=== PATIENT | male | born 1950 | race American Indian/Alaskan Native ===

== ENCOUNTER 2017-02-13 14:03 | Outpatient (CLI) | payer MEDICARE ==
[2017-02-13 14:39] LABS: BUN/Creatinine Ratio 9.37; Calcium 9.5 mg/dL (8.4-10.2); Chloride 102.3 mmol/L (98-107); Potassium 5.2 mmol/L (3.6-5.0)
== END 2017-02-13 14:04 | disposition home or self-care (01) ==
LOC: LAB 14:03
PROVIDERS: ATTEND Internal Medicine Nephrology
DX: I13.0 Hypertensive heart and chronic kidney disease with heart failure and stage 1 through stage 4 chronic kidney disease, or unspecified chronic kidney disease (principal); I50.9 Heart failure, unspecified; N18.3 Chronic kidney disease, stage 3 (moderate); Z79.899 Other long term (current) drug therapy
CPT/HCPCS: 36415; 80048

== ENCOUNTER 2017-05-31 09:47 | Emergency (ER) | payer MEDICARE ==
[2017-05-31 10:01] VITALS: BP 135/90
== END 2017-05-31 09:58 | disposition left against medical advice (07) ==
LOC: ED 09:47
DX: M79.651 Pain in right thigh (principal); Z53.21 Procedure and treatment not carried out due to patient leaving prior to being seen by health care provider

== ENCOUNTER 2017-06-02 08:39 | Emergency (ER) | payer MEDICARE ==
[2017-06-02 08:54] VITALS: BP 127/90
[2017-06-02] MEDS: MOTRIN PO ONE (10:29)
--- NOTE | 2017-06-02 11:03 | Emergency Department Report ---
ED Lower Extremity HPI - General Chief Complaint: Extremity Injury, Lower Stated Complaint: RT THIGH PAIN Time Seen by Provider: 06/02/17 10:07 Source: patient Mode of arrival: Ambulatory Limitations: No Limitations - History of Present Illness Initial Comments: This is a 66-year-old male nontoxic, well nourished in appearance, no acute signs of distress presents to the ED complaining of chronic intermittent right thigh pain. They stated the past week his pain is getting worse. Patient denies any trauma to the region. Denies any numbness, tingling, fever, chills, joint redness, joint swelling, nausea, vomiting, chest pain, shortness of breath , stiff neck or headache, or blurred vision. Patient describes pain as aching and cramping with level of 8 out of 10. Patient denies any allergies. Past medical history includes hypertension, diabetes and congestive heart failure. MD Complaint: thigh injury -: Gradual, year(s) Severity: mild Severity scale (0 -10): 8 Improves With: nothing Worsens With: nothing Associated Symptoms: ambulatory. denies: snap/pop sensation, swelling, numbness , tingling, unable to bear weight, able to partially bear weight - Related Data Home Medications Medication Instructions Recorded Confirmed Last Taken Carvedilol [Coreg] 3.125 mg PO BID 06/03/13 09/25/13 09/25/13 Furosemide [Lasix] 40 mg PO DAILY 06/03/13 09/25/13 09/25/13 Lisinopril [Zestril] 20 mg PO BID 06/03/13 09/25/13 09/25/13 Metformin HCl [Metformin HCl ER] 500 mg PO QDAY 06/03/13 09/25/13 09/25/13 Potassium Chloride [K-Dur] 10 meq PO QDAY 06/03/13 09/25/13 09/25/13 Pravastatin Sodium [Pravastatin] 10 mg PO DAILY 06/03/13 09/25/13 09/25/13 Tamsulosin [Flomax] 0.4 mg PO QDAY 06/03/13 09/25/13 09/25/13 Previous Rx's Medication Instructions Recorded Last Taken Type oxyCODONE /ACETAMINOPHEN [Percocet 1 tab PO Q6HR PRN #20 tablet 06/03/13 Rx 5/325 mg] Famotidine [Pepcid] 20 mg PO DAILY #30 tablet 09/25/13 Unknown Rx Gabapentin [Neurontin] 300 mg PO BID #60 capsule 09/25/13 Unknown Rx Sulfamethoxazole/Trimethoprim 1 each PO BID #20 tablet 11/07/14 Unknown Rx [Bactrim Ds] traMADol [Ultram] 50 mg PO Q6HR PRN #20 tablet 11/07/14 Unknown Rx Acetaminophen/Codeine [Tylenol #3] 1 tab PO Q6H PRN #15 tab 11/11/14 Unknown Rx Ibuprofen [Motrin 600 MG tab] 600 mg PO Q8H PRN #30 tablet 06/02/17 Unknown Rx Allergies Allergy/AdvReac Type Severity Reaction Status Date / Time No Known Allergies Allergy Verified 09/25/13 08:11 ED Review of Systems ROS: Stated complaint: RT THIGH PAIN Other details as noted in HPI Constitutional: denies: chills, fever Eyes: denies: eye pain, eye discharge, vision change ENT: denies: ear pain, throat pain Respiratory: denies: cough, shortness of breath, wheezing Cardiovascular: denies: chest pain, palpitations Endocrine: no symptoms reported Gastrointestinal: denies: abdominal pain, nausea, diarrhea Genitourinary: denies: urgency, dysuria Musculoskeletal: denies: back pain, joint swelling, arthralgia Skin: denies: rash, lesions Neurological: denies: headache, weakness, paresthesias Psychiatric: denies: anxiety, depression Hematological/Lymphatic: denies: easy bleeding, easy bruising ED Past Medical Hx - Past Medical History Hx Hypertension: Yes Hx Congestive Heart Failure: Yes Hx Diabetes: Yes Additional medical history: HX of TB - Surgical History Additional Surgical History: R lung surgery - Social History Smoking Status: Never Smoker Substance Use Type: Alcohol - Medications Home Medications: Home Medications Medication Instructions Recorded Confirmed Last Taken Type Carvedilol [Coreg] 3.125 mg PO BID 06/03/13 09/25/13 09/25/13 History Furosemide [Lasix] 40 mg PO DAILY 06/03/13 09/25/13 09/25/13 History Lisinopril [Zestril] 20 mg PO BID 06/03/13 09/25/13 09/25/13 History Metformin HCl [Metformin HCl ER] 500 mg PO QDAY 06/03/13 09/25/13 09/25/13 History Potassium Chloride [K-Dur] 10 meq PO QDAY 06/03/13 09/25/13 09/25/13 History Pravastatin Sodium [Pravastatin] 10 mg PO DAILY 06/03/13 09/25/13 09/25/13 History Tamsulosin [Flomax] 0.4 mg PO QDAY 06/03/13 09/25/13 09/25/13 History oxyCODONE /ACETAMINOPHEN [Percocet 1 tab PO Q6HR PRN #20 tablet 06/03/1309/25/13 Rx 5/325 mg] Famotidine [Pepcid] 20 mg PO DAILY #30 tablet 09/25/13 Unknown Rx Gabapentin [Neurontin] 300 mg PO BID #60 capsule 09/25/13 Unknown Rx Sulfamethoxazole/Trimethoprim 1 each PO BID #20 tablet 11/07/14 Unknown Rx [Bactrim Ds] traMADol [Ultram] 50 mg PO Q6HR PRN #20 tablet 11/07/14 Unknown Rx Acetaminophen/Codeine [Tylenol #3] 1 tab PO Q6H PRN #15 tab 11/11/14 Unknown Rx Ibuprofen [Motrin 600 MG tab] 600 mg PO Q8H PRN #30 tablet 06/02/17 Unknown Rx ED Physical Exam - General Limitations: No Limitations General appearance: alert, in no apparent distress - Head Head exam: Present: atraumatic, normocephalic, normal inspection - Eye Eye exam: Present: normal appearance, PERRL, EOMI. Absent: scleral icterus, conjunctival injection, nystagmus, periorbital swelling, periorbital tenderness Pupils: Present: normal accommodation - ENT ENT exam: Present: normal exam, normal orophraynx, mucous membranes moist, TM's normal bilaterally, normal external ear exam - Neck Neck exam: Present: normal inspection, full ROM. Absent: tenderness, meningismus, lymphadenopathy, thyromegaly - Respiratory Respiratory exam: Present: normal lung sounds bilaterally. Absent: respiratory distress, wheezes, rales, rhonchi, stridor, chest wall tenderness, accessory muscle use, decreased breath sounds, prolonged expiratory - Cardiovascular Cardiovascular Exam: Present: regular rate, normal rhythm, normal heart sounds. Absent: bradycardia, tachycardia, irregular rhythm, systolic murmur, diastolic murmur, rubs, gallop - GI/Abdominal GI/Abdominal exam: Present: soft, normal bowel sounds. Absent: distended, tenderness, guarding, rebound, rigid, diminished bowel sounds - Rectal Rectal exam: Present: deferred - Extremities Exam Extremities exam: Present: normal inspection, full ROM, tenderness, normal capillary refill. Absent: pedal edema, joint swelling, calf tenderness - Expanded Lower Extremity Exam Right Hip exam: Present: normal inspection, full ROM, external rotation, internal rotation, pelvic stability. Absent: tenderness, swelling, abrasion, laceration , ecchymosis, deformity, crepidus, dislocation, erythema, shortening Upper Leg exam: Present: normal inspection, full ROM, tenderness (anterior and lateral thigh region upon palpation). Absent: swelling, abrasion, laceration, ecchymosis, deformity, crepidus, dislocation, erythema Knee exam: Present: normal inspection, full ROM, full knee extension. Absent: tenderness, swelling, abrasion, laceration, ecchymosis, deformity, crepidus, dislocation, erythema, effusion, pain w/ pronation/supination, posterior draw sign, pain/laxity with valgus, pain/laxity with varus Lower Leg exam: Present: normal inspection, full ROM. Absent: tenderness, swelling, abrasion, laceration, ecchymosis, deformity, crepidus, dislocation, erythema, palpable cord, Aimee's sign Ankle exam: Present: normal inspection, full ROM. Absent: tenderness, swelling , abrasion, laceration, ecchymosis, deformity, crepidus, dislocation, erythema, anterior draw sign Foot/Toe exam: Present: normal inspection, full ROM. Absent: tenderness, swelling, abrasion, laceration, ecchymosis, deformity, crepidus, dislocation, erythema, puncture wound, foreign body, calcaneal tenderness, tenderness at base of 5th metatarsal, nail avulsion, subungual hematoma Neuro vascular tendon exam: Present: no vascular compromise. Absent: pulse deficit, abnormal cap refill, motor deficit, sensory deficit, tendon deficit, extremity cold to touch, pallor, abnormal 2-point discrimination, decreased fine /light touch, foot drop, peroneal nerve deficit, significant pain with passive ROM of distal joint Gait: Positive: observed and normal 1 - tenderness - Back Exam Back exam: Present: normal inspection, full ROM. Absent: tenderness, CVA tenderness (R), CVA tenderness (L), muscle spasm, paraspinal tenderness, vertebral tenderness, rash noted - Neurological Exam Neurological exam: Present: alert, oriented X3, CN II-XII intact, normal gait, reflexes normal - Psychiatric Psychiatric exam: Present: normal affect, normal mood - Skin Skin exam: Present: warm, dry, intact, normal color. Absent: rash ED Course Vital Signs 06/02/17 08:50 Temperature 97.6 F Pulse Rate 70 Respiratory 16 Rate Blood Pressure 127/90 O2 Sat by Pulse 100 Oximetry - Reevaluation(s) Reevaluation #1: 06/02/17 11:06 Patient is speaking in full sentences with no signs of distress noted. - Consultations Consultation #1: 06/02/17 11:39 Dr. Bell was consulted about patient history, physcial exam, and lab findings and agrees to the plan of care in the ED w/ d/c f/u. ED Lower Extremity MDM - Lab Data Result diagrams: 06/02/17 10:43 06/02/17 14:14 - Radiology Data Radiology results: report reviewed interpreted by me: Dictated by radiologist Normal examination - Medical Decision Making 66-year-old male that presents with right muscular cramp to the thigh. CBC and BMP has been obtained with elevated potassium of 5.9. X-ray has been obtained and dictated a radiologist with negative findings of any abnormalities, fractures or dislocation. Patient received 15 units of NovoLog and Kionex [address] Bell to decreased K+. EKG has been obtained with normal EKG for patient. Patient was notified to increased hydration. K+ within normal limits before d/c at 4.5. Patient was notified of laboratory findings with no further questions nor by the patient. Patient stated he finished taking his potassium medication about 4 months ago. I instructed the importance to follow up with a primary care doctor in 24 hours for elevated potassium or if symptoms worsen and continue to emergency room as soon as possible. Patient received ibuprofen 600 mg by mouth in the ED. Patient is hemodynamically stable with stable vital signs. Patient states he is feeling better. At time time of discharge, the patient does not seem toxic or ill in appearance. No acute signs of distress noted. Patient agrees to discharge treatment plan of care. No further questions noted by the patient. Critical care attestation.: If time is entered above; I have spent that time in minutes in the direct care of this critically ill patient, excluding procedure time. ED Disposition Clinical Impression: Hyperkalemia Muscle strain of left thigh Qualifiers: Encounter type: initial encounter Qualified Code(s): S76.912A - Strain of unspecified muscles, fascia and tendons at thigh level, left thigh, initial encounter Disposition: TO HOME OR SELFCARE Is pt being admited?: No Does the pt Need Aspirin: No Condition: Stable Instructions: Ibuprofen (By mouth), Hyperkalemia (ED), Leg Cramps (ED) Additional Instructions: Follow-up with a primary care doctor in 24 hours or if symptoms worsen and continue return to emergency room as soon as possible possible. Prescriptions: Ibuprofen [Motrin 600 MG tab] 600 mg PO Q8H PRN #30 tablet PRN Reason: Pain Referrals: PRIMARY CAREMD [Primary Care Provider] - 3-5 Days IVETTE FARNSWORTH MD [Staff Physician] - 3-5 Days [facility] [Outside] - 3-5 Days [facility] [Outside] - 3-5 Days Forms: Work/School Release Form(ED)
[2017-06-02 11:12] LABS: Basophils % (Auto) 1.1 % (0.0-1.8); Eosinophils % (Auto) 2.4 % (0.0-4.3); Hemoglobin 13.9 gm/dl (11.8-15.2); Mean Corpuscular HGB Conc 32 % (32-34); Mean Corpuscular Hemoglobin 26 pg (28-32); Mean Corpuscular Volume 81 fl (84-94); Platelet Count 264 K/mm3 (140-440); Red Blood Count 5.34 M/mm3 (3.65-5.03); Red Cell Distribution Width 14.1 % (13.2-15.2); White Blood Count 7.3 K/mm3 (4.5-11.0)
[2017-06-02 11:14] LABS: Anion Gap 15 mmol/L; BUN/Creatinine Ratio 18; Blood Urea Nitrogen 23 mg/dL (9-20); Calcium 9.4 mg/dL (8.4-10.2); Carbon Dioxide 29 mmol/L (22-30); Chloride 99.2 mmol/L (98-107); Glucose 254 mg/dL (75-100); Potassium 5.9 mmol/L (3.6-5.0); Sodium 137 mmol/L (137-145)
--- NOTE | 2017-06-02 11:14 | XRay Report ---
RIGHT FEMUR RADIOGRAPHS INDICATION: Right femur pain. COMPARISON: None similar. FINDINGS: AP and lateral views demonstrate intact right femur as also imaged adjacent hip and knee articulations. Mild knee degenerative spurring. Brachytherapy seeds incidentally noted. Normal soft tissues. CONCLUSION: No acute right femur radiographic abnormality with few other findings, as above. Thank you for the opportunity to participate in this patient's care.
[2017-06-02] MEDS: KIONEX PO ONE (12:09)
[2017-06-02] MEDS: NOVOLOG SUB-Q ONE ×2 (13:07→13:08)
[2017-06-02 14:51] LABS: Anion Gap 18 mmol/L; BUN/Creatinine Ratio 18; Blood Urea Nitrogen 22 mg/dL (9-20); Carbon Dioxide 23 mmol/L (22-30); Glucose 213 mg/dL (75-100); Potassium 4.5 mmol/L (3.6-5.0); Sodium 137 mmol/L (137-145)
== END 2017-06-02 15:45 | disposition home or self-care (01) ==
LOC: ED 08:39
DX: S76.911A Strain of unspecified muscles, fascia and tendons at thigh level, right thigh, initial encounter (principal); E87.5 Hyperkalemia; E11.9 Type 2 diabetes mellitus without complications; I10 Essential (primary) hypertension; I50.9 Heart failure, unspecified; X58.XXXA Exposure to other specified factors, initial encounter; Y93.89 Activity, other specified; Y92.89 Other specified places as the place of occurrence of the external cause; Y99.8 Other external cause status
CPT/HCPCS: 36415; 80048; 82550; 82962; 83735; 85025; 93005; 93010; 96372; J1815

== ENCOUNTER 2018-03-01 07:50 | Emergency (ER) | payer MEDICARE ==
[2018-03-01 08:56] VITALS: BP 117/81
[2018-03-01 09:46] LABS: Bacteria,Urine 1+ /HPF (Negative); Bilirubin,Urine NEG (Negative); Blood,Urine NEG (Negative); Color,Urine Yellow (Yellow); Mucus,Urine FEW /HPF
--- NOTE | 2018-03-01 10:56 | Emergency Department Report ---
ED Male HPI - General Chief complaint: Urogenital-Male Stated complaint: RIGHT LEG PAIN Time Seen by Provider: 03/01/18 10:37 Source: patient Mode of arrival: Ambulatory Limitations: No Limitations - History of Present Illness Initial comments: Patient is a 67-year-old male who states for the last several weeks he has had pain it's penis. Patient was seen at outside clinic and was started on Augmentin. Patient has not completed all of these pills but states that he feels like the redness of the penis is getting worse. Patient has some urinary frequency but no dysuria. Patient is uncircumcised and the redness and swelling is at the glans of the penis. Patient also has some redness now developing in the medial right ankle. This area is tender states is a 6 out of 10 in severity and aching pain. Patient states he has some pain in the right groin as well. Patient denies any fevers chills nausea vomiting at this time. Patient's last blood sugar this morning was 180. - Related Data Home Medications Medication Instructions Recorded Confirmed Last Taken Carvedilol [Coreg] 3.125 mg PO BID 06/03/13 09/25/13 09/25/13 Furosemide [Lasix] 40 mg PO DAILY 06/03/13 09/25/13 09/25/13 Lisinopril [Zestril] 20 mg PO BID 06/03/13 09/25/13 09/25/13 Metformin HCl [Metformin HCl ER] 500 mg PO QDAY 06/03/13 09/25/13 09/25/13 Potassium Chloride [K-Dur] 10 meq PO QDAY 06/03/13 09/25/13 09/25/13 Pravastatin Sodium [Pravastatin] 10 mg PO DAILY 06/03/13 09/25/13 09/25/13 Tamsulosin [Flomax] 0.4 mg PO QDAY 06/03/13 09/25/13 09/25/13 Previous Rx's Medication Instructions Recorded Last Taken Type oxyCODONE /ACETAMINOPHEN [Percocet 1 tab PO Q6HR PRN #20 tablet 06/03/13 Rx 5/325 mg] Famotidine [Pepcid] 20 mg PO DAILY #30 tablet 09/25/13 Unknown Rx Gabapentin [Neurontin] 300 mg PO BID #60 capsule 09/25/13 Unknown Rx Sulfamethoxazole/Trimethoprim 1 each PO BID #20 tablet 11/07/14 Unknown Rx [Bactrim Ds] traMADol [Ultram] 50 mg PO Q6HR PRN #20 tablet 11/07/14 Unknown Rx Acetaminophen/Codeine [Tylenol #3] 1 tab PO Q6H PRN #15 tab 11/11/14 Unknown Rx Cyclobenzaprine HCl [Flexeril 5 MG 5 mg PO DAILY #5 tab 06/02/17 Unknown Rx TAB] Ibuprofen [Motrin 600 MG tab] 600 mg PO Q8H PRN #30 tablet 06/02/17 Unknown Rx Bacitracin/Pramoxine/Aloe Vera 1 applicatio TP TID #15 oint...g. 03/01/18 Unknown Rx [Bacitraycin Plus Ointment] Clindamycin [Clindamycin CAP] 300 mg PO Q8H 10 Days cap 03/01/18 Unknown Rx HYDROcodone/APAP 5-325 [[place] 1 each PO Q6HR PRN #15 tablet 03/01/18 Unknown Rx 5/325] Allergies Allergy/AdvReac Type Severity Reaction Status Date / Time No Known Allergies Allergy Verified 09/25/13 08:11 ED Review of Systems ROS: Stated complaint: RIGHT LEG PAIN Other details as noted in HPI Comment: All other systems reviewed and negative ED Past Medical Hx - Past Medical History Hx Hypertension: Yes Hx Congestive Heart Failure: Yes Hx Diabetes: Yes Additional medical history: HX of TB - Surgical History Additional Surgical History: R lung surgery - Social History Smoking Status: Never Smoker - Medications Home Medications: Home Medications Medication Instructions Recorded Confirmed Last Taken Type Carvedilol [Coreg] 3.125 mg PO BID 06/03/13 09/25/13 09/25/13 History Furosemide [Lasix] 40 mg PO DAILY 06/03/13 09/25/13 09/25/13 History Lisinopril [Zestril] 20 mg PO BID 06/03/13 09/25/13 09/25/13 History Metformin HCl [Metformin HCl ER] 500 mg PO QDAY 06/03/13 09/25/13 09/25/13 History Potassium Chloride [K-Dur] 10 meq PO QDAY 06/03/13 09/25/13 09/25/13 History Pravastatin Sodium [Pravastatin] 10 mg PO DAILY 06/03/13 09/25/13 09/25/13 History Tamsulosin [Flomax] 0.4 mg PO QDAY 06/03/13 09/25/13 09/25/13 History oxyCODONE /ACETAMINOPHEN [Percocet 1 tab PO Q6HR PRN #20 tablet 06/03/1309/25/13 Rx 5/325 mg] Famotidine [Pepcid] 20 mg PO DAILY #30 tablet 09/25/13 Unknown Rx Gabapentin [Neurontin] 300 mg PO BID #60 capsule 09/25/13 Unknown Rx Sulfamethoxazole/Trimethoprim 1 each PO BID #20 tablet 11/07/14 Unknown Rx [Bactrim Ds] traMADol [Ultram] 50 mg PO Q6HR PRN #20 tablet 11/07/14 Unknown Rx Acetaminophen/Codeine [Tylenol #3] 1 tab PO Q6H PRN #15 tab 11/11/14 Unknown Rx Cyclobenzaprine HCl [Flexeril 5 MG 5 mg PO DAILY #5 tab 06/02/17 Unknown Rx TAB] Ibuprofen [Motrin 600 MG tab] 600 mg PO Q8H PRN #30 tablet 06/02/17 Unknown Rx Bacitracin/Pramoxine/Aloe Vera 1 applicatio TP TID #15 oint...g. 03/01/18 Unknown Rx [Bacitraycin Plus Ointment] Clindamycin [Clindamycin CAP] 300 mg PO Q8H 10 Days cap 03/01/18 Unknown Rx HYDROcodone/APAP 5-325 [[place] 1 each PO Q6HR PRN #15 tablet 03/01/18 Unknown Rx 5/325] ED Physical Exam - General Limitations: No Limitations General appearance: alert, in no apparent distress - Head Head exam: Present: atraumatic, normocephalic - Eye Eye exam: Present: normal appearance - ENT ENT exam: Present: mucous membranes moist - Neck Neck exam: Present: normal inspection - Respiratory Respiratory exam: Present: normal lung sounds bilaterally. Absent: respiratory distress - Cardiovascular Cardiovascular Exam: Present: regular rate, normal rhythm. Absent: systolic murmur, diastolic murmur, rubs, gallop - GI/Abdominal GI/Abdominal exam: Present: soft, normal bowel sounds - Rectal Rectal exam: Present: deferred - exam: Absent: normal inspection, testicular tenderness, urethral discharge, scrotal swelling External exam: Present: erythema (patient has some erythema to the glans penis. There are also some plaque like lesions on the glans.) - Extremities Exam Extremities exam: Present: normal inspection - Back Exam Back exam: Present: normal inspection - Neurological Exam Neurological exam: Present: alert, oriented X3 - Psychiatric Psychiatric exam: Present: normal affect, normal mood - Skin Skin exam: Present: warm, dry, intact, normal color, other (patient has an area of induration or erythema to the medial right ankle. Patient also has some lymphadenopathy in the right inguinal area.). Absent: rash ED Course Vital Signs 03/01/18 08:50 Temperature 98.2 F Pulse Rate 76 Respiratory 16 Rate Blood Pressure 117/81 O2 Sat by Pulse 100 Oximetry ED Medical Decision Making - Lab Data Lab Results 03/01/18 Range/Units 09:14 Urine Color Yellow (Yellow) Urine Turbidity Clear (Clear) Urine pH 5.0 (5.0-7.0) Ur Specific [place] 1.021 (1.003-1.030) Urine Protein 100 mg/dl (Negative) mg/dL Urine Glucose (UA) >=500 (Negative) mg/dL Urine Ketones Neg (Negative) mg/dL Urine Blood Neg (Negative) Urine Nitrite Neg (Negative) Urine Bilirubin Neg (Negative) Urine Urobilinogen 4.0 (<2.0) mg/dL Ur Leukocyte Esterase Neg (Negative) Urine WBC (Auto) 1.0 (0.0-6.0) /HPF Urine RBC (Auto) 5.0 (0.0-6.0) /HPF Urine Bacteria (Auto) 1+ (Negative) /HPF Urine Mucus Few /HPF - Medical Decision Making Clinically the patient has a balanitis and possible cellulitis to the penis. This does seem to exclude the scrotum. Patient has some lymph node swelling that is reactive. It is concerning that the patient does have some plaque like lesions on the glans of his penis and urology follow-up be given as well to ensure that there is no evidence of any skin carcinoma. Patient possibly with a cross-contamination does have a small area of cellulitis to the right medial ankle as well. Patient's been taking Augmentin for these symptoms which are getting worse. Patient will have his antibiotic was changed to clindamycin patient will be referred to urology for follow-up. Patient given pain meds as well. Patient will be discharged home Critical care attestation.: If time is entered above; I have spent that time in minutes in the direct care of this critically ill patient, excluding procedure time. ED Disposition Clinical Impression: Cellulitis, Balanitis Disposition: TO HOME OR SELFCARE Is pt being admited?: No Does the pt Need Aspirin: No Condition: Stable Instructions: Balanitis (ED), Cellulitis (ED) Additional Instructions: Please follow up with urology, you do have a plaque-like lesion on your penis that is very concerning. This will potentially need biopsy. There is also an infection please take all the antibiotics have been prescribed. Referrals: PRIMARY CARE, [Primary Care Provider] - 3-5 Days
== END 2018-03-01 11:11 | disposition home or self-care (01) ==
LOC: ED 07:50
DX: N48.1 Balanitis (principal); L03.115 Cellulitis of right lower limb; I11.0 Hypertensive heart disease with heart failure; I50.9 Heart failure, unspecified; E11.9 Type 2 diabetes mellitus without complications
CPT/HCPCS: 81001; 87086; 87591; 99283

== ENCOUNTER 2018-03-09 10:42 | Observation (INO) | payer MEDICARE ==
[2018-03-09] MEDS ORDERED: ZOFRAN IV PRN (12:40)
[2018-03-09] MEDS ORDERED: SODIUM CHLORIDE FLUSH SYRINGE 10 ML IV PRN (12:40)
--- NOTE | 2018-03-09 12:56 | Progress Note ---
Assessment and Plan severe penile and groin pain stat ct npo past midnight Subjective Date of service: 03/09/18 Principal diagnosis: poss penile cancer severe pain Objective - Constitutional General appearance: Present: severe distress - Respiratory Respiratory effort: normal Extremities: no ischemia - Gastrointestinal General gastrointestinal: Present: tender - Genitourinary Male genitourinary: tender
[2018-03-09] MEDS ORDERED: D5NS 1,000 ML IV SCH (13:00)
--- NOTE | 2018-03-09 14:50 | Consultation ---
HISTORY OF PRESENT ILLNESS: This is a gentleman who came in the office last week with severe pain, which has progressed over the weekend. He is admitted for pelvic pain, groin pain, penile pain. He has a lesion on the penis. He also has adenopathy in the groin. He is admitted for pain control, labs. We will check his calcium, CT scan. All risks and options were discussed. Informed consent was obtained today. We will have a procedure tomorrow at least a biopsy this area. PAST MEDICAL HISTORY: History of ?prostate cancer, hypertension, and diabetes. MEDICATIONS: He has been on Flomax, pain medication, carvedilol, clonidine, Lasix, Neurontin, insulin. ALLERGIES: Negative. FAMILY HISTORY: Noncontributory. SOCIAL HISTORY: Negative. REVIEW OF SYSTEMS: As mentioned above, severe pain. On exam, he can barely walk. He is in pain. He looks distraught. Abdomen is soft, but he has this groin pain and penile ulcer. IMPRESSION: Rule out penile cancer, stat CT scan. Admit for pain control needs and biopsies. Once his labs are back, we can do this today or tomorrow. JOB# [id number] ANSELMO/RUBY
[2018-03-09] MEDS: NACL 0.9% 1000 ML 1,000 ML IV SCH (15:18)
[2018-03-09] MEDS: MORPHINE IV PRN ×2 (15:22→20:37)
[2018-03-09 16:12] LABS: Basophils # (Auto) 0.1 K/mm3 (0.0-0.1); Eosinophils # (Auto) 0.2 K/mm3 (0.0-0.4); Hemoglobin 13.2 gm/dl (11.8-15.2); Lymphocytes # (Auto) 1.7 K/mm3 (1.2-5.4); Lymphocytes % (Auto) 17.3 % (13.4-35.0); Mean Corpuscular HGB Conc 34 % (32-34); Mean Corpuscular Hemoglobin 27 pg (28-32); Mean Corpuscular Volume 79 fl (84-94); Monocytes # (Auto) 0.6 K/mm3 (0.0-0.8); Monocytes % (Auto) 6.4 % (0.0-7.3); Platelet Count 405 K/mm3 (140-440); Red Blood Count 4.94 M/mm3 (3.65-5.03); Red Cell Distribution Width 13.1 % (13.2-15.2)
[2018-03-09 16:21] LABS: INR 1.05 (0.87-1.13)
[2018-03-09 16:22] LABS: Partial Thromboplastin Time 32.5 Sec. (24.2-36.6)
[2018-03-09 16:37] LABS: Albumin 3.1 g/dL (3.9-5); BUN/Creatinine Ratio 17; Blood Urea Nitrogen 19 mg/dL (9-20); Calcium 9.3 mg/dL (8.4-10.2); Hemolysis Index 13
[2018-03-09 16:40] LABS: Alanine Aminotransferase < 5 units/L (7-56)
[2018-03-09 18:26] LABS: Bilirubin,Urine NEG (Negative); Blood,Urine NEG (Negative); Color,Urine Yellow (Yellow); Hyaline Casts,Urine 6 /LPF; Mucus,Urine FEW /HPF; RBC,Urine < 1.0 /HPF (0.0-6.0); Sperm,Urine 1+ /HPF (NP); WBC,Urine < 1.0 /HPF (0.0-6.0)
[2018-03-09] MEDS ORDERED: SODIUM CHLORIDE FLUSH SYRINGE 10 ML IV SCH (22:00)
--- NOTE | 2018-03-09 23:21 | XRay Report ---
FINAL REPORT PROCEDURE: XR CHEST ROUTINE 2V TECHNIQUE: PA and lateral chest radiographs were obtained. CPT 95887 HISTORY: PREOP COMPARISON: No prior studies are available for comparison. FINDINGS: Heart: Normal. Mediastinum/Vessels: Normal. Lungs/Pleural space: Lungs are expanded there are mild fibrotic changes in the right lung. There are no infiltrates, effusions or pneumothoraces.. Bony thorax: No acute osseous abnormality. Other: IMPRESSION: There is no acute cardiopulmonary abnormality..
--- NOTE | 2018-03-10 00:04 | History and Physical Report ---
History of Present Illness Date of examination: 03/09/18 Date of admission: 03/09/18 12:39 Chief complaint: Chief complaint: Penile ulcer which may be cancerous- 1 month duration History of present illness: History of present illness: 57-year-old black male with history of prostate cancer which was treated hypertension gases available disease hyperlipidemia and type 2 diabetes sent in from Dr[address] VERA office for chronic penile ulcer of 1 month duration associated with right inguinal adenopathy. Patient sent for possible biopsy and workup for penile cancer staging. Patient has a history of prostate cancer which was treated with radiation therapy a few years ago. No shortness of breath No chest pain Past medical history: Hypertension BPH HLD GERD PN Chronic pain Past surgical history Radiation implants and prostate Family history Hypertension Social history former smoker Review of systems Chronic ulcer on the penis with right inguinal adenopathy No shortness of breath No weight loss No loss of appetite Otherwise 14 point review of systems negative Medications and Allergies Allergies Allergy/AdvReac Type Severity Reaction Status Date / Time No Known Allergies Allergy Verified 09/25/13 08:11 Home Medications Medication Instructions Recorded Confirmed Last Taken Type Carvedilol [Coreg] 3.125 mg PO BID 06/03/13 09/25/13 09/25/13 History Furosemide [Lasix] 40 mg PO DAILY 06/03/13 09/25/13 09/25/13 History Lisinopril [Zestril] 20 mg PO BID 06/03/13 09/25/13 09/25/13 History Metformin HCl [Metformin HCl ER] 500 mg PO QDAY 06/03/13 09/25/13 09/25/13 History Potassium Chloride [K-Dur] 10 meq PO QDAY 06/03/13 09/25/13 09/25/13 History Pravastatin Sodium [Pravastatin] 10 mg PO DAILY 06/03/13 09/25/13 09/25/13 History Tamsulosin [Flomax] 0.4 mg PO QDAY 06/03/13 09/25/13 09/25/13 History oxyCODONE /ACETAMINOPHEN [Percocet 1 tab PO Q6HR PRN #20 tablet 06/03/1309/25/13 Rx 5/325 mg] Famotidine [Pepcid] 20 mg PO DAILY #30 tablet 09/25/13 Unknown Rx Gabapentin [Neurontin] 300 mg PO BID #60 capsule 09/25/13 Unknown Rx Sulfamethoxazole/Trimethoprim 1 each PO BID #20 tablet 11/07/14 Unknown Rx [Bactrim Ds] traMADol [Ultram] 50 mg PO Q6HR PRN #20 tablet 11/07/14 Unknown Rx Acetaminophen/Codeine [Tylenol #3] 1 tab PO Q6H PRN #15 tab 11/11/14 Unknown Rx Cyclobenzaprine HCl [Flexeril 5 MG 5 mg PO DAILY #5 tab 06/02/17 Unknown Rx TAB] Ibuprofen [Motrin 600 MG tab] 600 mg PO Q8H PRN #30 tablet 06/02/17 Unknown Rx Bacitracin/Pramoxine/Aloe Vera 1 applicatio TP TID #15 oint...g. 03/01/18 Unknown Rx [Bacitraycin Plus Ointment] Clindamycin [Clindamycin CAP] 300 mg PO Q8H 10 Days cap 03/01/18 Unknown Rx HYDROcodone/APAP 5-325 [[place] 1 each PO Q6HR PRN #15 tablet 03/01/18 Unknown Rx 5/325] Carvedilol 25 mg PO BID 03/09/18 03/09/18 Unknown History Clonidine 0.3 mg PO BID 03/09/18 03/09/18 Unknown History Furosemide 40 mg PO DAILY 03/09/18 03/09/18 Unknown History Gabapentin 600 mg PO TID 03/09/18 03/09/18 Unknown History oxyCODONE 5 mg PO PRN PRN 03/09/18 03/09/18 Unknown History Active Meds: Active Medications Sodium Chloride (Nacl 0.9% 1000 Ml) 1,000 mls @ 75 mls/hr IV DIRECT BRIDGETT Last Admin: 03/09/18 15:18 Dose: 75 mls/hr Morphine Sulfate (Morphine) 4 mg IV Q4H PRN PRN Reason: Pain, Moderate (4-6) Last Admin: 03/09/18 20:37 Dose: 4 mg Ondansetron HCl (Zofran) 4 mg IV Q8H PRN PRN Reason: Nausea And Vomiting Sodium Chloride (Sodium Chloride Flush Syringe 10 Ml) 10 ml IV BID BRIDGETT Sodium Chloride (Sodium Chloride Flush Syringe 10 Ml) 10 ml IV PRN PRN PRN Reason: LINE FLUSH Last Admin: 03/09/18 15:24 Dose: 10 ml Exam - Constitutional Vitals: Temp Pulse Resp BP Pulse Ox 99.4 F 85 18 179/106 100 03/09/18 20:43 03/09/18 20:43 03/09/18 20:43 03/09/18 20:43 03/09/18 20:43 General appearance: Present: no acute distress, well-nourished - EENT Eyes: Present: PERRL ENT: hearing intact, clear oral mucosa - Neck Neck: Present: supple, normal ROM - Respiratory Respiratory effort: normal Respiratory: bilateral: CTA - Cardiovascular Heart rate: 76 Rhythm: regular Heart Sounds: Present: S1 & S2. Absent: rub, click - Extremities Extremities: no ischemia, pulses intact, pulses symmetrical, No edema Peripheral Pulses: within normal limits - Abdominal General gastrointestinal: Present: soft, non-tender, non-distended, normal bowel sounds Male genitourinary: Present: penile edema (penile ulcer 1 cm 1 cm. Hyperpigmented and indurated.), right inguinal lymphadenopathy - Rectal Rectal Exam: deferred - Integumentary Integumentary: Present: clear, warm, dry - Musculoskeletal Musculoskeletal: gait normal, strength equal bilaterally - Psychiatric Psychiatric: appropriate mood/affect, intact judgment & insight - Neurologic Neurologic: CNII-XII intact, moves all extremities Results - Labs CBC & Chem 7: 03/09/18 15:56 03/09/18 15:56 Labs: Laboratory Last Values WBC 9.9 K/mm3 (4.5-11.0) 03/09/18 15:56 RBC 4.94 M/mm3 (3.65-5.03) 03/09/18 15:56 Hgb 13.2 gm/dl (11.8-15.2) 03/09/18 15:56 Hct 39.0 % (35.5-45.6) 03/09/18 15:56 MCV 79 fl (84-94) L 03/09/18 15:56 MCH 27 pg (28-32) L 03/09/18 15:56 MCHC 34 % (32-34) 03/09/18 15:56 RDW 13.1 % (13.2-15.2) L 03/09/18 15:56 Plt Count 405 K/mm3 (140-440) 03/09/18 15:56 Lymph % (Auto) 17.3 % (13.4-35.0) 03/09/18 15:56 [place] % (Auto) 6.4 % (0.0-7.3) 03/09/18 15:56 Eos % (Auto) 2.0 % (0.0-4.3) 03/09/18 15:56 Baso % (Auto) 1.0 % (0.0-1.8) 03/09/18 15:56 Lymph # 1.7 K/mm3 (1.2-5.4) 03/09/18 15:56 [place] # 0.6 K/mm3 (0.0-0.8) 03/09/18 15:56 Eos # 0.2 K/mm3 (0.0-0.4) 03/09/18 15:56 Baso # 0.1 K/mm3 (0.0-0.1) 03/09/18 15:56 Seg Neutrophils % 73.3 % (40.0-70.0) H 03/09/18 15:56 Seg Neutrophils # 7.2 K/mm3 (1.8-7.7) 03/09/18 15:56 PT 14.3 Sec. (12.2-14.9) 03/09/18 15:56 INR 1.05 (0.87-1.13) 03/09/18 15:56 APTT 32.5 Sec. (24.2-36.6) 03/09/18 15:56 Sodium 131 mmol/L (137-145) L 03/09/18 15:56 Potassium 4.6 mmol/L (3.6-5.0) 03/09/18 15:56 Chloride 94.9 mmol/L (98-107) L 03/09/18 15:56 Carbon Dioxide 21 mmol/L (22-30) L 03/09/18 15:56 Anion Gap 20 mmol/L 03/09/18 15:56 BUN 19 mg/dL (9-20) 03/09/18 15:56 Creatinine 1.1 mg/dL (0.8-1.5) 03/09/18 15:56 Estimated GFR > 60 ml/min 03/09/18 15:56 BUN/Creatinine Ratio 17 % 03/09/18 15:56 Glucose 194 mg/dL (75-100) H 03/09/18 15:56 POC Glucose 196 (70-105) H 03/09/18 16:33 Calcium 9.3 mg/dL (8.4-10.2) 03/09/18 15:56 Total Bilirubin 0.40 mg/dL (0.1-1.2) 03/09/18 15:56 AST 9 units/L (5-40) 03/09/18 15:56 ALT < 5 units/L (7-56) L 03/09/18 15:56 Alkaline Phosphatase 85 units/L (35-129) 03/09/18 15:56 Total Protein 8.3 g/dL (6.3-8.2) H 03/09/18 15:56 Albumin 3.1 g/dL (3.9-5) L 03/09/18 15:56 Albumin/Globulin Ratio 0.6 % 03/09/18 15:56 TSH 1.860 mlU/mL (0.270-4.200) 03/09/18 15:56 Urine Color Yellow (Yellow) 03/09/18 Unknown Urine Turbidity Clear (Clear) 03/09/18 Unknown Urine pH 5.0 (5.0-7.0) 03/09/18 Unknown Ur Specific [place] 1.016 (1.003-1.030) 03/09/18 Unknown Urine Protein 100 mg/dl mg/dL (Negative) 03/09/18 Unknown Urine Glucose (UA) 150 mg/dL (Negative) 03/09/18 Unknown Urine Ketones Neg mg/dL (Negative) 03/09/18 Unknown Urine Blood Neg (Negative) 03/09/18 Unknown Urine Nitrite Neg (Negative) 03/09/18 Unknown Urine Bilirubin Neg (Negative) 03/09/18 Unknown Urine Urobilinogen 2.0 mg/dL (<2.0) 03/09/18 Unknown Ur Leukocyte Esterase Neg (Negative) 03/09/18 Unknown Urine WBC (Auto) < 1.0 /HPF (0.0-6.0) 03/09/18 Unknown Urine RBC (Auto) < 1.0 /HPF (0.0-6.0) 03/09/18 Unknown Hyaline Casts 6 /LPF 03/09/18 Unknown Urine Mucus Few /HPF 03/09/18 Unknown Urine Sperm 1+ /HPF (SUSPECT ARTIST) 03/09/18 Unknown - Imaging and Cardiology EKG: report reviewed (sinus rhythm multiple ventricular premature complexes incomplete left bundle branch block) Chest x-ray: report reviewed (no acute findings) Assessment and Plan Advance Directives: Yes (full code) VTE prophylaxis?: Chemical Plan of care discussed with patient/family: Yes - Patient Problems (1) Penile cancer Current Visit: Yes Status: Acute Plan to address problem: High possibility For biopsy tomorrow Patient has inguinal lymphadenopathy Oncology consult if necessary (2) Hypertension Current Visit: Yes Status: Chronic Qualifiers: Hypertension type: essential hypertension Qualified Code(s): I10 - Essential (primary) hypertension Plan to address problem: continue antihypertensives (3) BPH (benign prostatic hyperplasia) Current Visit: Yes Status: Chronic Qualifiers: Lower urinary tract symptom presence: symptoms present Plan to address problem: Continue Flomax (4) T2DM (type 2 diabetes mellitus) Current Visit: Yes Status: Chronic Qualifiers: Diabetes mellitus prison insulin use: without long lines operator use Plan to address problem: Continue metformin and coverage Check hemoglobin A1c (5) Hyperlipidemia Current Visit: Yes Status: Chronic Qualifiers: Hyperlipidemia type: mixed hyperlipidemia Qualified Code(s): E78.2 - Mixed hyperlipidemia Plan to address problem: Continue statins (6) Peripheral neuropathy Current Visit: Yes Status: Chronic Qualifiers: Peripheral neuropathy type: polyneuropathy, unspecified Qualified Code(s): G62.9 - Polyneuropathy, unspecified Plan to address problem: continue gabapentin (7) DVT prophylaxis Current Visit: Yes Status: Acute Plan to address problem: Heparin 5000 every 12 GI prophylaxis with famotidine
[2018-03-10] MEDS ORDERED: TYLENOL #3 PO PRN (00:18)
[2018-03-10] MEDS ORDERED: TYLENOL PO PRN (00:21)
[2018-03-10] MEDS ORDERED: SODIUM CHLORIDE FLUSH SYRINGE 10 ML IV PRN (00:21)
[2018-03-10] MEDS ORDERED: ZOFRAN IV PRN (00:21)
[2018-03-10] MEDS ORDERED: AMBIEN PO PRN (00:21)
[2018-03-10] MEDS ORDERED: NON-FORMULARY (Clonidine 0.3 MG) PO SCH (00:30)
[2018-03-10] MEDS ORDERED: COREG PO SCH (00:30)
[2018-03-10] MEDS ORDERED: NON-FORMULARY (Carvedilol 25 MG) PO SCH (00:30)
[2018-03-10] MEDS: MORPHINE IV PRN ×2 (00:34→05:20)
[2018-03-10] MEDS: CATAPRES PO SCH ×3 (03:39→23:37)
[2018-03-10] MEDS: NEURONTIN PO SCH ×3 (03:41→23:35)
[2018-03-10] MEDS: ZESTRIL PO SCH ×3 (03:42→23:36)
[2018-03-10] MEDS: NACL 0.9% 1000 ML 1,000 ML IV SCH ×3 (03:55→14:38)
[2018-03-10 05:29] LABS: Basophils # (Auto) 0.1 K/mm3 (0.0-0.1); Basophils % (Auto) 0.9 % (0.0-1.8); Eosinophils # (Auto) 0.1 K/mm3 (0.0-0.4); Eosinophils % (Auto) 1.3 % (0.0-4.3); Hematocrit 38.5 % (35.5-45.6); Hemoglobin 12.7 gm/dl (11.8-15.2); Lymphocytes % (Auto) 19.8 % (13.4-35.0); Mean Corpuscular HGB Conc 33 % (32-34); Mean Corpuscular Hemoglobin 26 pg (28-32); Mean Corpuscular Volume 80 fl (84-94); Monocytes % (Auto) 9.5 % (0.0-7.3); Platelet Count 396 K/mm3 (140-440); Red Blood Count 4.81 M/mm3 (3.65-5.03); Red Cell Distribution Width 12.9 % (13.2-15.2)
[2018-03-10 05:51] LABS: Albumin 2.8 g/dL (3.9-5); BUN/Creatinine Ratio 16; Blood Urea Nitrogen 14 mg/dL (9-20); Calcium 9.1 mg/dL (8.4-10.2); Hemolysis Index 1
[2018-03-10 05:54] LABS: Alanine Aminotransferase < 5 units/L (7-56)
--- NOTE | 2018-03-10 08:15 | Progress Note ---
Assessment and Plan Assessment and plan: 57-year-old black male with history of prostate cancer which was treated about 18 years ago with radiation implants, Hypertension hyperlipidemia and type 2 diabetes sent in from Dr. VERA office for chronic penile ulcer of 1 month duration associated with right inguinal adenopathy. Patient sent for possible biopsy and workup for penile cancer staging. Patient reports that he was seen by infectious disease with Dr. Wen and also had an MRI which was reportedly negative [recommend available to me at this time] he reports significant groin pain penal pain rated 10 over 10 in intensity (1) severe penile ulceration and groin pain concerning for Penile cancer * Urology following. Plan for biopsy today. * We'll request records from ID specialist if not available to urologist. * patient has tender inguinal lymphadenopathy * Oncology consult if necessary based on findings on results. * Pain control and this time (2) Hypertension * continue antihypertensives * resume pre-hospitalization beta jeanmarie (3) BPH (benign prostatic hyperplasia) * Continue Flomax (4) T2DM (type 2 diabetes mellitus) * Continue metformin post surgery. * For now we will use Accu-Cheks and insulin sliding scale (5) Hyperlipidemia * Continue statins (6) Peripheral neuropathy * Continue gabapentin (7)Prostate CA by hx * Radiation implants and prostate (8) DVT prophylaxis * Heparin 5000 every 12 * GI prophylaxis with famotidine History Interval history: Patient seen and examined this morning remains in significant pain in the groin and penile area. Denies any chest pain nausea vomiting or diarrhea denies any fever. Hospitalist Physical - Physical exam Narrative exam: VITAL SIGNS: Reviewed. GENERAL: The patient appeared well nourished and normally developed. Some temporal wasting noted. Vital signs as documented. HEAD: No signs of head trauma. EYES: Pupils are equal. Extraocular motions intact. EARS: Hearing grossly intact. MOUTH: Oropharynx is normal. NECK: No adenopathy, no JVD. CHEST: Chest with clear breath sounds bilaterally. No wheezes, rales, or rhonchi. CARDIAC: Regular rate and rhythm. S1 and S2, without murmurs, gallops, or rubs. VASCULAR: No Edema. Peripheral pulses normal and equal in all extremities. ABDOMEN: Right groin adenopathy tender to touch. Soft, without detectable tenderness. No sign of distention. No rebound or guarding, and no masses palpated. Bowel Sounds normal. MUSCULOSKELETAL: Good range of motion of all major joints. Extremities without clubbing, cyanosis or edema. NEUROLOGIC EXAM: Alert and oriented x 3. No focal sensory or strength deficits. Speech normal. Follows commands. PSYCHIATRIC: Mood normal. SKIN: Penile ulceration of the tip of the penile area. - Constitutional Vitals: Temp Pulse Resp BP Pulse Ox 99.4 F 85 18 190/102 100 03/09/18 20:43 03/10/18 03:39 03/09/18 20:43 03/10/18 03:39 03/09/18 20:43 General appearance: Present: no acute distress, well-nourished Results - Labs CBC & Chem 7: 03/10/18 04:41 03/10/18 04:41 Labs: Laboratory Last Values WBC 10.2 K/mm3 (4.5-11.0) 03/10/18 04:41 RBC 4.81 M/mm3 (3.65-5.03) 03/10/18 04:41 Hgb 12.7 gm/dl (11.8-15.2) 03/10/18 04:41 Hct 38.5 % (35.5-45.6) 03/10/18 04:41 MCV 80 fl (84-94) L 03/10/18 04:41 MCH 26 pg (28-32) L 03/10/18 04:41 MCHC 33 % (32-34) 03/10/18 04:41 RDW 12.9 % (13.2-15.2) L 03/10/18 04:41 Plt Count 396 K/mm3 (140-440) 03/10/18 04:41 Lymph % (Auto) 19.8 % (13.4-35.0) 03/10/18 04:41 [place] % (Auto) 9.5 % (0.0-7.3) H 03/10/18 04:41 Eos % (Auto) 1.3 % (0.0-4.3) 03/10/18 04:41 Baso % (Auto) 0.9 % (0.0-1.8) 03/10/18 04:41 Lymph # 2.0 K/mm3 (1.2-5.4) 03/10/18 04:41 [place] # 1.0 K/mm3 (0.0-0.8) H 03/10/18 04:41 Eos # 0.1 K/mm3 (0.0-0.4) 03/10/18 04:41 Baso # 0.1 K/mm3 (0.0-0.1) 03/10/18 04:41 Seg Neutrophils % 68.5 % (40.0-70.0) 03/10/18 04:41 Seg Neutrophils # 7.0 K/mm3 (1.8-7.7) 03/10/18 04:41 PT 14.3 Sec. (12.2-14.9) 03/09/18 15:56 INR 1.05 (0.87-1.13) 03/09/18 15:56 APTT 32.5 Sec. (24.2-36.6) 03/09/18 15:56 Sodium 134 mmol/L (137-145) L 03/10/18 04:41 Potassium 4.8 mmol/L (3.6-5.0) 03/10/18 04:41 Chloride 98.2 mmol/L (98-107) 03/10/18 04:41 Carbon Dioxide 21 mmol/L (22-30) L 03/10/18 04:41 Anion Gap 20 mmol/L 03/10/18 04:41 BUN 14 mg/dL (9-20) 03/10/18 04:41 Creatinine 0.9 mg/dL (0.8-1.5) 03/10/18 04:41 Estimated GFR > 60 ml/min 03/10/18 04:41 BUN/Creatinine Ratio 16 % 03/10/18 04:41 Glucose 156 mg/dL (75-100) H 03/10/18 04:41 POC Glucose 196 (70-105) H 03/09/18 16:33 Calcium 9.1 mg/dL (8.4-10.2) 03/10/18 04:41 Total Bilirubin 0.50 mg/dL (0.1-1.2) 03/10/18 04:41 AST 8 units/L (5-40) 03/10/18 04:41 ALT < 5 units/L (7-56) L 03/10/18 04:41 Alkaline Phosphatase 80 units/L (35-129) 03/10/18 04:41 Total Protein 7.6 g/dL (6.3-8.2) 03/10/18 04:41 Albumin 2.8 g/dL (3.9-5) L 03/10/18 04:41 Albumin/Globulin Ratio 0.6 % 03/10/18 04:41 TSH 1.860 mlU/mL (0.270-4.200) 03/09/18 15:56 Urine Color Yellow (Yellow) 03/09/18 Unknown Urine Turbidity Clear (Clear) 03/09/18 Unknown Urine pH 5.0 (5.0-7.0) 03/09/18 Unknown Ur Specific [place] 1.016 (1.003-1.030) 03/09/18 Unknown Urine Protein 100 mg/dl mg/dL (Negative) 03/09/18 Unknown Urine Glucose (UA) 150 mg/dL (Negative) 03/09/18 Unknown Urine Ketones Neg mg/dL (Negative) 03/09/18 Unknown Urine Blood Neg (Negative) 03/09/18 Unknown Urine Nitrite Neg (Negative) 03/09/18 Unknown Urine Bilirubin Neg (Negative) 03/09/18 Unknown Urine Urobilinogen 2.0 mg/dL (<2.0) 03/09/18 Unknown Ur Leukocyte Esterase Neg (Negative) 03/09/18 Unknown Urine WBC (Auto) < 1.0 /HPF (0.0-6.0) 03/09/18 Unknown Urine RBC (Auto) < 1.0 /HPF (0.0-6.0) 03/09/18 Unknown Hyaline Casts 6 /LPF 03/09/18 Unknown Urine Mucus Few /HPF 03/09/18 Unknown Urine Sperm 1+ /HPF ([employer]ODU[employer]) 03/09/18 Unknown - Imaging and Cardiology Chest x-ray: image reviewed (unremarkable)
[2018-03-10] MEDS ORDERED: PERCOCET 5/325 PO PRN (08:16)
[2018-03-10] MEDS: HumaLOG SUB-Q SCH ×3 (08:20→17:50)
[2018-03-10] MEDS ORDERED: NON-FORMULARY (Pravastatin Sodium [Pravastatin] 10 MG) PO SCH (10:00)
[2018-03-10] MEDS ORDERED: K-DUR PO SCH (10:00)
[2018-03-10] MEDS ORDERED: NON-FORMULARY (Famotidine [Pepcid] 20 MG) PO SCH (10:00)
[2018-03-10] MEDS ORDERED: NON-FORMULARY (Cyclobenzaprine Hcl [Flexeril 5 Mg Tab] 5 MG) PO SCH (10:00)
[2018-03-10] MEDS ORDERED: NON-FORMULARY (Furosemide 40 MG) PO SCH (10:00)
[2018-03-10] MEDS: FLOMAX PO SCH (10:15)
[2018-03-10] MEDS: FLEXERIL PO SCH (10:15)
[2018-03-10] MEDS: LASIX PO SCH (10:16)
[2018-03-10] MEDS: PEPCID PO SCH (10:17)
[2018-03-10] MEDS: PRAVACHOL PO SCH (10:17)
[2018-03-10] MEDS ORDERED: SUBLIMAZE ONE (12:16)
[2018-03-10] MEDS ORDERED: DIPRIVAN 10 MG/ML IV ONE (12:17)
[2018-03-10] MEDS ORDERED: XYLOCAINE MPF 2% ONE (12:18)
--- NOTE | 2018-03-10 12:24 | Progress Note ---
Assessment and Plan ct just doen pt c/o ED as well no sig adenopathy bladder distended for bx and flex cysto Subjective Date of service: 03/10/18 Principal diagnosis: poss penile cancer severe pain Objective - Constitutional Vitals: Vital Signs - 12hr 03/10/18 03/10/18 03/10/18 03:39 08:00 10:55 Temperature 99 F 98.1 F Pulse Rate 85 74 71 Respiratory 18 16 Rate Blood Pressure 190/102 194/107 Blood Pressure 141/75 [Right] O2 Sat by Pulse 98 100 Oximetry 03/10/18 11:10 Temperature Pulse Rate Respiratory Rate Blood Pressure 190/110 Blood Pressure [Right] O2 Sat by Pulse Oximetry General appearance: Present: severe distress Extremities: no ischemia - Gastrointestinal General gastrointestinal: Present: non-tender - Labs CBC & Chem 7: 03/10/18 04:41 03/10/18 04:41 Labs: Abnormal lab results 03/09/18 03/09/18 03/09/18 Range/Units 15:56 15:56 16:33 MCV 79 L (84-94) fl MCH 27 L (28-32) pg RDW 13.1 L (13.2-15.2) % [place] % (Auto) (0.0-7.3) % [place] # (0.0-0.8) K/mm3 Seg Neutrophils % 73.3 H (40.0-70.0) % Sodium 131 L (137-145) mmol/L Chloride 94.9 L (98-107) mmol/L Carbon Dioxide 21 L (22-30) mmol/L Glucose 194 H (75-100) mg/dL POC Glucose 196 H (70-105) ALT < 5 L (7-56) units/L Total Protein 8.3 H (6.3-8.2) g/dL Albumin 3.1 L (3.9-5) g/dL 03/10/18 03/10/18 03/10/18 Range/Units 04:41 04:41 07:34 MCV 80 L (84-94) fl MCH 26 L (28-32) pg RDW 12.9 L (13.2-15.2) % [place] % (Auto) 9.5 H (0.0-7.3) % [place] # 1.0 H (0.0-0.8) K/mm3 Seg Neutrophils % (40.0-70.0) % Sodium 134 L (137-145) mmol/L Chloride (98-107) mmol/L Carbon Dioxide 21 L (22-30) mmol/L Glucose 156 H (75-100) mg/dL POC Glucose 161 H (70-105) ALT < 5 L (7-56) units/L Total Protein (6.3-8.2) g/dL Albumin 2.8 L (3.9-5) g/dL
[2018-03-10] MEDS ORDERED: XYLOCAINE 1% 20 mL ONE (12:34)
[2018-03-10] MEDS ORDERED: XYLOCAINE 1% 20 mL INFILTRATI ONE (12:35)
[2018-03-10] MEDS ORDERED: XYLOCAINE 2% UROJET ONE (12:36)
[2018-03-10] MEDS ORDERED: VERSED ONE (12:44)
--- NOTE | 2018-03-10 12:57 | Post Operative Note ---
Date of procedure: 03/10/18 Pre-op diagnosis: penile pain Post-op diagnosis: same Findings: hypertensive and severe pain Procedure: biopsy flex cysto Anesthesia: local Surgeon: JOSÉ ANTONIO VERA Pathology: list (penis) Specimen disposition: to lab Condition: stable Disposition: PACU
--- NOTE | 2018-03-10 13:51 | Operative Report ---
PREOPERATIVE DIAGNOSIS: Severe penile and groin pain. POSTOPERATIVE DIAGNOSES: Severe penile and groin pain. PROCEDURE: Superficial scraping and superficial penile biopsy. Flexible cystoscopy, insertion of catheter. SURGEON: Jose Cruz Delatorre M.D. ANESTHESIA: Local with minimal sedation. FINDINGS: This is a gentleman who presents with severe pain. He has an area of necrotic material in the glans of the penis. He is in agony. He is also possibly in retention on CT scan. No big nodes were noted. He now presents for biopsy and flexible cystoscopy. DESCRIPTION OF PROCEDURE: The patient brought to the cystoscopy suite and placed on the table. His blood pressure was very high after 50 of fentanyl. We decided we just do this under local and it would take about 3 minutes. Flexible cystoscopy showed no seed erosion. He was in retention, so we decompressed his bladder with a coude catheter. We used a little local and shaved some of the penile neck eschar and did a superficial penile biopsy. The patient tolerated the procedure well. He is still hypertensive likely from the pain areas. There was no significant bleeding, no sutures were needed. He was brought to recovery room stable, but he needs to get that blood pressure taken down. JOB# [id number] ANSELMO/RUBY
--- NOTE | 2018-03-10 14:06 | Cat Scan Report ---
CT ABDOMEN PELVIS WITH AND WITHOUT CONTRAST: HISTORY: Severe pain, right inguinal pain. COMPARISON: none. TECHNIQUE: Helical CT in 1.25mm intervals before and after IV contrast. Sagittal and coronal reconstructions. FINDINGS: Lung bases: Normal. Liver: Normal. Biliary system: The gallbladder is mildly prominent but no evidence for sludge or calcified gallstones. No inflammatory changes. No biliary dilatation. Pancreas: Normal. Spleen: Normal. Kidneys/ureters/bladder: Within normal limits. No focal renal lesion, nephrolithiasis or hydronephrosis. The ureters and bladder are unremarkable. The prostate gland is mildly enlarged and contains radiotherapy beads. Adrenal glands: Normal. Aorta: Normal. Intestines: Moderate fecal retention in the colon. No evidence for bowel obstruction or focal inflammation. Appendix: Normal. Pelvic viscera: Normal. Ascites: None. Adenopathy: None. Musculoskeletal: No evidence for fracture or suspicious bony lesion. The right inguinal region is unremarkable. No evidence for hernia, mass or pathologic adenopathy. IMPRESSION: No acute process is identified in the abdomen or pelvis. No clear explanation for right inguinal pain. Chronic findings as described above.
[2018-03-10] MEDS: COREG PO SCH ×2 (14:23→23:36)
[2018-03-10] MEDS: DILAUDID IV PRN ×3 (14:24→23:34)
[2018-03-10] MEDS: SODIUM CHLORIDE FLUSH SYRINGE 10 ML IV SCH ×2 (14:25→23:38)
[2018-03-10] MEDS: ANTIBIOTIC OINT TP SCH ×2 (14:58→23:20)
[2018-03-11] MEDS: HumaLOG SUB-Q SCH ×3 (01:10→13:32)
[2018-03-11] MEDS: NACL 0.9% 1000 ML 1,000 ML IV SCH (03:13)
[2018-03-11] MEDS: DILAUDID IV PRN ×3 (03:36→16:02)
[2018-03-11 06:27] LABS: BUN/Creatinine Ratio 13; Blood Urea Nitrogen 12 mg/dL (9-20); Calcium 8.7 mg/dL (8.4-10.2); Hemolysis Index 0
--- NOTE | 2018-03-11 07:54 | Progress Note ---
Assessment and Plan Assessment and plan: 57-year-old black male with history of prostate cancer which was treated about 18 years ago with radiation implants, Hypertension hyperlipidemia and type 2 diabetes sent [address] VERA office for chronic penile ulcer of 1 month duration associated with right inguinal adenopathy. Patient sent for possible biopsy and workup for penile cancer staging. Patient reports that he was seen by infectious disease with Dr. Wen and also had an MRI which was reportedly negative [recommend available to me at this time] he reports significant groin pain penal pain rated 10 over 10 in intensity (1) severe penile ulceration and groin pain concerning for Penile cancer * S/P PENILE BIOPSY AND CYSTOSCOPY * Awaiting records from ID specialist if not available to urologist. * patient has tender inguinal lymphadenopathy * Oncology consult if necessary based on findings on results. * Pain control and this time (2) Hypertension * continue antihypertensives * resume pre-hospitalization beta jeanmarie (3) BPH (benign prostatic hyperplasia) * Continue Flomax (4) T2DM (type 2 diabetes mellitus) * Continue metformin post surgery. * For now we will use Accu-Cheks and insulin sliding scale (5) Hyperlipidemia * Continue statins (6) Peripheral neuropathy * Continue gabapentin (7)Prostate CA by hx * Radiation implants and prostate (8) DVT prophylaxis * Heparin 5000 every 12 * GI prophylaxis with famotidine Hospitalist Physical - Constitutional Vitals: Temp Pulse Resp BP Pulse Ox 97.7 F 80 20 133/95 100 03/11/18 02:51 03/11/18 02:51 03/11/18 04:06 03/11/18 02:51 03/11/18 02:51 General appearance: Present: severe distress Results - Labs CBC & Chem 7: 03/10/18 04:41 03/11/18 05:00 Labs: Laboratory Last Values WBC 10.2 K/mm3 (4.5-11.0) 03/10/18 04:41 RBC 4.81 M/mm3 (3.65-5.03) 03/10/18 04:41 Hgb 12.7 gm/dl (11.8-15.2) 03/10/18 04:41 Hct 38.5 % (35.5-45.6) 03/10/18 04:41 MCV 80 fl (84-94) L 03/10/18 04:41 MCH 26 pg (28-32) L 03/10/18 04:41 MCHC 33 % (32-34) 03/10/18 04:41 RDW 12.9 % (13.2-15.2) L 03/10/18 04:41 Plt Count 396 K/mm3 (140-440) 03/10/18 04:41 Lymph % (Auto) 19.8 % (13.4-35.0) 03/10/18 04:41 [place] % (Auto) 9.5 % (0.0-7.3) H 03/10/18 04:41 Eos % (Auto) 1.3 % (0.0-4.3) 03/10/18 04:41 Baso % (Auto) 0.9 % (0.0-1.8) 03/10/18 04:41 Lymph # 2.0 K/mm3 (1.2-5.4) 03/10/18 04:41 [place] # 1.0 K/mm3 (0.0-0.8) H 03/10/18 04:41 Eos # 0.1 K/mm3 (0.0-0.4) 03/10/18 04:41 Baso # 0.1 K/mm3 (0.0-0.1) 03/10/18 04:41 Seg Neutrophils % 68.5 % (40.0-70.0) 03/10/18 04:41 Seg Neutrophils # 7.0 K/mm3 (1.8-7.7) 03/10/18 04:41 PT 14.3 Sec. (12.2-14.9) 03/09/18 15:56 INR 1.05 (0.87-1.13) 03/09/18 15:56 APTT 32.5 Sec. (24.2-36.6) 03/09/18 15:56 Sodium 137 mmol/L (137-145) 03/11/18 05:00 Potassium 5.0 mmol/L (3.6-5.0) 03/11/18 05:00 Chloride 102.6 mmol/L (98-107) 03/11/18 05:00 Carbon Dioxide 22 mmol/L (22-30) 03/11/18 05:00 Anion Gap 17 mmol/L 03/11/18 05:00 BUN 12 mg/dL (9-20) 03/11/18 05:00 Creatinine 0.9 mg/dL (0.8-1.5) 03/11/18 05:00 Estimated GFR > 60 ml/min 03/11/18 05:00 BUN/Creatinine Ratio 13 % 03/11/18 05:00 Glucose 147 mg/dL (75-100) H 03/11/18 05:00 POC Glucose 201 (70-105) H 03/11/18 07:13 Hemoglobin A1c 9.8 % (4-6) H 03/11/18 05:00 Calcium 8.7 mg/dL (8.4-10.2) 03/11/18 05:00 Total Bilirubin 0.50 mg/dL (0.1-1.2) 03/10/18 04:41 AST 8 units/L (5-40) 03/10/18 04:41 ALT < 5 units/L (7-56) L 03/10/18 04:41 Alkaline Phosphatase 80 units/L (35-129) 03/10/18 04:41 Total Protein 7.6 g/dL (6.3-8.2) 03/10/18 04:41 Albumin 2.8 g/dL (3.9-5) L 03/10/18 04:41 Albumin/Globulin Ratio 0.6 % 03/10/18 04:41 TSH 1.860 mlU/mL (0.270-4.200) 03/09/18 15:56 Urine Color Yellow (Yellow) 03/09/18 Unknown Urine Turbidity Clear (Clear) 03/09/18 Unknown Urine pH 5.0 (5.0-7.0) 03/09/18 Unknown Ur Specific [place] 1.016 (1.003-1.030) 03/09/18 Unknown Urine Protein 100 mg/dl mg/dL (Negative) 03/09/18 Unknown Urine Glucose (UA) 150 mg/dL (Negative) 03/09/18 Unknown Urine Ketones Neg mg/dL (Negative) 03/09/18 Unknown Urine Blood Neg (Negative) 03/09/18 Unknown Urine Nitrite Neg (Negative) 03/09/18 Unknown Urine Bilirubin Neg (Negative) 03/09/18 Unknown Urine Urobilinogen 2.0 mg/dL (<2.0) 03/09/18 Unknown Ur Leukocyte Esterase Neg (Negative) 03/09/18 Unknown Urine WBC (Auto) < 1.0 /HPF (0.0-6.0) 03/09/18 Unknown Urine RBC (Auto) < 1.0 /HPF (0.0-6.0) 03/09/18 Unknown Hyaline Casts 6 /LPF 03/09/18 Unknown Urine Mucus Few /HPF 03/09/18 Unknown Urine Sperm 1+ /HPF (PRICE ANALYST) 03/09/18 Unknown
--- NOTE | 2018-03-11 11:10 | Progress Note ---
Assessment and Plan much improved no bleeding vitals better home with catheter Subjective Date of service: 03/11/18 Principal diagnosis: poss penile cancer severe pain Objective - Constitutional Vitals: Vital Signs - 12hr 03/10/18 03/10/18 03/11/18 23:36 23:37 00:04 Temperature Pulse Rate 84 84 Respiratory 20 Rate Blood Pressure 174/102 174/102 O2 Sat by Pulse Oximetry 03/11/18 03/11/18 03/11/18 02:51 04:06 07:07 Temperature 97.7 F 98.1 F Pulse Rate 80 42 L Respiratory 18 20 18 Rate Blood Pressure 133/95 162/87 O2 Sat by Pulse 100 99 Oximetry General appearance: Present: no acute distress - Neck Neck: supple - Respiratory Respiratory effort: normal Extremities: no ischemia - Genitourinary Male genitourinary: tender - Labs CBC & Chem 7: 03/10/18 04:41 03/11/18 05:00 Labs: Abnormal lab results 03/10/18 03/10/18 03/11/18 Range/Units 16:21 21:45 05:00 Glucose 147 H (75-100) mg/dL POC Glucose 211 H 138 H (70-105) Hemoglobin A1c (4-6) % 03/11/18 03/11/18 Range/Units 05:00 07:13 Glucose (75-100) mg/dL POC Glucose 201 H (70-105) Hemoglobin A1c 9.8 H (4-6) %
--- NOTE | 2018-03-11 11:38 | Discharge Summary ---
Providers - Providers Date of Admission: 03/09/18 12:39 Attending physician: TJ BRITO MD 03/09/18 12:40 Consult to Physician [CONS] Urgent Comment: Consulting Provider: JOSÉ ANTONIO VERA Physician Instructions: Reason For Exam: MALINANT NEOPLASM OF PENIS 03/10/18 08:15 Consult to Dietitian/Nutrition [CONS] Routine Physician Instructions: Reason For Exam: Reason for Consult: Malnutrition Primary care physician: SPECIALTY DEVELOPMENT CONSULTANT Hospitalization Reason for admission: Penile ulcer Hospital course: 57-year-old black male with history of prostate cancer which was treated about 18 years ago with radiation implants, Hypertension hyperlipidemia and type 2 diabetes sent in from Dr. VERA office for chronic penile ulcer of 1 month duration associated with right inguinal adenopathy. Patient sent for possible biopsy and workup for penile cancer staging. Patient reports that he was seen by infectious disease with Dr. Wen and also had an MRI which was reportedly negative [recommend available to me at this time] he reports significant groin pain penal pain rated 10 over 10 in intensity. Patient was seen by urology proceeded to have a penile biopsy and cystoscopy with clear is given for discharged with [place] to leg bag and patient will follow urologist outpatient. (1) severe penile ulceration and groin pain concerning for Penile cancer (2) Hypertension (3) BPH (benign prostatic hyperplasia) * Continue Flomax (4) T2DM (type 2 diabetes mellitus) * Continue metformin post surgery. * For now we will use Accu-Cheks and insulin sliding scale (5) Hyperlipidemia * Continue statins (6) Peripheral neuropathy * Continue gabapentin (7)Prostate CA by hx * Status post Radiation implants and prostate Disposition: TO HOME OR SELFCARE Time spent for discharge: 35 mins Core Measure Documentation - Palliative Care Palliative Care/ Comfort Measures: Not Applicable - Core Measures Any of the following diagnoses?: none - VTE Discharge Requirements Deep Vein Thrombosis/Pulmonary Embolism Present on Admission: No Exam - Physical Exam Narrative exam: VITAL SIGNS: Reviewed. GENERAL: The patient appeared well nourished and normally developed. Some temporal wasting noted. Vital signs as documented. HEAD: No signs of head trauma. EYES: Pupils are equal. Extraocular motions intact. EARS: Hearing grossly intact. MOUTH: Oropharynx is normal. NECK: No adenopathy, no JVD. CHEST: Chest with clear breath sounds bilaterally. No wheezes, rales, or rhonchi. CARDIAC: Regular rate and rhythm. S1 and S2, without murmurs, gallops, or rubs. VASCULAR: No Edema. Peripheral pulses normal and equal in all extremities. ABDOMEN: Right groin adenopathy tender to touch. Soft, without detectable tenderness. No sign of distention. No rebound or guarding, and no masses palpated. Bowel Sounds normal. MUSCULOSKELETAL: Good range of motion of all major joints. Extremities without clubbing, cyanosis or edema. NEUROLOGIC EXAM: Alert and oriented x 3. No focal sensory or strength deficits. Speech normal. Follows commands. PSYCHIATRIC: Mood normal. SKIN: Penile ulceration of the tip of the penile area. - Constitutional Vitals: Temp Pulse Resp BP Pulse Ox 98.1 F 42 L 18 162/87 99 03/11/18 07:07 03/11/18 07:07 03/11/18 07:07 03/11/18 07:07 03/11/18 07:07 Plan Activity: advance as tolerated Diet: low fat, diabetic Special Instructions: record daily BP diary Follow up with: PRIMARY MD OBEY [Primary Care Provider] - 7 Days JOSÉ ANTONIO VERA MD [Staff Physician] - 03/13/18 Prescriptions: oxyCODONE /ACETAMINOPHEN [Percocet 5/325 mg] 1 tab PO Q6HR PRN #20 tablet PRN Reason: Pain
[2018-03-11] MEDS: FLEXERIL PO SCH (11:49)
[2018-03-11] MEDS: CATAPRES PO SCH (11:50)
[2018-03-11] MEDS: FLOMAX PO SCH (11:50)
[2018-03-11] MEDS: ZESTRIL PO SCH (11:51)
[2018-03-11] MEDS: PEPCID PO SCH (11:51)
[2018-03-11] MEDS: LASIX PO SCH (11:52)
[2018-03-11] MEDS: SODIUM CHLORIDE FLUSH SYRINGE 10 ML IV SCH (11:52)
[2018-03-11] MEDS: COREG PO SCH (11:52)
[2018-03-11] MEDS: PRAVACHOL PO SCH (13:48)
[2018-03-11] MEDS: NEURONTIN PO SCH (13:49)
[2018-03-11] MEDS: ANTIBIOTIC OINT TP SCH (13:51)
[2018-03-11 14:20] VITALS: BP 139/99
--- NOTE | 2018-03-16 16:37 | Query- Abnormal Electrolytes ---
Nakia Pruitt Date:__03/16/2018 Arts Education Teacher/CDS:__Anamaria/Sandy Phone#:__[phone] Exercise your independent professional judgment when responding to this query. Questions asked do not imply a particular answer is desired or expected. We greatly appreciate your clarification on this issue. Clinical Documentation States: 67 Year old male was admitted on 03/09/2018 for chronic penile ulcer of 1 month duration associated with right inguinal adenopathy. Clinical Findings Show: Sodium level (03/09): 131 Can you please clarify whether you mean? [X ] Hyponatremia [ ] Hypokalemia [ ] Hypocalcemia [ ] Hypomagnesemia [ ] Hypernatremia [ ] Hyperkalemia [ ] Hypercalcemia [ ] Hypermagnesemia [ ] Sodium deficiency [ ] Potassium deficiency [ ] Hypochloremia [ ] Sodium excess [ ] Potassium excess [ ] Hyperchloremia [ ] Sodium overload [ ] Potassium overload [ ] Hypophosphatemia [ ] Hyperphosphatemia Acidosis; [ ] Respiratory [ ] Metabolic Alkalosis; [ ] Respiratory [X ] Metabolic [ ] Other: [ ] Comment/Explanation: Present on Admission: [ X] Yes (Y) [ ] Clinically undeterminable (W) [ ]No(N) Please also document response in your Progress Notes and/or Discharge Summary and indicate if the condition was present on admission. VICKIE
--- NOTE | 2018-03-16 16:52 | Query- Nutrition ---
Nakia Trotter____Dennis Date:__03/16/2018 Toe Laster/CDS:__Anamaria/Sandy Phone#:__[phone] Exercise your independent professional judgment when responding to query. Questions asked do not imply a particular answer is desired or expected. We greatly appreciate your clarification on this issue. Clinical Documentation States: 67 Year old male was admitted on 03/09/2018 for chronic penile ulcer of 1 month duration associated with right inguinal adenopathy. Patient has a history of prostate cancer which was treated with radiation therapy a few years ago. Clinical Findings Show: Albumin: 2.8 Please select the most appropriate option 3 [] Mild Malnutrition [] Mild - Moderate Malnutrition [X] Moderate - Severe Malnutrition [] Severe Malnutrition Serum Albumin 2.8 to 3.4 g/dl or Pre-albumin 5 to 17 mg/dl1,2 Inadequate nutritional intake1,2,3,4 NPO > 5 days Weight loss: 5% in 1 month or 7.5% in 3 months or 10% in 6 months1, 3,4 BMI 16 to 18.4 or Weight <90% of ideal body weight1,2,3,4 Serum Albumin < 2.8 g/ dl1,2 Lymphocytes < 1500/ L2 Inadequate nutritional intake3, high stress e.g. major trauma, sepsis,pancreatitis, braun etc. Decubitus ulcers1,2, , skin breakdown2, easy hair pluckability2 Weight <80% standard for height2 Triceps skin fold <3 mm2 Mid-arm muscle circumference <15 cm2 Creatinine-height index <60% standard2 [ ] Cachexia [ ] Emaciated w/Malnutrition [ ] Other: [ ] Unable to determine [ ] Comment/Explanation: Present on Admission: [X ] Yes (Y) [ ] Clinically undeterminable (W) [ ] No (N) Please also document response in your Progress Notes and/or Discharge Summary and indicate if the condition was present on admission. MTDD
== END 2018-03-11 16:40 | disposition home or self-care (01) ==
LOC: EDSTATUS 12:26 → 2B-ACE 12:39 → INTOOBSV 12:39
PROVIDERS: ADMIT Internal Medicine; ATTEND Internal Medicine
DX: N48.5 Ulcer of penis (principal); E43 Unspecified severe protein-calorie malnutrition; I10 Essential (primary) hypertension; N40.0 Benign prostatic hyperplasia without lower urinary tract symptoms; E78.5 Hyperlipidemia, unspecified; K21.9 Gastro-esophageal reflux disease without esophagitis; G89.29 Other chronic pain; E11.42 Type 2 diabetes mellitus with diabetic polyneuropathy; Z68.24 Body mass index [BMI] 24.0-24.9, adult; Z87.891 Personal history of nicotine dependence; Z85.46 Personal history of malignant neoplasm of prostate
CPT/HCPCS: 36415; 54105; 71046; 74178; 80048; 80053; 81001; 82962; 83036; 84443; 85025; 85610; 85730; 88305; 88312; 93005; 93010; 96372; 96374; 96375; 96376; A9270; G0378; G0379; J1170; J2250; J2270; J2704; J3010; J7030; Q9967; J1815

== ENCOUNTER 2018-05-03 17:17 | Emergency (ER) | payer MEDICARE ==
--- NOTE | 2018-05-03 18:19 | Emergency Department Report ---
ED Extremity Problem HPI - General Chief complaint: Extremity Injury, Lower Stated complaint: BLOOD CLOT IN LEGS Time Seen by Provider: 05/03/18 17:33 Source: patient Mode of arrival: Ambulatory Limitations: No Limitations - History of Present Illness Initial comments: This is a 67-year-old male presents to emergency room complaining of left leg pain. Patient has a history of chronic neuropathy from diabetes, he was diagnosed with thrombophlebitis in February 2018 and because of his risk factor of neuropathy, previous history of prostate cancer and peripheral vascular disease they decided to put him on eliquis for a period of 3 months to decrease his risk of developing DVT and possible PE. Patient was hospitalized and treated at this hospital and was seen by vascular surgeon. He had multiple studies done. Medical records evaluated. Patient reports his pain is 10/10 to his left lower extremity with redness and is veins are showing. Patient is on Altace 5 mg daily at present. He sees vascular surgeon and Haily and he said his last neurosurgeon is not good because she did not touch him he just told him to go home and put hot towel on his leg. Patient also is not satisfied with his primary care doctor and wants to be referred to a new vascular and primary care doctor. MD Complaint: extremity pain, extremity swelling Onset/Timin -: month(s) Location: left History of Same: Yes -: No myalgia, Yes arthralgia, No fever, No associated dyspnea, No associated chest pain Radiation: none Severity scale (0 -10): 10 Quality: aching, sharp, constant, other (tingling) Consistency: constant Improves with: nothing Worsens with: weight bearing, walking, exertion, palpation Associated Symptoms: arthralgias. denies: chest pain, shortness of breath, fever, myalgias, rash - Related Data Home Medications Medication Instructions Recorded Confirmed Last Taken Carvedilol [Coreg] 25 mg PO BID 03/17/18 03/17/18 Unknown Hydralazine HCl 50 mg PO BID 03/17/18 03/17/18 Unknown Insulin Aspart [NovoLOG Flexpen] 12 units SQ BID 03/17/18 03/17/18 Unknown amLODIPine [Norvasc] 10 mg PO DAILY 03/17/18 03/17/18 Unknown Previous Rx's Medication Instructions Recorded Last Taken Type Apixaban [Eliquis] 5 mg PO Q12HR #74 tablet 03/19/18 Unknown Rx Doxycycline [Vibramycin CAP] 100 mg PO Q12HR #10 capsule 03/19/18 Unknown Rx Famotidine [Pepcid] 20 mg PO DAILY #30 tablet 03/19/18 Unknown Rx HYDROcodone/APAP 5-325 [Center Line 1 each PO Q6H PRN #14 tablet 03/19/18 Unknown Rx 5-325 mg TAB] Pravastatin [Pravachol] 20 mg PO QHS #30 tablet 03/19/18 Unknown Rx Tamsulosin [Flomax] 0.4 mg PO QDAY #30 capsule 03/19/18 Unknown Rx Clindamycin [Clindamycin CAP] 300 mg PO Q8H 10 Days #30 cap 05/03/18 Unknown Rx Oxycodone HCl/Acetaminophen 1 each PO Q6HR PRN #16 tablet 05/03/18 Unknown Rx [Percocet 7.5/325 mg] Allergies Allergy/AdvReac Type Severity Reaction Status Date / Time No Known Allergies Allergy Verified 03/10/18 03:53 ED Review of Systems ROS: Stated complaint: BLOOD CLOT IN LEGS Other details as noted in HPI Constitutional: denies: chills, fever Eyes: vision change. denies: eye pain, eye discharge ENT: denies: ear pain, throat pain, congestion Respiratory: denies: cough, shortness of breath, SOB with exertion, SOB at rest , stridor, wheezing Cardiovascular: denies: chest pain, palpitations, edema, syncope Gastrointestinal: denies: abdominal pain, nausea, vomiting, diarrhea Genitourinary: denies: urgency, dysuria Musculoskeletal: arthralgia, other (swelling to left leg with pain). denies: back pain, joint swelling Skin: change in color. denies: rash, lesions Neurological: numbness, paresthesias. denies: headache, weakness, abnormal gait , vertigo Psychiatric: denies: anxiety Hematological/Lymphatic: denies: easy bleeding, easy bruising ED Past Medical Hx - Past Medical History Previous Medical History?: Yes Hx Hypertension: Yes Hx Congestive Heart Failure: Yes Hx Diabetes: Yes Hx HIV: No Additional medical history: HX of TB, bilateral DVT'S. 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 BPH. Diabetic neuropathy. Hyperlipidemia - Surgical History Past Surgical History?: Yes Additional Surgical History: R lung surgery - Family History Family history: diabetes, hypertension, vascular disease - Social History Smoking Status: Never Smoker Substance Use Type: None - Medications Home Medications: Home Medications Medication Instructions Recorded Confirmed Last Taken Type Carvedilol [Coreg] 25 mg PO BID 03/17/18 03/17/18 Unknown History Hydralazine HCl 50 mg PO BID 03/17/18 03/17/18 Unknown History Insulin Aspart [NovoLOG Flexpen] 12 units SQ BID 03/17/18 03/17/18 Unknown History amLODIPine [Norvasc] 10 mg PO DAILY 03/17/18 03/17/18 Unknown History Apixaban [Eliquis] 5 mg PO Q12HR #74 tablet 03/19/18 Unknown Rx Doxycycline [Vibramycin CAP] 100 mg PO Q12HR #10 capsule 03/19/18 Unknown Rx Famotidine [Pepcid] 20 mg PO DAILY #30 tablet 03/19/18 Unknown Rx HYDROcodone/APAP 5-325 [Center Line 1 each PO Q6H PRN #14 tablet 03/19/18 Unknown Rx 5-325 mg TAB] Pravastatin [Pravachol] 20 mg PO QHS #30 tablet 03/19/18 Unknown Rx Tamsulosin [Flomax] 0.4 mg PO QDAY #30 capsule 03/19/18 Unknown Rx Clindamycin [Clindamycin CAP] 300 mg PO Q8H 10 Days #30 cap 05/03/18 Unknown Rx Oxycodone HCl/Acetaminophen 1 each PO Q6HR PRN #16 tablet 05/03/18 Unknown Rx [Percocet 7.5/325 mg] ED Physical Exam - General Limitations: No Limitations General appearance: alert, in no apparent distress - Head Head exam: Present: atraumatic, normocephalic, normal inspection - Eye Eye exam: Present: normal appearance, PERRL, EOMI Pupils: Present: normal accommodation - ENT ENT exam: Present: normal exam, normal orophraynx, mucous membranes moist - Neck Neck exam: Present: normal inspection, full ROM. Absent: tenderness, lymphadenopathy - Respiratory Respiratory exam: Present: normal lung sounds bilaterally. Absent: respiratory distress, wheezes, rales, rhonchi, stridor, chest wall tenderness, accessory muscle use, decreased breath sounds, prolonged expiratory - Cardiovascular Cardiovascular Exam: Present: regular rate, normal rhythm, normal heart sounds. Absent: systolic murmur, diastolic murmur - GI/Abdominal GI/Abdominal exam: Present: soft, normal bowel sounds. Absent: distended, tenderness, rigid - Extremities Exam Extremities exam: Present: full ROM, tenderness (tendon palpates her right leg in her lateral), normal capillary refill, pedal edema (mild swelling also into right leg in the lateral), other (No cce. + 2 pulses in all extremities, no neurovascular compromise except bilateral lower extremity lack of hair, shiny skin, 1+ pedal pulses, discoloration which is chronic to distal legs. see examination of the left leg for more detailed information. Extremities not cold.). Absent: normal inspection, joint swelling, calf tenderness - Expanded Lower Extremity Exam Left Hip exam: Present: normal inspection, full ROM, pelvic stability. Absent: tenderness, swelling, abrasion, laceration, ecchymosis, deformity, crepidus, dislocation, external rotation, internal rotation, shortening Upper Leg exam: Present: normal inspection, full ROM. Absent: tenderness, swelling, abrasion, laceration, ecchymosis, deformity, crepidus, dislocation Knee exam: Present: normal inspection, full ROM, full knee extension. Absent: tenderness, swelling, abrasion, laceration, ecchymosis, deformity, crepidus, dislocation, erythema, effusion, pain w/ pronation/supination, posterior draw sign, pain/laxity with valgus, pain/laxity with varus Lower Leg exam: Present: full ROM, tenderness, swelling (mild swelling), erythema (erythema to inner lateral mid to distal leg with superficial vein noted.). Absent: normal inspection, abrasion, laceration, ecchymosis, crepidus , dislocation, palpable cord, Aimee's sign Ankle exam: Present: full ROM, tenderness (tender to palpate with shiny, lack of here and flaky skin). Absent: normal inspection, swelling, abrasion, laceration, ecchymosis, deformity, crepidus, dislocation, erythema Foot/Toe exam: Present: full ROM. Absent: normal inspection, tenderness, swelling, abrasion, laceration, ecchymosis, deformity, crepidus, dislocation, erythema, amputation, puncture wound, foreign body, subungual hematoma Neuro vascular tendon exam: Present: pulse deficit (1+ pedal pulses), significant pain with passive ROM of distal joint. Absent: no vascular compromise, abnormal cap refill, motor deficit, sensory deficit, tendon deficit , extremity cold to touch, pallor, abnormal 2-point discrimination, decreased fine/light touch, foot drop, peroneal nerve deficit Gait: Positive: observed and limited by pain - Back Exam Back exam: Present: normal inspection, full ROM. Absent: tenderness, rash noted - Neurological Exam Neurological exam: Present: alert, oriented X3, normal gait, reflexes normal - Psychiatric Psychiatric exam: Present: normal affect, normal mood - Skin Skin exam: Present: warm, dry, intact, normal color, other (patient with some discoloration, skin flaking, lack of hair to bilateral lower extremity but this he also has some redness in her lateral mid to distal leg.). Absent: rash ED Course Vital Signs 05/03/18 05/03/18 17:21 18:49 Temperature 98.5 F Pulse Rate 77 Respiratory 18 Rate Blood Pressure 154/105 Blood Pressure 150/96 [Left] O2 Sat by Pulse 100 Oximetry Vital Signs 05/03/18 05/03/18 17:21 18:49 Temperature 98.5 F Pulse Rate 77 Respiratory 18 Rate Blood Pressure 154/105 Blood Pressure 150/96 [Left] O2 Sat by Pulse 100 Oximetry - Reevaluation(s) Reevaluation #1: 05/03/18 18:49 Patient received Decadron 10 mg IM and Toradol 30 mg IM in emergency room for left leg pain. He also received clindamycin 300 mg by mouth to start treatment for sore cellulitis left lower extremity secondary to thrombophlebitis. ED Medical Decision Making - Radiology Data Radiology results: report reviewed Patient: JIM PEÑA MR#: [id number] : 1950 Acct:[id number] Age/Sex: 67 / M ADM Date: 03/17/18 Loc: [facility] B241-[address]: TJ BRITO MD Ordering Physician: LEO FRANCISCO MD Date of Service: 03/18/18 Procedure(s): CT chest w con Accession Number(s): [id number] cc: LEO FRANCISCO MD FINAL REPORT PROCEDURE: CT CHEST W CON TECHNIQUE: Computerized axial tomography of the chest was performed during the IV injection of iodinated nonionic contrast. DLP 423.42 mGy-cm. HISTORY: Brain metastases. COMPARISON: Chest radiograph dated 03/09/2018. TECHNICAL QUALITY: Satisfactory. FINDINGS: Heart and pericardium: Normal. Thoracic aorta: Mild aortic tortuosity and atherosclerosis Pulmonary vasculature: Normal. Lymph nodes: Small mediastinal lymph nodes. 9.5 x 6 mm anterior soft tissue density. Lungs: Minimal right middle lobe pleural parenchymal thickening. Peripheral interlobular septal thickening of the right middle lobe. Pleural space: No effusion, thickening, or pneumothorax. Musculoskeletal structures: Osteopenia. Small multilevel disc space narrowing and osteophytes. T10-11 fusion. Possible subtle 8 mm T12 lytic lesion. Mild narrowing and subchondral cystic changes of the bilateral glenohumeral joints. Upper abdominal structures: Moderate thickening of the gastric antrum IMPRESSION: Aortic tortuosity and atherosclerosis. Small mediastinal lymph nodes. 9.5 x 6 mm anterior mediastinal soft tissue density, consider lymph node or small mediastinal mass such as thymoma. Minimal right middle lobe pleural parenchymal thickening and peripheral interlobular septal thickening. Consider infectious/inflammatory process, consider correlation if patient has had treatment such as radiation to this area. Thickening of the gastric antrum, consider gastritis. Consider further evaluation with fluoroscopic examination or endoscopy if there is concern for more infiltrative process. Although likely related to osteopenia, consider subtle T12 lytic lesion. Consider bone scan if this is of continued clinical concern. Transcribed By: CHEL Dictated By: BRANDO HERNANDEZ MD Electronically Authenticated By: BRANDO HERNANDEZ MD Signed Date/Time: 03/18/181714 DD/ 14 TD/TT: 03/18/181714 Patient: JIM PEÑA MR#: [id number] : 1950 Acct:[id number] Age/Sex: 67 / M ADM Date: 03/17/18 Loc: [facility] B241-[address]: TJ BRITO MD Ordering Physician: ANNETTA CRESPO Date of Service: 03/17/18 Procedure(s): VL venous duplex LE BILAT Accession Number(s): [id number] cc: ANNETTA CRESPO LOWER EXTREMITY VENOUS DUPLEX: REASON FOR EXAM: Thrombophlebitis. COMMENTS ON THE RIGHT: The teaching physician is thrombosis is seen in the right lesser saphenous vein extending above the knee through the vein of Giacomini. It does not extend into the deep system. The remaining veins visualized are freely compressible without evidence of internal echogenicity. Spontaneous and phasic flow is present proximally. COMMENTS ON THE LEFT: Superficial venous thrombosis is seen in this lesser saphenous vein. The remaining veins visualized are freely compressible without evidence of internal echogenicity. Spontaneous and phasic flow is present proximally. IMPRESSION: No evidence of acute or chronic deep venous thrombosis in either lower extremity. Acute superficial venous thrombosis involving the lesser saphenous veins in both lower extremities. On the right, the superficial venous thrombosis extends above the knee but does not enter the deep system. Transcribed By: DALI Dictated By: DIANA CAAL MD Electronically Authenticated By: DIANA CAAL MD Signed Date/Time: 03/23/18 1525 DD/ 152 TD/TT: 03/23/18 1525 - Medical Decision Making This is a 67-year-old male presents to emergency room complaining of left lower extremity pain and reports that he seen a vascular surgeon and he is not satisfied with his vascular doctor or his primary care doctor because do not do anything for his leg pain. Patient said that he had DVT and was hospitalized but in review of document patient was diagnosed with SVT and because of his increased risks of DVT he was placed on a requests for 3 months by vascular doctor in February 2018. Please see multiple diagnostics reports from previous visits on the radiology section. Assessment/plan 1: Left lower extremity pain-patient with chronic neuropathy, thrombophlebitis and PVD and sees vascular. I will refer him to a new vascular doctor was Dr. Victor. Patient given Decadron 10 mg IM and Toradol 30 mg IM in the emergency room which helped his pain. He was discharged home on her cassette and follow- up with his new vascular doctor. 2: Cellulitis left leg, mild-patient started on clindamycin and sent home on clindamycin. Patient also referred to new primary care doctor. I explained to patient that he did not have a deep vein clot he had a superficial vein clot but they decided to put him on medication because he is high risk for deep vein clot and pulmonary clots.. I told him because of his neuropathy, PVD and history of cancer that put him at a greater risk for developing this and slightly decided to place him on a requests to prevent him from getting in PE and DVT. Patient seemed to understand. Pain is better, vital signs stable afebrile and patient discharged home with referral to primary care and vascular doctor for follow-up in 2 days. He was given prescription for Percocet and clindamycin. Critical care attestation.: If time is entered above; I have spent that time in minutes in the direct care of this critically ill patient, excluding procedure time. ED Disposition Clinical Impression: Arthralgia of left lower leg, Cellulitis and abscess of left leg Neuropathy of lower extremity Qualifiers: Laterality: bilateral Qualified Code(s): G57.93 - Unspecified mononeuropathy of bilateral lower limbs Thrombophlebitis leg superficial Qualifiers: Laterality: bilateral Qualified Code(s): I80.03 - Phlebitis and thrombophlebitis of superficial vessels of lower extremities, bilateral Disposition: TO HOME OR SELFCARE Is pt being admited?: No Does the pt Need Aspirin: No Condition: Stable Instructions: Superficial Thrombophlebitis (ED), Peripheral Vascular Disorders (ED), Peripheral Neuropathy (ED), Arthralgia (ED) Additional Instructions: See referral to a new primary care doctor if you choose to change her primary care sister not satisfied with her current primary care doctor See referral for new vascular doctor since you not satisfied with her current vascular doctor Take Percocet for severe pain but please do not drive or operate heavy machinery while taking this medication as it causes drowsiness Clindamycin for superficial skin infection from left leg thrombophlebitis. Increase her fluid intake If you develop chest pain, shortness of breath, change in color T lower extremities, fever and/or chills, cold extremity, please return to emergency room [facility] Prescriptions: Clindamycin [Clindamycin CAP] 300 mg PO Q8H 10 Days #30 cap Oxycodone HCl/Acetaminophen [Percocet 7.5/325 mg] 1 each PO Q6HR PRN #16 tablet PRN Reason: severe pain Referrals: CRUZITO VICTOR MD [Staff Physician] - 05/05/18 ANNA SHEFFIELD MD [Staff Physician] - 2-3 Days
--- NOTE | 2018-05-03 18:25 | Emergency Department Report ---
Blank Doc - Documentation Documentation: Patient had a [id number] done by me. Patient has some discoloration of bilateral ankles his left medial calf he does have a red streak up this to about the knee. On looking at the patient's previous visit patient has a history of superficial thrombophlebitis bilaterally. There was extensive enough and will the patient has a left medical history is warranted anticoagulation for 3 months according to the discharge summary by the hospitalist. Patient's exam today is similar to the patient's exam at his discharge. Patient was complaining of chronic pain. Patient does show possible furthering of his thrombophlebitis to the point where he may need antibiotics at this time. Please refer to [facility] note regarding complete management of this patient
[2018-05-03] MEDS ORDERED: TORADOL IM ONE (18:35)
[2018-05-03] MEDS ORDERED: CLEOCIN PO ONE (18:35)
[2018-05-03] MEDS ORDERED: DECADRON IM STA (18:35)
[2018-05-03 18:49] VITALS: BP 150/96
== END 2018-05-03 19:00 | disposition home or self-care (01) ==
LOC: ED 17:17
DX: I80.03 Phlebitis and thrombophlebitis of superficial vessels of lower extremities, bilateral (principal); G57.93 Unspecified mononeuropathy of bilateral lower limbs; L03.116 Cellulitis of left lower limb; E11.40 Type 2 diabetes mellitus with diabetic neuropathy, unspecified; Z79.4 Long term (current) use of insulin; I11.0 Hypertensive heart disease with heart failure; E11.9 Type 2 diabetes mellitus without complications; Z86.718 Personal history of other venous thrombosis and embolism; E78.5 Hyperlipidemia, unspecified
CPT/HCPCS: 96372; 99282; J1100; J1885

== ENCOUNTER 2018-12-03 16:36 | Inpatient (IN) | payer MEDICARE ==
--- NOTE | 2018-12-03 16:45 | Emergency Department Report ---
Blank Doc - Documentation Documentation: This is a 68-year-old male that presents with generalized welling and SOB. St ated that PCP sent patient to the ED. This initial assessment/diagnostic orders/clinical plan/treatment(s) is/are subject to change based on patient's health status, clinical progression and re-assessment by fellow clinical providers in the ED. Further treatment and workup at subsequent clinical providers discretion. Patient/guardians urged not to elope from the ED as their condition may be serious if not clinically assessed and managed. Initial orders include: 1- Patient sent to MAIN ED for further evaluation and treatment 2- ekg 3- labs 4- CXR
[2018-12-03 17:10] LABS: Basophils # (Auto) 0.1 K/mm3 (0.0-0.1); Basophils % (Auto) 1.1 % (0.0-1.8); Eosinophils # (Auto) 0.1 K/mm3 (0.0-0.4); Eosinophils % (Auto) 1.2 % (0.0-4.3); Hematocrit 34.3 % (35.5-45.6); Hemoglobin 11.2 gm/dl (11.8-15.2); Lymphocytes # (Auto) 1.1 K/mm3 (1.2-5.4); Lymphocytes % (Auto) 20.5 % (13.4-35.0); Mean Corpuscular HGB Conc 33 % (32-34); Mean Corpuscular Volume 80 fl (84-94); Monocytes # (Auto) 0.3 K/mm3 (0.0-0.8); Monocytes % (Auto) 6.6 % (0.0-7.3); Platelet Count 239 K/mm3 (140-440); Red Blood Count 4.32 M/mm3 (3.65-5.03); Red Cell Distribution Width 15.3 % (13.2-15.2)
[2018-12-03 17:29] LABS: INR 1.15 (0.87-1.13)
[2018-12-03 17:30] LABS: Partial Thromboplastin Time 33.2 Sec. (24.2-36.6)
[2018-12-03] MEDS ORDERED: LASIX IV ONE (17:54)
--- NOTE | 2018-12-03 18:04 | Emergency Department Report ---
ED General Adult HPI - General Chief complaint: Dyspnea/Respdistress Stated complaint: IVETH/SWELLING ALL OVER BODY Time Seen by Provider: 12/03/18 16:43 Source: patient Mode of arrival: Wheelchair Limitations: No Limitations - History of Present Illness Initial comments: 68-year-old male with history of CHF presents to ED with swelling to bilateral lower extremities, penis, scrotum 4 days. Patient also reports associated dyspnea on exertion. Patient denies chest pain, fever, cough. Patient was seen at his PCPs office today and sent to the emergency room. Patient says he is compliant with his Lasix. PCP: Dr Clark Funding Coordinator: Christina [facility] -: days(s) (4) Location: genitals, left, right, lower extremity Severity scale (0 -10): 0 Consistency: constant Improves with: none Worsens with: none Associated Symptoms: shortness of breath. denies: chest pain, cough, fever/chills, nausea/vomiting - Related Data Home Medications Medication Instructions Recorded Confirmed Last Taken Carvedilol 25 mg PO BID 07/25/18 08/17/18 Unknown Neurontin 600 mg PO TID 07/25/18 08/17/18 Unknown Pepcid 20 mg PO DAILY 07/25/18 12/04/18 Unknown hydrALAZINE 50 mg PO BID 07/25/18 08/17/18 Unknown Furosemide [Lasix TAB] 40 mg PO QDAY 12/04/18 12/04/18 Unknown Previous Rx's Medication Instructions Recorded Last Taken Type Aspirin [Aspirin TAB] 325 mg PO QDAY #30 tablet 07/21/18 Unknown Rx Tamsulosin [Flomax] 0.4 mg PO QDAY #30 capsule 07/21/18 Unknown Rx Lisinopril [Zestril TAB] 40 mg PO QDAY #30 tablet 07/24/18 Unknown Rx Clonidine 0.1 mg PO BID #60 08/19/18 Unknown Rx Allergies Allergy/AdvReac Type Severity Reaction Status Date / Time No Known Allergies Allergy Verified 12/03/18 16:45 ED Review of Systems ROS: Stated complaint: IVETH/SWELLING ALL OVER BODY Other details as noted in HPI Comment: All other systems reviewed and negative Constitutional: denies: chills, fever Respiratory: shortness of breath. denies: cough Cardiovascular: denies: chest pain Genitourinary: other (reports scrotal/ penile edema) Musculoskeletal: other (reports lower extremity edema) ED Past Medical Hx - Past Medical History Hx Hypertension: Yes Hx Congestive Heart Failure: Yes Hx Diabetes: Yes Hx Dementia: Yes Hx HIV: No Additional medical history: HX of TB, bilateral DVT'S. 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 BPH. Diabetic neuropathy. Hyperlipidemia - Surgical History Additional Surgical History: R lung surgery - Social History Smoking Status: Never Smoker Substance Use Type: None - Medications Home Medications: Home Medications Medication Instructions Recorded Confirmed Last Taken Type Aspirin [Aspirin TAB] 325 mg PO QDAY #30 tablet 07/21/18 12/04/18 Unknown Rx Tamsulosin [Flomax] 0.4 mg PO QDAY #30 capsule 07/21/18 12/04/18 Unknown Rx Lisinopril [Zestril TAB] 40 mg PO QDAY #30 tablet 07/24/18 12/04/18 Unknown Rx Carvedilol 25 mg PO BID 07/25/18 08/17/18 Unknown History Neurontin 600 mg PO TID 07/25/18 08/17/18 Unknown History Pepcid 20 mg PO DAILY 07/25/18 12/04/18 Unknown History hydrALAZINE 50 mg PO BID 07/25/18 08/17/18 Unknown History Clonidine 0.1 mg PO BID #60 08/19/18 12/04/18 Unknown Rx Furosemide [Lasix TAB] 40 mg PO QDAY 12/04/18 12/04/18 Unknown History ED Physical Exam - General Limitations: No Limitations ED Course Vital Signs 12/03/18 12/03/18 12/03/18 16:43 17:52 17:54 Temperature 97.5 F L Pulse Rate 77 Respiratory 38 H Rate Blood Pressure 145/89 159/87 Blood Pressure [Left] O2 Sat by Pulse 100 100 100 Oximetry 12/03/18 12/03/18 12/03/18 17:56 17:59 18:04 Temperature Pulse Rate 72 74 Respiratory 35 H 17 Rate Blood Pressure 159/87 166/82 Blood Pressure [Left] O2 Sat by Pulse 96 96 Oximetry 12/03/18 12/03/18 12/03/18 18:06 18:08 18:10 Temperature Pulse Rate 74 73 75 Respiratory 21 28 H 17 Rate Blood Pressure 166/82 166/82 166/82 Blood Pressure [Left] O2 Sat by Pulse 98 96 95 Oximetry 12/03/18 12/03/18 12/03/18 18:12 18:14 18:15 Temperature Pulse Rate 74 75 74 Respiratory 14 32 H 35 H Rate Blood Pressure 166/82 166/82 165/86 Blood Pressure [Left] O2 Sat by Pulse 95 99 100 Oximetry 12/03/18 12/03/18 12/03/18 18:16 18:18 18:20 Temperature Pulse Rate 74 74 75 Respiratory 33 H 22 17 Rate Blood Pressure 165/86 165/86 165/86 Blood Pressure [Left] O2 Sat by Pulse 99 98 99 Oximetry 12/03/18 12/03/18 12/03/18 18:22 18:24 18:26 Temperature Pulse Rate 75 74 75 Respiratory 15 35 H 31 H Rate Blood Pressure 165/86 165/86 165/86 Blood Pressure [Left] O2 Sat by Pulse 98 96 93 Oximetry 12/03/18 12/03/18 12/03/18 18:28 18:30 18:31 Temperature Pulse Rate 76 74 74 Respiratory 28 H 15 31 H Rate Blood Pressure 166/82 165/86 165/86 Blood Pressure [Left] O2 Sat by Pulse 98 98 99 Oximetry 12/03/18 12/03/18 12/03/18 18:32 18:34 18:36 Temperature Pulse Rate 76 72 75 Respiratory 21 17 28 H Rate Blood Pressure 165/86 165/86 165/86 Blood Pressure [Left] O2 Sat by Pulse 98 98 98 Oximetry 12/03/18 12/03/18 12/03/18 18:38 18:40 18:42 Temperature Pulse Rate 74 73 74 Respiratory 27 H 24 29 H Rate Blood Pressure 165/86 165/86 165/86 Blood Pressure [Left] O2 Sat by Pulse 99 91 97 Oximetry 12/03/18 12/03/18 12/03/18 18:44 18:45 18:46 Temperature Pulse Rate 72 74 75 Respiratory 16 31 H 26 H Rate Blood Pressure 165/86 172/139 172/139 Blood Pressure [Left] O2 Sat by Pulse 98 99 99 Oximetry 12/03/18 12/03/18 12/03/18 18:48 18:50 18:52 Temperature Pulse Rate 74 83 73 Respiratory 29 H 22 14 Rate Blood Pressure 172/139 172/139 172/139 Blood Pressure [Left] O2 Sat by Pulse 94 99 99 Oximetry 12/03/18 12/03/18 12/03/18 18:54 18:56 18:58 Temperature Pulse Rate 72 72 72 Respiratory 20 27 H 25 H Rate Blood Pressure 172/139 172/139 172/139 Blood Pressure [Left] O2 Sat by Pulse 100 98 98 Oximetry 12/03/18 12/03/18 12/03/18 19:00 19:01 19:02 Temperature Pulse Rate 77 74 75 Respiratory 22 19 24 Rate Blood Pressure 172/107 172/107 172/107 Blood Pressure [Left] O2 Sat by Pulse 97 97 95 Oximetry 12/03/18 12/03/18 12/03/18 19:04 19:06 19:08 Temperature Pulse Rate 75 73 75 Respiratory 28 H 28 H 24 Rate Blood Pressure 172/107 172/107 172/107 Blood Pressure [Left] O2 Sat by Pulse 98 99 96 Oximetry 12/03/18 12/03/18 12/03/18 19:10 19:12 19:14 Temperature Pulse Rate 75 75 75 Respiratory 20 23 33 H Rate Blood Pressure 172/107 172/107 172/107 Blood Pressure [Left] O2 Sat by Pulse 97 95 98 Oximetry 12/03/18 12/03/18 12/03/18 19:15 19:16 19:18 Temperature Pulse Rate 78 75 72 Respiratory 33 H 35 H 33 H Rate Blood Pressure 164/107 164/107 164/107 Blood Pressure [Left] O2 Sat by Pulse 94 100 93 Oximetry 12/03/18 12/03/18 12/03/18 19:20 19:22 19:24 Temperature Pulse Rate 75 74 83 Respiratory 20 25 H 16 Rate Blood Pressure 164/107 164/107 164/107 Blood Pressure [Left] O2 Sat by Pulse 97 96 100 Oximetry 12/03/18 12/03/18 12/03/18 19:26 19:28 19:30 Temperature Pulse Rate 74 75 75 Respiratory 23 17 16 Rate Blood Pressure 164/107 164/107 167/99 Blood Pressure [Left] O2 Sat by Pulse 92 96 97 Oximetry 12/03/18 12/03/18 12/03/18 19:31 19:32 19:34 Temperature Pulse Rate 73 76 74 Respiratory 28 H 25 H 25 H Rate Blood Pressure 167/99 167/99 167/99 Blood Pressure [Left] O2 Sat by Pulse 96 98 92 Oximetry 04/12/03/18 12/03/18 19:36 19:38 19:40 Temperature Pulse Rate 76 88 72 Respiratory 17 19 26 H Rate Blood Pressure 167/99 167/99 167/99 Blood Pressure [Left] O2 Sat by Pulse 100 95 100 Oximetry 12/03/18 12/03/18 12/03/18 19:42 19:44 19:46 Temperature Pulse Rate 81 71 72 Respiratory 27 H 30 H 30 H Rate Blood Pressure 167/99 167/99 159/93 Blood Pressure [Left] O2 Sat by Pulse 93 93 96 Oximetry 12/03/18 12/03/18 12/03/18 19:48 19:50 19:52 Temperature Pulse Rate 72 73 74 Respiratory 17 28 H 27 H Rate Blood Pressure 159/93 159/93 159/93 Blood Pressure [Left] O2 Sat by Pulse 95 98 96 Oximetry 12/03/18 12/03/18 12/03/18 19:54 19:56 19:58 Temperature Pulse Rate 75 76 76 Respiratory 26 H 16 23 Rate Blood Pressure 159/93 159/93 159/93 Blood Pressure [Left] O2 Sat by Pulse 98 97 93 Oximetry 12/03/18 12/03/18 12/03/18 20:00 20:02 20:04 Temperature Pulse Rate 80 78 81 Respiratory 29 H 26 H 25 H Rate Blood Pressure 157/116 157/116 157/116 Blood Pressure [Left] O2 Sat by Pulse 81 L 93 99 Oximetry 12/03/18 12/03/18 12/03/18 20:10 20:20 20:32 Temperature Pulse Rate 79 Respiratory 29 H Rate Blood Pressure 157/116 157/116 157/116 Blood Pressure [Left] O2 Sat by Pulse 94 94 Oximetry 12/03/18 12/03/18 12/03/18 20:40 20:50 21:00 Temperature Pulse Rate Respiratory Rate Blood Pressure 157/116 137/101 137/101 Blood Pressure [Left] O2 Sat by Pulse 72 L 94 93 Oximetry 12/03/18 12/03/18 12/03/18 21:10 21:20 21:30 Temperature Pulse Rate Respiratory Rate Blood Pressure 137/101 156/98 156/98 Blood Pressure [Left] O2 Sat by Pulse 97 100 97 Oximetry 12/03/18 12/03/18 12/03/18 21:40 21:50 21:58 Temperature Pulse Rate 55 L Respiratory 18 Rate Blood Pressure 137/101 140/71 Blood Pressure 140/71 [Left] O2 Sat by Pulse 96 97 96 Oximetry 12/03/18 12/03/18 12/03/18 22:00 22:10 22:20 Temperature Pulse Rate Respiratory Rate Blood Pressure 165/90 140/71 149/82 Blood Pressure [Left] O2 Sat by Pulse 98 98 97 Oximetry 12/03/18 12/03/18 22:30 22:40 Temperature Pulse Rate Respiratory Rate Blood Pressure 149/82 149/82 Blood Pressure [Left] O2 Sat by Pulse 93 98 Oximetry ED Medical Decision Making - Lab Data Result diagrams: 12/04/18 05:01 12/04/18 05:01 - Radiology Data Radiology results: report reviewed, image reviewed - Medical Decision Making 68-year-old male with history of CHF presents the ED with pitting edema of the bilateral lower extremities, scrotum and penis. Patient reports dyspnea on exertion. Chest x-ray shows pleural effusion. Lasix 80 mg IV given here in ED. Troponin mildly elevated 0.06, pt in bigeminy, no ST elevations, no chest pain. Will admit to hospitalist for diuresis. - Differential Diagnosis anasarca, hepatic failure, renal failure, CHF exacerbation Critical care attestation.: If time is entered above; I have spent that time in minutes in the direct care of this critically ill patient, excluding procedure time. ED Disposition Clinical Impression: CHF exacerbation, Anasarca, Pleural effusion Disposition: OP ADMIT IP TO THIS HOSP Is pt being admited?: Yes Condition: Stable Time of Disposition: 18:51
--- NOTE | 2018-12-03 18:15 | XRay Report ---
PROCEDURE: XR CHEST ROUTINE 2V TECHNIQUE: Chest 2 views HISTORY: Chest Pain COMPARISONS: Comparison is dated August 17, 2018 FINDINGS: Right pleural effusion appears similar to prior exam. Fluid in the minor fissure and right pleural ef fusion again noted unchanged. There is pulmonary vascular congestion with interstitial prominence. Ca rdiac silhouette is moderately enlarged. IMPRESSION: Cardiomegaly Right pleural effusion Findings suggestive of CHF. This document is electronically signed by Ulices Dotson MD., December 03 2018 06:13:34 PM ET
[2018-12-03 18:24] LABS: Chol/HDL Ratio 2.11 %
[2018-12-03 20:10] LABS: Bacteria,Urine 1+ /HPF (Negative); Bilirubin,Urine NEG (Negative); Blood,Urine NEG (Negative); Color,Urine Yellow (Yellow); Hyaline Casts,Urine 16 /LPF; Mucus,Urine FEW /HPF
--- NOTE | 2018-12-03 22:05 | History and Physical Report ---
History of Present Illness Date of examination: 12/03/18 History of present illness: 68-year-old man with a history of hypertension, diabetes, CHF, dementia, hyperlipidemia, BPH, prostate cancer comes emergency room complaining of lower extremity edema, shortness breath, PND and orthopnea with swelling of the testicles or 3 days. He saw his primary care physician who sent him to the emergency room Review of systems Constitutional: no weight loss, chills, fever Ears, eyes, nose, mouth and throat: no nasal congestion, no nasal discharge, no sinus pressure, no vision change, no red eye. Neck: No neck pain or rigidity. Cardiovascular: no palpitations, chest pain Respiratory: no cough, +shortness of breath Gastrointestinal: no hematochezia, abdominal pain Genitourinary : no frequency , no hematuria Musculoskeletal: no joint swelling or muscle ache Integumentary: no rash, no pruritis Neurological: no parathesias, no focal weakness Endocrine: no cold or heat intolerance, no polyuria or polydipsia Hematologic/Lymphatic: no easy bruising, no easy bleeding, no gland swelling Allergic/Immunologic: no urticaria, no angioedema. PAST MEDICAL HISTORY:hypertension, diabetes, CHF, dementia, hyperlipidemia, BPH, prostate cancer PAST SURGICAL HISTORY: None SOCIAL HISTORY: Denies alcohol, drugs, tobacco FAMILY HISTORY: Hypertension Medications and Allergies Allergies Allergy/AdvReac Type Severity Reaction Status Date / Time No Known Allergies Allergy Verified 12/03/18 16:45 Home Medications Medication Instructions Recorded Confirmed Last Taken Type Aspirin [Aspirin TAB] 325 mg PO QDAY #30 tablet 07/21/18 08/17/18 Unknown Rx Furosemide [Lasix TAB] 20 mg PO QDAY #30 tablet 07/21/18 08/17/18 Unknown Rx Tamsulosin [Flomax] 0.4 mg PO QDAY #30 capsule 07/21/18 08/17/18 Unknown Rx Lisinopril [Zestril TAB] 40 mg PO QDAY #30 tablet 07/24/18 08/17/18 Unknown Rx Carvedilol 25 mg PO BID 07/25/18 08/17/18 Unknown History Eliquis 5 mg PO BID 07/25/18 08/17/18 Unknown History Neurontin 600 mg PO TID 07/25/18 08/17/18 Unknown History Pepcid 20 mg PO DAILY 07/25/18 08/17/18 Unknown History hydrALAZINE 50 mg PO BID 07/25/18 08/17/18 Unknown History Clonidine 0.1 mg PO BID #60 08/19/18 08/17/18 Unknown Rx Exam - Physical Exam Narrative exam: General Apperance: The patient lying in bed, breathing comfortable HEENT: Normocephalic, atraumatic. Pupils equally round and reactive to light, EOMI, no sclericterus or JVD or thyromegaly or nodule. , no carotid bruit, mucous membranes moist, no exudate or erythema Heart: S1-S2, regular is rhythm Lungs: Crackles bilaterally, breathing comfortable Abdomen: Positive bowel sounds, soft, nontender, nondistended, no organomegaly Extremities: + edema, total cyanosis clubbing Skin: no rash, nodule, warm and dry Neuro: cranial nerves 2-12 intact, speech is fluent, motor/sensory intact - Constitutional Vitals: Temp Pulse Resp BP Pulse Ox 97.5 F L 55 L 18 140/71 96 12/03/18 16:43 12/03/18 21:58 12/03/18 21:58 12/03/18 21:58 12/03/18 21:58 Results - Labs CBC & Chem 7: 12/03/18 16:59 12/03/18 16:59 Labs: Abnormal lab results 12/03/18 12/03/18 12/03/18 Range/Units 16:59 16:59 16:59 Hgb 11.2 L (11.8-15.2) gm/dl Hct 34.3 L (35.5-45.6) % MCV 80 L (84-94) fl MCH 26 L (28-32) pg RDW 15.3 H (13.2-15.2) % Lymph # 1.1 L (1.2-5.4) K/mm3 Seg Neutrophils % 70.6 H (40.0-70.0) % PT 15.4 H (12.2-14.9) Sec. INR 1.15 H (0.87-1.13) Chloride 108.9 H (98-107) mmol/L Glucose 111 H (75-100) mg/dL Calcium 8.0 L (8.4-10.2) mg/dL Troponin T 0.064 H (0.00-0.029) ng/mL NT-Pro-B Natriuret Pep 04504 H (0-900) pg/mL 12/03/18 Range/Units 19:05 Hgb (11.8-15.2) gm/dl Hct (35.5-45.6) % MCV (84-94) fl MCH (28-32) pg RDW (13.2-15.2) % Lymph # (1.2-5.4) K/mm3 Seg Neutrophils % (40.0-70.0) % PT (12.2-14.9) Sec. INR (0.87-1.13) Chloride (98-107) mmol/L Glucose (75-100) mg/dL Calcium (8.4-10.2) mg/dL Troponin T 0.046 H D (0.00-0.029) ng/mL NT-Pro-B Natriuret Pep (0-900) pg/mL - Imaging and Cardiology EKG: image reviewed Chest x-ray: report reviewed Assessment and Plan Assessment Acute on chronic heart failure, systolic hypertension, diabetes dictated by neuropathy dementia hyperlipidemia BPH prostate cancer Plan Admit to medicine Diurese with IV Lasix Check Beta jeanmarie, KRISTOPHER inhibitor, aspirin Check cardiac enzymes, echo, consult cardiology Check fingersticks and initiate insulin sliding scale Continue appropriate outpatient medications DVT prophylaxis Follow-up medication reconciliation
[2018-12-03] MEDS ORDERED: TYLENOL PO PRN (23:20)
[2018-12-03] MEDS ORDERED: ZOFRAN IV PRN (23:20)
[2018-12-03] MEDS ORDERED: D50W (25GM) Syringe IV PRN (23:20)
[2018-12-03] MEDS ORDERED: SODIUM CHLORIDE FLUSH SYRINGE 10 ML IV PRN (23:20)
[2018-12-04 00:15] LABS: Creatine Kinase MB 3.2 ng/mL (0.0-4.0)
[2018-12-04] MEDS: LASIX IV SCH ×2 (05:27→17:28)
[2018-12-04 05:51] LABS: Basophils % (Auto) 0.8 % (0.0-1.8); Eosinophils # (Auto) 0.1 K/mm3 (0.0-0.4); Hematocrit 33.6 % (35.5-45.6); Hemoglobin 10.7 gm/dl (11.8-15.2); Lymphocytes # (Auto) 1.5 K/mm3 (1.2-5.4); Lymphocytes % (Auto) 26.6 % (13.4-35.0); Mean Corpuscular HGB Conc 32 % (32-34); Mean Corpuscular Volume 80 fl (84-94); Monocytes # (Auto) 0.4 K/mm3 (0.0-0.8); Monocytes % (Auto) 7.2 % (0.0-7.3); Platelet Count 233 K/mm3 (140-440); Red Blood Count 4.21 M/mm3 (3.65-5.03); Red Cell Distribution Width 15.1 % (13.2-15.2)
[2018-12-04 06:07] LABS: Creatine Kinase MB 2.8 ng/mL (0.0-4.0)
[2018-12-04 06:13] LABS: Calcium 8.2 mg/dL (8.4-10.2)
[2018-12-04] MEDS: HumaLOG SUB-Q SCH ×4 (07:30→22:01)
[2018-12-04] MEDS: COREG PO SCH ×2 (09:49→22:01)
[2018-12-04] MEDS: LOVENOX SUB-Q SCH (09:49)
[2018-12-04] MEDS: ZESTRIL PO SCH (09:49)
[2018-12-04] MEDS: BABY ASPIRIN PO SCH (09:50)
[2018-12-04] MEDS: SODIUM CHLORIDE FLUSH SYRINGE 10 ML IV SCH ×2 (09:54→22:01)
--- NOTE | 2018-12-04 14:48 | Consultation ---
History of Present Illness Consult date: 12/04/18 Requesting physician: SIXTO CALVERT Consult reason: congestive heart failure History of present illness: The pt is a 68-year-old male with a past medical history of hypertension, diabetes, dementia, hyperlipidemia, BPH, prostate cancer. He is previously unknown to our practice. He presented with c/o lower extremity edema, shortness breath, PND and orthopnea with swelling of the testicles for 3 days. He saw his primary care physician who sent him to the emergency room. Pt denies any prior diagnosis of heart failure. He underwent echo at [facility] in 06/2018 which showed EF 35-40%, mild LVH, trace MR. Cardiology was not consulted at that time. Past History Past Medical History: cancer (prostate), diabetes, hypertension, hyperlipidemia Medications and Allergies Allergies Allergy/AdvReac Type Severity Reaction Status Date / Time No Known Allergies Allergy Verified 12/03/18 16:45 Home Medications Medication Instructions Recorded Confirmed Last Taken Type Aspirin [Aspirin TAB] 325 mg PO QDAY #30 tablet 07/21/18 08/17/18 Unknown Rx Furosemide [Lasix TAB] 20 mg PO QDAY #30 tablet 07/21/18 08/17/18 Unknown Rx Tamsulosin [Flomax] 0.4 mg PO QDAY #30 capsule 07/21/18 08/17/18 Unknown Rx Lisinopril [Zestril TAB] 40 mg PO QDAY #30 tablet 07/24/18 08/17/18 Unknown Rx Carvedilol 25 mg PO BID 07/25/18 08/17/18 Unknown History Eliquis 5 mg PO BID 07/25/18 08/17/18 Unknown History Neurontin 600 mg PO TID 07/25/18 08/17/18 Unknown History Pepcid 20 mg PO DAILY 07/25/18 08/17/18 Unknown History hydrALAZINE 50 mg PO BID 07/25/18 08/17/18 Unknown History Clonidine 0.1 mg PO BID #60 08/19/18 08/17/18 Unknown Rx Active Meds: Active Medications Acetaminophen (Tylenol) 650 mg PO Q4H PRN PRN Reason: Pain MILD(1-3)/Fever >100.5/VANG Aspirin (Baby Aspirin) 81 mg PO QDAY [facility] Last Admin: 12/04/18 09:50 Dose: 81 mg Documented by: Carvedilol (Coreg) 3.125 mg PO BID [facility] Last Admin: 12/04/18 09:49 Dose: 3.125 mg Documented by: Dextrose (D50w (25gm) Syringe) 50 ml IV PRN PRN PRN Reason: Hypoglycemia Enoxaparin Sodium (Lovenox) 40 mg SUB-Q QDAY [facility] Last Admin: 12/04/18 09:49 Dose: 40 mg Documented by: Furosemide (Lasix) 40 mg IV BID@0600,1800 [facility] Last Admin: 12/04/18 05:27 Dose: 40 mg Documented by: Insulin Human Lispro (Humalog) 0 unit SUB-Q ACHS [facility]; Protocol Last Admin: 12/04/18 12:23 Dose: 3 unit Documented by: Lisinopril (Zestril) 5 mg PO QDAY [facility] Last Admin: 12/04/18 09:49 Dose: 5 mg Documented by: Ondansetron HCl (Zofran) 4 mg IV Q8H PRN PRN Reason: Nausea And Vomiting Sodium Chloride (Sodium Chloride Flush Syringe 10 Ml) 10 ml IV BID [facility] Last Admin: 12/04/18 09:54 Dose: 10 ml Documented by: Sodium Chloride (Sodium Chloride Flush Syringe 10 Ml) 10 ml IV PRN PRN PRN Reason: LINE FLUSH Review of Systems Constitutional: no fever, no chills, no sweats Ears, nose, mouth and throat: no ear pain, no nose pain, no sinus pressure, no sinus pain Cardiovascular: shortness of breath, dyspnea on exertion, leg edema, no chest pain, no orthopnea, no palpitations, no rapid/irregular heart beat, no edema, no syncope, no lightheadedness, no high blood pressure Respiratory: shortness of breath, dyspnea on exertion, no cough, no congestion, no wheezing, no pain on inspiration Gastrointestinal: no abdominal pain, no nausea, no vomiting, no diarrhea, no c onstipation, no change in bowel habits Genitourinary Male: other (testicular swelling), no dysuria, no hematuria, no flank pain, no discharge, no urinary frequency, no urinary hesitancy Musculoskeletal: no neck stiffness, no neck pain, no shooting arm pain, no arm numbness/tingling, no low back pain, no shooting leg pain Integumentary: no rash, no pruritis, no redness, no sores, no wounds Neurological: no head injury, no paralysis, no weakness, no parathesias, no numbness, no tingling, no seizures, no syncope Psychiatric: no anxiety Endocrine: no cold intolerance, no heat intolerance Hematologic/Lymphatic: no easy bruising, no easy bleeding Allergic/Immunologic: no urticaria, no wheezing Physical Examination Vital Signs Temp Pulse Resp BP Pulse Ox 97.5 F L 77 38 H 145/89 100 12/03/18 16:43 12/03/18 16:43 12/03/18 16:43 12/03/18 16:43 12/03/18 16:43 General appearance: no acute distress HEENT: Positive: PERRL, Normocephaly, Mucus Membranes Moist Neck: Positive: neck supple, trachea midline Cardiac: Positive: Reg Rate and Rhythm, S1/S2 Lungs: Positive: Decreased Breath Sounds Neuro: Positive: Grossly Intact Abdomen: Negative: Tender Male genitourinary: Positive: penile edema, scrotal edema Skin: Negative: Rash, Wound Musculoskeletal: No Pain Extremities: Present: +1 Edema (ble) Results 12/04/18 05:01 12/04/18 05:01 Cardiac Enzymes 12/03/18 12/04/18 Range/Units 23:35 05:01 CK-MB (CK-2) 3.2 2.8 (0.0-4.0) ng/mL Coagulation 12/03/18 Range/Units 16:59 PT 15.4 H (12.2-14.9) Sec. INR 1.15 H (0.87-1.13) APTT 33.2 (24.2-36.6) Sec. Lipids 12/03/18 Range/Units 16:59 Triglycerides 44 (2-149) mg/dL Cholesterol 114 (50-199) mg/dL HDL Cholesterol 54 (40-59) mg/dL Cholesterol/HDL Ratio 2.11 % CBC 12/03/18 12/04/18 Range/Units 16:59 05:01 WBC 5.3 5.8 (4.5-11.0) K/mm3 RBC 4.32 4.21 (3.65-5.03) M/mm3 Hgb 11.2 L 10.7 L (11.8-15.2) gm/dl Hct 34.3 L 33.6 L (35.5-45.6) % Plt Count 239 233 (140-440) K/mm3 Lymph # 1.1 L 1.5 (1.2-5.4) K/mm3 [place] # 0.3 0.4 (0.0-0.8) K/mm3 Eos # 0.1 0.1 (0.0-0.4) K/mm3 Baso # 0.1 0.0 (0.0-0.1) K/mm3 Comprehensive Metabolic Panel 12/03/18 12/04/18 Range/Units 16:59 05:01 Sodium 145 147 H (137-145) mmol/L Potassium 3.7 4.2 (3.6-5.0) mmol/L Chloride 108.9 H 110.1 H (98-107) mmol/L Carbon Dioxide 25 26 (22-30) mmol/L BUN 14 15 (9-20) mg/dL Creatinine 1.5 1.5 (0.8-1.5) mg/dL Glucose 111 H 121 H (75-100) mg/dL Calcium 8.0 L 8.2 L (8.4-10.2) mg/dL - Imaging and Cardiology Echo: report reviewed (06/2018 which showed EF 35-40%, mild LVH, trace MR. ) EKG: report reviewed, image reviewed EKG interpretations - Telemetry EKG Rhythm: Sinus Rhythm - EKG Sinus rhythms and dysrhythmias: sinus rhythm Assessment and Plan Pt presented with HF. He underwent echo at [facility] in 06/2018 which showed EF 35- 40%, mild LVH, trace MR. Agree with present cardiac management. The patient has been seen in conjunction with Dr. Tinoco who agrees with the assessment and plan of care. - Patient Problems (1) Acute HFrEF (heart failure with reduced ejection fraction) Current Visit: Yes Status: Acute (2) Cardiomyopathy Current Visit: Yes Status: Chronic (3) Hypertension Current Visit: Yes Status: Chronic Qualifiers: (4) Hyperlipidemia Current Visit: Yes Status: Chronic Qualifiers: Hyperlipidemia type: mixed hyperlipidemia Qualified Code(s): E78.2 - Mixed hyperlipidemia (5) T2DM (type 2 diabetes mellitus) Current Visit: Yes Status: Chronic Qualifiers: Diabetes mellitus fdc insulin use: with fdc use (6) Prostate cancer Current Visit: Yes Status: Chronic (7) Dementia Current Visit: Yes Status: Chronic
--- NOTE | 2018-12-04 15:22 | Progress Note ---
<RHEA CABAN - Last Filed: 12/04/18 15:33> Assessment and Plan Assessment and plan: 68-year-old -Serbian male with history of CHF, dementia, hyperlipidemia, BPH, and prostate cancer presented to ED on 12/03/18 after going to his PCP and was referred to go to ED. He complains of swelling to bilateral lower extremities, penis, scrotum 4 days, and dyspnea on exertion. Acute on chronic systolic heart failure Echo on 06/2018 showed EF 35-40%, mild LVH, trace MR Continue ACEI, BB, ASA to optimize cardiac function Continue IV Lasix Cardiology following Hypertension Continue to monitor BP Continue antihypertensive medications to optimize BP Diabetes Continue POC BG monitoring SSI DVT PPX On Lovenox Hx BPH Hx Dementia Hx Prostate cancer History Interval history: Patient continues to be short of breath and has anasarca. Hospitalist Physical - Constitutional Vitals: Temp Pulse Resp BP Pulse Ox 98.0 F 72 20 141/87 94 12/04/18 09:43 12/04/18 09:43 12/04/18 09:43 12/04/18 09:43 12/04/18 09:43 General appearance: Present: no acute distress, mild distress - EENT Eyes: Present: PERRL, EOM intact ENT: hearing intact, clear oral mucosa, poor dentition - Neck Neck: Present: supple - Respiratory Respiratory effort: labored Respiratory: bilateral: diminished (bases), rales (bases) - Cardiovascular Rhythm: irregularly irregular Heart Sounds: Present: S1 & S2 - Extremities Extremities: pulses intact - Peripheral Assessment Generalized Edema Degree: 3+ Skin Temperature: Warm Peripheral Pulses: within normal limits - Abdominal General gastrointestinal: soft, non-tender, normal bowel sounds - Integumentary Integumentary: Present: warm, dry - Psychiatric Psychiatric: cooperative - Neurologic Neurologic: moves all extremities Results - Labs CBC & Chem 7: 12/04/18 05:01 12/04/18 05:01 Labs: Laboratory Last Values WBC 5.8 K/mm3 (4.5-11.0) 12/04/18 05:01 RBC 4.21 M/mm3 (3.65-5.03) 12/04/18 05:01 Hgb 10.7 gm/dl (11.8-15.2) L 12/04/18 05:01 Hct 33.6 % (35.5-45.6) L 12/04/18 05:01 MCV 80 fl (84-94) L 12/04/18 05:01 MCH 26 pg (28-32) L 12/04/18 05:01 MCHC 32 % (32-34) 12/04/18 05:01 RDW 15.1 % (13.2-15.2) 12/04/18 05:01 Plt Count 233 K/mm3 (140-440) 12/04/18 05:01 Lymph % (Auto) 26.6 % (13.4-35.0) 12/04/18 05:01 [place] % (Auto) 7.2 % (0.0-7.3) 12/04/18 05:01 Eos % (Auto) 2.0 % (0.0-4.3) 12/04/18 05:01 Baso % (Auto) 0.8 % (0.0-1.8) 12/04/18 05:01 Lymph # 1.5 K/mm3 (1.2-5.4) 12/04/18 05:01 [place] # 0.4 K/mm3 (0.0-0.8) 12/04/18 05:01 Eos # 0.1 K/mm3 (0.0-0.4) 12/04/18 05:01 Baso # 0.0 K/mm3 (0.0-0.1) 12/04/18 05:01 Seg Neutrophils % 63.4 % (40.0-70.0) 12/04/18 05:01 Seg Neutrophils # 3.7 K/mm3 (1.8-7.7) 12/04/18 05:01 PT 15.4 Sec. (12.2-14.9) H 12/03/18 16:59 INR 1.15 (0.87-1.13) H 12/03/18 16:59 APTT 33.2 Sec. (24.2-36.6) 12/03/18 16:59 Sodium 147 mmol/L (137-145) H 12/04/18 05:01 Potassium 4.2 mmol/L (3.6-5.0) 12/04/18 05:01 Chloride 110.1 mmol/L (98-107) H 12/04/18 05:01 Carbon Dioxide 26 mmol/L (22-30) 12/04/18 05:01 Anion Gap 15 mmol/L 12/04/18 05:01 BUN 15 mg/dL (9-20) 12/04/18 05:01 Creatinine 1.5 mg/dL (0.8-1.5) 12/04/18 05:01 Estimated GFR 56 ml/min 12/04/18 05:01 BUN/Creatinine Ratio 10 % 12/04/18 05:01 Glucose 121 mg/dL (75-100) H 12/04/18 05:01 POC Glucose 186 (70-105) H 12/04/18 11:45 Calcium 8.2 mg/dL (8.4-10.2) L 12/04/18 05:01 Total Creatine Kinase 93 units/L (55-170) 12/04/18 05:01 CK-MB (CK-2) 2.8 ng/mL (0.0-4.0) 12/04/18 05:01 CK-MB (CK-2) Rel Index 3.0 (0-4) 12/04/18 05:01 Troponin T 0.058 ng/mL (0.00-0.029) H 12/04/18 05:01 NT-Pro-B Natriuret Pep 71524 pg/mL (0-900) H 12/03/18 16:59 Triglycerides 44 mg/dL (2-149) 12/03/18 16:59 Cholesterol 114 mg/dL (50-199) 12/03/18 16:59 LDL Cholesterol Direct 61 mg/dL (50-130) 12/03/18 16:59 HDL Cholesterol 54 mg/dL (40-59) 12/03/18 16:59 Cholesterol/HDL Ratio 2.11 % 12/03/18 16:59 Urine Color Yellow (Yellow) 12/03/18 19:30 Urine Turbidity Clear (Clear) 12/03/18 19:30 Urine pH 5.0 (5.0-7.0) 12/03/18 19:30 Ur Specific [place] 1.006 (1.003-1.030) 12/03/18 19:30 Urine Protein 100 mg/dl mg/dL (Negative) 12/03/18 19:30 Urine Glucose (UA) Neg mg/dL (Negative) 12/03/18 19:30 Urine Ketones Neg mg/dL (Negative) 12/03/18 19:30 Urine Blood Neg (Negative) 12/03/18 19:30 Urine Nitrite Neg (Negative) 12/03/18 19:30 Urine Bilirubin Neg (Negative) 12/03/18 19:30 Urine Urobilinogen 4.0 mg/dL (<2.0) 12/03/18 19:30 Ur Leukocyte Esterase Neg (Negative) 12/03/18 19:30 Urine WBC (Auto) 6.0 /HPF (0.0-6.0) 12/03/18 19:30 Urine RBC (Auto) 10.0 /HPF (0.0-6.0) 12/03/18 19:30 Urine Bacteria (Auto) 1+ /HPF (Negative) 12/03/18 19:30 Hyaline Casts 16 /LPF 12/03/18 19:30 Urine Mucus Few /HPF 12/03/18 19:30 Urine Yeast (Budding) 2+ /HPF 12/03/18 19:30 Active Medications - Current Medications Current Medications: Generic Name Dose Route Start Last Admin Trade Name Freq PRN Reason Stop Dose Admin Acetaminophen 650 mg 12/03/18 23:20 Tylenol PO Q4H PRN Pain MILD(1-3)/Fever >100.5/VANG Aspirin 81 mg 12/04/18 10:00 12/04/18 09:50 Baby Aspirin PO 81 mg QDAY BRIDGETT Administration Carvedilol 3.125 mg 12/04/18 10:00 12/04/18 09:49 Coreg PO 3.125 mg BID BRIDGETT Administration Dextrose 50 ml 12/03/18 23:20 D50w (25gm) Syringe IV PRN PRN Hypoglycemia Enoxaparin Sodium 40 mg 12/04/18 10:00 12/04/18 09:49 Lovenox SUB-Q 40 mg QDAY BRIDGETT Administration Furosemide 40 mg 12/04/18 06:00 12/04/18 05:27 Lasix IV 40 mg BID@0600,1800 BRIDGETT Administration Insulin Human Lispro 0 unit 12/04/18 07:30 12/04/18 12:23 Humalog SUB-Q 3 unit ACHS BRIDGETT Administration Protocol Lisinopril 5 mg 12/04/18 10:00 12/04/18 09:49 Zestril PO 5 mg QDAY BRIDGETT Administration Ondansetron HCl 4 mg 12/03/18 23:20 Zofran IV Q8H PRN Nausea And Vomiting Sodium Chloride 10 ml 12/04/18 10:00 12/04/18 09:54 Sodium Chloride Flush Syringe 10 Ml IV 10 ml BID BRIDGETT Administration Sodium Chloride 10 ml 12/03/18 23:20 Sodium Chloride Flush Syringe 10 Ml IV PRN PRN LINE FLUSH <DARRION VARMA M - Last Filed: 12/05/18 09:02> Assessment and Plan Assessment and plan: I saw and evaluated the patient. I reviewed the Mid-level provider's note and agree with the assessment and plan Hospitalist Physical - Constitutional Vitals: Temp Pulse Resp BP Pulse Ox 98.3 F 41 L 18 158/88 94 12/05/18 08:36 12/05/18 08:36 12/05/18 08:36 12/05/18 08:36 12/05/18 08:36 Results - Labs CBC & Chem 7: 12/04/18 05:01 12/04/18 05:01 Labs: Laboratory Last Values WBC 5.8 K/mm3 (4.5-11.0) 12/04/18 05:01 RBC 4.21 M/mm3 (3.65-5.03) 12/04/18 05:01 Hgb 10.7 gm/dl (11.8-15.2) L 12/04/18 05:01 Hct 33.6 % (35.5-45.6) L 12/04/18 05:01 MCV 80 fl (84-94) L 12/04/18 05:01 MCH 26 pg (28-32) L 12/04/18 05:01 MCHC 32 % (32-34) 12/04/18 05:01 RDW 15.1 % (13.2-15.2) 12/04/18 05:01 Plt Count 233 K/mm3 (140-440) 12/04/18 05:01 Lymph % (Auto) 26.6 % (13.4-35.0) 12/04/18 05:01 [place] % (Auto) 7.2 % (0.0-7.3) 12/04/18 05:01 Eos % (Auto) 2.0 % (0.0-4.3) 12/04/18 05:01 Baso % (Auto) 0.8 % (0.0-1.8) 12/04/18 05:01 Lymph # 1.5 K/mm3 (1.2-5.4) 12/04/18 05:01 [place] # 0.4 K/mm3 (0.0-0.8) 12/04/18 05:01 Eos # 0.1 K/mm3 (0.0-0.4) 12/04/18 05:01 Baso # 0.0 K/mm3 (0.0-0.1) 12/04/18 05:01 Seg Neutrophils % 63.4 % (40.0-70.0) 12/04/18 05:01 Seg Neutrophils # 3.7 K/mm3 (1.8-7.7) 12/04/18 05:01 PT 15.4 Sec. (12.2-14.9) H 12/03/18 16:59 INR 1.15 (0.87-1.13) H 12/03/18 16:59 APTT 33.2 Sec. (24.2-36.6) 12/03/18 16:59 Sodium 147 mmol/L (137-145) H 12/04/18 05:01 Potassium 4.2 mmol/L (3.6-5.0) 12/04/18 05:01 Chloride 110.1 mmol/L (98-107) H 12/04/18 05:01 Carbon Dioxide 26 mmol/L (22-30) 12/04/18 05:01 Anion Gap 15 mmol/L 12/04/18 05:01 BUN 15 mg/dL (9-20) 12/04/18 05:01 Creatinine 1.5 mg/dL (0.8-1.5) 12/04/18 05:01 Estimated GFR 56 ml/min 12/04/18 05:01 BUN/Creatinine Ratio 10 % 12/04/18 05:01 Glucose 121 mg/dL (75-100) H 12/04/18 05:01 POC Glucose 185 (70-105) H 12/04/18 21:17 Calcium 8.2 mg/dL (8.4-10.2) L 12/04/18 05:01 Total Creatine Kinase 93 units/L (55-170) 12/04/18 05:01 CK-MB (CK-2) 2.8 ng/mL (0.0-4.0) 12/04/18 05:01 CK-MB (CK-2) Rel Index 3.0 (0-4) 12/04/18 05:01 Troponin T 0.058 ng/mL (0.00-0.029) H 12/04/18 05:01 NT-Pro-B Natriuret Pep 33728 pg/mL (0-900) H 12/03/18 16:59 Triglycerides 44 mg/dL (2-149) 12/03/18 16:59 Cholesterol 114 mg/dL (50-199) 12/03/18 16:59 LDL Cholesterol Direct 61 mg/dL (50-130) 12/03/18 16:59 HDL Cholesterol 54 mg/dL (40-59) 12/03/18 16:59 Cholesterol/HDL Ratio 2.11 % 12/03/18 16:59 Urine Color Yellow (Yellow) 12/03/18 19:30 Urine Turbidity Clear (Clear) 12/03/18 19:30 Urine pH 5.0 (5.0-7.0) 12/03/18 19:30 Ur Specific [place] 1.006 (1.003-1.030) 12/03/18 19:30 Urine Protein 100 mg/dl mg/dL (Negative) 12/03/18 19:30 Urine Glucose (UA) Neg mg/dL (Negative) 12/03/18 19:30 Urine Ketones Neg mg/dL (Negative) 12/03/18 19:30 Urine Blood Neg (Negative) 12/03/18 19:30 Urine Nitrite Neg (Negative) 12/03/18 19:30 Urine Bilirubin Neg (Negative) 12/03/18 19:30 Urine Urobilinogen 4.0 mg/dL (<2.0) 12/03/18 19:30 Ur Leukocyte Esterase Neg (Negative) 12/03/18 19:30 Urine WBC (Auto) 6.0 /HPF (0.0-6.0) 12/03/18 19:30 Urine RBC (Auto) 10.0 /HPF (0.0-6.0) 12/03/18 19:30 Urine Bacteria (Auto) 1+ /HPF (Negative) 12/03/18 19:30 Hyaline Casts 16 /LPF 12/03/18 19:30 Urine Mucus Few /HPF 12/03/18 19:30 Urine Yeast (Budding) 2+ /HPF 12/03/18 19:30 Active Medications - Current Medications Current Medications: Generic Name Dose Route Start Last Admin Trade Name Freq PRN Reason Stop Dose Admin Acetaminophen 650 mg 12/03/18 23:20 Tylenol PO Q4H PRN Pain MILD(1-3)/Fever >100.5/VANG Aspirin 81 mg 12/04/18 10:00 12/04/18 09:50 Baby Aspirin PO 81 mg QDAY BRIDGETT Administration Carvedilol 3.125 mg 12/04/18 10:00 12/04/18 22:01 Coreg PO 3.125 mg BID BRIDGETT Administration Dextrose 50 ml 12/03/18 23:20 D50w (25gm) Syringe IV PRN PRN Hypoglycemia Enoxaparin Sodium 40 mg 12/04/18 10:00 12/04/18 09:49 Lovenox SUB-Q 40 mg QDAY BRIDGETT Administration Furosemide 40 mg 12/04/18 06:00 12/05/18 05:23 Lasix IV 40 mg BID@0600,1800 BRIDGETT Administration Insulin Human Lispro 0 unit 12/04/18 07:30 12/04/18 22:01 Humalog SUB-Q 3 unit ACHS BRIDGETT Administration Protocol Lisinopril 5 mg 12/04/18 10:00 12/04/18 09:49 Zestril PO 5 mg QDAY BRIDGETT Administration Ondansetron HCl 4 mg 12/03/18 23:20 Zofran IV Q8H PRN Nausea And Vomiting Sodium Chloride 10 ml 12/04/18 10:00 12/04/18 22:01 Sodium Chloride Flush Syringe 10 Ml IV 10 ml BID BRIDGETT Administration Sodium Chloride 10 ml 12/03/18 23:20 Sodium Chloride Flush Syringe 10 Ml IV PRN PRN LINE FLUSH
[2018-12-05] MEDS: LASIX IV SCH ×2 (05:23→17:20)
[2018-12-05] MEDS: HumaLOG SUB-Q SCH ×4 (08:30→22:29)
[2018-12-05] MEDS: BABY ASPIRIN PO SCH (10:23)
[2018-12-05] MEDS: LOVENOX SUB-Q SCH (10:23)
[2018-12-05] MEDS: COREG PO SCH ×2 (10:24→22:29)
[2018-12-05] MEDS: ZESTRIL PO SCH (10:24)
[2018-12-05] MEDS: SODIUM CHLORIDE FLUSH SYRINGE 10 ML IV SCH ×2 (10:26→22:36)
--- NOTE | 2018-12-05 10:40 | Progress Note ---
Assessment and Plan Assessment and plan: 68-year-old -[place] male with history of CHF, dementia, hyperlipidemia, BPH, and prostate cancer presented to ED on 12/03/18 after going to his PCP and was referred to go to ED. He complains of swelling to bilateral lower extremities, penis, scrotum 4 days, and dyspnea on exertion. -he is on iv diuresis optimize bp meds cont SSI -cont chronic meds DVT PPX,On Lovenox Diagnosis Acute on chronic systolic heart failure, EF 35% Hypertension Diabetes Hx BPH Hx Dementia Hx Prostate cancer History Interval history: Review of systems Constitutional: No fevers, no malaise, no joint pains CVS: No chest pain, c/o orthopnea, dyspnea on exertion, pedal edema and testicular edema GI: No abdominal pain, no diarrhea, no vomiting, no constipation Respiratory: no wheezing, no coughing Hospitalist Physical - Physical exam Narrative exam: General.: Appears well, no distress, nontoxic HEENT: Moist mucous membranes, extraocular muscles intact, no lymphadenopathy Neck: supple Cardiac: S1-S2 heard Lungs: bibasilar crackles, Abdomen: soft , nontender, nondistended, bowel sounds positive Extremities: 3 plus bipedal edema Skin: no rash or lesions Neurologic: no gross focal deficits Psych: calm, and cooperative - Constitutional Vitals: Temp Pulse Resp BP Pulse Ox 98.3 F 73 18 158/88 94 12/05/18 08:36 12/05/18 10:24 12/05/18 08:36 12/05/18 10:24 12/05/18 08:36 General appearance: Present: no acute distress, mild distress Results - Labs CBC & Chem 7: 12/04/18 05:01 12/04/18 05:01 Labs: Laboratory Last Values WBC 5.8 K/mm3 (4.5-11.0) 12/04/18 05:01 RBC 4.21 M/mm3 (3.65-5.03) 12/04/18 05:01 Hgb 10.7 gm/dl (11.8-15.2) L 12/04/18 05:01 Hct 33.6 % (35.5-45.6) L 12/04/18 05:01 MCV 80 fl (84-94) L 12/04/18 05:01 MCH 26 pg (28-32) L 12/04/18 05:01 MCHC 32 % (32-34) 12/04/18 05:01 RDW 15.1 % (13.2-15.2) 12/04/18 05:01 Plt Count 233 K/mm3 (140-440) 12/04/18 05:01 Lymph % (Auto) 26.6 % (13.4-35.0) 12/04/18 05:01 [place] % (Auto) 7.2 % (0.0-7.3) 12/04/18 05:01 Eos % (Auto) 2.0 % (0.0-4.3) 12/04/18 05:01 Baso % (Auto) 0.8 % (0.0-1.8) 12/04/18 05:01 Lymph # 1.5 K/mm3 (1.2-5.4) 12/04/18 05:01 [place] # 0.4 K/mm3 (0.0-0.8) 12/04/18 05:01 Eos # 0.1 K/mm3 (0.0-0.4) 12/04/18 05:01 Baso # 0.0 K/mm3 (0.0-0.1) 12/04/18 05:01 Seg Neutrophils % 63.4 % (40.0-70.0) 12/04/18 05:01 Seg Neutrophils # 3.7 K/mm3 (1.8-7.7) 12/04/18 05:01 PT 15.4 Sec. (12.2-14.9) H 12/03/18 16:59 INR 1.15 (0.87-1.13) H 12/03/18 16:59 APTT 33.2 Sec. (24.2-36.6) 12/03/18 16:59 Sodium 147 mmol/L (137-145) H 12/04/18 05:01 Potassium 4.2 mmol/L (3.6-5.0) 12/04/18 05:01 Chloride 110.1 mmol/L (98-107) H 12/04/18 05:01 Carbon Dioxide 26 mmol/L (22-30) 12/04/18 05:01 Anion Gap 15 mmol/L 12/04/18 05:01 BUN 15 mg/dL (9-20) 12/04/18 05:01 Creatinine 1.5 mg/dL (0.8-1.5) 12/04/18 05:01 Estimated GFR 56 ml/min 12/04/18 05:01 BUN/Creatinine Ratio 10 % 12/04/18 05:01 Glucose 121 mg/dL (75-100) H 12/04/18 05:01 POC Glucose 185 (70-105) H 12/04/18 21:17 Calcium 8.2 mg/dL (8.4-10.2) L 12/04/18 05:01 Total Creatine Kinase 93 units/L (55-170) 12/04/18 05:01 CK-MB (CK-2) 2.8 ng/mL (0.0-4.0) 12/04/18 05:01 CK-MB (CK-2) Rel Index 3.0 (0-4) 12/04/18 05:01 Troponin T 0.058 ng/mL (0.00-0.029) H 12/04/18 05:01 NT-Pro-B Natriuret Pep 90917 pg/mL (0-900) H 12/03/18 16:59 Triglycerides 44 mg/dL (2-149) 12/03/18 16:59 Cholesterol 114 mg/dL (50-199) 12/03/18 16:59 LDL Cholesterol Direct 61 mg/dL (50-130) 12/03/18 16:59 HDL Cholesterol 54 mg/dL (40-59) 12/03/18 16:59 Cholesterol/HDL Ratio 2.11 % 12/03/18 16:59 Urine Color Yellow (Yellow) 12/03/18 19:30 Urine Turbidity Clear (Clear) 12/03/18 19:30 Urine pH 5.0 (5.0-7.0) 12/03/18 19:30 Ur Specific [place] 1.006 (1.003-1.030) 12/03/18 19:30 Urine Protein 100 mg/dl mg/dL (Negative) 12/03/18 19:30 Urine Glucose (UA) Neg mg/dL (Negative) 12/03/18 19:30 Urine Ketones Neg mg/dL (Negative) 12/03/18 19:30 Urine Blood Neg (Negative) 12/03/18 19:30 Urine Nitrite Neg (Negative) 12/03/18 19:30 Urine Bilirubin Neg (Negative) 12/03/18 19:30 Urine Urobilinogen 4.0 mg/dL (<2.0) 12/03/18 19:30 Ur Leukocyte Esterase Neg (Negative) 12/03/18 19:30 Urine WBC (Auto) 6.0 /HPF (0.0-6.0) 12/03/18 19:30 Urine RBC (Auto) 10.0 /HPF (0.0-6.0) 12/03/18 19:30 Urine Bacteria (Auto) 1+ /HPF (Negative) 12/03/18 19:30 Hyaline Casts 16 /LPF 12/03/18 19:30 Urine Mucus Few /HPF 12/03/18 19:30 Urine Yeast (Budding) 2+ /HPF 12/03/18 19:30 Active Medications - Current Medications Current Medications: Generic Name Dose Route Start Last Admin Trade Name Freq PRN Reason Stop Dose Admin Acetaminophen 650 mg 12/03/18 23:20 Tylenol PO Q4H PRN Pain MILD(1-3)/Fever >100.5/VANG Aspirin 81 mg 12/04/18 10:00 12/05/18 10:23 Baby Aspirin PO 81 mg QDAY BRIDGETT Administration Carvedilol 3.125 mg 12/04/18 10:00 12/05/18 10:24 Coreg PO 3.125 mg BID BRIDGETT Administration Dextrose 50 ml 12/03/18 23:20 D50w (25gm) Syringe IV PRN PRN Hypoglycemia Enoxaparin Sodium 40 mg 12/04/18 10:00 12/05/18 10:23 Lovenox SUB-Q 40 mg QDAY BRIDGETT Administration Furosemide 40 mg 12/04/18 06:00 12/05/18 05:23 Lasix IV 40 mg BID@0600,1800 BRIDGETT Administration Insulin Human Lispro 0 unit 12/04/18 07:30 12/04/18 22:01 Humalog SUB-Q 3 unit ACHS BRIDGETT Administration Protocol Lisinopril 5 mg 12/04/18 10:00 12/05/18 10:24 Zestril PO 5 mg QDAY BRIDGETT Administration Ondansetron HCl 4 mg 12/03/18 23:20 Zofran IV Q8H PRN Nausea And Vomiting Sodium Chloride 10 ml 12/04/18 10:00 12/05/18 10:26 Sodium Chloride Flush Syringe 10 Ml IV 10 ml BID BRIDGETT Administration Sodium Chloride 10 ml 12/03/18 23:20 Sodium Chloride Flush Syringe 10 Ml IV PRN PRN LINE FLUSH
[2018-12-05] MEDS ORDERED: ZESTRIL PO SCH (10:49)
[2018-12-05] MEDS ORDERED: ZESTRIL PO NR ×2 (11:30)
[2018-12-05] MEDS: NEURONTIN PO SCH ×2 (13:20→20:07)
[2018-12-05] MEDS ORDERED: NEURONTIN PO SCH (14:00)
--- NOTE | 2018-12-05 15:00 | Progress Note ---
Assessment and Plan The pt is a 68-year-old male with a past medical history of hypertension, diabetes, dementia, hyperlipidemia, BPH, prostate cancer. He is previously unknown to our practice. He presented with c/o lower extremity edema, shortness breath, PND and orthopnea with swelling of the testicles for 3 days. He saw his primary care physician who sent him to the emergency room. Pt denies any prior diagnosis of heart failure. He underwent echo at [facility] in 06/2018 which showed EF 35-40%, mild LVH, trace MR. Cardiology was not consulted at that time. >telemetry showing S.R with PVC's,clinically better.Continue present treatment. Subjective Date of service: 12/05/18 Interval history: patient is feeling better,still SOB. Objective Vital Signs Temp Pulse Resp BP Pulse Ox 12/05/18 10:24 73 158/88 12/05/18 10:00 96 12/05/18 08:36 98.3 F 41 L 18 158/88 94 12/05/18 04:28 98.0 F 46 L 18 159/105 97 12/04/18 23:49 98.4 F 74 20 135/100 99 12/04/18 23:00 84 12/04/18 22:00 20 97 12/04/18 19:54 98.0 F 69 20 154/95 94 12/04/18 15:53 72 135/101 91 - Physical Examination HEENT: Positive: PERRL, Normocephaly, Mucus Membranes Moist Neck: Positive: neck supple, trachea midline Cardiac: Positive: Reg Rate and Rhythm, S4 Neuro: Positive: Grossly Intact Abdomen: Positive: Unremarkable. Negative: Tender Skin: Negative: Rash, Wound Musculoskeletal: No Pain Extremities: Present: +1 Edema (ble) - Imaging and Cardiology EKG: report reviewed, image reviewed Echo: report reviewed (06/2018 which showed EF 35-40%, mild LVH, trace MR. ) - EKG Sinus rhythms and dysrhythmias: sinus rhythm
[2018-12-05] MEDS: PEPCID PO SCH (22:29)
[2018-12-06] MEDS: LASIX IV SCH ×2 (05:12→18:41)
[2018-12-06] MEDS: NEURONTIN PO SCH ×3 (08:39→20:53)
[2018-12-06] MEDS: LOVENOX SUB-Q SCH (09:36)
[2018-12-06] MEDS: ZESTRIL PO SCH (09:36)
[2018-12-06] MEDS: SODIUM CHLORIDE FLUSH SYRINGE 10 ML IV SCH ×2 (09:38→22:36)
[2018-12-06] MEDS: BABY ASPIRIN PO SCH (09:39)
[2018-12-06] MEDS: PEPCID PO SCH ×2 (09:39→22:34)
[2018-12-06] MEDS: COREG PO SCH ×2 (09:40→22:34)
[2018-12-06] MEDS: FLOMAX PO SCH (09:40)
[2018-12-06] MEDS ORDERED: NON-FORMULARY (Pepcid 20 MG) PO SCH (10:00)
[2018-12-06] MEDS: HumaLOG SUB-Q SCH ×4 (10:11→22:35)
--- NOTE | 2018-12-06 10:18 | Progress Note ---
Assessment and Plan Assessment and plan: 68-year-old -[place]ag[place] male with history of CHF, dementia, hyperlipidemia, BPH, and prostate cancer presented to ED on 12/03/18 after going to his PCP and was referred to go to ED. He complains of swelling to bilateral lower extremities, penis, scrotum 4 days, and dyspnea on exertion. -he is on iv diuresis optimize bp meds cont SSI -cont chronic meds DVT PPX,On Lovenox Diagnosis Acute on chronic systolic heart failure, EF 35% Hypertension Diabetes Hx BPH Hx Dementia Hx Prostate cancer History Interval history: Review of systems Constitutional: No fevers, no malaise, no joint pains CVS: No chest pain, c/o orthopnea, dyspnea on exertion, pedal edema and testicular edema GI: No abdominal pain, no diarrhea, no vomiting, no constipation Respiratory: no wheezing, no coughing Hospitalist Physical - Physical exam Narrative exam: General.: Appears well, no distress, nontoxic HEENT: Moist mucous membranes, extraocular muscles intact, no lymphadenopathy Neck: supple Cardiac: S1-S2 heard Lungs: bibasilar crackles, Abdomen: soft , nontender, nondistended, bowel sounds positive Extremities: 3 plus bipedal edema Skin: no rash or lesions Neurologic: no gross focal deficits Psych: calm, and cooperative - Constitutional Vitals: Temp Pulse Resp BP Pulse Ox 97.5 F L 73 20 166/108 98 12/06/18 04:29 12/06/18 09:40 12/06/18 04:29 12/06/18 04:29 12/06/18 04:29 General appearance: Present: no acute distress, mild distress Results - Labs CBC & Chem 7: 12/04/18 05:01 12/04/18 05:01 Labs: Laboratory Last Values WBC 5.8 K/mm3 (4.5-11.0) 12/04/18 05:01 RBC 4.21 M/mm3 (3.65-5.03) 12/04/18 05:01 Hgb 10.7 gm/dl (11.8-15.2) L 12/04/18 05:01 Hct 33.6 % (35.5-45.6) L 12/04/18 05:01 MCV 80 fl (84-94) L 12/04/18 05:01 MCH 26 pg (28-32) L 12/04/18 05:01 MCHC 32 % (32-34) 12/04/18 05:01 RDW 15.1 % (13.2-15.2) 12/04/18 05:01 Plt Count 233 K/mm3 (140-440) 12/04/18 05:01 Lymph % (Auto) 26.6 % (13.4-35.0) 12/04/18 05:01 [place] % (Auto) 7.2 % (0.0-7.3) 12/04/18 05:01 Eos % (Auto) 2.0 % (0.0-4.3) 12/04/18 05:01 Baso % (Auto) 0.8 % (0.0-1.8) 12/04/18 05:01 Lymph # 1.5 K/mm3 (1.2-5.4) 12/04/18 05:01 [place] # 0.4 K/mm3 (0.0-0.8) 12/04/18 05:01 Eos # 0.1 K/mm3 (0.0-0.4) 12/04/18 05:01 Baso # 0.0 K/mm3 (0.0-0.1) 12/04/18 05:01 Seg Neutrophils % 63.4 % (40.0-70.0) 12/04/18 05:01 Seg Neutrophils # 3.7 K/mm3 (1.8-7.7) 12/04/18 05:01 PT 15.4 Sec. (12.2-14.9) H 12/03/18 16:59 INR 1.15 (0.87-1.13) H 12/03/18 16:59 APTT 33.2 Sec. (24.2-36.6) 12/03/18 16:59 Sodium 147 mmol/L (137-145) H 12/04/18 05:01 Potassium 4.2 mmol/L (3.6-5.0) 12/04/18 05:01 Chloride 110.1 mmol/L (98-107) H 12/04/18 05:01 Carbon Dioxide 26 mmol/L (22-30) 12/04/18 05:01 Anion Gap 15 mmol/L 12/04/18 05:01 BUN 15 mg/dL (9-20) 12/04/18 05:01 Creatinine 1.5 mg/dL (0.8-1.5) 12/04/18 05:01 Estimated GFR 56 ml/min 12/04/18 05:01 BUN/Creatinine Ratio 10 % 12/04/18 05:01 Glucose 121 mg/dL (75-100) H 12/04/18 05:01 POC Glucose 164 (70-105) H 12/06/18 10:00 Calcium 8.2 mg/dL (8.4-10.2) L 12/04/18 05:01 Total Creatine Kinase 93 units/L (55-170) 12/04/18 05:01 CK-MB (CK-2) 2.8 ng/mL (0.0-4.0) 12/04/18 05:01 CK-MB (CK-2) Rel Index 3.0 (0-4) 12/04/18 05:01 Troponin T 0.058 ng/mL (0.00-0.029) H 12/04/18 05:01 NT-Pro-B Natriuret Pep 77856 pg/mL (0-900) H 12/03/18 16:59 Triglycerides 44 mg/dL (2-149) 12/03/18 16:59 Cholesterol 114 mg/dL (50-199) 12/03/18 16:59 LDL Cholesterol Direct 61 mg/dL (50-130) 12/03/18 16:59 HDL Cholesterol 54 mg/dL (40-59) 12/03/18 16:59 Cholesterol/HDL Ratio 2.11 % 12/03/18 16:59 Urine Color Yellow (Yellow) 12/03/18 19:30 Urine Turbidity Clear (Clear) 12/03/18 19:30 Urine pH 5.0 (5.0-7.0) 12/03/18 19:30 Ur Specific [place] 1.006 (1.003-1.030) 12/03/18 19:30 Urine Protein 100 mg/dl mg/dL (Negative) 12/03/18 19:30 Urine Glucose (UA) Neg mg/dL (Negative) 12/03/18 19:30 Urine Ketones Neg mg/dL (Negative) 12/03/18 19:30 Urine Blood Neg (Negative) 12/03/18 19:30 Urine Nitrite Neg (Negative) 12/03/18 19:30 Urine Bilirubin Neg (Negative) 12/03/18 19:30 Urine Urobilinogen 4.0 mg/dL (<2.0) 12/03/18 19:30 Ur Leukocyte Esterase Neg (Negative) 12/03/18 19:30 Urine WBC (Auto) 6.0 /HPF (0.0-6.0) 12/03/18 19:30 Urine RBC (Auto) 10.0 /HPF (0.0-6.0) 12/03/18 19:30 Urine Bacteria (Auto) 1+ /HPF (Negative) 12/03/18 19:30 Hyaline Casts 16 /LPF 12/03/18 19:30 Urine Mucus Few /HPF 12/03/18 19:30 Urine Yeast (Budding) 2+ /HPF 12/03/18 19:30 Active Medications - Current Medications Current Medications: Generic Name Dose Route Start Last Admin Trade Name Freq PRN Reason Stop Dose Admin Acetaminophen 650 mg 12/03/18 23:20 Tylenol PO Q4H PRN Pain MILD(1-3)/Fever >100.5/VANG Aspirin 81 mg 12/04/18 10:00 12/06/18 09:39 Baby Aspirin PO 81 mg QDAY BRIDGETT Administration Carvedilol 3.125 mg 12/04/18 10:00 12/06/18 09:40 Coreg PO 3.125 mg BID BRIDGETT Administration Dextrose 50 ml 12/03/18 23:20 D50w (25gm) Syringe IV PRN PRN Hypoglycemia Enoxaparin Sodium 40 mg 12/04/18 10:00 12/06/18 09:36 Lovenox SUB-Q 40 mg QDAY BRIDGETT Administration Famotidine 20 mg 12/05/18 22:00 12/06/18 09:39 Pepcid PO 20 mg BID BRIDGETT Administration Furosemide 40 mg 12/04/18 06:00 12/06/18 05:12 Lasix IV 40 mg BID@0600,1800 BRIDGETT Administration Gabapentin 600 mg 12/05/18 14:00 12/06/18 08:39 Neurontin PO 600 mg TID BRIDGETT Administration Insulin Human Lispro 0 unit 12/04/18 07:30 12/05/18 22:29 Humalog SUB-Q Not Given [facility] Protocol Lisinopril 20 mg 12/06/18 10:00 12/06/18 09:36 Zestril PO 20 mg QDAY BRIDGETT Administration Ondansetron HCl 4 mg 12/03/18 23:20 Zofran IV Q8H PRN Nausea And Vomiting Sodium Chloride 10 ml 12/04/18 10:00 12/06/18 09:38 Sodium Chloride Flush Syringe 10 Ml IV 10 ml BID BRIDGETT Administration Sodium Chloride 10 ml 12/03/18 23:20 Sodium Chloride Flush Syringe 10 Ml IV PRN PRN LINE FLUSH Tamsulosin HCl 0.4 mg 12/06/18 10:00 12/06/18 09:40 Flomax PO 0.4 mg QDAY BRIDGETT Administration
--- NOTE | 2018-12-06 15:08 | Progress Note ---
Assessment and Plan The pt is a 68-year-old male with a past medical history of hypertension, diabetes, dementia, hyperlipidemia, BPH, prostate cancer. He is previously unknown to our practice. He presented with c/o lower extremity edema, shortness breath, PND and orthopnea with swelling of the testicles for 3 days. He saw his primary care physician who sent him to the emergency room. Pt denies any prior diagnosis of heart failure. He underwent echo at [facility] in 06/2018 which showed EF 35-40%, mild LVH, trace MR. Cardiology was not consulted at that time. 12/05/2018>telemetry showing S.R with PVC's,clinically better.Continue present treatment. 12/06/2018>getting better,SOB better.Continue present rx.B.P is still elevated,inrease Carvedilol. Subjective Date of service: 12/06/18 Interval history: patient is feeling better,still SOB. 12/06/2018>says getting slightly better.Telemetry s.R with PVC's. Objective Vital Signs Temp Pulse Pulse Resp Resp BP Pulse Ox 12/06/18 10:00 73 20 98 12/06/18 09:40 73 12/06/18 09:36 73 12/06/18 04:29 97.5 F L 71 20 166/108 98 12/05/18 23:18 98.0 F 50 L 20 153/75 100 12/05/18 22:29 86 168/86 12/05/18 22:00 20 12/05/18 21:33 94 12/05/18 21:00 80 20 96 12/05/18 20:00 74 12/05/18 19:54 97.6 F 37 L 20 176/91 100 12/05/18 19:20 73 12/05/18 17:30 98.3 F 37 L 18 164/92 96 - Physical Examination HEENT: Positive: PERRL, Normocephaly, Mucus Membranes Moist Neck: Positive: neck supple, trachea midline Cardiac: Positive: Irregularly Regular Lungs: Positive: Decreased Breath Sounds Neuro: Positive: Grossly Intact Abdomen: Positive: Unremarkable. Negative: Tender Skin: Negative: Rash, Wound Musculoskeletal: No Pain Extremities: Present: +1 Edema (ble) - Imaging and Cardiology EKG: report reviewed, image reviewed Echo: report reviewed (06/2018 which showed EF 35-40%, mild LVH, trace MR. ) - EKG Sinus rhythms and dysrhythmias: sinus rhythm
[2018-12-07] MEDS: LASIX IV SCH (05:28)
[2018-12-07 06:26] LABS: Calcium 7.9 mg/dL (8.4-10.2)
[2018-12-07] MEDS: HumaLOG SUB-Q SCH ×4 (08:14→22:33)
[2018-12-07] MEDS: NEURONTIN PO SCH ×3 (08:34→22:32)
[2018-12-07] MEDS: BABY ASPIRIN PO SCH (11:02)
[2018-12-07] MEDS: PEPCID PO SCH ×2 (11:02→22:32)
[2018-12-07] MEDS: COREG PO SCH ×3 (11:02→22:33)
[2018-12-07] MEDS: FLOMAX PO SCH (11:02)
[2018-12-07] MEDS: ZESTRIL PO SCH ×2 (11:03→15:00)
[2018-12-07] MEDS: SODIUM CHLORIDE FLUSH SYRINGE 10 ML IV SCH ×2 (11:04→22:34)
[2018-12-07] MEDS: LOVENOX SUB-Q SCH (11:04)
--- NOTE | 2018-12-07 12:32 | Discharge Summary ---
Providers - Providers Date of Admission: 12/03/18 22:03 Date of discharge: 12/07/18 Attending physician: DARRION VARMA MD 12/03/18 23:20 Consult to Physician [CONS] Routine Comment: Consulting Provider: YOUNG PERDOMO Physician Instructions: Reason For Exam: chf 12/05/18 10:47 Physical Therapy Evaluation and Treat [CONS] Routine Comment: Reason For Exam: ataxia Primary care physician: LOG CLERK Hospitalization Reason for admission: Acute on Chronic Systolic HF Condition: Stable Hospital course: 68-year-old -Serbian male with history of CHF, dementia, hyperlipidemia, BPH, and prostate cancer presented to ED on 12/03/18 after going to his PCP and was referred to go to ED. He complains of swelling to bilateral lower extremities, penis, scrotum 4 days, and dyspnea on exertion. He was diuresed with IV Lasix and antihypertensive meds were adjusted for optimization. Diagnosis Acute on chronic systolic heart failure, EF 35% Hypertension Diabetes Hx BPH Hx Dementia Hx Prostate cancer Disposition: DC- TO HOME OR SELFCARE Time spent for discharge: 33minutes Core Measure Documentation - Palliative Care Palliative Care/ Comfort Measures: Not Applicable - Core Measures Any of the following diagnoses?: heart failure - VTE Discharge Requirements Deep Vein Thrombosis/Pulmonary Embolism Present on Admission: No Contraindication No Overlap Therapy order at DC: Not Indicated - Heart Failure Discharge Requirements Beta jeanmarie at discharge: Yes Exam - Physical Exam Narrative exam: General appearance: Present: no acute distress, mild distress - EENT Eyes: Present: PERRL, EOM intact ENT: hearing intact, clear oral mucosa, poor dentition - Neck Neck: Present: supple - Respiratory Respiratory effort: labored Respiratory: bilateral: diminished (bases) - Cardiovascular Rhythm: irregularly irregular Heart Sounds: Present: S1 & S2 - Extremities Extremities: pulses intact - Peripheral Assessment Generalized Edema Degree: 1+ Skin Temperature: Warm Peripheral Pulses: within normal limits - Abdominal General gastrointestinal: soft, non-tender, normal bowel sounds - Integumentary Integumentary: Present: warm, dry - Psychiatric Psychiatric: cooperative - Neurologic Neurologic: moves all extremities - Constitutional Vitals: Temp Pulse Resp BP Pulse Ox 97.9 F 66 18 132/88 99 12/07/18 12:25 12/07/18 12:25 12/07/18 12:25 12/07/18 12:25 12/07/18 12:25 Plan Activity: advance as tolerated Diet: low fat, low salt Follow up with: PRIMARY CARE,MD [Primary Care Provider] - 3-5 Days Prescriptions: Aspirin [Aspirin BABY CHEW TAB] 81 mg PO QDAY 30 Days #30 tab.chew Carvedilol [Coreg] 12.5 mg PO BID 30 Days #60 tablet Lisinopril [Zestril TAB] 20 mg PO QDAY 30 Days #30 tablet
[2018-12-07] MEDS ORDERED: ZESTRIL PO SCH (12:46)
--- NOTE | 2018-12-07 12:49 | Progress Note ---
Assessment and Plan Assessment and plan: 68-year-old -[place] male with history of CHF, dementia, hyperlipidemia, BPH, and prostate cancer presented to ED on 12/03/18 after going to his PCP and was referred to go to ED. He complains of swelling to bilateral lower extremities, penis, scrotum 4 days, and dyspnea on exertion. Pt's generalized edema has improved. Acute on chronic systolic heart failure Echo on 06/2018 showed EF 35-40%, mild LVH, trace MR Adjusted ACEI, and BB to optimize cardiac function Continue ASA Received IV Lasix- last dose this am Cardiology following Pt has scheduled Outpatient appointment on Saturday 12/[address] Ramin Tinoco Hypertension Continue to monitor BP Continue antihypertensive medications to optimize BP Diabetes Continue POC BG monitoring SSI DVT PPX On Lovenox Hx BPH Hx Dementia Hx Prostate cancer History Interval history: pt had a few episodes of bradycardia overnight. Overall pt has no complaints at this time. Hospitalist Physical - Physical exam Narrative exam: General appearance: Present: no acute distress - EENT Eyes: Present: PERRL, EOM intact ENT: hearing intact, clear oral mucosa, poor dentition - Neck Neck: Present: supple - Respiratory Respiratory effort: labored Respiratory: bilateral: diminished (bases) - Cardiovascular Rhythm: irregularly irregular Heart Sounds: Present: S1 & S2 - Extremities Extremities: pulses intact - Peripheral Assessment Generalized Edema Degree: 1+ Skin Temperature: Warm Peripheral Pulses: within normal limits - Abdominal General gastrointestinal: soft, non-tender, normal bowel sounds - Integumentary Integumentary: Present: warm, dry - Psychiatric Psychiatric: cooperative - Neurologic Neurologic: moves all extremities - Constitutional Vitals: Temp Pulse Resp BP Pulse Ox 97.9 F 66 18 132/88 99 12/07/18 12:25 12/07/18 12:25 12/07/18 12:25 12/07/18 12:25 12/07/18 12:25 General appearance: Present: no acute distress, mild distress Results - Labs CBC & Chem 7: 12/04/18 05:01 12/07/18 05:31 Labs: Laboratory Last Values WBC 5.8 K/mm3 (4.5-11.0) 12/04/18 05:01 RBC 4.21 M/mm3 (3.65-5.03) 12/04/18 05:01 Hgb 10.7 gm/dl (11.8-15.2) L 12/04/18 05:01 Hct 33.6 % (35.5-45.6) L 12/04/18 05:01 MCV 80 fl (84-94) L 12/04/18 05:01 MCH 26 pg (28-32) L 12/04/18 05:01 MCHC 32 % (32-34) 12/04/18 05:01 RDW 15.1 % (13.2-15.2) 12/04/18 05:01 Plt Count 233 K/mm3 (140-440) 12/04/18 05:01 Lymph % (Auto) 26.6 % (13.4-35.0) 12/04/18 05:01 Mayes % (Auto) 7.2 % (0.0-7.3) 12/04/18 05:01 Eos % (Auto) 2.0 % (0.0-4.3) 12/04/18 05:01 Baso % (Auto) 0.8 % (0.0-1.8) 12/04/18 05:01 Lymph # 1.5 K/mm3 (1.2-5.4) 12/04/18 05:01 Mayes # 0.4 K/mm3 (0.0-0.8) 12/04/18 05:01 Eos # 0.1 K/mm3 (0.0-0.4) 12/04/18 05:01 Baso # 0.0 K/mm3 (0.0-0.1) 12/04/18 05:01 Seg Neutrophils % 63.4 % (40.0-70.0) 12/04/18 05:01 Seg Neutrophils # 3.7 K/mm3 (1.8-7.7) 12/04/18 05:01 PT 15.4 Sec. (12.2-14.9) H 12/03/18 16:59 INR 1.15 (0.87-1.13) H 12/03/18 16:59 APTT 33.2 Sec. (24.2-36.6) 12/03/18 16:59 Sodium 144 mmol/L (137-145) 12/07/18 05:31 Potassium 3.9 mmol/L (3.6-5.0) 12/07/18 05:31 Chloride 108.3 mmol/L (98-107) H 12/07/18 05:31 Carbon Dioxide 25 mmol/L (22-30) 12/07/18 05:31 Anion Gap 15 mmol/L 12/07/18 05:31 BUN 19 mg/dL (9-20) 12/07/18 05:31 Creatinine 1.5 mg/dL (0.8-1.5) 12/07/18 05:31 Estimated GFR 56 ml/min 12/07/18 05:31 BUN/Creatinine Ratio 13 % 12/07/18 05:31 Glucose 125 mg/dL (75-100) H 12/07/18 05:31 POC Glucose 150 (70-105) H 12/07/18 11:48 Calcium 7.9 mg/dL (8.4-10.2) L 12/07/18 05:31 Total Creatine Kinase 93 units/L (55-170) 12/04/18 05:01 CK-MB (CK-2) 2.8 ng/mL (0.0-4.0) 12/04/18 05:01 CK-MB (CK-2) Rel Index 3.0 (0-4) 12/04/18 05:01 Troponin T 0.058 ng/mL (0.00-0.029) H 12/04/18 05:01 NT-Pro-B Natriuret Pep 20650 pg/mL (0-900) H 12/03/18 16:59 Triglycerides 44 mg/dL (2-149) 12/03/18 16:59 Cholesterol 114 mg/dL (50-199) 12/03/18 16:59 LDL Cholesterol Direct 61 mg/dL (50-130) 12/03/18 16:59 HDL Cholesterol 54 mg/dL (40-59) 12/03/18 16:59 Cholesterol/HDL Ratio 2.11 % 12/03/18 16:59 Urine Color Yellow (Yellow) 12/03/18 19:30 Urine Turbidity Clear (Clear) 12/03/18 19:30 Urine pH 5.0 (5.0-7.0) 12/03/18 19:30 Ur Specific [place] 1.006 (1.003-1.030) 12/03/18 19:30 Urine Protein 100 mg/dl mg/dL (Negative) 12/03/18 19:30 Urine Glucose (UA) Neg mg/dL (Negative) 12/03/18 19:30 Urine Ketones Neg mg/dL (Negative) 12/03/18 19:30 Urine Blood Neg (Negative) 12/03/18 19:30 Urine Nitrite Neg (Negative) 12/03/18 19:30 Urine Bilirubin Neg (Negative) 12/03/18 19:30 Urine Urobilinogen 4.0 mg/dL (<2.0) 12/03/18 19:30 Ur Leukocyte Esterase Neg (Negative) 12/03/18 19:30 Urine WBC (Auto) 6.0 /HPF (0.0-6.0) 12/03/18 19:30 Urine RBC (Auto) 10.0 /HPF (0.0-6.0) 12/03/18 19:30 Urine Bacteria (Auto) 1+ /HPF (Negative) 12/03/18 19:30 Hyaline Casts 16 /LPF 12/03/18 19:30 Urine Mucus Few /HPF 12/03/18 19:30 Urine Yeast (Budding) 2+ /HPF 12/03/18 19:30 Active Medications - Current Medications Current Medications: Generic Name Dose Route Start Last Admin Trade Name Freq PRN Reason Stop Dose Admin Acetaminophen 650 mg 12/03/18 23:20 Tylenol PO Q4H PRN Pain MILD(1-3)/Fever >100.5/VANG Aspirin 81 mg 12/04/18 10:00 12/07/18 11:02 Baby Aspirin PO 81 mg QDAY BRIDGETT Administration Carvedilol 6.25 mg 12/07/18 12:46 Coreg PO BID BRIDGETT Dextrose 50 ml 12/03/18 23:20 D50w (25gm) Syringe IV PRN PRN Hypoglycemia Enoxaparin Sodium 40 mg 12/04/18 10:00 12/07/18 11:04 Lovenox SUB-Q 40 mg QDAY BRIDGETT Administration Famotidine 20 mg 12/05/18 22:00 12/07/18 11:02 Pepcid PO 20 mg BID BRIDGETT Administration Furosemide 40 mg 12/04/18 06:00 12/07/18 05:28 Lasix IV 40 mg BID@0600,1800 BRIDGETT Administration Gabapentin 600 mg 12/05/18 14:00 12/07/18 08:34 Neurontin PO 600 mg TID BRIDGETT Administration Insulin Human Lispro 0 unit 12/04/18 07:30 12/07/18 08:14 Humalog SUB-Q Not Given ACHS [facility] Protocol Lisinopril 40 mg 12/07/18 12:46 Zestril PO QDAY BRIDGETT Ondansetron HCl 4 mg 12/03/18 23:20 Zofran IV Q8H PRN Nausea And Vomiting Sodium Chloride 10 ml 12/04/18 10:00 12/07/18 11:04 Sodium Chloride Flush Syringe 10 Ml IV 10 ml BID BRIDGETT Administration Sodium Chloride 10 ml 12/03/18 23:20 Sodium Chloride Flush Syringe 10 Ml IV PRN PRN LINE FLUSH Tamsulosin HCl 0.4 mg 12/06/18 10:00 12/07/18 11:02 Flomax PO 0.4 mg QDAY BRIDGETT Administration
--- NOTE | 2018-12-07 15:13 | Progress Note ---
<CALOS SORIANO - Last Filed: 12/07/18 15:14> Assessment and Plan Currently stable cardiac status. Convert IV lasix to PO lasix 40mg daily. Pt may discharge from cardiology standpoint. Recommend follow up in our office with Dr. Tinoco within 3-5 days of hospital discharge ([phone]). The patient has been seen in conjunction with Dr. Higginbotham who agrees with the assessment and plan of care. 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 Objective Last Vital Signs Temp 97.9 F 12/07/18 12:25 Pulse 66 12/07/18 15:00 Resp 18 12/07/18 12:25 BP 132/88 12/07/18 15:00 Pulse Ox 99 12/07/18 12:25 - Physical Examination General: No Apparent Distress HEENT: Positive: PERRL, Normocephaly, Mucus Membranes Moist Neck: Positive: neck supple, trachea midline Cardiac: Positive: Reg Rate and Rhythm, S1/S2 Lungs: Positive: Decreased Breath Sounds Neuro: Positive: Grossly Intact Abdomen: Positive: Unremarkable. Negative: Tender Skin: Negative: Rash, Wound Musculoskeletal: No Pain Extremities: Present: +1 Edema (ble) - Labs and Meds Comprehensive Metabolic Panel 12/07/18 Range/Units 05:31 Sodium 144 (137-145) mmol/L Potassium 3.9 (3.6-5.0) mmol/L Chloride 108.3 H (98-107) mmol/L Carbon Dioxide 25 (22-30) mmol/L BUN 19 (9-20) mg/dL Creatinine 1.5 (0.8-1.5) mg/dL Glucose 125 H (75-100) mg/dL Calcium 7.9 L (8.4-10.2) mg/dL - Imaging and Cardiology EKG: report reviewed, image reviewed Echo: report reviewed (06/2018 which showed EF 35-40%, mild LVH, trace MR. ) - EKG Sinus rhythms and dysrhythmias: sinus rhythm <NAT HIGGINBOTHAM - Last Filed: 12/07/18 16:50> Assessment and Plan Patient in discussion with the hospitals in view of bradycardia will be on Coreg 6.25 g twice a day and lisinopril 20 mg twice a day and Lasix 40 by mouth along with Aldactone patient may be discharged from a cardiovascular point of view Objective Vital Signs Temp Pulse Resp Resp BP Pulse Ox 12/07/18 15:57 98.2 F 64 20 116/80 96 12/07/18 15:00 66 132/88 12/07/18 14:59 66 132/88 12/07/18 12:25 97.9 F 66 18 132/88 99 12/07/18 11:03 67 129/92 12/07/18 11:02 67 129/92 12/07/18 10:00 63 18 12/07/18 07:40 97.8 F 64 18 129/92 94 12/07/18 03:28 98.0 F 46 L 18 145/92 98 12/06/18 23:37 97.8 F 66 18 132/93 96 12/06/18 22:43 18 12/06/18 22:34 66 147/73 12/06/18 21:35 18 93 12/06/18 20:38 66 12/06/18 19:51 97.4 F L 34 L 18 147/73 96 12/06/18 17:23 62 141/107 71 L - Labs and Meds Comprehensive Metabolic Panel 12/07/18 Range/Units 05:31 Sodium 144 (137-145) mmol/L Potassium 3.9 (3.6-5.0) mmol/L Chloride 108.3 H (98-107) mmol/L Carbon Dioxide 25 (22-30) mmol/L BUN 19 (9-20) mg/dL Creatinine 1.5 (0.8-1.5) mg/dL Glucose 125 H (75-100) mg/dL Calcium 7.9 L (8.4-10.2) mg/dL
[2018-12-08] MEDS: HumaLOG SUB-Q SCH ×2 (08:00→11:24)
[2018-12-08] MEDS ORDERED: LASIX PO SCH (10:00)
[2018-12-08] MEDS: COREG PO SCH (10:19)
[2018-12-08] MEDS: ZESTRIL PO SCH (10:19)
[2018-12-08] MEDS: BABY ASPIRIN PO SCH (10:20)
[2018-12-08] MEDS: FLOMAX PO SCH (10:20)
[2018-12-08] MEDS: LOVENOX SUB-Q SCH (10:21)
[2018-12-08] MEDS: SODIUM CHLORIDE FLUSH SYRINGE 10 ML IV SCH (10:21)
[2018-12-08] MEDS: PEPCID PO SCH (10:21)
[2018-12-08] MEDS: NEURONTIN PO SCH ×2 (10:23→14:49)
--- NOTE | 2018-12-08 13:15 | Discharge Summary ---
Providers - Providers Date of Admission: 12/03/18 22:03 Date of discharge: 12/08/18 Attending physician: SOILA DENSON 12/03/18 23:20 Consult to Physician [CONS] Routine Comment: Consulting Provider: YOUNG PERDOMO Physician Instructions: Reason For Exam: chf 12/05/18 10:47 Physical Therapy Evaluation and Treat [CONS] Routine Comment: Reason For Exam: ataxia Primary care physician: [employer] SAL[employer]OCIATE Hospitalization Reason for admission: Worsening shortness of breath Condition: Stable Pertinent studies: ECHO,CXR Hospital course: 68-year-old -[place] male with history of CHF, dementia, hyperlipidemia, BPH, and prostate cancer was admitted through ED on 12/03/18 sent by his PCP He complains of worsening swelling of bilateral lower extremities, penis, scrotum 4 days, and dyspnea on exertion. Noted to be in acute on chronic systolic CHF,symptomaticallu managed,evaluated and managed by cardiolodist,meds optimised. Pt's symptoms significantly improved,Today pt is comfortable,no new complaints,vital signs stable. Physical exam unremarkable,Stable at discharge. Discharge Diagnosis: --Acute on chronic systolic heart failure: Echo on 06/2018, EF 35-40%, mild LVH, trace MR cont lasix,beta blockers,ACEI,low salt diet,fluid restriction Cardiology evaluated ,meds optimised ,adv to f/u out pt upon DC --Hypertension: Continue to monitor BP Continue antihypertensive medications to optimize BP --Diabetes: ContinueACCU cks,SSC,ADA diet --DVT PPX On Lovenox --Hx BPH --Hx Dementia --Hx Prostate cancer Stable at discharge Disposition: DC-01 TO HOME OR SELFCARE Time spent for discharge: 32 min Core Measure Documentation - Palliative Care Palliative Care/ Comfort Measures: Not Applicable - Core Measures Any of the following diagnoses?: heart failure - Heart Failure Discharge Requirements KRISTOPHER/ARB for LVSD if EF <40%: Yes Beta jeanmarie at discharge: Yes Exam - Constitutional Vitals: Temp Pulse Resp BP Pulse Ox 98.0 F 69 18 126/72 91 12/08/18 11:40 12/08/18 11:40 12/08/18 11:40 12/08/18 11:40 12/08/18 11:40 General appearance: Present: no acute distress, well-nourished - EENT Eyes: Present: PERRL, EOM intact - Neck Neck: Present: supple, normal ROM - Respiratory Respiratory effort: normal Respiratory: bilateral: diminished, negative: rales, rhonchi, wheezing - Cardiovascular Rhythm: regular Heart Sounds: Present: S1 & S2 - Extremities Extremities: no ischemia, No edema - Abdominal General gastrointestinal: Present: soft, non-tender, non-distended, normal bowel sounds - Integumentary Integumentary: Present: clear, warm - Musculoskeletal Musculoskeletal: strength equal bilaterally - Psychiatric Psychiatric: appropriate mood/affect, cooperative - Neurologic Neurologic: moves all extremities Plan Activity: advance as tolerated Diet: diabetic Follow up with: PRIMARY CARE,MD [Primary Care Provider] - 3-5 Days Prescriptions: RX: Aspirin [Aspirin BABY CHEW TAB] 81 mg PO QDAY 30 Days #30 tab.chew RX: Carvedilol [Coreg] 12.5 mg PO BID 30 Days #60 tablet RX: Lisinopril [Zestril TAB] 20 mg PO QDAY 30 Days #30 tablet
[2018-12-08 16:39] VITALS: BP 151/83
== END 2018-12-08 19:00 | disposition home or self-care (01) | DRG 293 ==
LOC: ED 16:36 → 4A 22:03
PROVIDERS: ADMIT Internal Medicine; ATTEND Internal Medicine
DX: I11.0 Hypertensive heart disease with heart failure (principal); E11.40 Type 2 diabetes mellitus with diabetic neuropathy, unspecified; I50.23 Acute on chronic systolic (congestive) heart failure; E11.9 Type 2 diabetes mellitus without complications; F03.90 Unspecified dementia, unspecified severity, without behavioral disturbance, psychotic disturbance, mood disturbance, and anxiety; I42.9 Cardiomyopathy, unspecified; N40.0 Benign prostatic hyperplasia without lower urinary tract symptoms; R00.1 Bradycardia, unspecified; E78.2 Mixed hyperlipidemia; Z85.46 Personal history of malignant neoplasm of prostate; Z82.49 Family history of ischemic heart disease and other diseases of the circulatory system; Z79.82 Long term (current) use of aspirin; Z79.899 Other long term (current) drug therapy; Z86.718 Personal history of other venous thrombosis and embolism
CPT/HCPCS: 36415; 71046; 80048; 80061; 81001; 82550; 82553; 82962; 83880; 84484; 85025; 85610; 85730; 87116; 93005; 93010; 93308; 93321; 93325; 96374; G0378; J1650; J1815; J1940

== ENCOUNTER 2019-01-02 13:16 | Inpatient (IN) | payer MEDICARE ==
[2019-01-02 14:43] LABS: Basophils % (Auto) 0.5 % (0.0-1.8); Eosinophils # (Auto) 0.1 K/mm3 (0.0-0.4); Eosinophils % (Auto) 1.2 % (0.0-4.3); Hematocrit 34.4 % (35.5-45.6); Hemoglobin 11.1 gm/dl (11.8-15.2); Lymphocytes # (Auto) 1.4 K/mm3 (1.2-5.4); Lymphocytes % (Auto) 22.9 % (13.4-35.0); Mean Corpuscular HGB Conc 32 % (32-34); Mean Corpuscular Volume 79 fl (84-94); Monocytes # (Auto) 0.4 K/mm3 (0.0-0.8); Platelet Count 287 K/mm3 (140-440); Red Blood Count 4.37 M/mm3 (3.65-5.03); Red Cell Distribution Width 14.6 % (13.2-15.2)
[2019-01-02 15:04] LABS: Alanine Aminotransferase 5 units/L (7-56); Albumin 3.3 g/dL (3.9-5); BUN/Creatinine Ratio 8; Blood Urea Nitrogen 9 mg/dL (9-20); Hemolysis Index 6
[2019-01-02 15:16] LABS: Chol/HDL Ratio 2.25 %; HDL Cholesterol 47 mg/dL (40-59); LDL Cholesterol,Direct 53 mg/dL (50-130)
--- NOTE | 2019-01-02 15:53 | Emergency Department Report ---
HPI - General Chief Complaint: Dyspnea/Respdistress Time Seen by Provider: 01/02/19 13:50 - HPI HPI: 68-year-old -[place] male presents to the emergency department via EMS with complaints of shortness of breath and edema. The patient has a past m edical history of congestive heart failure, diabetes, dementia, BPH, prostate cancer. The patient was recently admitted and discharged from this hospital, 2 weeks ago, for similar symptoms. The patient complains of significant swelling of his genitals and says that it never improved from his last admission and in fact has worsened. The shortness of breath is intermittent but started intensely this morning and says it has continued since. His primary care physician is Dr. Barros and his shot peen operator is Dr. Chapman. Other than taking his normal home medications, the patient has not taken anything else for his symptoms prior to presentation. No recent travel or sick contacts at home. ED Past Medical Hx - Past Medical History Hx Hypertension: Yes Hx Congestive Heart Failure: Yes Hx Diabetes: Yes Hx Dementia: Yes Hx HIV: No Additional medical history: HX of TB, bilateral DVT'S. 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 BPH. Diabetic neuropathy. Hyperlipidemia - Surgical History Past Surgical History?: Yes Additional Surgical History: R lung surgery - Social History Smoking Status: Never Smoker Substance Use Type: None - Medications Home Medications: Home Medications Medication Instructions Recorded Confirmed Last Taken Type Tamsulosin [Flomax] 0.4 mg PO QDAY #30 capsule 07/21/18 01/02/19 Unknown Rx Aspirin [Aspirin BABY CHEW TAB] 81 mg PO QDAY 30 Days #30 tab.chew 12/07/18 01/02/19 Unknown Rx Carvedilol [Coreg] 12.5 mg PO BID 30 Days #60 tablet 12/07/18 01/02/19 Unknown Rx Lisinopril [Zestril TAB] 20 mg PO QDAY 30 Days #30 tablet 12/07/18 01/02/19 Unknown Rx Acetaminophen [Acetaminophen TAB] 325 mg PO Q4H PRN #15 tablet 12/24/18 01/02/19 Unknown Rx Famotidine [Pepcid] 20 mg PO DAILY #30 tablet 12/24/18 01/02/19 Unknown Rx Furosemide [Lasix TAB] 40 mg PO BID #60 tablet 12/24/18 01/02/19 Unknown Rx Gabapentin [Neurontin] 600 mg PO Q8HR #90 capsule 12/24/18 01/02/19 Unknown Rx Linagliptin [Tradjenta] 5 mg PO QDAY #30 tablet 12/24/18 01/02/19 Unknown Rx cloNIDine [Catapres] 0.1 mg PO QHS #30 tablet 12/24/18 01/02/19 Unknown Rx hydrALAZINE [Apresoline TAB] 50 mg PO BID #60 tablet 12/24/18 01/02/19 Unknown Rx ED Review of Systems ROS: Stated complaint: SHORTNESS OF BREATH Other details as noted in HPI Comment: All other systems reviewed and negative Constitutional: denies: chills, fever Eyes: denies: eye pain, vision change ENT: denies: ear pain, throat pain Respiratory: shortness of breath. denies: cough Cardiovascular: edema. denies: palpitations Gastrointestinal: denies: abdominal pain, vomiting Genitourinary: denies: dysuria, frequency Musculoskeletal: denies: back pain, arthralgia Skin: denies: rash, lesions Neurological: denies: headache, weakness Physical Exam - Physical Exam Vital Signs: Vital Signs 01/02/19 01/02/19 13:51 15:25 Temperature 98.3 F Pulse Rate 82 85 Respiratory 16 16 Rate Blood Pressure 176/126 Blood Pressure 149/122 [Left] O2 Sat by Pulse 99 100 Oximetry Physical Exam: GENERAL: The patient is well-developed well-nourished. HENT: Normocephalic. Atraumatic. Patient has moist mucous membranes. EYES: Extraocular motions are intact. Pupils equal reactive to light bilaterally. NECK: Supple. Trachea is midline. CHEST/LUNGS: Coarse breath sounds about the chest. No tachypnea or accessory muscle use. There is no respiratory distress noted. HEART/CARDIOVASCULAR: Regular. There is no tachycardia. There is no murmur. ABDOMEN: Abdomen is soft, nontender. Patient has normal bowel sounds. There is no abdominal distention. SKIN: There is moderate to severe nonpitting swelling of the penis and scrotum. Pitting Edema bilateral lower extremities. NEURO: The patient is awake, alert, and oriented. The patient is cooperative. The patient has no focal neurologic deficits. The patient has normal speech. MUSCULOSKELETAL: There is no tenderness or deformity. There is no evidence of acute injury. ED Course Vital Signs 01/02/19 01/02/19 13:51 15:25 Temperature 98.3 F Pulse Rate 82 85 Respiratory 16 16 Rate Blood Pressure 176/126 Blood Pressure 149/122 [Left] O2 Sat by Pulse 99 100 Oximetry ED Medical Decision Making - Lab Data Result diagrams: 01/02/19 14:24 01/02/19 14:24 - EKG Data -: EKG Interpreted by Me EKG shows normal: sinus rhythm (ventricular trigeminy ), axis (left axis deviation), intervals (prolonged QTC), QRS complexes (Q waves to the anterior and inferior leads), ST-T waves Rate: normal - EKG Data When compared to previous EKG there are: no significant change Interpretation: unchanged when compared t (12/20/18) - Radiology Data Radiology results: report reviewed, image reviewed interpreted by me: Chest x-ray shows moderate cardiomegaly. Small basilar pleural effusions. Pulmonary Vascular congestion. No obvious pneumonia. PROCEDURE: CT angiogram chest with contrast. TECHNIQUE: Computerized tomographic angiography of the chest was performed after the IV injection of iodinated nonionic contrast including image processing. The image data was postprocessed using 2-dimensional multiplanar reformatted (MPR) and 3-dimensional (MIP and/or volume rendered) techniques. Automated exposure control, adjustment of mA and/or kV according to patient size, or iterative reconstruction dose optimization techniques were utilized. CT DOSE LENGTH PRODUCT: 784.9 mGycm HISTORY: Shortness of breath, elevated d-dimer. COMPARISONS: CT chest 03/17/2018. Dictation not available. FINDINGS: The trachea and central bronchi appear normal. There are increased interstitial and septal markings in both lungs. This suggests interstitial pulmonary edema. Clinical correlation is recommended. Th ere are no signs of pneumonia. There are small bilateral pleural effusions. The thoracic aorta is mildly elongated. The pulmonary arteries enhance normally. There is no evidence of pulmonary embolism. There is no mediastinal adenopathy. The heart size is moderately enlarged. The regional skeleton appears intact. IMPRESSION: Probable interstitial pulmonary edema. Small bilateral pleural effusions. No evidence of pulmonary embolism. This document is electronically signed by Alexa Haddad MD., Jan 02 2019 05:18:14 PM ET Transcribed By: MRM Dictated By: ALEXA HADDAD MD Electronically Authenticated By: ALEXA HADDAD MD Signed Date/Time: 01/02/19 1720 - Medical Decision Making Patient presents to the emergency department with a complaint of a return of shortness of breath as well as continued edema including of his genitals. He was recently here for an exacerbation of CHF and it appears to be worsening for him again. Chest x-ray shows pulmonary vascular congestion, cardiomegaly and small basilar pleural effusions. Labs show an elevated troponin that is consistent with previous visits. Without any renal insufficiency, the patient still has a proBNP greater than 35,000. He had a elevated d-dimer so a CT angiography was done that once again shows some pleural effusions but does not show any signs of pulmonary embolism. Patient will be admitted to the hospital for further evaluation and treatment was accepted for admission by the hospitalist, Dr. Morrison. - Differential Diagnosis CHF, [place], PE, venous stasis Critical Care Time: No Critical care attestation.: If time is entered above; I have spent that time in minutes in the direct care of this critically ill patient, excluding procedure time. ED Disposition Clinical Impression: Shortness of breath, Pleural effusion, Elevated troponin CHF exacerbation Qualifiers: Heart failure type: unspecified Qualified Code(s): I50.9 - Heart failure, unspecified Disposition: DC-09 OP ADMIT IP TO THIS HOSP Is pt being admited?: Yes Condition: Fair
--- NOTE | 2019-01-02 15:57 | History and Physical Report ---
History of Present Illness Chief complaint: I cant breathe, and my legs are swollen History of present illness: 68 YO Male with HTN, DM, Systolic CHF, DM, Dementia, HLD, BPH, CaP, Penile Cancer, Bilateral DVT's not currently on therapeutic anticoagulation presents to ED for evaluation. Pt states that he has experienced shortness of breath and leg swelling over the past 2 weeks with progressively worsening symptoms over the past 2 days. Pt acknowledges Orthopnea/PND, Decreased exercise tolerance,dypsnea on exertion, dypsnea at rest, 5-10 lbs weight gain, Edema to lower extremities, as well as his genitals. Pt denies fever, medication noncompliance, chills, CP, Palpitations, NVD, Trauma, BRBPR, productive cough, skin rash, or recent ill contacts. EMS notified, and upon arrival the patient found to be in distress. Pt seen and evaluated in ED and found to have CHF Decompensation. PT admitted to telemetry and initiated on CHF Protocol. Cardiology consulted in ED. Pt symptoms improved with diuresis and supplemental oxygen. Prior admission on 12/20/18 reviewed. All listed medication reconciled at time of admission. Past History Past Medical History: diabetes, heart failure, hypertension, hyperlipidemia, other (BPH, Dementia,CaP) Past Surgical History: Other (Right Lung Surgery) Social history: . denies: smoking, alcohol abuse, prescription drug abuse Family history: diabetes, hypertension Medications and Allergies Allergies Allergy/AdvReac Type Severity Reaction Status Date / Time No Known Allergies Allergy Verified 12/03/18 16:45 Home Medications Medication Instructions Recorded Confirmed Last Taken Type Tamsulosin [Flomax] 0.4 mg PO QDAY #30 capsule 07/21/18 01/02/19 Unknown Rx Aspirin [Aspirin BABY CHEW TAB] 81 mg PO QDAY 30 Days #30 tab.chew 12/07/18 01/02/19 Unknown Rx Carvedilol [Coreg] 12.5 mg PO BID 30 Days #60 tablet 12/07/18 01/02/19 Unknown Rx Lisinopril [Zestril TAB] 20 mg PO QDAY 30 Days #30 tablet 12/07/18 01/02/19 Unknown Rx Acetaminophen [Acetaminophen TAB] 325 mg PO Q4H PRN #15 tablet 12/24/18 01/02/19 Unknown Rx Famotidine [Pepcid] 20 mg PO DAILY #30 tablet 12/24/18 01/02/19 Unknown Rx Furosemide [Lasix TAB] 40 mg PO BID #60 tablet 12/24/18 01/02/19 Unknown Rx Gabapentin [Neurontin] 600 mg PO Q8HR #90 capsule 12/24/18 01/02/19 Unknown Rx Linagliptin [Tradjenta] 5 mg PO QDAY #30 tablet 12/24/18 01/02/19 Unknown Rx cloNIDine [Catapres] 0.1 mg PO QHS #30 tablet 12/24/18 01/02/19 Unknown Rx hydrALAZINE [Apresoline TAB] 50 mg PO BID #60 tablet 12/24/18 01/02/19 Unknown Rx Review of Systems Constitutional: weight loss, weight gain, no fever, no chills Ears, nose, mouth and throat: no decreased hearing, no nose pain, no nasal congestion, no nasal discharge Cardiovascular: orthopnea, shortness of breath, dyspnea on exertion, paroxysmal nocturnal dyspnea, leg edema, decreased exercise tolerance, no chest pain Respiratory: no cough, no cough with sputum, no excessive sputum, no hemoptysis Gastrointestinal: no nausea, no vomiting, no diarrhea, no constipation Genitourinary Male: no hematuria, no flank pain, no discharge, no urinary fr equency, no urinary hesitancy Rectal: no pain, no incontinence, no bleeding Musculoskeletal: no neck stiffness, no neck pain, no shooting arm pain, no arm numbness/tingling Integumentary: no rash, no pruritis, no redness, no sores, no wounds Neurological: no paralysis, no weakness, no parathesias, no numbness, no tingling Psychiatric: no memory loss, no change in sleep habits, no sleep disturbances, no insomnia, no hypersomnia Endocrine: no cold intolerance, no heat intolerance, no polyphagia, no excessive thirst, no polydipsia, no polyuria Hematologic/Lymphatic: no easy bruising, no easy bleeding Allergic/Immunologic: no urticaria, no allergic rhinitis, no wheezing Exam - Constitutional Vitals: Temp Pulse Resp BP Pulse Ox 98.3 F 85 16 149/122 100 01/02/19 13:51 01/02/19 15:25 01/02/19 15:25 01/02/19 15:25 01/02/19 15:25 General appearance: Present: mild distress - EENT Eyes: Present: PERRL ENT: hearing intact, clear oral mucosa - Neck Neck: Present: supple, normal ROM - Respiratory Respiratory effort: labored Respiratory: bilateral: rhonchi - Cardiovascular Heart Sounds: Present: S1 & S2. Absent: rub, click - Extremities Extremities: pulses symmetrical Extremity abnormal: edema Peripheral Pulses: within normal limits - Abdominal General gastrointestinal: Present: soft, non-tender, non-distended, normal bowel sounds Male genitourinary: Present: normal - Integumentary Integumentary: Present: clear, warm, dry - Musculoskeletal Musculoskeletal: gait normal, strength equal bilaterally - Psychiatric Psychiatric: appropriate mood/affect, intact judgment & insight - Neurologic Neurologic: CNII-XII intact, moves all extremities Results - Labs CBC & Chem 7: 01/02/19 14:24 01/02/19 14:24 Labs: Abnormal lab results 01/02/19 01/02/19 01/02/19 Range/Units 14:24 14:24 14:24 Hgb 11.1 L (11.8-15.2) gm/dl Hct 34.4 L (35.5-45.6) % MCV 79 L (84-94) fl MCH 25 L (28-32) pg D-Dimer 1124.55 H (0-234) ng/mlDDU Calcium 8.0 L (8.4-10.2) mg/dL ALT 5 L (7-56) units/L Troponin T 0.057 H (0.00-0.029) ng/mL Albumin 3.3 L (3.9-5) g/dL Assessment and Plan - Patient Problems (1) CHF exacerbation Current Visit: No Status: Acute Plan to address problem: Admit to telemetry, Strict I/O, daily weight, BNP, echo reviewed, cardiology consulted in ED, thyroid panel, magnesium level, pulse oximetry, diuresis, afterload reduction. (2) HTN (hypertension) Current Visit: Yes Status: Acute Qualifiers: Hypertension type: essential hypertension Qualified Code(s): I10 - Essential (primary) hypertension Plan to address problem: Monitor BP q shift, continue medical management. (3) Diabetes Current Visit: Yes Status: Acute Plan to address problem: ADA diet, insulin, accu check, hypoglycemia protocol (4) HLD (hyperlipidemia) Current Visit: Yes Status: Acute Qualifiers: Hyperlipidemia type: mixed hyperlipidemia Qualified Code(s): E78.2 - Mixed hyperlipidemia Plan to address problem: lipid panel, statin therapy, low cholesterol diet (5) DVT prophylaxis Current Visit: Yes Status: Acute Plan to address problem: SCD to BLE while in bed, prophylactic lovenox
[2019-01-02] MEDS ORDERED: TYLENOL PO PRN ×2 (15:59→16:00)
[2019-01-02] MEDS ORDERED: PROVENTIL IH PRN (16:00)
[2019-01-02] MEDS ORDERED: ZOFRAN IV PRN (16:00)
[2019-01-02] MEDS ORDERED: SODIUM CHLORIDE FLUSH SYRINGE 10 ML IV PRN (16:00)
--- NOTE | 2019-01-02 16:10 | XRay Report ---
PROCEDURE: XR CHEST 1V AP TECHNIQUE: Frontal chest radiograph. HISTORY: Chest Pain COMPARISONS: 12/20/2018. FINDINGS: Unchanged mild cardiomegaly. Mild bilateral pulmonary edema is seen. No consolidation. Unchanged streaky right mid lung atelectasis versus scarring. Small right pleural effusion is seen. No pneumothorax. No acute osseous abnormality. IMPRESSION: Cardiomegaly with mild bilateral pulmonary edema and small right pleural effusion. This document is electronically signed by Maggy Tavares., Jan 02 2019 04:08:08 PM ET
[2019-01-02 17:06] LABS: Free T4 (Free Thyroxine) 1.58 ng/dL (0.76-1.46)
--- NOTE | 2019-01-02 17:20 | Cat Scan Report ---
PROCEDURE: CT angiogram chest with contrast. TECHNIQUE: Computerized tomographic angiography of the chest was performed after the IV injection of iodinated nonionic contrast including image processing. The image data was postprocessed using 2-di mensional multiplanar reformatted (MPR) and 3-dimensional (MIP and/or volume rendered) techniques. Au tomated exposure control, adjustment of mA and/or kV according to patient size, or iterative reconstr uction dose optimization techniques were utilized. CT DOSE LENGTH PRODUCT: 784.9 mGycm HISTORY: Shortness of breath, elevated d-dimer. COMPARISONS: CT chest 03/17/2018. Dictation not available. FINDINGS: The trachea and central bronchi appear normal. There are increased interstitial and septal markings i n both lungs. This suggests interstitial pulmonary edema. Clinical correlation is recommended. There are no signs of pneumonia. There are small bilateral pleural effusions. The thoracic aorta is mildly elongated. The pulmonary arteries enhance normally. There is no evidence of pulmonary embolism. There is no mediastinal adenopathy. The heart size is moderately enlarged. The regional skeleton appears i ntact. IMPRESSION: Probable interstitial pulmonary edema. Small bilateral pleural effusions. No evidence of pulmonary embolism. This document is electronically signed by Chuck Payne MD., Jan 02 2019 05:18:14 PM ET
[2019-01-02] MEDS: LASIX IV SCH (18:03)
[2019-01-02] MEDS ORDERED: APRESOLINE IV PRN ×2 (19:12→19:26)
[2019-01-02] MEDS: CATAPRES PO SCH (21:53)
[2019-01-02] MEDS: APRESOLINE PO SCH (21:53)
[2019-01-02] MEDS: COREG PO SCH (21:54)
[2019-01-02] MEDS: SODIUM CHLORIDE FLUSH SYRINGE 10 ML IV SCH (21:55)
[2019-01-02] MEDS: LOVENOX SUB-Q SCH (21:55)
[2019-01-02] MEDS: NEURONTIN PO SCH (21:55)
[2019-01-03] MEDS: NEURONTIN PO SCH ×3 (06:39→21:30)
[2019-01-03] MEDS: LASIX IV SCH ×2 (06:39→18:22)
[2019-01-03 08:29] LABS: Basophils # (Auto) 0.1 K/mm3 (0.0-0.1); Basophils % (Auto) 1.2 % (0.0-1.8); Eosinophils # (Auto) 0.1 K/mm3 (0.0-0.4); Eosinophils % (Auto) 2.2 % (0.0-4.3); Hemoglobin 10.8 gm/dl (11.8-15.2); Lymphocytes # (Auto) 1.6 K/mm3 (1.2-5.4); Lymphocytes % (Auto) 28.1 % (13.4-35.0); Mean Corpuscular HGB Conc 33 % (32-34); Mean Corpuscular Volume 78 fl (84-94); Monocytes # (Auto) 0.4 K/mm3 (0.0-0.8); Platelet Count 255 K/mm3 (140-440); Red Blood Count 4.22 M/mm3 (3.65-5.03); Red Cell Distribution Width 15.4 % (13.2-15.2)
[2019-01-03 09:00] LABS: BUN/Creatinine Ratio 7; Blood Urea Nitrogen 9 mg/dL (9-20); Calcium 7.8 mg/dL (8.4-10.2); Hemolysis Index 5
[2019-01-03 09:09] LABS: Alanine Aminotransferase < 5 units/L (7-56)
--- NOTE | 2019-01-03 09:26 | Progress Note ---
Assessment and Plan Assessment and plan: 68 YO Male with HTN, DM, Systolic CHF, DM, Dementia, HLD, BPH, CaP, Penile Cancer,Peripheral bilateral lower ext thrombosis without DVT's not currently on therapeutic anticoagulation presents to ED for evaluation. Pt states that he has experienced shortness of breath and leg swelling over the past 2 weeks with progressively worsening symptoms over the past 2 days. Pt acknowledges Orthopnea/PND, Decreased exercise tolerance,dypsnea on exertion, dypsnea at rest, 5-10 lbs weight gain, Edema to lower extremities, as well as his genitals. Pt denies fever, medication noncompliance, chills, CP, Palpitations, NVD, Trauma, BRBPR, productive cough, skin rash, or recent ill contacts. EMS notified, and upon arrival the patient found to be in distress. Pt seen and evaluated in ED and found to have CHF Decompensation. PT admitted to telemetry and initiated on CHF Protocol. Cardiology consulted in ED. Pt symptoms improved with diuresis and supplemental oxygen. Prior admission on 12/20/18 reviewed during which his edema had extended into his scrotom, the same is occuring again. All listed medication reconciled at time of admission. is primary care physician is Dr. Barros and his corporate legal intern is Dr. Chapman per family, the patient lives by himself and does not trust that he is taken his medications. And when he was taken it he did well. The patient states that he was not taken it because his sister was not giving him his medications. - Patient Problems (1) CHF exacerbation-systolic Current Visit: No Status: Acute Plan to address problem: continue supportive care. Patient will need placment or NOEMI, as patients family is unable to provide the care he needs. Strict I/O, daily weight, BNP, echo reviewed, cardiology consulted in ED, thyroid panel, magnesium level, pulse oximetry, diuresis, afterload reduction. (2) HTN (hypertension) Current Visit: Yes Status: Acute Qualifiers: Hypertension type: essential hypertension Qualified Code(s): I10 - Essential (primary) hypertension Plan to address problem: Monitor BP q shift, continue medical management. (3) Diabetes Current Visit: Yes Status: Acute Plan to address problem: ADA diet, insulin, accu check, hypoglycemia protocol (4) HLD (hyperlipidemia) Current Visit: Yes Status: Acute Qualifiers: Hyperlipidemia type: mixed hyperlipidemia Qualified Code(s): E78.2 - Mixed hyperlipidemia Plan to address problem: lipid panel, statin therapy, low cholesterol diet (5) DVT prophylaxis Current Visit: Yes Status: Acute Plan to address problem: SCD to BLE while in bed, prophylactic lovenox History Interval history: Patient seen and examined, resting comfortable, still with mild distress secon craig to shortness of breath Hospitalist Physical - Physical exam Narrative exam: General appearance: Present: mild distress - EENT Eyes: Present: PERRL ENT: hearing intact, clear oral mucosa - Neck Neck: Present: supple, normal ROM - Respiratory Respiratory effort: normal Respiratory: bilateral: rhonchi - Cardiovascular Heart Sounds: Present: S1 & S2. Absent: rub, click - Extremities Extremities: pulses symmetrical Extremity abnormal: edema Peripheral Pulses: within normal limits - Abdominal General gastrointestinal: Present: soft, non-tender, non-distended, normal bowel sounds Male genitourinary: Present: normal - Integumentary Integumentary: Present: clear, warm, dry. : scrotal edema - Musculoskeletal Musculoskeletal: gait normal, strength equal bilaterally. trace pitting edema - Psychiatric Psychiatric: appropriate mood/affect, poor judgment & insight - Neurologic Neurologic: CNII-XII intact, moves all extremities - Constitutional Vitals: Temp Pulse Resp BP Pulse Ox 97.5 F L 71 17 148/91 98 01/03/19 04:21 01/03/19 05:05 01/03/19 04:21 01/03/19 04:17 01/03/19 04:17 General appearance: Present: mild distress Results - Labs CBC & Chem 7: 01/03/19 08:05 01/03/19 08:05 Labs: Laboratory Last Values WBC 5.6 K/mm3 (4.5-11.0) 01/03/19 08:05 RBC 4.22 M/mm3 (3.65-5.03) 01/03/19 08:05 Hgb 10.8 gm/dl (11.8-15.2) L 01/03/19 08:05 Hct 33.0 % (35.5-45.6) L 01/03/19 08:05 MCV 78 fl (84-94) L 01/03/19 08:05 MCH 26 pg (28-32) L 01/03/19 08:05 MCHC 33 % (32-34) 05/19/19 08:05 RDW 15.4 % (13.2-15.2) H 01/03/19 08:05 Plt Count 255 K/mm3 (140-440) 01/03/19 08:05 Lymph % (Auto) 28.1 % (13.4-35.0) 01/03/19 08:05 [place] % (Auto) 7.0 % (0.0-7.3) 01/03/19 08:05 Eos % (Auto) 2.2 % (0.0-4.3) 01/03/19 08:05 Baso % (Auto) 1.2 % (0.0-1.8) 01/03/19 08:05 Lymph # 1.6 K/mm3 (1.2-5.4) 01/03/19 08:05 [place] # 0.4 K/mm3 (0.0-0.8) 01/03/19 08:05 Eos # 0.1 K/mm3 (0.0-0.4) 01/03/19 08:05 Baso # 0.1 K/mm3 (0.0-0.1) 01/03/19 08:05 Seg Neutrophils % 61.5 % (40.0-70.0) 01/03/19 08:05 Seg Neutrophils # 3.5 K/mm3 (1.8-7.7) 01/03/19 08:05 1124.55 ng/mlDDU (0-234) H 01/02/19 14:24 Sodium 144 mmol/L (137-145) 01/03/19 08:05 Potassium 3.5 mmol/L (3.6-5.0) L 01/03/19 08:05 Chloride 103.7 mmol/L (98-107) 01/03/19 08:05 Carbon Dioxide 27 mmol/L (22-30) 01/03/19 08:05 17 mmol/L 01/03/19 08:05 BUN 9 mg/dL (9-20) 01/03/19 08:05 1.3 mg/dL (0.8-1.5) 01/03/19 08:05 Estimated GFR > 60 ml/min 01/03/19 08:05 7 % 01/03/19 08:05 Glucose 93 mg/dL (75-100) 01/03/19 08:05 POC Glucose 96 (70-105) 01/03/19 07:50 Calcium 7.8 mg/dL (8.4-10.2) L 01/03/19 08:05 Magnesium 1.80 mg/dL (1.7-2.3) 01/02/19 16:08 0.50 mg/dL (0.1-1.2) 01/03/19 08:05 AST 8 units/L (5-40) 01/03/19 08:05 ALT < 5 units/L (7-56) L 01/03/19 08:05 75 units/L (35-129) 01/03/19 08:05 0.057 ng/mL (0.00-0.029) H 01/02/19 14:24 NT-Pro-B Natriuret Pep > 26213 pg/mL (0-900) H 01/02/19 14:24 6.4 g/dL (6.3-8.2) 01/03/19 08:05 3.0 g/dL (3.9-5) L 01/03/19 08:05 0.9 % 01/03/19 08:05 Triglycerides 61 mg/dL (2-149) 01/02/19 14:24 Cholesterol 106 mg/dL (50-199) 01/02/19 14:24 53 mg/dL (50-130) 01/02/19 14:24 47 mg/dL (40-59) 01/02/19 14:24 2.25 % 01/02/19 14:24 TSH 4.890 mlU/mL (0.270-4.200) H 01/02/19 16:08 Free T4 1.58 ng/dL (0.76-1.46) H 01/02/19 16:08 11.7 ug/dL (4.0-12.0) 01/02/19 16:08 Active Medications - Current Medications Current Medications: Generic Name Dose Route Start Last Admin Trade Name Freq PRN Reason Stop Dose Admin Acetaminophen 650 mg 01/02/19 16:00 Tylenol PO Q4H PRN Pain MILD(1-3)/Fever >100.5/VANG Albuterol 2.5 mg 01/02/19 16:00 Proventil IH Q4HRT PRN Shortness Of Breath Aspirin 81 mg 01/03/19 10:00 Baby Aspirin PO QDAY [facility] Carvedilol 12.5 mg 01/02/19 22:00 01/02/19 21:54 Coreg PO 12.5 mg BID BRIDGETT Administration Clonidine HCl 0.1 mg 01/02/19 22:00 01/02/19 21:53 Catapres PO 0.1 mg QHS BRIDGETT Administration Enoxaparin Sodium 40 mg 01/02/19 22:00 01/02/19 21:55 Lovenox SUB-Q 40 mg QDAY@2200 BRIDGETT Administration Famotidine 20 mg 01/03/19 10:00 Pepcid PO DAILY [facility] Furosemide 40 mg 01/02/19 18:00 01/03/19 06:39 Lasix IV 40 mg BID@0600,1800 [facility] Administration Gabapentin 600 mg 01/02/19 22:00 01/03/19 06:39 Neurontin PO 600 mg Q8HR BRIDGETT Administration Hydralazine HCl 50 mg 01/02/19 22:00 01/02/19 21:53 Apresoline PO 50 mg BID [facility] Administration Hydralazine HCl 10 mg 01/02/19 19:26 Apresoline IV Q4HR PRN Blood Pressure Hydrochlorothiazide 12.5 mg 01/03/19 10:00 Hctz PO QDAY [facility] Lisinopril 20 mg 01/03/19 10:00 Zestril PO QDAY [facility] Ondansetron HCl 4 mg 01/02/19 16:00 Zofran IV Q8H PRN Nausea And Vomiting Sodium Chloride 10 ml 01/02/19 22:00 01/02/19 21:55 Sodium Chloride Flush Syringe 10 Ml IV 10 ml BID BRIDGETT Administration Sodium Chloride 10 ml 01/02/19 16:00 01/03/19 06:39 Sodium Chloride Flush Syringe 10 Ml IV 10 ml PRN PRN Administration LINE FLUSH Tamsulosin HCl 0.4 mg 01/03/19 10:00 Flomax PO QDAY [facility]
[2019-01-03] MEDS ORDERED: D50W (25GM) Syringe IV PRN (09:45)
--- NOTE | 2019-01-03 11:34 | Vascular Lab Report ---
PROCEDURE: VL VENOUS DUPLEX LE BILAT TECHNIQUE: Grayscale and color and spectral doppler ultrasound imaging of the bilateral lower extrem ity venous system was performed. HISTORY: DVT COMPARISONS: None. FINDINGS: There is normal compression and color flow within the bilateral lower extremity venous systems. Norm al augmentation. No soft tissue abnormality. IMPRESSION: No evidence of deep venous thrombosis. This document is electronically signed by Maggy Tavares., Jan 03 2019 11:32:31 AM ET
[2019-01-03] MEDS: PEPCID PO SCH (12:19)
[2019-01-03] MEDS: COREG PO SCH ×2 (12:19→21:31)
[2019-01-03] MEDS: APRESOLINE PO SCH ×2 (12:19→21:30)
[2019-01-03] MEDS: SODIUM CHLORIDE FLUSH SYRINGE 10 ML IV SCH ×2 (12:20→21:31)
[2019-01-03] MEDS: ZESTRIL PO SCH (12:20)
[2019-01-03] MEDS: FLOMAX PO SCH (12:20)
[2019-01-03] MEDS: BABY ASPIRIN PO SCH (12:20)
[2019-01-03] MEDS: HCTZ PO SCH (12:20)
[2019-01-03] MEDS: HumaLOG SUB-Q SCH ×3 (12:30→21:29)
--- NOTE | 2019-01-03 14:27 | Consultation ---
History of Present Illness Consult date: 01/03/19 Consult reason: congestive heart failure, shortness of breath History of present illness: 68-year-old -[place] gentleman with known history of congestive heart failure presented with increasing shortness of breath with exertion and at rest. So increasing edema of the scrotum and legs noted. He was evaluated in the emergency room and noted to be in decompensated congestive heart failure and hence admitted. Patient has some vague chest discomfort. EKG done in the emergency room showed sinus rhythm with the ventricular trigeminy and suggestion of old inferior and anterior infarct. Underlying left atrial enlargement was noted. Also right bundle branch block pattern was noted which was an old finding. Past History Past Medical History: diabetes, heart failure, hypertension, hyperlipidemia, other (BPH, Dementia,CaP) Past Surgical History: Other (Right Lung Surgery) Social history: . denies: smoking, alcohol abuse, prescription drug abuse Family history: diabetes, hypertension Medications and Allergies Allergies Allergy/AdvReac Type Severity Reaction Status Date / Time No Known Allergies Allergy Verified 12/03/18 16:45 Home Medications Medication Instructions Recorded Confirmed Last Taken Type Tamsulosin [Flomax] 0.4 mg PO QDAY #30 capsule 07/21/18 01/02/19 Unknown Rx Aspirin [Aspirin BABY CHEW TAB] 81 mg PO QDAY 30 Days #30 tab.chew 12/07/18 01/02/19 Unknown Rx Carvedilol [Coreg] 12.5 mg PO BID 30 Days #60 tablet 12/07/18 01/02/19 Unknown Rx Lisinopril [Zestril TAB] 20 mg PO QDAY 30 Days #30 tablet 12/07/18 01/02/19 Unknown Rx Acetaminophen [Acetaminophen TAB] 325 mg PO Q4H PRN #15 tablet 12/24/18 01/02/19 Unknown Rx Famotidine [Pepcid] 20 mg PO DAILY #30 tablet 12/24/18 01/02/19 Unknown Rx Furosemide [Lasix TAB] 40 mg PO BID #60 tablet 12/24/18 01/02/19 Unknown Rx Gabapentin [Neurontin] 600 mg PO Q8HR #90 capsule 12/24/18 01/02/19 Unknown Rx Linagliptin [Tradjenta] 5 mg PO QDAY #30 tablet 12/24/18 01/02/19 Unknown Rx cloNIDine [Catapres] 0.1 mg PO QHS #30 tablet 12/24/18 01/02/19 Unknown Rx hydrALAZINE [Apresoline TAB] 50 mg PO BID #60 tablet 12/24/18 01/02/19 Unknown Rx Active Meds: Active Medications Acetaminophen (Tylenol) 650 mg PO Q4H PRN PRN Reason: Pain MILD(1-3)/Fever >100.5/VANG Albuterol (Proventil) 2.5 mg IH Q4HRT PRN PRN Reason: Shortness Of Breath Aspirin (Baby Aspirin) 81 mg PO QDAY [facility] Last Admin: 01/03/19 12:20 Dose: 81 mg Documented by: Carvedilol (Coreg) 12.5 mg PO BID [facility] Last Admin: 01/03/19 12:19 Dose: 12.5 mg Documented by: Clonidine HCl (Catapres) 0.1 mg PO QHS [facility] Last Admin: 01/02/19 21:53 Dose: 0.1 mg Documented by: Dextrose (D50w (25gm) Syringe) 50 ml IV PRN PRN PRN Reason: Hypoglycemia Enoxaparin Sodium (Lovenox) 40 mg SUB-Q QDAY@2200 [facility] Last Admin: 01/02/19 21:55 Dose: 40 mg Documented by: Famotidine (Pepcid) 20 mg PO DAILY [facility] Last Admin: 01/03/19 12:19 Dose: 20 mg Documented by: Furosemide (Lasix) 40 mg IV BID@0600,1800 [facility] Last Admin: 01/03/19 06:39 Dose: 40 mg Documented by: Gabapentin (Neurontin) 600 mg PO Q8HR [facility] Last Admin: 01/03/19 06:39 Dose: 600 mg Documented by: Hydralazine HCl (Apresoline) 50 mg PO BID [facility] Last Admin: 01/03/19 12:19 Dose: 50 mg Documented by: Hydralazine HCl (Apresoline) 10 mg IV Q4HR PRN PRN Reason: Blood Pressure Hydrochlorothiazide (Hctz) 12.5 mg PO QDAY [facility] Last Admin: 01/03/19 12:20 Dose: 12.5 mg Documented by: Insulin Human Lispro (Humalog) 0 unit SUB-Q [facility]; Protocol Last Admin: 01/03/19 12:30 Dose: Not Given Documented by: Lisinopril (Zestril) 20 mg PO QDAY [facility] Last Admin: 01/03/19 12:20 Dose: 20 mg Documented by: Ondansetron HCl (Zofran) 4 mg IV Q8H PRN PRN Reason: Nausea And Vomiting Sodium Chloride (Sodium Chloride Flush Syringe 10 Ml) 10 ml IV BID [facility] Last Admin: 01/03/19 12:20 Dose: 10 ml Documented by: Sodium Chloride (Sodium Chloride Flush Syringe 10 Ml) 10 ml IV PRN PRN PRN Reason: LINE FLUSH Last Admin: 01/03/19 06:39 Dose: 10 ml Documented by: Tamsulosin HCl (Flomax) 0.4 mg PO QDAY [facility] Last Admin: 01/03/19 12:20 Dose: 0.4 mg Documented by: Review of Systems Constitutional: weight gain Cardiovascular: chest pain, dyspnea on exertion, leg edema Respiratory: cough Gastrointestinal: no abdominal pain, no vomiting Genitourinary Male: no hematuria Rectal: no incontinence Integumentary: no rash Psychiatric: no anxiety Endocrine: no cold intolerance Hematologic/Lymphatic: no easy bruising Allergic/Immunologic: no urticaria Physical Examination Vital Signs Temp Pulse Resp BP Pulse Ox 98.3 F 82 16 176/126 99 01/02/19 13:51 01/02/19 13:51 01/02/19 13:51 01/02/19 13:51 01/02/19 13:51 HEENT: Positive: PERRL Neck: Positive: neck supple, trachea midline Cardiac: Positive: Irregularly Regular, S3, S4. Negative: Audible Murmur Lungs: Positive: Decreased Breath Sounds Neuro: Positive: Grossly Intact Abdomen: Positive: Unremarkable Male genitourinary: Positive: scrotal edema Skin: Negative: Rash Extremities: Present: +1 Edema Results 01/03/19 08:05 01/03/19 08:05 Cardiac Enzymes 01/02/19 01/03/19 Range/Units 14:24 08:05 AST 12 8 (5-40) units/L Lipids 01/02/19 Range/Units 14:24 Triglycerides 61 (2-149) mg/dL Cholesterol 106 (50-199) mg/dL HDL Cholesterol 47 (40-59) mg/dL Cholesterol/HDL Ratio 2.25 % CBC 01/02/19 01/03/19 Range/Units 14:24 08:05 WBC 6.1 5.6 (4.5-11.0) K/mm3 RBC 4.37 4.22 (3.65-5.03) M/mm3 Hgb 11.1 L 10.8 L (11.8-15.2) gm/dl Hct 34.4 L 33.0 L (35.5-45.6) % Plt Count 287 255 (140-440) K/mm3 Lymph # 1.4 1.6 (1.2-5.4) K/mm3 [place] # 0.4 0.4 (0.0-0.8) K/mm3 Eos # 0.1 0.1 (0.0-0.4) K/mm3 Baso # 0.0 0.1 (0.0-0.1) K/mm3 Comprehensive Metabolic Panel 01/02/19 01/03/19 Range/Units 14:24 08:05 Sodium 142 144 (137-145) mmol/L Potassium 3.9 3.5 L (3.6-5.0) mmol/L Chloride 102.7 103.7 (98-107) mmol/L Carbon Dioxide 28 27 (22-30) mmol/L BUN 9 9 (9-20) mg/dL Creatinine 1.2 1.3 (0.8-1.5) mg/dL Glucose 89 93 (75-100) mg/dL Calcium 8.0 L 7.8 L (8.4-10.2) mg/dL AST 12 8 (5-40) units/L ALT 5 L < 5 L (7-56) units/L Alkaline Phosphatase 83 75 (35-129) units/L Total Protein 7.1 6.4 (6.3-8.2) g/dL Albumin 3.3 L 3.0 L (3.9-5) g/dL EKG interpretations - Telemetry EKG Rhythm: Sinus Rhythm - EKG Ventricular dysrhythmias: ventricular premature com Chamber hypertrophy or enlargement: left atrial enlargement Myocardial infarction: inferior MO (old age inde, anterior MO (old age or i Assessment and Plan 68-year-old gentleman evaluated by us only on 12/21/2018 with history of heart failure with reduced ejection fraction, essential hypertension and diabetes mellitus, dementia, hyperlipidemia, BPH along with prostate cancer. Patient had echocardiogram performed on 12/03/2018 which showed ejection fraction of 25-30% with mild concentric LVH and dilation of all chambers. Plan during last admission was to do ischemic evaluation once he stabilized. Presently is admitted with the decompensated acute on chronic systolic heart failure. He appears to be reasonably comfortable. Will plan to get ischemic evaluation. In the meantime will continue present medical therapy. Is on appropriate medical therapy. Continue the diabetics. Monitor BUN and creatinine. Patient patient is clinically stable at this time. - Patient Problems (1) Diabetes Current Visit: Yes Status: Acute (2) Elevated troponin Current Visit: Yes Status: Acute (3) HLD (hyperlipidemia) Current Visit: Yes Status: Acute Qualifiers: Hyperlipidemia type: mixed hyperlipidemia Qualified Code(s): E78.2 - Mixed hyperlipidemia (4) HTN (hypertension) Current Visit: Yes Status: Acute Qualifiers: Hypertension type: essential hypertension Qualified Code(s): I10 - Essential (primary) hypertension (5) Anasarca Current Visit: No Status: Acute (6) Cocaine abuse Current Visit: No Status: Acute (7) Cardiomyopathy Current Visit: No Status: Chronic (8) HLD (hyperlipidemia) Current Visit: No Status: Chronic Qualifiers: Hyperlipidemia type: mixed hyperlipidemia Qualified Code(s): E78.2 - Mixed hyperlipidemia (9) HTN (hypertension) Current Visit: No Status: Chronic Qualifiers: Hypertension type: essential hypertension Qualified Code(s): I10 - Essential (primary) hypertension (10) Prostate cancer Current Visit: No Status: Chronic
[2019-01-03] MEDS: LOVENOX SUB-Q SCH (21:30)
[2019-01-03] MEDS: CATAPRES PO SCH (21:31)
[2019-01-04] MEDS: LASIX IV SCH ×2 (05:17→17:59)
[2019-01-04] MEDS: NEURONTIN PO SCH ×2 (05:18→15:36)
[2019-01-04] MEDS: HumaLOG SUB-Q SCH ×3 (09:46→17:59)
[2019-01-04] MEDS ORDERED: LEXISCAN IV ONE (10:30)
--- NOTE | 2019-01-04 11:38 | Progress Note ---
Assessment and Plan 68-year-old gentleman evaluated by us only on 12/21/2018 with history of heart failure with reduced ejection fraction, essential hypertension and diabetes mellitus, dementia, hyperlipidemia, BPH along with prostate cancer. Patient had echocardiogram performed on 12/03/2018 which showed ejection fraction of 25-30% with mild concentric LVH and dilation of all chambers. Presently is admitted with acute HFrEF. He appears to be reasonably comfortable and clinically improving. Proceed with lexiscan MPI stress test today. Await findings. The patient has been seen in conjunction with Dr. Zee who agrees with the assessment and plan of care. - Patient Problems (1) Acute heart failure with reduced ejection fraction Current Visit: Yes Status: Acute (2) Cardiomyopathy Current Visit: Yes Status: Acute (3) Noncompliance with medication regimen Current Visit: Yes Status: Acute (4) Dementia Current Visit: Yes Status: Chronic (5) T2DM (type 2 diabetes mellitus) Current Visit: Yes Status: Chronic (6) HLD (hyperlipidemia) Current Visit: No Status: Chronic (7) Elevated troponin Current Visit: No Status: Chronic (8) HTN (hypertension) Current Visit: No Status: Chronic Qualifiers: Hypertension type: essential hypertension Qualified Code(s): I10 - Essential (primary) hypertension (9) Prostate cancer Current Visit: No Status: Chronic Subjective Date of service: 01/04/19 Principal diagnosis: HF Interval history: pt sitting comfortably at bedside, for stress test today. Objective Last Vital Signs Temp 97.7 F 01/04/19 05:07 Pulse 69 01/04/19 05:06 Resp 18 01/04/19 05:06 BP 146/96 01/04/19 05:06 Pulse Ox 100 01/04/19 05:06 - Physical Examination General: No Apparent Distress HEENT: Positive: PERRL Neck: Positive: neck supple, trachea midline Cardiac: Positive: Reg Rate and Rhythm, S1/S2 Lungs: Positive: Decreased Breath Sounds Neuro: Positive: Grossly Intact Abdomen: Positive: Unremarkable Skin: Negative: Rash Extremities: Present: +1 Edema - Telemetry EKG Rhythm: Sinus Rhythm - EKG Ventricular dysrhythmias: ventricular premature com Chamber hypertrophy or enlargement: left atrial enlargement Myocardial infarction: inferior IN (old age inde, anterior IN (old age or i
[2019-01-04] MEDS: PEPCID PO SCH (12:35)
[2019-01-04] MEDS: FLOMAX PO SCH (12:35)
[2019-01-04] MEDS: COREG PO SCH (12:35)
[2019-01-04] MEDS: APRESOLINE PO SCH (12:35)
[2019-01-04] MEDS: BABY ASPIRIN PO SCH (12:35)
[2019-01-04] MEDS: ZESTRIL PO SCH (12:35)
[2019-01-04] MEDS: HCTZ PO SCH (12:36)
[2019-01-04] MEDS: SODIUM CHLORIDE FLUSH SYRINGE 10 ML IV SCH (12:36)
[2019-01-04 12:42] VITALS: BP 156/96
--- NOTE | 2019-01-04 13:14 | Event Note ---
Date: 01/04/19 S/p lexiscan MPI stress test this AM which showed small mild reversible inferior defect, EF 22%. Will continue with medical management. Currently stable cardiac status. Pt appears nearing/at euvolemia. Pt may discharge home from cardiology standpoint. At discharge, recommend conversion of IV lasix to PO lasix 40mg daily. Cont all other present cardiac management. Recommend pt follow up in our office with Dr. YOSELIN Milton within 3-5 days of hospital discharge ([phone]). Ramin SORIANO NP / DR. LIMA
--- NOTE | 2019-01-04 15:59 | Discharge Summary ---
Providers - Providers Date of Admission: 01/02/19 16:00 Attending physician: TJ BRITO MD 01/02/19 16:03 Consult to Physician [CONS] Routine Comment: Consulting Provider: BRANDY SOLANO Physician Instructions: Reason For Exam: CHF Primary care physician: WELDER/INSTALLER Hospitalization Reason for admission: chest pain Condition: Stable Hospital course: 68 YO Male with HTN, DM, Systolic CHF, DM, Dementia, HLD, BPH, CaP, Penile Cancer,Peripheral bilateral lower ext thrombosis without DVT's not currently on therapeutic anticoagulation presents to ED for evaluation. Pt states that he has experienced shortness of breath and leg swelling over the past 2 weeks with progressively worsening symptoms over the past 2 days. Pt acknowledges Orthopnea/PND, Decreased exercise tolerance, dypsnea on exertion, dypsnea at rest, 5-10 lbs weight gain, Edema to lower extremities, as well as his genitals. Pt denies fever, medication noncompliance, chills, CP, Palpitations, NVD, Trauma, BRBPR, productive cough, skin rash, or recent ill contacts. EMS notified, and upon arrival the patient found to be in distress. Pt seen and evaluated in ED and found to have CHF Decompensation. PT admitted to telemetry and initiated on CHF Protocol. Cardiology consulted in ED. Pt symptoms improved with diuresis and supplemental oxygen. Prior admission on 12/20/18 reviewed during which his edema had extended into his scrotom, the same is occurring again. All listed medication reconciled at time of admission. is primary care physician is Dr. Barros and his armoured corps officer is Dr. Chapman Per family, the patient lives by himself and does not trust that he is taken his medications. And when he was taken it he did well. The patient states that he was not taken it because his sister was not giving him his medications. patient underwent stress test which was negative. patient was euvolumic, we discussed medication management and he is agreeable to take his medications, family also stated that they will follow daily with the patient to ensure compliance with medications. he is ambulating without difficulty in breathing and is sable for discharge Discussed my concern with family I DO NOT THINK patient is unable to care for himself they state that they will pay close attention to him AND SEE HIM DAILY and we will also request home health which has been arranged by case management. (1) CHF exacerbation-systolic (2) HTN (hypertension) (3) Diabetes (4) HLD (hyperlipidemia) Disposition: DC/TX-06 HOME UNDER HOME HLTH Time spent for discharge: 35 MINS Core Measure Documentation - Palliative Care Palliative Care/ Comfort Measures: Not Applicable - Core Measures Any of the following diagnoses?: heart failure - Heart Failure Discharge Requirements KRISTOPHER/ARB for LVSD if EF <40%: Yes Beta jeanmarie at discharge: Yes Exam - Constitutional Vitals: Temp Pulse Resp BP Pulse Ox 97.7 F 69 18 156/96 100 01/04/19 05:07 01/04/19 05:06 01/04/19 05:06 01/04/19 11:17 01/04/19 05:06 Plan Activity: advance as tolerated, fall precautions Diet: low fat, low salt Follow up with: PRIMARY CARE,MD [Primary Care Provider] - 3-5 Days Prescriptions: Furosemide [Lasix TAB] 40 mg PO DAILY 30 Days tablet
--- NOTE | 2019-01-05 01:17 | Treadmill Report ---
NUCLEAR CARDIAC IMAGING REPORT INDICATION FOR PROCEDURE: Congestive heart failure. CONSENT: Informed consent was obtained. Rest and stress nuclear cardiac imaging was performed following the intravenous administration of 10 and 28 mCi of technetium 99m Myoview respectively. Vasodilator stress was achieved with 0.4 mg of intravenous Lexiscan. Both aspects of the study were performed per protocol. Imaging was obtained in a 180-degree arc from 45 degrees [place] to 45 degrees LPO. After data acquisition and reconstruction, the images were processed and reoriented into the vertical long, horizontal long, and horizontal short axis slices. A polar color map of the horizontal short axis slices was generated and reviewed. The rotating planar images reviewed in cinematic format on the computer console. Gated SPECT imaging demonstrates a post-stress left ventricular ejection fraction of 22%. There is mild hypokinesis of the inferior wall. The end systolic volume is increased at 175 mL. Myocardial perfusion imaging demonstrates no significant cavity change between stress and rest. A small mild reversible inferior wall perfusion abnormality is noted. Nuclear cardiac imaging demonstrates severe post-stress left ventricular systolic dysfunction. There is no definite evidence for prior myocardial necrosis. A small region of inferior wall myocardial ischemia is noted. JOB# [id number] MIRIAN/RUBY JOHNSTON
== END 2019-01-04 18:06 | disposition home health service (06) | DRG 292 ==
LOC: ED 13:16 → 4A 16:00
PROVIDERS: ADMIT Internal Medicine; ATTEND Internal Medicine
DX: I11.0 Hypertensive heart disease with heart failure (principal); E44.1 Mild protein-calorie malnutrition; C61 Malignant neoplasm of prostate; I50.23 Acute on chronic systolic (congestive) heart failure; I42.9 Cardiomyopathy, unspecified; E78.2 Mixed hyperlipidemia; F14.10 Cocaine abuse, uncomplicated; E11.40 Type 2 diabetes mellitus with diabetic neuropathy, unspecified; F03.90 Unspecified dementia, unspecified severity, without behavioral disturbance, psychotic disturbance, mood disturbance, and anxiety; N40.0 Benign prostatic hyperplasia without lower urinary tract symptoms; Z86.718 Personal history of other venous thrombosis and embolism; Z83.3 Family history of diabetes mellitus; Z82.49 Family history of ischemic heart disease and other diseases of the circulatory system; Z79.82 Long term (current) use of aspirin; Z79.899 Other long term (current) drug therapy; Z91.14 Patient's other noncompliance with medication regimen; Z79.84 Long term (current) use of oral hypoglycemic drugs; Z68.23 Body mass index [BMI] 23.0-23.9, adult
CPT/HCPCS: 36415; 71045; 71275; 78452; 80053; 80061; 82962; 83735; 83880; 84436; 84439; 84443; 84484; 85025; 85379; 93005; 93010; 93017; 93970; 96372; G0378; A9502; J1650; J1815; J1940; J2785; Q9967

== ENCOUNTER 2019-06-10 11:55 | Inpatient (IN) | payer MEDICARE ==
[2019-06-10] MEDS ORDERED: SODIUM CHLORIDE 0.9% 1000 ML 1,000 ML IV ONE (12:17)
--- NOTE | 2019-06-10 12:19 | Emergency Department Report ---
HPI - General Time Seen by Provider: 06/10/19 12:04 - HPI HPI: 68 YO AA MALE WHO COMES TO ER TODAY AFTER BEING FOUND DOWN AT HOME TODAY. LAST TIME HE SPOKE WITH FAMILY WAS FRIDAY. ON ARRIVAL PT HAD TEMP OF 97.5; HR 79. NORMOTENSIVE. HAD LOW BG PER EMS- D50 GIVEN; NOW NORMAL PT KNOWS HIS NAME AND YEAR; CAN TELL ME NOK AND PHONE NO FOR HIS SISTER; HE KNOWS HE IS NOT AT HOME. HE REPORTS HIS SCROTUM WAS LARGE AND IT MADE HIM LOOSE BALANCE AND HE FELL. HE DOES NOT RECOGNIZE THAT DAYS HAVE PASSED. POS SOB DENIES SOB MOVING ALL EXTREMITIES. NO PRONATOR DRIFT. PERRL. PT IS HYDABURG PER EMR DM HPLD BPH HTN CHF PL EFFUSION DVT HOME MEDS NOT CLEAR PT STATES ASA, CLONIDINE AND ASPIRIN NOK SISTER EUGENIA ED Past Medical Hx - Past Medical History Previous Medical History?: Yes Hx Hypertension: Yes Hx CVA: No Hx Heart Attack/AMI: Yes Hx Congestive Heart Failure: Yes Hx Diabetes: Yes Hx Deep Vein Thrombosis: Yes Hx Pulmonary Embolism: No Hx GERD: No Hx Liver Disease: No Hx Renal Disease: No Hx of Cancer: No Hx Sickle Cell Disease: No Hx Arthritis: No Hx Headaches / Migraines: No Hx Seizures: No Hx Kidney Stones: No Hx Psychiatric Treatment: No Hx Asthma: No Hx COPD: No Hx Tuberculosis: No Hx Dementia: Yes Hx HIV: No Additional medical history: HX of TB, bilateral DVT'S. 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 BPH. Diabetic neuropathy. Hyperlipidemia - Surgical History Past Surgical History?: Yes Additional Surgical History: R lung surgery - Family History Family history: no significant - Social History Smoking Status: Never Smoker Substance Use Type: None - Medications Home Medications: Home Medications Medication Instructions Recorded Confirmed Last Taken Type Aspirin [Aspirin BABY CHEW TAB] 81 mg PO QDAY 30 Days #30 tab.chew 12/07/18 06/10/19 06/09/19 Rx Carvedilol [Coreg] 12.5 mg PO BID 30 Days #60 tablet 12/07/18 06/10/19 06/09/19 Rx Lisinopril [Zestril TAB] 20 mg PO QDAY 30 Days #30 tablet 12/07/18 06/10/19 06/09/19 Rx Famotidine [Pepcid] 20 mg PO DAILY #30 tablet 12/24/18 06/10/19 06/09/19 Rx Linagliptin [Tradjenta] 5 mg PO QDAY #30 tablet 12/24/18 06/10/19 06/09/19 Rx cloNIDine [Catapres] 0.1 mg PO QHS #30 tablet 12/24/18 06/10/19 06/09/19 Rx hydrALAZINE [Apresoline TAB] 50 mg PO BID #60 tablet 12/24/18 06/10/19 06/09/19 Rx Furosemide [Lasix TAB] 40 mg PO DAILY 30 Days tablet 01/04/19 06/10/19 06/09/19 Rx ED Review of Systems ROS: Stated complaint: FALL/TESTICLES SWOLLEN Other details as noted in HPI Comment: All other systems reviewed and negative ED Course - Reevaluation(s) Reevaluation #1: 06/10/19 right EJ placed on admit without difficulty RN had been unable to place PIV. Pt invascular depleted and 3rd spacing fluids - Central Line Placement EJ Consent Obtained: emergent situation ED Medical Decision Making - Lab Data Result diagrams: 06/10/19 13:24 06/10/19 13:24 - EKG Data EKG shows normal: sinus rhythm Rate: normal - EKG Data When compared to previous EKG there are: no significant change Interpretation: no acute changes - Radiology Data Radiology results: report reviewed, image reviewed - Medical Decision Making Labs 06/10/19 06/10/19 06/10/19 12:40 13:24 13:24 WBC 6.3 RBC 4.97 Hgb 12.3 Hct 38.8 MCV 78 L MCH 25 L MCHC 32 RDW 15.9 H Plt Count 226 Lymph % (Auto) 17.8 [place] % (Auto) 7.0 Eos % (Auto) 0.0 Baso % (Auto) 0.9 Lymph # 1.1 L [place] # 0.4 Eos # 0.0 Baso # 0.1 Seg Neutrophils % 74.3 H Seg Neutrophils # 4.7 PT INR APTT Sodium Potassium Chloride Carbon Dioxide Anion Gap BUN Creatinine Estimated GFR BUN/Creatinine Ratio Glucose POC Glucose 92 Lactic Acid Calcium Total Bilirubin AST ALT Alkaline Phosphatase Total Creatine Kinase Troponin T 0.092 H Total Protein Albumin Albumin/Globulin Ratio Triglycerides Cholesterol LDL Cholesterol Direct HDL Cholesterol Cholesterol/HDL Ratio 06/10/19 06/10/1906/10/19 13:24 13:24 13:24 WBC RBC Hgb Hct MCV MCH MCHC RDW Plt Count Lymph % (Auto) [place] % (Auto) Eos % (Auto) Baso % (Auto) Lymph # [place] # Eos # Baso # Seg Neutrophils % Seg Neutrophils # PT 16.5 H INR 1.35 H APTT 32.9 Sodium 148 H Potassium 3.4 L Chloride 110.9 H Carbon Dioxide 24 Anion Gap 17 BUN 15 Creatinine 1.1 Estimated GFR > 60 BUN/Creatinine Ratio 14 Glucose 72 L POC Glucose Lactic Acid 1.20 Calcium 8.1 L Total Bilirubin 0.70 AST 76 H ALT 21 Alkaline Phosphatase 70 Total Creatine Kinase 2514 H Troponin T 0.090 H Total Protein 6.1 L Albumin 2.9 L Albumin/Globulin Ratio 0.9 Triglycerides 61 Cholesterol 92 LDL Cholesterol Direct 33 L HDL Cholesterol 54 Cholesterol/HDL Ratio 1.70 Vital Signs 06/10/19 12:05 Temperature 97.9 F Pulse Rate 83 Respiratory 20 Rate Blood Pressure 147/90 O2 Sat by Pulse 97 Oximetry NUC THIS SUMMER- SMALL AREA INFERIOR INFARCT EF 25-30 ON ECHO DISCUSS[address] WITH DR CORREA CARDS CONSULTED- will follow DR MARTINEZ NOTIFIED OF ADMIT/CONDITION. CT noted US testicular noted bedside swallow completed- took po med without difficulty family has been to bedside and they state they have not heard from him since Friday. 1800 Pt still in ER - assigned to room 201; repeat labs ordered Admitted to DR Martinez Vital Signs 06/10/19 06/10/19 06/10/19 12:02 12:05 12:15 Temperature 97.9 F Pulse Rate 83 83 Respiratory 17 20 11 L Rate Blood Pressure 147/90 135/55 O2 Sat by Pulse 97 94 Oximetry 06/10/19 06/10/19 06/10/19 12:30 13:03 13:15 Temperature Pulse Rate 82 82 76 Respiratory 8 L 24 17 Rate Blood Pressure 152/95 152/95 152/95 O2 Sat by Pulse 96 Oximetry 06/10/19 06/10/19 06/10/19 13:31 13:47 14:01 Temperature Pulse Rate 76 80 77 Respiratory 12 11 L Rate Blood Pressure 147/90 167/73 167/73 O2 Sat by Pulse 93 96 Oximetry 06/10/19 06/10/19 06/10/19 14:15 14:30 14:45 Temperature Pulse Rate 82 79 79 Respiratory 18 18 20 Rate Blood Pressure 151/112 143/113 143/113 O2 Sat by Pulse 95 96 97 Oximetry 06/10/19 06/10/19 06/10/19 15:00 15:30 16:01 Temperature Pulse Rate 87 78 Respiratory 13 13 11 L Rate Blood Pressure 152/103 150/118 182/102 O2 Sat by Pulse 98 95 97 Oximetry 06/10/19 06/10/19 16:31 17:01 Temperature Pulse Rate 79 78 Respiratory 9 L 13 Rate Blood Pressure 178/143 164/94 O2 Sat by Pulse 96 98 Oximetry - Differential Diagnosis ro acute coronary event/ ro cva/tia/sepsis Critical Care Time: Yes Critical care time in (mins) excluding proc time.: 72 Critical care attestation.: If time is entered above; I have spent that time in minutes in the direct care of this critically ill patient, excluding procedure time. ED Disposition Clinical Impression: Hypoglycemia, Diabetes, Elevated troponin, Fall, AMS (altered mental status), PVCs (premature ventricular contractions), History of CVA (cerebrovascular accident) Disposition: OP ADMIT IP TO THIS HOSP Is pt being admited?: Yes Does the pt Need Aspirin: No Condition: Stable Time of Disposition: 14:22 ED Physical Exam - General Limitations: No Limitations General appearance: obese - Eye Eye exam: Present: PERRL, EOMI - ENT ENT exam: Present: mucous membranes dry - Neck Neck exam: Present: normal inspection - Respiratory Respiratory exam: Present: normal lung sounds bilaterally - Cardiovascular Cardiovascular Exam: Present: regular rate - GI/Abdominal GI/Abdominal exam: Present: soft, normal bowel sounds - Rectal Rectal exam: Present: deferred - Extremities Exam Extremities exam: Present: normal inspection, other (ble edema and 3rd spacing of fluid ) - Back Exam Back exam: Present: normal inspection - Neurological Exam Neurological exam: Present: alert - Skin Skin exam: Present: warm, normal color
--- NOTE | 2019-06-10 13:32 | Ultrasound Report ---
SCROTAL ULTRASOUND WITH DOPPLER HISTORY: Swelling for 3 days. COMPARISON: None. TECHNIQUE: Grayscale, color and spectral Doppler images were obtained of the scrotum. FINDINGS: RIGHT: Right testicle: Mild microlithiasis and otherwise normal. Normal blood flow by color and duplex Doppl er. Right testicular size: 4.0 x 2.7 x 2.2 cm. Right epididymis: No significant abnormality. Normal blood flow by color and duplex Doppler. LEFT: Left testicle: Mild microlithiasis and moderate ectasia of the rete testis. Normal blood flow by col or and duplex Doppler. Left testicular size: 3.5 x 1.8 x 3.0 cm. Left epididymis: No significant abnormality. Normal blood flow by color and duplex Doppler. Additional findings: Marked scrotal wall edema and moderate-sized bilateral hydroceles. IMPRESSION: 1. Nonspecific marked scrotal wall edema and moderate size bilateral hydroceles. 2. Bilateral benign testicular microlithiasis. 3. No signs of orchitis or epididymitis. 4. No mass. 5. No signs of testicular torsion. Signer Name: Fhaad Montano MD Signed: 06/10/2019 1:28 PM Workstation Name: [id number]
[2019-06-10 13:38] LABS: Basophils # (Auto) 0.1 K/mm3 (0.0-0.1); Basophils % (Auto) 0.9 % (0.0-1.8); Hematocrit 38.8 % (35.5-45.6); Hemoglobin 12.3 gm/dl (11.8-15.2); Lymphocytes # (Auto) 1.1 K/mm3 (1.2-5.4); Lymphocytes % (Auto) 17.8 % (13.4-35.0); Mean Corpuscular HGB Conc 32 % (32-34); Mean Corpuscular Volume 78 fl (84-94); Monocytes # (Auto) 0.4 K/mm3 (0.0-0.8); Platelet Count 226 K/mm3 (140-440); Red Blood Count 4.97 M/mm3 (3.65-5.03); Red Cell Distribution Width 15.9 % (13.2-15.2)
--- NOTE | 2019-06-10 13:48 | XRay Report ---
CHEST 1 VIEW INDICATION: Altered Mental Status. COMPARISON: 01/02/2019 FINDINGS: SUPPORT DEVICES: None. HEART / MEDIASTINUM: No significant abnormality. LUNGS / PLEURA: Bronchovascular markings are prominent. No pneumothorax. ADDITIONAL FINDINGS: IMPRESSION: 1. Persistent prominent bronchovascular markings as compared to previous exam. Signer Name: Peng Bustos MD Signed: 06/10/2019 1:44 PM Workstation Name: [id number]
[2019-06-10 14:05] LABS: Alanine Aminotransferase 21 units/L (7-56); Albumin 2.9 g/dL (3.9-5); BUN/Creatinine Ratio 14; Blood Urea Nitrogen 15 mg/dL (9-20); Calcium 8.1 mg/dL (8.4-10.2); Hemolysis Index 5
[2019-06-10] MEDS ORDERED: DEXTROSE 50% IN WATER (25GM) 50 ML SYRINGE IV PRN (14:15)
[2019-06-10] MEDS ORDERED: POTASSIUM CHLORIDE ER 20 MEQ TAB PO ONE (14:15)
[2019-06-10 14:17] LABS: HDL Cholesterol 54 mg/dL (40-59); LDL Cholesterol,Direct 33 mg/dL (50-130)
--- NOTE | 2019-06-10 14:20 | Cat Scan Report ---
CT HEAD WITHOUT CONTRAST INDICATION : Altered Mental Status. TECHNIQUE: Axial imaging performed from the skull apex through the skull base without the use of con trast. All CT scans at this location are performed using CT dose reduction for ALARA by means of aut omated exposure control. COMPARISON: 07/11/2018 CT head and 07/13/2018 MRI brain FINDINGS: Parenchyma: No acute intracranial hemorrhage or parenchymal abnormality. However, a 2.7 x 2.4 x 1.2 cm hypodensity involving the left parietal lobe at the postcentral gyrus is new since the last exam. No associated mass effect. The density approaches CHF. No hemorrhage. Moderate bilateral periventricu lar white matter hypodensities. Ventricles: Ventricles and sulci are slightly enlarged for age but appear symmetric. Soft tissues: Soft tissues including the orbits appear normal. Bones: No acute osseous abnormality. Sinuses: Sinuses and mastoid air cells are clear. IMPRESSION: 1. No evidence of acute infarct or hemorrhage. 2. A late subacute left parietal lobe nonhemorrhagic infarct is new since 07/13/2018. 3. Moderate chronic white matter microangiopathy. 4. Mild chronic cortical atrophy. Signer Name: Fahad Montano MD Signed: 06/10/2019 2:15 PM Workstation Name: [id number]
[2019-06-10 14:26] LABS: INR 1.35 (0.87-1.13); Partial Thromboplastin Time 32.9 Sec. (24.2-36.6)
--- NOTE | 2019-06-10 15:17 | Consultation ---
History of Present Illness Consult date: 06/10/19 Requesting physician: ZAFAR NUR Consult reason: congestive heart failure History of present illness: The pt is a 68 YO male with a past medical history of HFrEF, CMP, HTN, DM, HLP, RBBB, dementia, noncompliance. He has been seen by our practice on several prior hospitalizations, noncompliant with OP follow up. He presented via EMS for evaluation after being found down on the floor at home today. Apparently the fire department found pt lying on the floor at his home and thus he was transported to ED for further evaluation. Pt states that the last time he remembers being alert and oriented was on Friday. He states that he has been experiencing progressively worsening SOB and scrotal edema for the past several days. On Friday, his scrotal edema became so bad that he was unable to ambulate so he laid down on the floor and that is the last thing that he recalls. He next remembers being awakened today by firemen standing over him in his house. Pt denies any occurrence of chest pain, palpitations, n/v, diaphoresis or dizziness. He states that he was taking all medications as prescribed prior to Friday. Echo done 06/2018 showed EF 35-40%, mild LVH. Limited echo done 11/2018 showed EF 25-30%, mild LVH, RV mild to mod dilated, RA and LA mildly dilated, minimal pericardial effusion. Lexiscan MPI stress test done 12/2018 showed small mild reversible inferior defect, EF 22%. Medical management was recommended. Past History Past Medical History: other (as per HPI) Medications and Allergies Allergies Allergy/AdvReac Type Severity Reaction Status Date / Time No Known Allergies Allergy Verified 12/03/18 16:45 Home Medications Medication Instructions Recorded Confirmed Last Taken Type Tamsulosin [Flomax] 0.4 mg PO QDAY #30 capsule 07/21/18 01/02/19 Unknown Rx Aspirin [Aspirin BABY CHEW TAB] 81 mg PO QDAY 30 Days #30 tab.chew 12/07/18 01/02/19 Unknown Rx Carvedilol [Coreg] 12.5 mg PO BID 30 Days #60 tablet 12/07/18 01/02/19 Unknown Rx Lisinopril [Zestril TAB] 20 mg PO QDAY 30 Days #30 tablet 12/07/18 01/02/19 Unknown Rx Famotidine [Pepcid] 20 mg PO DAILY #30 tablet 12/24/18 01/02/19 Unknown Rx Gabapentin 600 mg PO Q8HR #90 capsule 12/24/18 01/02/19 Unknown Rx Linagliptin [Tradjenta] 5 mg PO QDAY #30 tablet 12/24/18 01/02/19 Unknown Rx cloNIDine [Catapres] 0.1 mg PO QHS #30 tablet 12/24/18 01/02/19 Unknown Rx hydrALAZINE [Apresoline TAB] 50 mg PO BID #60 tablet 12/24/18 01/02/19 Unknown Rx Furosemide [Lasix TAB] 40 mg PO DAILY 30 Days tablet 01/04/19 Unknown Rx Active Meds: Active Medications Dextrose (D50w (25gm) Syringe) 50 ml IV PRN PRN PRN Reason: Hypoglycemia Last Admin: 06/10/19 14:40 Dose: 50 ml Documented by: Review of Systems Constitutional: no fever, no chills, no sweats Ears, nose, mouth and throat: no ear pain, no nose pain, no sinus pressure, no sinus pain Cardiovascular: orthopnea, edema, syncope (questionable), lightheadedness, shortness of breath, dyspnea on exertion, paroxysmal nocturnal dyspnea, no chest pain, no palpitations, no rapid/irregular heart beat, no high blood pressure, no leg edema Respiratory: shortness of breath, dyspnea on exertion, no cough, no congestion, no pain on inspiration Gastrointestinal: no abdominal pain, no nausea, no vomiting, no diarrhea, no constipation, no change in bowel habits Genitourinary Male: other (scrotal edema), no dysuria, no hematuria, no flank pain, no discharge, no urinary frequency, no urinary hesitancy Musculoskeletal: no neck stiffness, no neck pain, no shooting arm pain, no arm numbness/tingling, no low back pain, no shooting leg pain Integumentary: no rash, no pruritis, no redness, no sores, no wounds Neurological: syncope (questionable), no head injury, no paralysis, no weakness, no parathesias, no numbness, no tingling, no seizures Psychiatric: no anxiety Endocrine: no cold intolerance, no heat intolerance Hematologic/Lymphatic: no easy bruising, no easy bleeding Allergic/Immunologic: no urticaria Physical Examination Vital Signs Resp 17 06/10/19 12:02 General appearance: no acute distress HEENT: Positive: PERRL, Normocephaly, Mucus Membranes Moist Neck: Positive: neck supple, trachea midline Cardiac: Positive: Reg Rate and Rhythm, S1/S2 Lungs: Positive: Decreased Breath Sounds Neuro: Positive: Grossly Intact Abdomen: Negative: Tender Skin: Negative: Rash Musculoskeletal: No Pain Extremities: Absent: edema Results 06/10/19 13:24 06/10/19 13:24 Cardiac Enzymes 06/10/19 Range/Units 13:24 AST 76 H (5-40) units/L Coagulation 06/10/19 Range/Units 13:24 PT 16.5 H (12.2-14.9) Sec. INR 1.35 H (0.87-1.13) APTT 32.9 (24.2-36.6) Sec. Lipids 06/10/19 Range/Units 13:24 Triglycerides 61 (2-149) mg/dL Cholesterol 92 (50-199) mg/dL HDL Cholesterol 54 (40-59) mg/dL Cholesterol/HDL Ratio 1.70 % CBC 06/10/19 Range/Units 13:24 WBC 6.3 (4.5-11.0) K/mm3 RBC 4.97 (3.65-5.03) M/mm3 Hgb 12.3 (11.8-15.2) gm/dl Hct 38.8 (35.5-45.6) % Plt Count 226 (140-440) K/mm3 Lymph # 1.1 L (1.2-5.4) K/mm3 [place] # 0.4 (0.0-0.8) K/mm3 Eos # 0.0 (0.0-0.4) K/mm3 Baso # 0.1 (0.0-0.1) K/mm3 Comprehensive Metabolic Panel 06/10/19 Range/Units 13:24 Sodium 148 H (137-145) mmol/L Potassium 3.4 L (3.6-5.0) mmol/L Chloride 110.9 H (98-107) mmol/L Carbon Dioxide 24 (22-30) mmol/L BUN 15 (9-20) mg/dL Creatinine 1.1 (0.8-1.5) mg/dL Glucose 72 L (75-100) mg/dL Calcium 8.1 L (8.4-10.2) mg/dL AST 76 H (5-40) units/L ALT 21 (7-56) units/L Alkaline Phosphatase 70 (35-129) units/L Total Protein 6.1 L (6.3-8.2) g/dL Albumin 2.9 L (3.9-5) g/dL - Imaging and Cardiology Echo: report reviewed ( 06/2018 showed EF 35-40%, mild LVH. 11/2018 showed EF 25- 30%, mild LVH, RV mild to mod dilated, RA and LA mildly dilated, minimal pericardial effusion. ) EKG: report reviewed, image reviewed EKG interpretations - Telemetry EKG Rhythm: Sinus Rhythm - EKG Sinus rhythms and dysrhythmias: sinus rhythm Ventricular dysrhythmias: ventricular premature com AV and intraventricular conduction: right bundle branch block Assessment and Plan Pt presented via EMS for evaluation after being found down on the floor at home today. His last known well time was Friday. Head CT negative for acute findings, shows a late subacute left parietal lobe infarct which is new since 06/2018. Resume home GDMT. Pt is currently receiving IVF in setting of elevated CK and sodium, BUN/Cr currently WNL, suspect he is dehydrated intravascularly. Would not give more than 1L IVF as pt likely has a very narrow fluid equilibrium. He may require gentle IV diuresis in setting of HFrEF and scrotal edema. Obtain echo. Replete lytes PRN and f/u BMP in AM. Further recs to follow per hospital course. The patient has been seen in conjunction with Dr. YOSELIN Milton who agrees with the assessment and plan of care. - Patient Problems (1) Altered mental status Current Visit: Yes Status: Acute (2) Acute HFrEF (heart failure with reduced ejection fraction) Current Visit: Yes Status: Acute (3) Cardiomyopathy Current Visit: Yes Status: Chronic (4) HTN (hypertension) Current Visit: Yes Status: Chronic Qualifiers: Hypertension type: essential hypertension Qualified Code(s): I10 - Essential (primary) hypertension (5) T2DM (type 2 diabetes mellitus) Current Visit: Yes Status: Chronic (6) HLD (hyperlipidemia) Current Visit: Yes Status: Chronic (7) PVCs (premature ventricular contractions) Current Visit: Yes Status: Chronic (8) RBBB Current Visit: Yes Status: Chronic (9) Dementia Current Visit: Yes Status: Chronic (10) Elevated troponin Current Visit: Yes Status: Chronic (11) Elevated CK Current Visit: Yes Status: Acute (12) History of CVA (cerebrovascular accident) Current Visit: Yes Status: Acute
[2019-06-10] MEDS: hydrALAZINE 25 MG TAB PO SCH (21:15)
[2019-06-10] MEDS: carvediloL 6.25 MG TAB PO SCH (21:16)
[2019-06-10] MEDS ORDERED: carvediloL 12.5 MG TAB PO SCH (22:00)
[2019-06-10 23:32] LABS: Bacteria,Urine 1+ /HPF (Negative); Bilirubin,Urine NEG (Negative); Blood,Urine LG (Negative); Color,Urine Amber (Yellow); Urobilinogen,Urine < 2.0 mg/dL (<2.0)
[2019-06-10 23:35] LABS: Amphetamine Screen,Urine PRESUMPTIVE NEGATIVE; Benzodiazepines Screen,Urine PRESUMPTIVE NEGATIVE; Cannabinoid Screen,Urine PRESUMPTIVE NEGATIVE; Methadone Screen,Urine PRESUMPTIVE NEGATIVE; Opiate Screen,Urine PRESUMPTIVE NEGATIVE
[2019-06-10 23:42] LABS: Protein,Urine >500 mg/dL (Negative)
[2019-06-10 23:57] LABS: Cocaine Screen,Urine PRESUMPTIVE POSITIVE
--- NOTE | 2019-06-11 03:05 | Event Note ---
Date: 06/10/19 See H/p in reports Acute encephalopathy NSTEMI CHF exacerbation CVA??
[2019-06-11] MEDS ORDERED: HEPARIN/ 0.45% NACL DRIP 25,000 UNIT/500 ML BAG IV SCH (04:00)
[2019-06-11] MEDS ORDERED: POTASSIUM CHLORIDE ER 20 MEQ TAB PO SCH (04:00)
--- NOTE | 2019-06-11 04:25 | History and Physical Report ---
CHIEF COMPLAINT: Decreased responsiveness. HISTORY OF PRESENT ILLNESS: A 68-year-old -[place] male brought in after being found on the floor at home in feces. Last time he spoke with his family was 3 days ago, on Friday. Today is . The patient had a low blood glucose per EMS and D50W was given. He became more responsive. The patient complains of shortness of breath and severely enlarged scrotum and penis. Also, bilateral leg swelling. No focal weakness. No seizures. No fever. PAST MEDICAL HISTORY: Significant for hypertension, BPH, diabetes, hyperlipidemia, DVT and pleural effusion. PAST SURGICAL HISTORY: Right lung surgery. FAMILY HISTORY: Hypertension. SOCIAL HISTORY: Does not smoke. No alcohol, no recreational drugs. REVIEW OF SYSTEMS: Significant for shortness of breath, orthopnea, enlarged scrotum and bilateral lower extremity edema. Acute confusion, which has resolved after D50W. Otherwise, review of systems negative. PHYSICAL EXAMINATION: GENERAL: Elderly male, alert and oriented during my examination. VITAL SIGNS: Blood pressure is 147/98, temperature is 98, pulse is 88, respirations are 18. HEENT: Unremarkable. Pupils equal and reactive. NECK: Supple, no lymphadenopathy, no thyromegaly. Jugular venous distention present. LUNGS: Clear to auscultation and percussion. Good air entry. CARDIOVASCULAR: S1, S2 heard. No gallop, no murmur, no rub. Apical impulse in left fifth intercostal space and midclavicular line. ABDOMEN: Soft and benign. No hepatosplenomegaly. No guarding, no rigidity. Hernial orifices are normal. Scrotum is severely enlarged. There is penile edema. No phimosis or paraphimosis. EXTREMITIES: 3+ pedal edema present. CENTRAL NERVOUS SYSTEM: Alert and oriented x 4, no focal deficits. LABORATORY DATA: Significant for white count of 6300, hemoglobin of 12.3, hematocrit of 38.8, platelet count of 226,000. Sodium is 148, potassium is 3.4, chloride is 111, BUN and creatinine is 15 and 1.1, glucose is 72. Lactic acid is 1.2, calcium is 8.1. AST is 76, ALT is 21, total creatine kinase is 2,514. Troponin is 0.090. BNP is 32,805. Total protein is 6.1, albumin is 2.9. Urine has above 16 white cells. Drug screen positive for marijuana. DIAGNOSTIC DATA: Chest x-ray shows persistent prominent bronchovascular markings as compared to previous exam. Testicular ultrasound shows nonspecific marked scrotal wall edema and moderate-size bilateral hydroceles, bilateral benign testicular microlithiasis. No signs of orchitis or epididymitis, no testicular torsion. Head CT shows subacute left parietal infarct. No evidence of acute infarct. A late subacute left parietal lobe nonhemorrhagic infarct. Moderate chronic white matter microangiopathy. Mild chronic cortical atrophy. EKG shows sinus rhythm, ventricular bigeminy and IVCD. ASSESSMENT AND PLAN: 1. Acute encephalopathy secondary to hypoglycemia. Hypoglycemia corrected. The patient is alert and oriented now. 2. Congestive heart failure exacerbation secondary to diastolic failure. The patient has severe scrotal edema and bilateral lower extremity edema. High BNP of around 33,000. IV Lasix for now. Echocardiogram ordered for ejection fraction. Last ejection fraction, 12/05/2018, was 25-30%. 3. Hypokalemia, supplemented. 4. Hypernatremia. Gentle hydration in view of congestive heart failure. 5. Transaminitis, mild. Probably secondary to hepatic congestion. 6. [id number] myocardial infarction type 2. No heparin drip. Creatine kinase is high. We will trend the troponin. Cardiology consult was requested. 7. Malnutrition, severe. Dietitian consult requested. 8. Deep vein thrombosis prophylaxis. Lovenox 40 mg subcutaneous daily. 9. Left subacute parietal infarct. No focal deficits. We will get MRI for better delineation. No Neurology consult at this point. JOB# [id number] VSM/NTS MTDD
[2019-06-11] MEDS: POTASSIUM CHLORIDE 20 MEQ PACKET PO SCH ×2 (04:34→21:44)
[2019-06-11] MEDS ORDERED: FUROSEMIDE 40 MG/4 ML INJ IV SCH (06:00)
--- NOTE | 2019-06-11 07:33 | Progress Note ---
Assessment and Plan Assessment and plan: 68-year-old -[place] male was brought to the emergency department found on the floor of his home sitting in his feces. Last time patient was alert was 3 days ago. Patient had hypoglycemia. Medicine was given D50. Patient become alert and oriented. Patient complains shortness of breath and severely enlarged his scrotum and penis. Acute on chronic systolic CHF exacerbation - Patient has markedly swelling of the scrotum and penis, ultrasound is negative for acute findings - Chest x-ray showed prominent bronchovascular marking - Patient is on IV Lasix - Continue appropriate CHF medications Metabolic encephalopathy - Resolved Hypokalemia - Repleted and corrected Cocaine abuse - Patient denied using cocaine nevertheless have counseled him about cessation of using it DVT prophylaxis Disposition History Interval history: Patient was seen in 2 this morning, patient's scrotal swelling is getting better. Patient denied any shortness of breath or chest pain. Hospitalist Physical - Physical exam Narrative exam: Not in cardiopulmonary distress. The patient appeared well nourished and normally developed. Vital signs as documented. Head exam is unremarkable. No scleral icterus . Neck is without jugular venous distension, thyromegaly, or carotid bruits. Lungs are clear to auscultation. Cardiac exam reveals regular rate and Rhythm. First and second heart sounds normal. No murmurs, rubs or gallops. Abdominal exam reveals normal bowel sounds, no masses, no organomegaly and no aortic enlargement. Extremities bilateral swelling. 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 No focal weakness. - Constitutional Vitals: Temp Pulse Resp BP Pulse Ox 98.2 F 73 18 113/73 96 06/11/19 01:26 06/11/19 01:26 06/11/19 01:26 06/11/19 01:26 06/11/19 01:26 General appearance: Present: no acute distress Results - Labs CBC & Chem 7: 06/10/19 13:24 06/10/19 13:24 Labs: Laboratory Last Values WBC 6.3 K/mm3 (4.5-11.0) 06/10/19 13:24 RBC 4.97 M/mm3 (3.65-5.03) 06/10/19 13:24 Hgb 12.3 gm/dl (11.8-15.2) 06/10/19 13:24 Hct 38.8 % (35.5-45.6) 06/10/19 13:24 MCV 78 fl (84-94) L 06/10/19 13:24 MCH 25 pg (28-32) L 06/10/19 13:24 MCHC 32 % (32-34) 06/10/19 13:24 RDW 15.9 % (13.2-15.2) H 06/10/19 13:24 Plt Count 226 K/mm3 (140-440) 06/10/19 13:24 Lymph % (Auto) 17.8 % (13.4-35.0) 06/10/19 13:24 [place] % (Auto) 7.0 % (0.0-7.3) 06/10/19 13:24 Eos % (Auto) 0.0 % (0.0-4.3) 06/10/19 13:24 Baso % (Auto) 0.9 % (0.0-1.8) 06/10/19 13:24 Lymph # 1.1 K/mm3 (1.2-5.4) L 06/10/19 13:24 [place] # 0.4 K/mm3 (0.0-0.8) 06/10/19 13:24 Eos # 0.0 K/mm3 (0.0-0.4) 06/10/19 13:24 Baso # 0.1 K/mm3 (0.0-0.1) 06/10/19 13:24 Seg Neutrophils % 74.3 % (40.0-70.0) H 06/10/19 13:24 Seg Neutrophils # 4.7 K/mm3 (1.8-7.7) 06/10/19 13:24 PT 16.5 Sec. (12.2-14.9) H 06/10/19 13:24 INR 1.35 (0.87-1.13) H 06/10/19 13:24 APTT 32.9 Sec. (24.2-36.6) 06/10/19 13:24 Sodium 148 mmol/L (137-145) H 06/10/19 13:24 Potassium 3.4 mmol/L (3.6-5.0) L 06/10/19 13:24 Chloride 110.9 mmol/L (98-107) H 06/10/19 13:24 Carbon Dioxide 24 mmol/L (22-30) 06/10/19 13:24 Anion Gap 17 mmol/L 06/10/19 13:24 BUN 15 mg/dL (9-20) 06/10/19 13:24 Creatinine 1.1 mg/dL (0.8-1.5) 06/10/19 13:24 Estimated GFR > 60 ml/min 06/10/19 13:24 BUN/Creatinine Ratio 14 % 06/10/19 13:24 Glucose 72 mg/dL (75-100) L 06/10/19 13:24 POC Glucose 142 (70-105) H 06/10/19 23:31 Lactic Acid 1.20 mmol/L (0.7-2.0) 06/10/19 13:24 Calcium 8.1 mg/dL (8.4-10.2) L 06/10/19 13:24 Magnesium 1.80 mg/dL (1.7-2.3) 06/10/19 16:08 Total Bilirubin 0.70 mg/dL (0.1-1.2) 06/10/19 13:24 AST 76 units/L (5-40) H 06/10/19 13:24 ALT 21 units/L (7-56) 06/10/19 13:24 Alkaline Phosphatase 70 units/L (35-129) 06/10/19 13:24 Total Creatine Kinase 2514 units/L (55-170) H 06/10/19 13:24 Troponin T 0.086 ng/mL (0.00-0.029) H 06/10/19 18:40 NT-Pro-B Natriuret Pep 51763 pg/mL (0-900) H 06/10/19 13:24 Total Protein 6.1 g/dL (6.3-8.2) L 06/10/19 13:24 Albumin 2.9 g/dL (3.9-5) L 06/10/19 13:24 Albumin/Globulin Ratio 0.9 % 06/10/19 13:24 Triglycerides 61 mg/dL (2-149) 06/10/19 13:24 Cholesterol 92 mg/dL (50-199) 06/10/19 13:24 LDL Cholesterol Direct 33 mg/dL (50-130) L 06/10/19 13:24 HDL Cholesterol 54 mg/dL (40-59) 06/10/19 13:24 Cholesterol/HDL Ratio 1.70 % 06/10/19 13:24 Urine Color Iqra (Yellow) 06/10/19 22:50 Urine Turbidity Clear (Clear) 06/10/19 22:50 Urine pH 5.0 (5.0-7.0) 06/10/19 22:50 Ur Specific [place] 1.019 (1.003-1.030) 06/10/19 22:50 Urine Protein >500 mg/dL (Negative) 06/10/19 22:50 Urine Glucose (UA) Neg mg/dL (Negative) 06/10/19 22:50 Urine Ketones Neg mg/dL (Negative) 06/10/19 22:50 Urine Blood Lg (Negative) 06/10/19 22:50 Urine Nitrite Neg (Negative) 06/10/19 22:50 Urine Bilirubin Neg (Negative) 06/10/19 22:50 Urine Urobilinogen < 2.0 mg/dL (<2.0) 06/10/19 22:50 Ur Leukocyte Esterase Tr (Negative) 06/10/19 22:50 Urine WBC (Auto) 16.0 /HPF (0.0-6.0) H 06/10/19 22:50 Urine RBC (Auto) 7.0 /HPF (0.0-6.0) 06/10/19 22:50 U Epithel Cells (Auto) < 1.0 /HPF (0-13.0) 06/10/19 22:50 Urine Bacteria (Auto) 1+ /HPF (Negative) 06/10/19 22:50 Ur Yeast w Hyphae 1+ /HPF 06/10/19 22:50 Urine Yeast (Budding) Few /HPF 06/10/19 22:50 Urine Opiates Screen Presumptive negative 06/10/19 22:50 Urine Methadone Screen Presumptive negative 06/10/19 22:50 Ur Barbiturates Screen Presumptive negative 06/10/19 22:50 Ur Phencyclidine Scrn Presumptive negative 06/10/19 22:50 Ur Amphetamines Screen Presumptive negative 06/10/19 22:50 U Benzodiazepines Scrn Presumptive negative 06/10/19 22:50 Urine Cocaine Screen Presumptive positive 06/10/19 22:50 U Marijuana (THC) Screen Presumptive negative 06/10/19 22:50 Drugs of Abuse Note Disclamer 06/10/19 22:50 Active Medications - Current Medications Current Medications: Generic Name Dose Route Start Last Admin Trade Name Freq PRN Reason Stop Dose Admin Aspirin 81 mg 06/11/19 10:00 Baby Aspirin PO QDAY BRIDGETT Carvedilol 6.25 mg 06/10/19 22:00 06/10/19 21:16 Coreg PO 6.25 mg BID BRIDGETT Administration Dextrose 50 ml 06/10/19 14:15 06/10/19 14:40 D50w (25gm) Syringe IV 50 ml PRN PRN Administration Hypoglycemia Enoxaparin Sodium 30 mg 06/11/19 22:00 Enoxaparin SUB-Q QDAY@2200 BRIDGETT Famotidine 20 mg 06/11/19 10:00 Pepcid PO DAILY BRIDGETT Furosemide 40 mg 06/11/19 06:00 06/11/19 05:10 Lasix IV 40 mg 0600,1800 BRIDGETT Administration Hydralazine HCl 50 mg 06/10/19 22:00 06/10/19 21:15 Apresoline PO 50 mg BID BRIDGETT Administration Insulin Human Lispro 0 unit 06/11/19 07:30 Humalog SUB-Q ACHS BRIDGETT Protocol Linagliptin 5 mg 06/11/19 10:00 Tradjenta PO QDAY BRIDGETT Lisinopril 20 mg 06/11/19 10:00 Zestril PO QDAY BRIDGETT Potassium Chloride 20 meq 06/11/19 05:00 06/11/19 04:34 Potassium Chloride PO 20 meq Q12H BRIDGETT Administration
[2019-06-11] MEDS: INSULIN LISPRO 100 UNIT/ML SUB-Q SCH ×4 (09:04→21:45)
[2019-06-11] MEDS: FAMOTIDINE 20 MG TAB PO SCH (09:04)
[2019-06-11] MEDS: LINAGLIPTIN 5 MG TAB PO SCH (09:04)
[2019-06-11] MEDS: ASPIRIN 81 MG TAB CHEW PO SCH (09:05)
[2019-06-11] MEDS: carvediloL 6.25 MG TAB PO SCH ×2 (09:05→21:44)
[2019-06-11] MEDS: LISINOPRIL 20 MG TAB PO SCH (09:06)
[2019-06-11] MEDS: hydrALAZINE 25 MG TAB PO SCH ×2 (09:06→21:45)
--- NOTE | 2019-06-11 10:44 | Progress Note ---
Assessment and Plan Cont GDMT and gentle diuresis as tolerated. Await echo. Toxicology noted to be positive for cocaine, pt denies any illicit drug use. The patient has been seen in conjunction with Dr. Ana Milton who agrees with the assessment and plan of care. - Patient Problems (1) Altered mental status Current Visit: Yes Status: Acute (2) Acute HFrEF (heart failure with reduced ejection fraction) Current Visit: Yes Status: Acute (3) Cardiomyopathy Current Visit: Yes Status: Chronic (4) HTN (hypertension) Current Visit: Yes Status: Chronic Qualifiers: Hypertension type: essential hypertension Qualified Code(s): I10 - Essential (primary) hypertension (5) T2DM (type 2 diabetes mellitus) Current Visit: Yes Status: Chronic (6) HLD (hyperlipidemia) Current Visit: Yes Status: Chronic (7) PVCs (premature ventricular contractions) Current Visit: Yes Status: Chronic (8) RBBB Current Visit: Yes Status: Chronic (9) Dementia Current Visit: Yes Status: Chronic (10) Elevated troponin Current Visit: Yes Status: Chronic (11) Elevated CK Current Visit: Yes Status: Acute (12) History of CVA (cerebrovascular accident) Current Visit: Yes Status: Acute Subjective Date of service: 06/11/19 Principal diagnosis: AMS, hf Interval history: pt resting in bed, states he is feeling a little better. Objective Last Vital Signs Temp 98.2 F 06/11/19 07:10 Pulse 48 L 06/11/19 09:05 Resp 18 06/11/19 07:10 BP 117/76 06/11/19 09:05 Pulse Ox 97 06/11/19 07:10 - Physical Examination General: No Apparent Distress HEENT: Positive: PERRL, Normocephaly, Mucus Membranes Moist Neck: Positive: neck supple, trachea midline Cardiac: Positive: Reg Rate and Rhythm, S1/S2 Lungs: Positive: Decreased Breath Sounds Neuro: Positive: Grossly Intact Abdomen: Negative: Tender Skin: Negative: Rash Musculoskeletal: No Pain Extremities: Absent: edema - Labs and Meds Cardiac Enzymes 06/10/19 Range/Units 13:24 AST 76 H (5-40) units/L Coagulation 06/10/19 Range/Units 13:24 PT 16.5 H (12.2-14.9) Sec. INR 1.35 H (0.87-1.13) APTT 32.9 (24.2-36.6) Sec. Lipids 06/10/19 Range/Units 13:24 Triglycerides 61 (2-149) mg/dL Cholesterol 92 (50-199) mg/dL HDL Cholesterol 54 (40-59) mg/dL Cholesterol/HDL Ratio 1.70 % CBC 06/10/19 Range/Units 13:24 WBC 6.3 (4.5-11.0) K/mm3 RBC 4.97 (3.65-5.03) M/mm3 Hgb 12.3 (11.8-15.2) gm/dl Hct 38.8 (35.5-45.6) % Plt Count 226 (140-440) K/mm3 Lymph # 1.1 L (1.2-5.4) K/mm3 [place] # 0.4 (0.0-0.8) K/mm3 Eos # 0.0 (0.0-0.4) K/mm3 Baso # 0.1 (0.0-0.1) K/mm3 Comprehensive Metabolic Panel 06/10/19 Range/Units 13:24 Sodium 148 H (137-145) mmol/L Potassium 3.4 L (3.6-5.0) mmol/L Chloride 110.9 H (98-107) mmol/L Carbon Dioxide 24 (22-30) mmol/L BUN 15 (9-20) mg/dL Creatinine 1.1 (0.8-1.5) mg/dL Glucose 72 L (75-100) mg/dL Calcium 8.1 L (8.4-10.2) mg/dL AST 76 H (5-40) units/L ALT 21 (7-56) units/L Alkaline Phosphatase 70 (35-129) units/L Total Protein 6.1 L (6.3-8.2) g/dL Albumin 2.9 L (3.9-5) g/dL - Imaging and Cardiology EKG: report reviewed, image reviewed Echo: report reviewed ( 06/2018 showed EF 35-40%, mild LVH. 11/2018 showed EF 25- 30%, mild LVH, RV mild to mod dilated, RA and LA mildly dilated, minimal pericardial effusion. ) - EKG Sinus rhythms and dysrhythmias: sinus rhythm Ventricular dysrhythmias: ventricular premature com AV and intraventricular conduction: right bundle branch block
[2019-06-11 15:51] LABS: BUN/Creatinine Ratio 14; Blood Urea Nitrogen 18 mg/dL (9-20); Calcium 7.8 mg/dL (8.4-10.2); Hemolysis Index 118
[2019-06-11 17:05] LABS: INR 1.16 (0.87-1.13)
[2019-06-11] MEDS: ENOXAPARIN 40 MG/0.4 ML INJ SUB-Q SCH (21:44)
[2019-06-11] MEDS ORDERED: ENOXAPARIN 40 MG/0.4 ML INJ SUB-Q SCH (22:00)
[2019-06-12] MEDS: POTASSIUM CHLORIDE 20 MEQ PACKET PO SCH ×2 (05:30→16:47)
[2019-06-12] MEDS: INSULIN LISPRO 100 UNIT/ML SUB-Q SCH ×4 (08:18→22:39)
[2019-06-12] MEDS ORDERED: FUROSEMIDE 40 MG/4 ML INJ IV ONE (09:00)
[2019-06-12] MEDS: FAMOTIDINE 20 MG TAB PO SCH (09:29)
[2019-06-12] MEDS: carvediloL 6.25 MG TAB PO SCH ×2 (09:30→21:30)
[2019-06-12] MEDS: LINAGLIPTIN 5 MG TAB PO SCH (09:30)
[2019-06-12] MEDS: ASPIRIN 81 MG TAB CHEW PO SCH (09:30)
[2019-06-12] MEDS ORDERED: FUROSEMIDE 40 MG/4 ML INJ IV SCH (10:00)
--- NOTE | 2019-06-12 10:36 | Progress Note ---
Assessment and Plan Assessment and plan: 68-year-old -[place] male was brought to the emergency department found on the floor of his home sitting in his feces. Last time patient was alert was 3 days ago. Patient had hypoglycemia. Medicine was given D50. Patient become alert and oriented. Patient complains shortness of breath and severely enlarged his scrotum and penis. Acute on chronic systolic CHF exacerbation - Patient has markedly swelling of the scrotum and penis, ultrasound is negative for acute findings - Chest x-ray showed prominent bronchovascular marking - Patient is on IV Lasix, increased the dose for better diuresis - Continue appropriate CHF medications Metabolic encephalopathy - Resolved Hypokalemia - Repleted - BMP is still pending Cocaine abuse - Patient denied using cocaine nevertheless have counseled him about cessation of using it DVT prophylaxis Disposition History Interval history: Patient was seen and evaluated this morning, patient's scrotal swelling is getting better. Patient denied any shortness of breath or chest pain. patient said he didn't pee a lot. Hospitalist Physical - Physical exam Narrative exam: Not in cardiopulmonary distress. The patient appeared well nourished and normally developed. Vital signs as documented. Head exam is unremarkable. No scleral icterus . Neck is without jugular venous distension, thyromegaly, or carotid bruits. Lungs are clear to auscultation. Cardiac exam reveals regular rate and Rhythm. First and second heart sounds normal. No murmurs, rubs or gallops. Abdominal exam reveals normal bowel sounds, no masses, no organomegaly and no aortic enlargement. Extremities bilateral swelling. 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 No focal weakness. - Constitutional Vitals: Temp Pulse Resp BP Pulse Ox 97.9 F 77 18 153/74 100 06/12/19 07:26 06/12/19 08:32 06/12/19 07:26 06/12/19 07:26 06/12/19 07:26 General appearance: Present: no acute distress Results - Labs CBC & Chem 7: 06/10/19 13:24 06/11/19 15:20 Labs: Laboratory Last Values WBC 6.3 K/mm3 (4.5-11.0) 06/10/19 13:24 RBC 4.97 M/mm3 (3.65-5.03) 06/10/19 13:24 Hgb 12.3 gm/dl (11.8-15.2) 06/10/19 13:24 Hct 38.8 % (35.5-45.6) 06/10/19 13:24 MCV 78 fl (84-94) L 06/10/19 13:24 MCH 25 pg (28-32) L 06/10/19 13:24 MCHC 32 % (32-34) 06/10/19 13:24 RDW 15.9 % (13.2-15.2) H 06/10/19 13:24 Plt Count 226 K/mm3 (140-440) 06/10/19 13:24 Lymph % (Auto) 17.8 % (13.4-35.0) 06/10/19 13:24 [place] % (Auto) 7.0 % (0.0-7.3) 06/10/19 13:24 Eos % (Auto) 0.0 % (0.0-4.3) 06/10/19 13:24 Baso % (Auto) 0.9 % (0.0-1.8) 06/10/19 13:24 Lymph # 1.1 K/mm3 (1.2-5.4) L 06/10/19 13:24 [place] # 0.4 K/mm3 (0.0-0.8) 06/10/19 13:24 Eos # 0.0 K/mm3 (0.0-0.4) 06/10/19 13:24 Baso # 0.1 K/mm3 (0.0-0.1) 06/10/19 13:24 Seg Neutrophils % 74.3 % (40.0-70.0) H 06/10/19 13:24 Seg Neutrophils # 4.7 K/mm3 (1.8-7.7) 06/10/19 13:24 PT 14.7 Sec. (12.2-14.9) 06/11/19 16:28 INR 1.16 (0.87-1.13) H 06/11/19 16:28 APTT 32.9 Sec. (24.2-36.6) 06/10/19 13:24 Sodium 141 mmol/L (137-145) 06/11/19 15:20 Potassium 4.5 mmol/L (3.6-5.0) D 06/11/19 15:20 Chloride 112.3 mmol/L (98-107) H 06/11/19 15:20 Carbon Dioxide 18 mmol/L (22-30) L 06/11/19 15:20 Anion Gap 15 mmol/L 06/11/19 15:20 BUN 18 mg/dL (9-20) 06/11/19 15:20 Creatinine 1.3 mg/dL (0.8-1.5) 06/11/19 15:20 Estimated GFR > 60 ml/min 06/11/19 15:20 BUN/Creatinine Ratio 14 % 06/11/19 15:20 Glucose 89 mg/dL (75-100) 06/11/19 15:20 POC Glucose 107 (70-105) H 06/12/19 07:30 Lactic Acid 1.20 mmol/L (0.7-2.0) 06/10/19 13:24 Calcium 7.8 mg/dL (8.4-10.2) L 06/11/19 15:20 Magnesium 1.80 mg/dL (1.7-2.3) 06/10/19 16:08 Total Bilirubin 0.70 mg/dL (0.1-1.2) 06/10/19 13:24 AST 76 units/L (5-40) H 06/10/19 13:24 ALT 21 units/L (7-56) 06/10/19 13:24 Alkaline Phosphatase 70 units/L (35-129) 06/10/19 13:24 Total Creatine Kinase 2514 units/L (55-170) H 06/10/19 13:24 Troponin T 0.086 ng/mL (0.00-0.029) H 06/10/19 18:40 NT-Pro-B Natriuret Pep 40801 pg/mL (0-900) H 06/10/19 13:24 Total Protein 6.1 g/dL (6.3-8.2) L 06/10/19 13:24 Albumin 2.9 g/dL (3.9-5) L 06/10/19 13:24 Albumin/Globulin Ratio 0.9 % 06/10/19 13:24 Triglycerides 61 mg/dL (2-149) 06/10/19 13:24 Cholesterol 92 mg/dL (50-199) 06/10/19 13:24 LDL Cholesterol Direct 33 mg/dL (50-130) L 06/10/19 13:24 HDL Cholesterol 54 mg/dL (40-59) 06/10/19 13:24 Cholesterol/HDL Ratio 1.70 % 06/10/19 13:24 Urine Color Iqra (Yellow) 06/10/19 22:50 Urine Turbidity Clear (Clear) 06/10/19 22:50 Urine pH 5.0 (5.0-7.0) 06/10/19 22:50 Ur Specific [place] 1.019 (1.003-1.030) 06/10/19 22:50 Urine Protein >500 mg/dL (Negative) 06/10/19 22:50 Urine Glucose (UA) Neg mg/dL (Negative) 06/10/19 22:50 Urine Ketones Neg mg/dL (Negative) 06/10/19 22:50 Urine Blood Lg (Negative) 06/10/19 22:50 Urine Nitrite Neg (Negative) 06/10/19 22:50 Urine Bilirubin Neg (Negative) 06/10/19 22:50 Urine Urobilinogen < 2.0 mg/dL (<2.0) 06/10/19 22:50 Ur Leukocyte Esterase Tr (Negative) 06/10/19 22:50 Urine WBC (Auto) 16.0 /HPF (0.0-6.0) H 06/10/19 22:50 Urine RBC (Auto) 7.0 /HPF (0.0-6.0) 06/10/19 22:50 U Epithel Cells (Auto) < 1.0 /HPF (0-13.0) 06/10/19 22:50 Urine Bacteria (Auto) 1+ /HPF (Negative) 06/10/19 22:50 Ur Yeast w Hyphae 1+ /HPF 06/10/19 22:50 Urine Yeast (Budding) Few /HPF 06/10/19 22:50 Urine Opiates Screen Presumptive negative 06/10/19 22:50 Urine Methadone Screen Presumptive negative 06/10/19 22:50 Ur Barbiturates Screen Presumptive negative 06/10/19 22:50 Ur Phencyclidine Scrn Presumptive negative 06/10/19 22:50 Ur Amphetamines Screen Presumptive negative 06/10/19 22:50 U Benzodiazepines Scrn Presumptive negative 06/10/19 22:50 Urine Cocaine Screen Presumptive positive 06/10/19 22:50 U Marijuana (THC) Screen Presumptive negative 06/10/19 22:50 Drugs of Abuse Note Disclamer 06/10/19 22:50 Active Medications - Current Medications Current Medications: Generic Name Dose Route Start Last Admin Trade Name Freq PRN Reason Stop Dose Admin Aspirin 81 mg 06/11/19 10:00 06/12/19 09:30 Baby Aspirin PO 81 mg QDAY BRIDGETT Administration Carvedilol 6.25 mg 06/10/19 22:00 06/12/19 09:30 Coreg PO 6.25 mg BID BRIDGETT Administration Dextrose 50 ml 06/10/19 14:15 06/10/19 14:40 D50w (25gm) Syringe IV 50 ml PRN PRN Administration Hypoglycemia Enoxaparin Sodium 40 mg 06/11/19 22:00 06/11/19 21:44 Enoxaparin SUB-Q 40 mg QHS BRIDGETT Administration Famotidine 20 mg 06/11/19 10:00 06/12/19 09:29 Pepcid PO 20 mg DAILY BRIDGETT Administration Furosemide 40 mg 06/12/19 10:00 Lasix IV BID BRIDGETT Hydralazine HCl 50 mg 06/10/19 22:00 06/11/19 21:45 Apresoline PO Not Given BID BRIDGETT Insulin Human Lispro 0 unit 06/11/19 07:30 06/12/19 08:18 Humalog SUB-Q Not Given ACHS [facility] Protocol Linagliptin 5 mg 06/11/19 10:00 06/12/19 09:30 Tradjenta PO 5 mg QDAY BRIDGETT Administration Lisinopril 20 mg 06/11/19 10:00 06/11/19 09:06 Zestril PO Not Given QDAY BRIDGETT Potassium Chloride 20 meq 06/11/19 05:00 06/12/19 05:30 Potassium Chloride PO 20 meq Q12H BRIDGETT Administration
[2019-06-12] MEDS: FUROSEMIDE 40 MG/4 ML INJ IV SCH ×2 (11:36→21:30)
[2019-06-12] MEDS: hydrALAZINE 25 MG TAB PO SCH ×2 (11:50→22:00)
[2019-06-12] MEDS: LISINOPRIL 20 MG TAB PO SCH ×2 (11:50→18:41)
--- NOTE | 2019-06-12 12:06 | Progress Note ---
Assessment and Plan Altered mental status/metabolic encephalopathy/dementia/history of stroke Cocaine use Scrotal edema Acute HFrEF 25-30% Cardiomyopathy Hypertension Lipidemia Diabetes Echo done 06/2018: EF 35-40%, mild LVH. ECHO 11/2018: EF 25-30%, mild LVH, RV mild to mod dilated, RA and LA mildly dilated, minimal pericardial effusion. Lexiscan MPI 12/2018: showed small mild reversible inferior defect, EF 22%. Gentle diuresis Echo pending Subjective Date of service: 06/12/19 Principal diagnosis: AMS, hf Interval history: Patient sitting up in bed complaining of mild shortness of breath and scrotal swelling Objective Vital Signs Temp Pulse Resp Resp BP BP Pulse Ox 06/12/19 11:50 100/66 06/12/19 11:43 100/06/12/19 08:32 77 06/12/19 07:26 97.9 F 36 L 18 153/74 100 06/12/19 04:28 79 06/12/19 03:04 97.8 F 52 L 18 154/90 100 06/11/19 22:00 20 20 06/11/19 21:45 69 101/79 06/11/19 21:44 69 101/79 06/11/19 20:07 97.9 F 69 20 101/79 99 06/11/19 14:00 98 F 75 18 123/58 06/11/19 13:41 98.0 F 75 18 123/58 96 - Physical Examination General: No Apparent Distress HEENT: Positive: PERRL, Normocephaly, Mucus Membranes Moist Neck: Positive: neck supple, trachea midline Cardiac: Positive: Reg Rate and Rhythm Lungs: Positive: clear to auscultation, Normal Breath Sounds Neuro: Positive: Grossly Intact Abdomen: Negative: Tender Skin: Negative: Rash Musculoskeletal: No Pain Extremities: Present: +1 Edema - Labs and Meds Coagulation 06/11/19 Range/Units 16:28 PT 14.7 (12.2-14.9) Sec. INR 1.16 H (0.87-1.13) Comprehensive Metabolic Panel 06/11/19 Range/Units 15:20 Sodium 141 (137-145) mmol/L Potassium 4.5 D (3.6-5.0) mmol/L Chloride 112.3 H (98-107) mmol/L Carbon Dioxide 18 L (22-30) mmol/L BUN 18 (9-20) mg/dL Creatinine 1.3 (0.8-1.5) mg/dL Glucose 89 (75-100) mg/dL Calcium 7.8 L (8.4-10.2) mg/dL - Imaging and Cardiology EKG: report reviewed, image reviewed Echo: report reviewed ( 06/2018 showed EF 35-40%, mild LVH. 11/2018 showed EF 25- 30%, mild LVH, RV mild to mod dilated, RA and LA mildly dilated, minimal pericar dial effusion. ) - EKG Sinus rhythms and dysrhythmias: sinus rhythm Ventricular dysrhythmias: ventricular premature com AV and intraventricular conduction: right bundle branch block
[2019-06-12] MEDS: ENOXAPARIN 40 MG/0.4 ML INJ SUB-Q SCH (21:29)
[2019-06-13 04:52] LABS: BUN/Creatinine Ratio 15; Blood Urea Nitrogen 19 mg/dL (9-20); Calcium 7.9 mg/dL (8.4-10.2); Hemolysis Index 22
[2019-06-13] MEDS: POTASSIUM CHLORIDE 20 MEQ PACKET PO SCH (05:55)
[2019-06-13] MEDS: INSULIN LISPRO 100 UNIT/ML SUB-Q SCH ×4 (08:06→22:04)
[2019-06-13] MEDS: LISINOPRIL 20 MG TAB PO SCH (09:06)
[2019-06-13] MEDS: ASPIRIN 81 MG TAB CHEW PO SCH (09:06)
[2019-06-13] MEDS: FAMOTIDINE 20 MG TAB PO SCH (09:06)
[2019-06-13] MEDS: LINAGLIPTIN 5 MG TAB PO SCH (09:06)
[2019-06-13] MEDS: carvediloL 6.25 MG TAB PO SCH ×2 (09:06→21:56)
[2019-06-13] MEDS: hydrALAZINE 25 MG TAB PO SCH ×2 (09:07→21:55)
[2019-06-13] MEDS: FUROSEMIDE 40 MG/4 ML INJ IV SCH ×2 (09:45→21:58)
--- NOTE | 2019-06-13 13:26 | Progress Note ---
Assessment and Plan Assessment and plan: Acute on chronic systolic HF with EF of 25-30% - Chest x-ray showed prominent bronchovascular marking - Cont IV Lasix - Continue appropriate CHF medications Acute Metabolic encephalopathy - likely due to hypoglycemia v cocaine abuse - Resolved Scrotal edema - ultrasound negative for acute findings - cont scrotal elevation Hypokalemia - Repleted and resolved Metabolic acidosis -will monitor Cocaine abuse - Patient counseled on cessation DVT prophylaxis: lovenox Disposition: d/c per clinical course History Interval history: Patient reports feeling a little better. He denies chest pain or shortness of breath Hospitalist Physical - Constitutional Vitals: Temp Pulse Resp BP Pulse Ox 97.8 F 74 18 140/71 99 06/13/19 07:06 06/13/19 09:06 06/13/19 02:03 06/13/19 09:06 06/13/19 07:06 General appearance: Present: no acute distress, well-nourished - EENT Eyes: Present: PERRL, EOM intact ENT: hearing intact, clear oral mucosa - Neck Neck: Present: supple - Respiratory Respiratory effort: normal Respiratory: bilateral: CTA, diminished - Cardiovascular Rhythm: regular Heart Sounds: Present: S1 & S2 - Extremities Extremity abnormal: edema (in BLE ans scrotum) - Abdominal General gastrointestinal: soft, non-tender, normal bowel sounds - Integumentary Integumentary: Present: warm, dry - Psychiatric Psychiatric: appropriate mood/affect - Neurologic Neurologic: CNII-XII intact Results - Labs CBC & Chem 7: 06/10/19 13:24 06/13/19 04:00 Labs: Laboratory Last Values WBC 6.3 K/mm3 (4.5-11.0) 06/10/19 13:24 RBC 4.97 M/mm3 (3.65-5.03) 06/10/19 13:24 Hgb 12.3 gm/dl (11.8-15.2) 06/10/19 13:24 Hct 38.8 % (35.5-45.6) 06/10/19 13:24 MCV 78 fl (84-94) L 06/10/19 13:24 MCH 25 pg (28-32) L 06/10/19 13:24 MCHC 32 % (32-34) 06/10/19 13:24 RDW 15.9 % (13.2-15.2) H 06/10/19 13:24 Plt Count 226 K/mm3 (140-440) 06/10/19 13:24 Lymph % (Auto) 17.8 % (13.4-35.0) 06/10/19 13:24 [place] % (Auto) 7.0 % (0.0-7.3) 06/10/19 13:24 Eos % (Auto) 0.0 % (0.0-4.3) 06/10/19 13:24 Baso % (Auto) 0.9 % (0.0-1.8) 06/10/19 13:24 Lymph # 1.1 K/mm3 (1.2-5.4) L 06/10/19 13:24 [place] # 0.4 K/mm3 (0.0-0.8) 06/10/19 13:24 Eos # 0.0 K/mm3 (0.0-0.4) 06/10/19 13:24 Baso # 0.1 K/mm3 (0.0-0.1) 06/10/19 13:24 Seg Neutrophils % 74.3 % (40.0-70.0) H 06/10/19 13:24 Seg Neutrophils # 4.7 K/mm3 (1.8-7.7) 06/10/19 13:24 PT 14.7 Sec. (12.2-14.9) 06/11/19 16:28 INR 1.16 (0.87-1.13) H 06/11/19 16:28 APTT 32.9 Sec. (24.2-36.6) 06/10/19 13:24 Sodium 137 mmol/L (137-145) 06/13/19 04:00 Potassium 4.4 mmol/L (3.6-5.0) 06/13/19 04:00 Chloride 110.5 mmol/L (98-107) H 06/13/19 04:00 Carbon Dioxide 20 mmol/L (22-30) L 06/13/19 04:00 Anion Gap 11 mmol/L 06/13/19 04:00 BUN 19 mg/dL (9-20) 06/13/19 04:00 Creatinine 1.3 mg/dL (0.8-1.5) 06/13/19 04:00 Estimated GFR > 60 ml/min 06/13/19 04:00 BUN/Creatinine Ratio 15 % 06/13/19 04:00 Glucose 86 mg/dL (75-100) 06/13/19 04:00 POC Glucose 109 (70-105) H 06/13/19 12:07 Hemoglobin A1c 6.6 % (4-6) H 06/13/19 04:00 Lactic Acid 1.20 mmol/L (0.7-2.0) 06/10/19 13:24 Calcium 7.9 mg/dL (8.4-10.2) L 06/13/19 04:00 Magnesium 1.80 mg/dL (1.7-2.3) 06/10/19 16:08 Total Bilirubin 0.70 mg/dL (0.1-1.2) 06/10/19 13:24 AST 76 units/L (5-40) H 06/10/19 13:24 ALT 21 units/L (7-56) 06/10/19 13:24 Alkaline Phosphatase 70 units/L (35-129) 06/10/19 13:24 Total Creatine Kinase 2514 units/L (55-170) H 06/10/19 13:24 Troponin T 0.086 ng/mL (0.00-0.029) H 06/10/19 18:40 NT-Pro-B Natriuret Pep 70843 pg/mL (0-900) H 06/10/19 13:24 Total Protein 6.1 g/dL (6.3-8.2) L 06/10/19 13:24 Albumin 2.9 g/dL (3.9-5) L 06/10/19 13:24 Albumin/Globulin Ratio 0.9 % 06/10/19 13:24 Triglycerides 61 mg/dL (2-149) 06/10/19 13:24 Cholesterol 92 mg/dL (50-199) 06/10/19 13:24 LDL Cholesterol Direct 33 mg/dL (50-130) L 06/10/19 13:24 HDL Cholesterol 54 mg/dL (40-59) 06/10/19 13:24 Cholesterol/HDL Ratio 1.70 % 06/10/19 13:24 Urine Color Iqra (Yellow) 06/10/19 22:50 Urine Turbidity Clear (Clear) 06/10/19 22:50 Urine pH 5.0 (5.0-7.0) 06/10/19 22:50 Ur Specific [place] 1.019 (1.003-1.030) 06/10/19 22:50 Urine Protein >500 mg/dL (Negative) 06/10/19 22:50 Urine Glucose (UA) Neg mg/dL (Negative) 06/10/19 22:50 Urine Ketones Neg mg/dL (Negative) 06/10/19 22:50 Urine Blood Lg (Negative) 06/10/19 22:50 Urine Nitrite Neg (Negative) 06/10/19 22:50 Urine Bilirubin Neg (Negative) 06/10/19 22:50 Urine Urobilinogen < 2.0 mg/dL (<2.0) 06/10/19 22:50 Ur Leukocyte Esterase Tr (Negative) 06/10/19 22:50 Urine WBC (Auto) 16.0 /HPF (0.0-6.0) H 06/10/19 22:50 Urine RBC (Auto) 7.0 /HPF (0.0-6.0) 06/10/19 22:50 U Epithel Cells (Auto) < 1.0 /HPF (0-13.0) 06/10/19 22:50 Urine Bacteria (Auto) 1+ /HPF (Negative) 06/10/19 22:50 Ur Yeast w Hyphae 1+ /HPF 06/10/19 22:50 Urine Yeast (Budding) Few /HPF 06/10/19 22:50 Urine Opiates Screen Presumptive negative 06/10/19 22:50 Urine Methadone Screen Presumptive negative 06/10/19 22:50 Ur Barbiturates Screen Presumptive negative 06/10/19 22:50 Ur Phencyclidine Scrn Presumptive negative 06/10/19 22:50 Ur Amphetamines Screen Presumptive negative 06/10/19 22:50 U Benzodiazepines Scrn Presumptive negative 06/10/19 22:50 Urine Cocaine Screen Presumptive positive 06/10/19 22:50 U Marijuana (THC) Screen Presumptive negative 06/10/19 22:50 Drugs of Abuse Note Disclamer 06/10/19 22:50 Active Medications - Current Medications Current Medications: Generic Name Dose Route Start Last Admin Trade Name Freq PRN Reason Stop Dose Admin Aspirin 81 mg 06/11/19 10:00 06/13/19 09:06 Baby Aspirin PO 81 mg QDAY BRIDGETT Administration Carvedilol 6.25 mg 06/10/19 22:00 06/13/19 09:06 Coreg PO 6.25 mg BID BRIDGETT Administration Dextrose 50 ml 06/10/19 14:15 06/10/19 14:40 D50w (25gm) Syringe IV 50 ml PRN PRN Administration Hypoglycemia Enoxaparin Sodium 40 mg 06/11/19 22:00 06/12/19 21:29 Enoxaparin SUB-Q 40 mg QHS BRIDGETT Administration Famotidine 20 mg 06/11/19 10:00 06/13/19 09:06 Pepcid PO 20 mg DAILY BRIDGETT Administration Furosemide 40 mg 06/12/19 10:00 06/13/19 09:45 Lasix IV 40 mg BID BRIDGETT Administration Hydralazine HCl 50 mg 06/10/19 22:00 06/13/19 09:07 Apresoline PO 50 mg BID BRIDGETT Administration Insulin Human Lispro 0 unit 06/11/19 07:30 06/13/19 12:50 Humalog SUB-Q Not Given ACHS BRIDGETT Protocol Linagliptin 5 mg 06/11/19 10:00 06/13/19 09:06 Tradjenta PO 5 mg QDAY BRIDGETT Administration Lisinopril 20 mg 06/11/19 10:00 06/13/19 09:06 Zestril PO 20 mg QDAY BRIDGETT Administration Potassium Chloride 20 meq 06/11/19 05:00 06/13/19 05:55 Potassium Chloride PO 20 meq Q12H BRIDGETT Administration
[2019-06-13] MEDS: ENOXAPARIN 40 MG/0.4 ML INJ SUB-Q SCH (21:58)
[2019-06-14 07:52] LABS: Calcium 8.1 mg/dL (8.4-10.2)
[2019-06-14] MEDS: INSULIN LISPRO 100 UNIT/ML SUB-Q SCH ×4 (08:24→21:46)
[2019-06-14] MEDS: LINAGLIPTIN 5 MG TAB PO SCH (09:39)
[2019-06-14] MEDS: carvediloL 6.25 MG TAB PO SCH (09:48)
[2019-06-14] MEDS: hydrALAZINE 25 MG TAB PO SCH (09:48)
[2019-06-14] MEDS: FUROSEMIDE 40 MG/4 ML INJ IV SCH (09:48)
[2019-06-14] MEDS: LISINOPRIL 20 MG TAB PO SCH (09:48)
[2019-06-14] MEDS: ASPIRIN 81 MG TAB CHEW PO SCH (09:49)
[2019-06-14] MEDS: FAMOTIDINE 20 MG TAB PO SCH (09:49)
[2019-06-14] MEDS ORDERED: POTASSIUM CHLORIDE 20 MEQ PACKET PO SCH (10:00)
[2019-06-14] MEDS ORDERED: LISINOPRIL 20 MG TAB PO SCH (10:30)
--- NOTE | 2019-06-14 11:44 | Progress Note ---
Assessment and Plan Cont GDMT and gentle diuresis as tolerated. Await echo. The patient has been seen in conjunction with Dr. Mina who agrees with the assessment and plan of care. - Patient Problems (1) Altered mental status Current Visit: Yes Status: Acute (2) Acute HFrEF (heart failure with reduced ejection fraction) Current Visit: Yes Status: Acute (3) Cardiomyopathy Current Visit: Yes Status: Chronic (4) HTN (hypertension) Current Visit: Yes Status: Chronic Qualifiers: Hypertension type: essential hypertension Qualified Code(s): I10 - Essential (primary) hypertension (5) T2DM (type 2 diabetes mellitus) Current Visit: Yes Status: Chronic (6) HLD (hyperlipidemia) Current Visit: Yes Status: Chronic (7) PVCs (premature ventricular contractions) Current Visit: Yes Status: Chronic (8) RBBB Current Visit: Yes Status: Chronic (9) Dementia Current Visit: Yes Status: Chronic (10) Elevated troponin Current Visit: Yes Status: Chronic (11) Elevated CK Current Visit: Yes Status: Acute (12) History of CVA (cerebrovascular accident) Current Visit: Yes Status: Acute Subjective Date of service: 06/14/19 Principal diagnosis: AMS, hf Interval history: pt resting in bed, no current complaints. tele reviewed - in SR HR 60s - 70s with freq PVCs and occasional bigeminy overnight. pt documented to have HR in 30s on vital sign flowsheet, however, this is inaccurate. d/w primary RN. Objective Last Vital Signs Temp 98.0 F 06/14/19 07:33 Pulse 42 L 06/14/19 09:52 Resp 20 06/14/19 07:33 BP 109/65 06/14/19 09:48 Pulse Ox 94 06/14/19 09:52 - Physical Examination General: No Apparent Distress HEENT: Positive: PERRL, Normocephaly, Mucus Membranes Moist Neck: Positive: neck supple, trachea midline Cardiac: Positive: Reg Rate and Rhythm, S1/S2 Lungs: Positive: Decreased Breath Sounds Neuro: Positive: Grossly Intact Abdomen: Negative: Tender Skin: Negative: Rash Musculoskeletal: No Pain Extremities: Absent: edema - Labs and Meds Comprehensive Metabolic Panel 06/14/19 Range/Units 06:19 Sodium 141 (137-145) mmol/L Potassium 5.3 H D (3.6-5.0) mmol/L Chloride 109.3 H (98-107) mmol/L Carbon Dioxide 20 L (22-30) mmol/L BUN 22 H (9-20) mg/dL Creatinine 1.6 H (0.8-1.5) mg/dL Glucose 88 (75-100) mg/dL Calcium 8.1 L (8.4-10.2) mg/dL - Imaging and Cardiology EKG: report reviewed, image reviewed Echo: report reviewed ( 06/2018 showed EF 35-40%, mild LVH. 11/2018 showed EF 25- 30%, mild LVH, RV mild to mod dilated, RA and LA mildly dilated, minimal pericardial effusion. ) - Telemetry EKG Rhythm: Sinus Rhythm - EKG Sinus rhythms and dysrhythmias: sinus rhythm Ventricular dysrhythmias: ventricular premature com AV and intraventricular conduction: right bundle branch block
--- NOTE | 2019-06-14 16:48 | Progress Note ---
Assessment and Plan Assessment and plan: Acute on chronic systolic HF with EF of 25-30% - Chest x-ray showed prominent bronchovascular marking - Cont IV Lasix - coreg d/belinda due to bradycardia. cont ACEI Acute Metabolic encephalopathy - likely due to hypoglycemia v cocaine abuse - Resolved Scrotal edema - ultrasound negative for acute findings - cont scrotal elevation Hypokalemia -resolved -now hyperkalemia -off Kcl, cont lasix -will monitor level JAGRUTI -probably vasomotor nephropathy -Lasix dose reduced -monitor cr level Metabolic acidosis -stable, will monitor Hypertension -BP low normal -lisinopril dose reduced, monitor BP Cocaine abuse - Patient counseled on cessation DVT prophylaxis: lovenox Disposition: d/c per clinical course and clearance by cardiology History Interval history: Patient has no new complaints. He denies chest pain or shortness of breath. His scrotum is still swollen Hospitalist Physical - Constitutional Vitals: Temp Pulse Resp BP Pulse Ox 98.0 F 42 L 20 116/66 99 06/14/19 14:17 06/14/19 14:17 06/14/19 14:17 06/14/19 14:17 06/14/19 14:17 General appearance: Present: no acute distress, well-nourished - EENT Eyes: Present: PERRL, EOM intact ENT: hearing intact, clear oral mucosa - Neck Neck: Present: supple - Respiratory Respiratory effort: normal Respiratory: bilateral: diminished, negative: rales, wheezing - Cardiovascular Rhythm: regular (rhythm with bradycardia) Heart Sounds: Present: S1 & S2 - Extremities Extremity abnormal: edema (in BLE and scrotal edema) - Abdominal General gastrointestinal: soft, non-tender, normal bowel sounds - Integumentary Integumentary: Present: clear, warm - Psychiatric Psychiatric: appropriate mood/affect - Neurologic Neurologic: moves all extremities Results - Labs CBC & Chem 7: 06/10/19 13:24 06/14/19 06:19 Labs: Laboratory Last Values WBC 6.3 K/mm3 (4.5-11.0) 06/10/19 13:24 RBC 4.97 M/mm3 (3.65-5.03) 06/10/19 13:24 Hgb 12.3 gm/dl (11.8-15.2) 06/10/19 13:24 Hct 38.8 % (35.5-45.6) 06/10/19 13:24 MCV 78 fl (84-94) L 06/10/19 13:24 MCH 25 pg (28-32) L 06/10/19 13:24 MCHC 32 % (32-34) 06/10/19 13:24 RDW 15.9 % (13.2-15.2) H 06/10/19 13:24 Plt Count 226 K/mm3 (140-440) 06/10/19 13:24 Lymph % (Auto) 17.8 % (13.4-35.0) 06/10/19 13:24 [place] % (Auto) 7.0 % (0.0-7.3) 06/10/19 13:24 Eos % (Auto) 0.0 % (0.0-4.3) 06/10/19 13:24 Baso % (Auto) 0.9 % (0.0-1.8) 06/10/19 13:24 Lymph # 1.1 K/mm3 (1.2-5.4) L 06/10/19 13:24 [place] # 0.4 K/mm3 (0.0-0.8) 06/10/19 13:24 Eos # 0.0 K/mm3 (0.0-0.4) 06/10/19 13:24 Baso # 0.1 K/mm3 (0.0-0.1) 06/10/19 13:24 Seg Neutrophils % 74.3 % (40.0-70.0) H 06/10/19 13:24 Seg Neutrophils # 4.7 K/mm3 (1.8-7.7) 06/10/19 13:24 PT 14.7 Sec. (12.2-14.9) 06/11/19 16:28 INR 1.16 (0.87-1.13) H 06/11/19 16:28 APTT 32.9 Sec. (24.2-36.6) 06/10/19 13:24 Sodium 141 mmol/L (137-145) 06/14/19 06:19 Potassium 5.3 mmol/L (3.6-5.0) H D 06/14/19 06:19 Chloride 109.3 mmol/L (98-107) H 06/14/19 06:19 Carbon Dioxide 20 mmol/L (22-30) L 06/14/19 06:19 Anion Gap 17 mmol/L 06/14/19 06:19 BUN 22 mg/dL (9-20) H 06/14/19 06:19 Creatinine 1.6 mg/dL (0.8-1.5) H 06/14/19 06:19 Estimated GFR 52 ml/min 06/14/19 06:19 BUN/Creatinine Ratio 14 % 06/14/19 06:19 Glucose 88 mg/dL (75-100) 06/14/19 06:19 POC Glucose 117 (70-105) H 06/14/19 11:55 Hemoglobin A1c 6.6 % (4-6) H 06/13/19 04:00 Lactic Acid 1.20 mmol/L (0.7-2.0) 06/10/19 13:24 Calcium 8.1 mg/dL (8.4-10.2) L 06/14/19 06:19 Magnesium 1.80 mg/dL (1.7-2.3) 06/10/19 16:08 Total Bilirubin 0.70 mg/dL (0.1-1.2) 06/10/19 13:24 AST 76 units/L (5-40) H 06/10/19 13:24 ALT 21 units/L (7-56) 06/10/19 13:24 Alkaline Phosphatase 70 units/L (35-129) 06/10/19 13:24 Total Creatine Kinase 2514 units/L (55-170) H 06/10/19 13:24 Troponin T 0.086 ng/mL (0.00-0.029) H 06/10/19 18:40 NT-Pro-B Natriuret Pep 99671 pg/mL (0-900) H 06/10/19 13:24 Total Protein 6.1 g/dL (6.3-8.2) L 06/10/19 13:24 Albumin 2.9 g/dL (3.9-5) L 06/10/19 13:24 Albumin/Globulin Ratio 0.9 % 06/10/19 13:24 Triglycerides 61 mg/dL (2-149) 06/10/19 13:24 Cholesterol 92 mg/dL (50-199) 06/10/19 13:24 LDL Cholesterol Direct 33 mg/dL (50-130) L 06/10/19 13:24 HDL Cholesterol 54 mg/dL (40-59) 06/10/19 13:24 Cholesterol/HDL Ratio 1.70 % 06/10/19 13:24 Urine Color Iq[place] (Yellow) 06/10/19 22:50 Urine Turbidity Clear (Clear) 06/10/19 22:50 Urine pH 5.0 (5.0-7.0) 06/10/19 22:50 Ur Specific [place] 1.019 (1.003-1.030) 06/10/19 22:50 Urine Protein >500 mg/dL (Negative) 06/10/19 22:50 Urine Glucose (UA) Neg mg/dL (Negative) 06/10/19 22:50 Urine Ketones Neg mg/dL (Negative) 06/10/19 22:50 Urine Blood Lg (Negative) 06/10/19 22:50 Urine Nitrite Neg (Negative) 06/10/19 22:50 Urine Bilirubin Neg (Negative) 06/10/19 22:50 Urine Urobilinogen < 2.0 mg/dL (<2.0) 06/10/19 22:50 Ur Leukocyte Esterase Tr (Negative) 06/10/19 22:50 Urine WBC (Auto) 16.0 /HPF (0.0-6.0) H 06/10/19 22:50 Urine RBC (Auto) 7.0 /HPF (0.0-6.0) 06/10/19 22:50 U Epithel Cells (Auto) < 1.0 /HPF (0-13.0) 06/10/19 22:50 Urine Bacteria (Auto) 1+ /HPF (Negative) 06/10/19 22:50 Ur Yeast w Hyphae 1+ /HPF 06/10/19 22:50 Urine Yeast (Budding) Few /HPF 06/10/19 22:50 Urine Opiates Screen Presumptive negative 06/10/19 22:50 Urine Methadone Screen Presumptive negative 06/10/19 22:50 Ur Barbiturates Screen Presumptive negative 06/10/19 22:50 Ur Phencyclidine Scrn Presumptive negative 06/10/19 22:50 Ur Amphetamines Screen Presumptive negative 06/10/19 22:50 U Benzodiazepines Scrn Presumptive negative 06/10/19 22:50 Urine Cocaine Screen Presumptive positive 06/10/19 22:50 U Marijuana (THC) Screen Presumptive negative 06/10/19 22:50 Drugs of Abuse Note Disclamer 06/10/19 22:50 Active Medications - Current Medications Current Medications: Generic Name Dose Route Start Last Admin Trade Name Freq PRN Reason Stop Dose Admin Aspirin 81 mg 06/11/19 10:00 06/14/19 09:49 Baby Aspirin PO 81 mg QDAY BRIDGETT Administration Dextrose 50 ml 06/10/19 14:15 06/10/19 14:40 D50w (25gm) Syringe IV 50 ml PRN PRN Administration Hypoglycemia Enoxaparin Sodium 40 mg 06/11/19 22:00 06/13/19 21:58 Enoxaparin SUB-Q 40 mg QHS BRIDGETT Administration Famotidine 20 mg 06/11/19 10:00 06/14/19 09:49 Pepcid PO 20 mg DAILY BRIDGETT Administration Furosemide 40 mg 06/12/19 10:00 06/14/19 09:48 Lasix IV Not Given BID [facility] Insulin Human Lispro 0 unit 06/11/19 07:30 06/14/19 08:24 [facility]Q [facility] Protocol Lisinopril 2.5 mg 06/14/19 11:00 Zestril PO QDAY BRIDGETT
[2019-06-14] MEDS: LISINOPRIL 5 MG TAB PO SCH (20:09)
[2019-06-14] MEDS: ENOXAPARIN 40 MG/0.4 ML INJ SUB-Q SCH (21:46)
[2019-06-15] MEDS ORDERED: FUROSEMIDE 40 MG/4 ML INJ IV SCH ×2 (06:00→15:03)
--- NOTE | 2019-06-15 07:50 | Progress Note ---
Assessment and Plan Assessment and plan: 68-year-old -[place] male was brought to the emergency department found on the floor of his home sitting in his feces. Last time patient was alert was 3 days ago. Patient had hypoglycemia. Medicine was given D50. Patient become alert and oriented. Patient complains shortness of breath and severely enlarged his scrotum and penis. Metabolic Encephalopathy- Appears to be improving, ?Underlyine wernickie encphalopathy secondary to ETOH use. ETOH level not checked this admission -Start on Thiamin, folate and MVI -Encouraged PT -Pt will benefit from placement. He is a high likelyhood for readmission Bradycardia - Management per cardiology, PVC on Tele - Asymptomatic - Coreg discontinued Acute on chronic systolic HF with EF of 25-30% - Chest x-ray showed prominent bronchovascular marking - Cont IV Lasix -DECREASE - coreg d/belinda due to bradycardia. cont ACEI Acute Metabolic encephalopathy - likely due to hypoglycemia v cocaine abuse - Resolved Scrotal edema - ultrasound negative for acute findings - cont scrotal elevation - Outpatient Urology follow up Hypokalemia -resolved -now hyperkalemia -off Kcl, cont lasix -will monitor level JAGRUTI -probably vasomotor nephropathy -Lasix dose reduced -monitor cr level Metabolic acidosis -stable, will monitor Hypertension -BP low normal -lisinopril dose reduced, monitor BP Cocaine abuse - Patient counseled on cessation DVT prophylaxis: lovenox Disposition: d/c per clinical course and clearance by cardiology History Interval history: Patient seen and examined, unable to accurately describe his clinically condition at home and appears to have intermittent confusion. He is unsure of his home meds but called names that appears similar. Hospitalist Physical - Physical exam Narrative exam: General appearance: Present: no acute distress, well-nourished, confused, reports debility - EENT Eyes: Present: PERRL, EOM intact ENT: hearing intact, clear oral mucosa - Neck Neck: Present: supple - Respiratory Respiratory effort: normal Respiratory: bilateral: diminished, negative: rales, wheezing - Cardiovascular Rhythm: regular (rhythm with bradycardia) Heart Sounds: Present: S1 & S2 - Extremities Extremity abnormal: edema (in Bilateral upper ext dependant edema and lower ext and scrotal edema) - Abdominal General gastrointestinal: soft, non-tender, normal bowel sounds - Integumentary Integumentary: Present: multiple excoriated lesion on bilateral lower ext. Left knee with excoriated lesions and abrasion - Psychiatric Psychiatric: appropriate mood/affect, But with some comfabulation - Neurologic Neurologic: moves all extremities - Constitutional Vitals: Temp Pulse Resp BP Pulse Ox 97.5 F L 49 L 18 164/75 100 06/15/19 02:11 06/15/19 02:14 06/15/19 02:11 06/15/19 02:11 06/15/19 02:11 General appearance: Present: no acute distress, well-nourished Results - Labs CBC & Chem 7: 06/10/19 13:24 06/15/19 10:38 Labs: Laboratory Last Values WBC 6.3 K/mm3 (4.5-11.0) 06/10/19 13:24 RBC 4.97 M/mm3 (3.65-5.03) 06/10/19 13:24 Hgb 12.3 gm/dl (11.8-15.2) 06/10/19 13:24 Hct 38.8 % (35.5-45.6) 06/10/19 13:24 MCV 78 fl (84-94) L 06/10/19 13:24 MCH 25 pg (28-32) L 06/10/19 13:24 MCHC 32 % (32-34) 06/10/19 13:24 RDW 15.9 % (13.2-15.2) H 06/10/19 13:24 Plt Count 226 K/mm3 (140-440) 06/10/19 13:24 Lymph % (Auto) 17.8 % (13.4-35.0) 06/10/19 13:24 [place] % (Auto) 7.0 % (0.0-7.3) 06/10/19 13:24 Eos % (Auto) 0.0 % (0.0-4.3) 06/10/19 13:24 Baso % (Auto) 0.9 % (0.0-1.8) 06/10/19 13:24 Lymph # 1.1 K/mm3 (1.2-5.4) L 06/10/19 13:24 [place] # 0.4 K/mm3 (0.0-0.8) 06/10/19 13:24 Eos # 0.0 K/mm3 (0.0-0.4) 06/10/19 13:24 Baso # 0.1 K/mm3 (0.0-0.1) 06/10/19 13:24 Seg Neutrophils % 74.3 % (40.0-70.0) H 06/10/19 13:24 Seg Neutrophils # 4.7 K/mm3 (1.8-7.7) 06/10/19 13:24 PT 14.7 Sec. (12.2-14.9) 06/11/19 16:28 INR 1.16 (0.87-1.13) H 06/11/19 16:28 APTT 32.9 Sec. (24.2-36.6) 06/10/19 13:24 Sodium 141 mmol/L (137-145) 06/14/19 06:19 Potassium 5.3 mmol/L (3.6-5.0) H D 06/14/19 06:19 Chloride 109.3 mmol/L (98-107) H 06/14/19 06:19 Carbon Dioxide 20 mmol/L (22-30) L 06/14/19 06:19 Anion Gap 17 mmol/L 06/14/19 06:19 BUN 22 mg/dL (9-20) H 06/14/19 06:19 Creatinine 1.6 mg/dL (0.8-1.5) H 06/14/19 06:19 Estimated GFR 52 ml/min 06/14/19 06:19 BUN/Creatinine Ratio 14 % 06/14/19 06:19 Glucose 88 mg/dL (75-100) 06/14/19 06:19 POC Glucose 166 (70-105) H 06/14/19 21:04 Hemoglobin A1c 6.6 % (4-6) H 06/13/19 04:00 Lactic Acid 1.20 mmol/L (0.7-2.0) 06/10/19 13:24 Calcium 8.1 mg/dL (8.4-10.2) L 06/14/19 06:19 Magnesium 1.80 mg/dL (1.7-2.3) 06/10/19 16:08 Total Bilirubin 0.70 mg/dL (0.1-1.2) 06/10/19 13:24 AST 76 units/L (5-40) H 06/10/19 13:24 ALT 21 units/L (7-56) 06/10/19 13:24 Alkaline Phosphatase 70 units/L (35-129) 06/10/19 13:24 Total Creatine Kinase 2514 units/L (55-170) H 06/10/19 13:24 Troponin T 0.086 ng/mL (0.00-0.029) H 06/10/19 18:40 NT-Pro-B Natriuret Pep 21475 pg/mL (0-900) H 06/10/19 13:24 Total Protein 6.1 g/dL (6.3-8.2) L 06/10/19 13:24 Albumin 2.9 g/dL (3.9-5) L 06/10/19 13:24 Albumin/Globulin Ratio 0.9 % 06/10/19 13:24 Triglycerides 61 mg/dL (2-149) 06/10/19 13:24 Cholesterol 92 mg/dL (50-199) 06/10/19 13:24 LDL Cholesterol Direct 33 mg/dL (50-130) L 06/10/19 13:24 HDL Cholesterol 54 mg/dL (40-59) 06/10/19 13:24 Cholesterol/HDL Ratio 1.70 % 06/10/19 13:24 Urine Color [place] (Yellow) 06/10/19 22:50 Urine Turbidity Clear (Clear) 06/10/19 22:50 Urine pH 5.0 (5.0-7.0) 06/10/19 22:50 Ur Specific [place] 1.019 (1.003-1.030) 06/10/19 22:50 Urine Protein >500 mg/dL (Negative) 06/10/19 22:50 Urine Glucose (UA) Neg mg/dL (Negative) 06/10/19 22:50 Urine Ketones Neg mg/dL (Negative) 06/10/19 22:50 Urine Blood Lg (Negative) 06/10/19 22:50 Urine Nitrite Neg (Negative) 06/10/19 22:50 Urine Bilirubin Neg (Negative) 06/10/19 22:50 Urine Urobilinogen < 2.0 mg/dL (<2.0) 06/10/19 22:50 Ur Leukocyte Esterase Tr (Negative) 06/10/19 22:50 Urine WBC (Auto) 16.0 /HPF (0.0-6.0) H 06/10/19 22:50 Urine RBC (Auto) 7.0 /HPF (0.0-6.0) 06/10/19 22:50 U Epithel Cells (Auto) < 1.0 /HPF (0-13.0) 06/10/19 22:50 Urine Bacteria (Auto) 1+ /HPF (Negative) 06/10/19 22:50 Ur Yeast w Hyphae 1+ /HPF 06/10/19 22:50 Urine Yeast (Budding) Few /HPF 06/10/19 22:50 Urine Opiates Screen Presumptive negative 06/10/19 22:50 Urine Methadone Screen Presumptive negative 06/10/19 22:50 Ur Barbiturates Screen Presumptive negative 06/10/19 22:50 Ur Phencyclidine Scrn Presumptive negative 06/10/19 22:50 Ur Amphetamines Screen Presumptive negative 06/10/19 22:50 U Benzodiazepines Scrn Presumptive negative 06/10/19 22:50 Urine Cocaine Screen Presumptive positive 06/10/19 22:50 U Marijuana (THC) Screen Presumptive negative 06/10/19 22:50 Drugs of Abuse Note Disclamer 06/10/19 22:50 Active Medications - Current Medications Current Medications: Generic Name Dose Route Start Last Admin Trade Name Freq PRN Reason Stop Dose Admin Aspirin 81 mg 06/11/19 10:00 06/14/19 09:49 Baby Aspirin PO 81 mg QDAY BRIDGETT Administration Dextrose 50 ml 06/10/19 14:15 06/10/19 14:40 D50w (25gm) Syringe IV 50 ml PRN PRN Administration Hypoglycemia Enoxaparin Sodium 40 mg 06/11/19 22:00 06/14/19 21:46 Enoxaparin SUB-Q 40 mg QHS BRIDGETT Administration Famotidine 20 mg 06/11/19 10:00 06/14/19 09:49 Pepcid PO 20 mg DAILY BRIDGETT Administration Furosemide 40 mg 06/15/19 06:00 06/15/19 05:30 Lasix IV 40 mg DAILY@0600 BRIDGETT Administration Insulin Human Lispro 0 unit 06/11/19 07:30 06/14/19 21:46 Humalog SUB-Q 1 unit ACHS BRIDGETT Administration Protocol Lisinopril 2.5 mg 06/14/19 11:00 06/14/19 20:09 Zestril PO 2.5 mg QDAY BRIDGETT Administration
[2019-06-15] MEDS: INSULIN LISPRO 100 UNIT/ML SUB-Q SCH ×4 (08:30→23:07)
[2019-06-15] MEDS: FAMOTIDINE 20 MG TAB PO SCH (10:15)
[2019-06-15] MEDS: ASPIRIN 81 MG TAB CHEW PO SCH (10:15)
--- NOTE | 2019-06-15 10:21 | Progress Note ---
Assessment and Plan Echo reviewed - EF 10-15%, impaired relaxation, RV mildly dilated, RV systolic function mod reduced, mod TR, RVSP 41mmHg. Lexiscan MPI stress test done 12/2018 showed small mild reversible inferior defect, EF 22%. Cont GDMT and IV diuretics as tolerated. The patient has been seen in conjunction with Dr. Mina who agrees with the assessment and plan of care. - Patient Problems (1) Altered mental status Current Visit: Yes Status: Acute (2) Acute HFrEF (heart failure with reduced ejection fraction) Current Visit: Yes Status: Acute (3) Cardiomyopathy Current Visit: Yes Status: Chronic (4) HTN (hypertension) Current Visit: Yes Status: Chronic Qualifiers: Hypertension type: essential hypertension Qualified Code(s): I10 - Essential (primary) hypertension (5) T2DM (type 2 diabetes mellitus) Current Visit: Yes Status: Chronic (6) HLD (hyperlipidemia) Current Visit: Yes Status: Chronic (7) PVCs (premature ventricular contractions) Current Visit: Yes Status: Chronic (8) RBBB Current Visit: Yes Status: Chronic (9) Dementia Current Visit: Yes Status: Chronic (10) Elevated troponin Current Visit: Yes Status: Chronic (11) Elevated CK Current Visit: Yes Status: Acute (12) History of CVA (cerebrovascular accident) Current Visit: Yes Status: Acute (13) Medical non-compliance Current Visit: Yes Status: Chronic (14) Cocaine use Current Visit: Yes Status: Chronic Subjective Date of service: 06/15/19 Principal diagnosis: AMS, hf Interval history: pt resting in bed, no current complaints. tele reviewed - in SR HR 60s - 70s with freq PVCs and occasional bigeminy and trigeminy overnight. Objective Last Vital Signs Temp 97.2 F L 06/15/19 07:18 Pulse 45 L 06/15/19 07:18 Resp 18 06/15/19 07:18 BP 95/55 06/15/19 07:18 Pulse Ox 100 06/15/19 07:18 - Physical Examination General: No Apparent Distress HEENT: Positive: PERRL, Normocephaly, Mucus Membranes Moist Neck: Positive: neck supple, trachea midline Cardiac: Positive: Reg Rate and Rhythm, S1/S2 Lungs: Positive: Decreased Breath Sounds Neuro: Positive: Grossly Intact Abdomen: Negative: Tender Skin: Negative: Rash Musculoskeletal: No Pain Extremities: Absent: edema - Imaging and Cardiology EKG: report reviewed, image reviewed Echo: report reviewed ( 06/2018 showed EF 35-40%, mild LVH. 11/2018 showed EF 25- 30%, mild LVH, RV mild to mod dilated, RA and LA mildly dilated, minimal pericardial effusion. ) - EKG Sinus rhythms and dysrhythmias: sinus rhythm Ventricular dysrhythmias: ventricular premature com AV and intraventricular conduction: right bundle branch block
[2019-06-15] MEDS: LISINOPRIL 5 MG TAB PO SCH (10:59)
[2019-06-15] MEDS: FOLIC ACID 1 MG TAB PO SCH (17:52)
[2019-06-15] MEDS: MULTIVITAMINS ,THERAPEUTIC TAB PO SCH (17:53)
[2019-06-15] MEDS: THIAMINE 100 MG TAB PO SCH (17:53)
[2019-06-15] MEDS: ENOXAPARIN 40 MG/0.4 ML INJ SUB-Q SCH (21:39)
[2019-06-15] MEDS: carvediloL 3.125 MG TAB PO SCH (21:40)
[2019-06-16] MEDS: carvediloL 3.125 MG TAB PO SCH ×3 (03:43→22:47)
[2019-06-16] MEDS: HYDROcodone/ACETAMINOPHEN 5-325 MG TAB PO PRN (03:43)
[2019-06-16] MEDS: INSULIN LISPRO 100 UNIT/ML SUB-Q SCH ×4 (08:18→22:49)
[2019-06-16] MEDS: ASPIRIN 81 MG TAB CHEW PO SCH (09:21)
[2019-06-16] MEDS: FAMOTIDINE 20 MG TAB PO SCH (09:21)
[2019-06-16] MEDS: FOLIC ACID 1 MG TAB PO SCH (09:22)
[2019-06-16] MEDS: THIAMINE 100 MG TAB PO SCH (09:22)
[2019-06-16] MEDS: MULTIVITAMINS ,THERAPEUTIC TAB PO SCH (09:22)
--- NOTE | 2019-06-16 10:31 | Progress Note ---
Assessment and Plan Scrotal edema persists and BLE edema is now extending into thighs. Initiate dobutamine gtt and cont IV diuretics. Monitor renal indices. Pt to tx to telemetry. D/w Dr. Collins. Initiate 1500mL fluid restriction, daily weights and strict I&Os. The patient has been seen in conjunction with Dr. Mina who agrees with the assessment and plan of care. - Patient Problems (1) Altered mental status Current Visit: Yes Status: Resolved (2) Acute HFrEF (heart failure with reduced ejection fraction) Current Visit: Yes Status: Acute (3) Cardiomyopathy Current Visit: Yes Status: Chronic Plan to address problem: Echo reviewed - EF 10-15%, impaired relaxation, RV mildly dilated, RV systolic function mod reduced, mod TR, RVSP 41mmHg. Lexiscan MPI stress test done 12/2018 showed small mild reversible inferior defect, EF 22%. (4) HTN (hypertension) Current Visit: Yes Status: Chronic Qualifiers: Hypertension type: essential hypertension Qualified Code(s): I10 - Essential (primary) hypertension (5) T2DM (type 2 diabetes mellitus) Current Visit: Yes Status: Chronic (6) HLD (hyperlipidemia) Current Visit: Yes Status: Chronic (7) PVCs (premature ventricular contractions) Current Visit: Yes Status: Chronic (8) RBBB Current Visit: Yes Status: Chronic (9) Dementia Current Visit: Yes Status: Chronic (10) Elevated troponin Current Visit: Yes Status: Chronic (11) Elevated CK Current Visit: Yes Status: Acute (12) History of CVA (cerebrovascular accident) Current Visit: Yes Status: Acute (13) Medical non-compliance Current Visit: Yes Status: Chronic (14) Cocaine use Current Visit: Yes Status: Chronic Subjective Date of service: 06/16/19 Principal diagnosis: AMS, hf Interval history: pt resting in bed, states he is not feeling any better. scrotal edema persists and BLE edema is now extending into thighs. tele reviewed - in SR overnight. Objective Last Vital Signs Temp 97.4 F L 06/16/19 07:09 Pulse 34 L 06/16/19 07:09 Resp 20 06/16/19 07:09 BP 103/60 06/16/19 07:09 Pulse Ox 95 06/16/19 07:09 - Physical Examination General: No Apparent Distress HEENT: Positive: PERRL, Normocephaly, Mucus Membranes Moist Neck: Positive: neck supple, trachea midline Cardiac: Positive: Reg Rate and Rhythm, S1/S2 Lungs: Positive: Decreased Breath Sounds Neuro: Positive: Grossly Intact Abdomen: Negative: Tender Skin: Negative: Rash Musculoskeletal: No Pain Extremities: Absent: edema - Labs and Meds Comprehensive Metabolic Panel 06/15/19 06/16/19 Range/Units 10:38 09:00 Sodium 140 143 (137-145) mmol/L Potassium 4.8 5.1 H (3.6-5.0) mmol/L Chloride 108.5 H 109.6 H (98-107) mmol/L Carbon Dioxide 19 L 22 (22-30) mmol/L BUN 26 H 26 H (9-20) mg/dL Creatinine 1.8 H 1.8 H (0.8-1.5) mg/dL Glucose 83 102 H (75-100) mg/dL Calcium 8.0 L 8.0 L (8.4-10.2) mg/dL - Imaging and Cardiology EKG: report reviewed, image reviewed Echo: report reviewed (05/2019:EF 10-15%, impaired relaxation, RV mildly dilated, RV systolic function mod reduced, mod TR, RVSP 41mmHg. 06/2018 showed EF 35-40%, mild LVH. 11/2018 showed EF 25-30%, mild LVH, RV mild to mod dilated, RA and LA mildly dilated, minimal pericardial effusion. ) - Telemetry EKG Rhythm: Sinus Rhythm - EKG Sinus rhythms and dysrhythmias: sinus rhythm Ventricular dysrhythmias: ventricular premature com AV and intraventricular conduction: right bundle branch block
--- NOTE | 2019-06-16 11:34 | Progress Note ---
Assessment and Plan Assessment and plan: 68-year-old -[place] male was brought to the emergency department found on the floor of his home sitting in his feces. Last time patient was alert was 3 days ago. Patient had hypoglycemia. Medicine was given D50. Patient become alert and oriented. Patient complains shortness of breath and severely enlarged his scrotum and penis. Acute on chronic systolic HF with EF of 25-30% - Still not improving, will start dobutatmine drip per cardiology - Transfer to Tele - Chest x-ray showed prominent bronchovascular marking - Cont IV Lasix - coreg d/belinda due to bradycardia. cont ACEI Metabolic Encephalopathy- Appears to be improving, ?Underlyine wernickie encphalopathy secondary to ETOH use. ETOH level not checked this admission -Continue on Thiamin, folate and MVI -Encouraged PT -Pt will benefit from placement. He is a high likelyhood for readmission Bradycardia - Management per cardiology, PVC on Tele - Asymptomatic - Coreg discontinued Acute Metabolic encephalopathy - likely due to hypoglycemia v cocaine abuse - Resolved Scrotal edema - ultrasound negative for acute findings - cont scrotal elevation - Outpatient Urology follow up Hypokalemia -resolved -now hyperkalemia -off Kcl, cont lasix -will monitor level [id number] -probably vasomotor nephropathy -Lasix dose reduced -monitor cr level Metabolic acidosis -stable, will monitor Hypertension -BP low normal -lisinopril dose reduced, monitor BP Cocaine abuse - Patient counseled on cessation DVT prophylaxis: lovenox Disposition: Stressed importance of rehab placement, he will consider. For Now needs aggressive diuresis and requiring initiation of dubotamin drip History Interval history: Patient seen and examined, remains lethargic, upper ext edema persist and scrotal edema. Hospitalist Physical - Physical exam Narrative exam: General appearance: Present: no acute distress, well-nourished, confused, repo rts debility - EENT Eyes: Present: PERRL, EOM intact ENT: hearing intact, clear oral mucosa - Neck Neck: Present: supple - Respiratory Respiratory effort: normal Respiratory: bilateral: diminished, negative: rales, wheezing - Cardiovascular Rhythm: regular (rhythm with bradycardia) Heart Sounds: Present: S1 & S2 - Extremities Extremity abnormal: edema (in Bilateral upper ext dependant edemat and scrotal edema) - Abdominal General gastrointestinal: soft, non-tender, normal bowel sounds - Integumentary Integumentary: Present: multiple excoriated lesion on bilateral lower ext. Left knee with excoriated lesions and abrasion - Psychiatric Psychiatric: appropriate mood/affect, But with some comfabulation - Neurologic Neurologic: moves all extremities - Constitutional Vitals: Temp Pulse Resp BP Pulse Ox 97.4 F L 54 L 20 103/60 95 06/16/19 07:09 06/16/19 11:20 06/16/19 07:09 06/16/19 07:09 06/16/19 07:09 General appearance: Present: no acute distress, well-nourished Results - Labs CBC & Chem 7: 06/10/19 13:24 06/16/19 09:00 Labs: Laboratory Last Values WBC 6.3 K/mm3 (4.5-11.0) 06/10/19 13:24 RBC 4.97 M/mm3 (3.65-5.03) 06/10/19 13:24 Hgb 12.3 gm/dl (11.8-15.2) 06/10/19 13:24 Hct 38.8 % (35.5-45.6) 06/10/19 13:24 MCV 78 fl (84-94) L 06/10/19 13:24 MCH 25 pg (28-32) L 06/10/19 13:24 MCHC 32 % (32-34) 06/10/19 13:24 RDW 15.9 % (13.2-15.2) H 06/10/19 13:24 Plt Count 226 K/mm3 (140-440) 06/10/19 13:24 Lymph % (Auto) 17.8 % (13.4-35.0) 06/10/19 13:24 [place] % (Auto) 7.0 % (0.0-7.3) 06/10/19 13:24 Eos % (Auto) 0.0 % (0.0-4.3) 06/10/19 13:24 Baso % (Auto) 0.9 % (0.0-1.8) 06/10/19 13:24 Lymph # 1.1 K/mm3 (1.2-5.4) L 06/10/19 13:24 [place] # 0.4 K/mm3 (0.0-0.8) 06/10/19 13:24 Eos # 0.0 K/mm3 (0.0-0.4) 06/10/19 13:24 Baso # 0.1 K/mm3 (0.0-0.1) 06/10/19 13:24 Seg Neutrophils % 74.3 % (40.0-70.0) H 06/10/19 13:24 Seg Neutrophils # 4.7 K/mm3 (1.8-7.7) 06/10/19 13:24 PT 14.7 Sec. (12.2-14.9) 06/11/19 16:28 INR 1.16 (0.87-1.13) H 06/11/19 16:28 APTT 32.9 Sec. (24.2-36.6) 06/10/19 13:24 Sodium 143 mmol/L (137-145) 06/16/19 09:00 Potassium 5.1 mmol/L (3.6-5.0) H 06/16/19 09:00 Chloride 109.6 mmol/L (98-107) H 06/16/19 09:00 Carbon Dioxide 22 mmol/L (22-30) 06/16/19 09:00 Anion Gap 17 mmol/L 06/16/19 09:00 BUN 26 mg/dL (9-20) H 06/16/19 09:00 Creatinine 1.8 mg/dL (0.8-1.5) H 06/16/19 09:00 Estimated GFR 45 ml/min 06/16/19 09:00 BUN/Creatinine Ratio 14 % 06/16/19 09:00 Glucose 102 mg/dL (75-100) H 06/16/19 09:00 POC Glucose 155 (70-105) H 06/16/19 11:13 Hemoglobin A1c 6.6 % (4-6) H 06/13/19 04:00 Lactic Acid 1.20 mmol/L (0.7-2.0) 06/10/19 13:24 Calcium 8.0 mg/dL (8.4-10.2) L 06/16/19 09:00 Magnesium 1.80 mg/dL (1.7-2.3) 06/10/19 16:08 Total Bilirubin 0.70 mg/dL (0.1-1.2) 06/10/19 13:24 AST 76 units/L (5-40) H 06/10/19 13:24 ALT 21 units/L (7-56) 06/10/19 13:24 Alkaline Phosphatase 70 units/L (35-129) 06/10/19 13:24 Total Creatine Kinase 2514 units/L (55-170) H 06/10/19 13:24 Troponin T 0.086 ng/mL (0.00-0.029) H 06/10/19 18:40 NT-Pro-B Natriuret Pep 57376 pg/mL (0-900) H 06/10/19 13:24 Total Protein 6.1 g/dL (6.3-8.2) L 06/10/19 13:24 Albumin 2.9 g/dL (3.9-5) L 06/10/19 13:24 Albumin/Globulin Ratio 0.9 % 06/10/19 13:24 Triglycerides 61 mg/dL (2-149) 06/10/19 13:24 Cholesterol 92 mg/dL (50-199) 06/10/19 13:24 LDL Cholesterol Direct 33 mg/dL (50-130) L 06/10/19 13:24 HDL Cholesterol 54 mg/dL (40-59) 06/10/19 13:24 Cholesterol/HDL Ratio 1.70 % 06/10/19 13:24 Urine Color [place] (Yellow) 06/10/19 22:50 Urine Turbidity Clear (Clear) 06/10/19 22:50 Urine pH 5.0 (5.0-7.0) 06/10/19 22:50 Ur Specific [place] 1.019 (1.003-1.030) 06/10/19 22:50 Urine Protein >500 mg/dL (Negative) 06/10/19 22:50 Urine Glucose (UA) Neg mg/dL (Negative) 06/10/19 22:50 Urine Ketones Neg mg/dL (Negative) 06/10/19 22:50 Urine Blood Lg (Negative) 06/10/19 22:50 Urine Nitrite Neg (Negative) 06/10/19 22:50 Urine Bilirubin Neg (Negative) 06/10/19 22:50 Urine Urobilinogen < 2.0 mg/dL (<2.0) 06/10/19 22:50 Ur Leukocyte Esterase Tr (Negative) 06/10/19 22:50 Urine WBC (Auto) 16.0 /HPF (0.0-6.0) H 06/10/19 22:50 Urine RBC (Auto) 7.0 /HPF (0.0-6.0) 06/10/19 22:50 U Epithel Cells (Auto) < 1.0 /HPF (0-13.0) 06/10/19 22:50 Urine Bacteria (Auto) 1+ /HPF (Negative) 06/10/19 22:50 Ur Yeast w Hyphae 1+ /HPF 06/10/19 22:50 Urine Yeast (Budding) Few /HPF 06/10/19 22:50 Urine Opiates Screen Presumptive negative 06/10/19 22:50 Urine Methadone Screen Presumptive negative 06/10/19 22:50 Ur Barbiturates Screen Presumptive negative 06/10/19 22:50 Ur Phencyclidine Scrn Presumptive negative 06/10/19 22:50 Ur Amphetamines Screen Presumptive negative 06/10/19 22:50 U Benzodiazepines Scrn Presumptive negative 06/10/19 22:50 Urine Cocaine Screen Presumptive positive 06/10/19 22:50 U Marijuana (THC) Screen Presumptive negative 06/10/19 22:50 Drugs of Abuse Note Disclamer 06/10/19 22:50 Active Medications - Current Medications Current Medications: Generic Name Dose Route Start Last Admin Trade Name Freq PRN Reason Stop Dose Admin Acetaminophen/Hydrocodone Bitart 1 each 06/16/19 03:12 06/16/19 03:43 [place] 5/325 PO 1 each Q4H PRN Administration Pain, Moderate (4-6) Aspirin 81 mg 06/11/19 10:00 06/16/19 09:21 Baby Aspirin PO 81 mg QDAY BRIDGETT Administration Carvedilol 3.125 mg 06/15/19 22:00 06/16/19 09:22 Coreg PO 3.125 mg BID BRIDGETT Administration Dextrose 50 ml 06/10/19 14:15 06/10/19 14:40 D50w (25gm) Syringe IV 50 ml PRN PRN Administration Hypoglycemia Enoxaparin Sodium 40 mg 06/11/19 22:00 06/15/19 21:39 Enoxaparin SUB-Q 40 mg QHS BRIDGETT Administration Famotidine 20 mg 06/11/19 10:00 06/16/19 09:21 Pepcid PO 20 mg DAILY BRIDGETT Administration Folic Acid 1 mg 06/15/19 16:00 06/16/19 09:22 Folvite PO 1 mg QDAY BRIDGETT Administration Furosemide 20 mg 06/16/19 18:00 Lasix IV 0600,1800 COUNTS INCLUDE 234 BEDS AT THE [facility] Dobutamine HCl/Dextrose 500 mg in 250 mls @ 12.675 mls/hr 06/16/19 11:00 Dobutrex Drip 500mg/D5w 250ml IV DIRECT BRIDGETT Protocol 5 MCG/KG/MIN Insulin Human Lispro 0 unit 06/11/19 07:30 06/16/19 11:26 Humalog SUB-Q 2 unit ACHS BRIDGETT Administration Protocol Multivitamins 1 each 06/15/19 16:00 06/16/19 09:22 Theragran Tab PO 1 each QDAY BRIDGETT Administration Thiamine HCl 100 mg 06/15/19 16:00 06/16/19 09:22 Vitamin B-1 PO 100 mg QDAY BRIDGETT Administration
[2019-06-16] MEDS ORDERED: FUROSEMIDE 40 MG/4 ML INJ IV SCH (18:00)
--- NOTE | 2019-06-16 18:56 | Consultation ---
History of Present Illness - Reason for Consult Consult date: 06/16/19 Bilateral Lower Extremity Vascular Disease Requesting physician: TJ BRITO - History of Present Illness The patient is a 68-year-old male who was admitted to the hospital after being found down. He is a history of congestive heart failure with a EF of 10-15%. He is noted to have scrotal and bilateral lower extremity swelling associated with pretibial ulcerations of various stages of healing. He complains of difficulty ambulating secondary to the scrotal swelling but denies any significa nt history of claudication. He denies any history of rest pain or need of having to hang his legs to sleep at night. He does complain of shortness of breath and difficulty lying flat. He has no additional complaints at this time. We were asked to evaluate his lower extremity secondary to the ulcerations. Past History Past Medical History: CAD, diabetes, DVT, heart failure, hypertension, hyperlipidemia, other (as per HPI) Medications and Allergies Allergies Allergy/AdvReac Type Severity Reaction Status Date / Time No Known Allergies Allergy Verified 12/03/18 16:45 Home Medications Medication Instructions Recorded Confirmed Last Taken Type Aspirin [Aspirin BABY CHEW TAB] 81 mg PO QDAY 30 Days #30 tab.chew 12/07/18 06/10/19 06/09/19 Rx Carvedilol [Coreg] 12.5 mg PO BID 30 Days #60 tablet 12/07/18 06/10/19 06/09/19 Rx Lisinopril [Zestril TAB] 20 mg PO QDAY 30 Days #30 tablet 12/07/18 06/10/19 06/09/19 Rx Famotidine [Pepcid] 20 mg PO DAILY #30 tablet 12/24/18 06/10/19 06/09/19 Rx Linagliptin [Tradjenta] 5 mg PO QDAY #30 tablet 12/24/18 06/10/19 06/09/19 Rx cloNIDine [Catapres] 0.1 mg PO QHS #30 tablet 12/24/18 06/10/19 06/09/19 Rx hydrALAZINE [Apresoline TAB] 50 mg PO BID #60 tablet 12/24/18 06/10/19 06/09/19 Rx Furosemide [Lasix TAB] 40 mg PO DAILY 30 Days tablet 01/04/19 06/10/19 06/09/19 Rx Active Meds: Active Medications Acetaminophen/Hydrocodone Bitart ([place] 5/325) 1 each PO Q4H PRN PRN Reason: Pain, Moderate (4-6) Last Admin: 06/16/19 03:43 Dose: 1 each Documented by: Aspirin (Baby Aspirin) 81 mg PO QDAY [facility] Last Admin: 06/16/19 09:21 Dose: 81 mg Documented by: Carvedilol (Coreg) 3.125 mg PO BID [facility] Last Admin: 06/16/19 09:22 Dose: 3.125 mg Documented by: Dextrose (D50w (25gm) Syringe) 50 ml IV PRN PRN PRN Reason: Hypoglycemia Last Admin: 06/10/19 14:40 Dose: 50 ml Documented by: Enoxaparin Sodium (Enoxaparin) 40 mg SUB-Q QHS [facility] Last Admin: 06/15/19 21:39 Dose: 40 mg Documented by: Famotidine (Pepcid) 20 mg PO DAILY [facility] Last Admin: 06/16/19 09:21 Dose: 20 mg Documented by: Folic Acid (Folvite) 1 mg PO QDAY [facility] Last Admin: 06/16/19 09:22 Dose: 1 mg Documented by: Furosemide (Lasix) 20 mg IV 0600,1800 [facility] Dobutamine HCl/Dextrose (Dobutrex Drip 500mg/D5w 250ml) 500 mg in 250 mls @ 12.675 mls/hr IV DIRECT BRIDGETT; Protocol Insulin Human Lispro (Humalog) 0 unit SUB-Q [facility]; Protocol Last Admin: 06/16/19 11:26 Dose: 2 unit Documented by: Multivitamins (Theragran Tab) 1 each PO QDAY [facility] Last Admin: 06/16/19 09:22 Dose: 1 each Documented by: Thiamine HCl (Vitamin B-1) 100 mg PO QDAY [facility] Last Admin: 06/16/19 09:22 Dose: 100 mg Documented by: Review of Systems All systems: negative Exam - Constitutional Vitals: Temp Pulse Resp BP Pulse Ox 98.4 F 40 L 18 170/109 100 06/16/19 11:51 06/16/19 16:23 06/16/19 11:51 06/16/19 16:23 06/16/19 16:23 General appearance: Present: no acute distress - Respiratory Respiratory effort: labored - Cardiovascular Rhythm: regular - Extremities Extremity abnormal: edema (up to bilateral thighs), ulceration (healed u lcerations on bilateral pretibial areas.), pulses diminished (nonpalpable pedal pulses) - Abdominal General gastrointestinal: Present: soft, non-tender, distended Male genitourinary: Present: penile edema, scrotal edema - Rectal Rectal Exam: deferred Results - Labs CBC & Chem 7: 06/10/19 13:24 06/16/19 09:00 Labs: Abnormal lab results 06/15/19 06/16/19 06/16/19 Range/Units 22:22 07:22 09:00 Potassium 5.1 H (3.6-5.0) mmol/L Chloride 109.6 H (98-107) mmol/L BUN 26 H (9-20) mg/dL Creatinine 1.8 H (0.8-1.5) mg/dL Glucose 102 H (75-100) mg/dL POC Glucose 114 H 163 H (70-105) Calcium 8.0 L (8.4-10.2) mg/dL 06/16/19 06/16/19 Range/Units 11:13 17:45 Potassium (3.6-5.0) mmol/L Chloride (98-107) mmol/L BUN (9-20) mg/dL Creatinine (0.8-1.5) mg/dL Glucose (75-100) mg/dL POC Glucose 155 H 123 H (70-105) Calcium (8.4-10.2) mg/dL Assessment and Plan The patient is a 68-year-old male with a significantly diminished EF and poor compliance who has a 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 He has had previous venous ultrasound performed that have not revealed acute DVTs. Given his history of DVTs and congestive heart failure it is very likely that he has significant s[place] ous reflux however given his poor compliance with outpatient follow-up is very unlikely that he would be compliant with wearing compression or elevating his legs however he would benefit from both. I will order a arterial duplex to evaluate his arterial flow given I could not his pedal pulses however this may have been due to his poor ejection fraction and not occlusive disease.
[2019-06-16] MEDS: DOBUTamine/D5W 500 MG/250 ML 500 MG/250 ML BAG IV SCH (19:55)
[2019-06-16] MEDS: FUROSEMIDE 20 MG/2 ML INJ IV SCH (20:01)
[2019-06-16] MEDS: ENOXAPARIN 40 MG/0.4 ML INJ SUB-Q SCH (22:37)
[2019-06-17] MEDS: FUROSEMIDE 20 MG/2 ML INJ IV SCH (06:50)
[2019-06-17 06:51] LABS: Calcium 7.9 mg/dL (8.4-10.2)
[2019-06-17] MEDS: INSULIN LISPRO 100 UNIT/ML SUB-Q SCH ×4 (07:30→22:05)
[2019-06-17] MEDS ORDERED: FUROSEMIDE 40 MG/4 ML INJ IV ONE (10:21)
[2019-06-17] MEDS ORDERED: FUROSEMIDE 20 MG/2 ML INJ IV SCH (10:21)
[2019-06-17] MEDS ORDERED: FUROSEMIDE 20 MG/2 ML INJ IV NR (11:00)
[2019-06-17] MEDS: THIAMINE 100 MG TAB PO SCH (12:09)
[2019-06-17] MEDS: ASPIRIN 81 MG TAB CHEW PO SCH (12:09)
[2019-06-17] MEDS: FOLIC ACID 1 MG TAB PO SCH (12:09)
[2019-06-17] MEDS: FAMOTIDINE 20 MG TAB PO SCH (12:09)
[2019-06-17] MEDS: MULTIVITAMINS ,THERAPEUTIC TAB PO SCH (12:09)
--- NOTE | 2019-06-17 12:09 | Progress Note ---
Assessment and Plan Cont dobutamine gtt, convert IV lasix to IV bumex BID for more adequate diuresis. Monitor renal indices. Optimize BPs - increase coreg. Cont 1500mL fluid restriction, daily weights and strict I&Os. The patient has been seen in conjunction with Dr. Mina who agrees with the assessment and plan of care. - Patient Problems (1) Altered mental status Current Visit: Yes Status: Resolved (2) Acute HFrEF (heart failure with reduced ejection fraction) Current Visit: Yes Status: Acute (3) Cardiomyopathy Current Visit: Yes Status: Chronic Plan to address problem: Echo reviewed - EF 10-15%, impaired relaxation, RV mildly dilated, RV systolic function mod reduced, mod TR, RVSP 41mmHg. Lexiscan MPI stress test done 12/2018 showed small mild reversible inferior defect, EF 22%. (4) HTN (hypertension) Current Visit: Yes Status: Chronic Qualifiers: Hypertension type: essential hypertension Qualified Code(s): I10 - Essential (primary) hypertension (5) T2DM (type 2 diabetes mellitus) Current Visit: Yes Status: Chronic (6) HLD (hyperlipidemia) Current Visit: Yes Status: Chronic (7) PVCs (premature ventricular contractions) Current Visit: Yes Status: Chronic (8) RBBB Current Visit: Yes Status: Chronic (9) Dementia Current Visit: Yes Status: Chronic (10) Elevated troponin Current Visit: Yes Status: Chronic (11) Elevated CK Current Visit: Yes Status: Acute (12) History of CVA (cerebrovascular accident) Current Visit: Yes Status: Acute (13) Medical non-compliance Current Visit: Yes Status: Chronic (14) Cocaine use Current Visit: Yes Status: Chronic Subjective Date of service: 06/17/19 Principal diagnosis: AMS, hf Interval history: pt resting in bed, states he is feeling a little better today. scrotal edema and BLE edema gradually improved. tele reviewed - in SR overnight with HR 80s. dobutamine gtt infusing. Objective Last Vital Signs Temp 98.6 F 06/17/19 08:20 Pulse 44 L 06/17/19 08:20 Resp 18 06/17/19 08:20 BP 177/92 06/17/19 08:20 Pulse Ox 99 06/17/19 08:20 - Physical Examination General: No Apparent Distress HEENT: Positive: PERRL, Normocephaly, Mucus Membranes Moist Neck: Positive: neck supple, trachea midline Cardiac: Positive: Reg Rate and Rhythm, S1/S2 Lungs: Positive: Decreased Breath Sounds Neuro: Positive: Grossly Intact Abdomen: Negative: Tender Skin: Negative: Rash Musculoskeletal: No Pain Extremities: Absent: edema - Labs and Meds Comprehensive Metabolic Panel 06/17/19 Range/Units 05:23 Sodium 141 (137-145) mmol/L Potassium 4.6 (3.6-5.0) mmol/L Chloride 107.7 H (98-107) mmol/L Carbon Dioxide 23 (22-30) mmol/L BUN 24 H (9-20) mg/dL Creatinine 1.6 H (0.8-1.5) mg/dL Glucose 68 L (75-100) mg/dL Calcium 7.9 L (8.4-10.2) mg/dL - Imaging and Cardiology EKG: report reviewed, image reviewed Echo: report reviewed (05/2019:EF 10-15%, impaired relaxation, RV mildly dilated, RV systolic function mod reduced, mod TR, RVSP 41mmHg. 06/2018 showed EF 35-40%, mild LVH. 11/2018 showed EF 25-30%, mild LVH, RV mild to mod dilated, RA and LA mildly dilated, minimal pericardial effusion. ) - EKG Sinus rhythms and dysrhythmias: sinus rhythm Ventricular dysrhythmias: ventricular premature com AV and intraventricular conduction: right bundle branch block
[2019-06-17] MEDS: carvediloL 3.125 MG TAB PO SCH ×2 (12:10→21:59)
--- NOTE | 2019-06-17 13:12 | Vascular Lab Report ---
DUPLEX DOPPLER LOWER EXTREMITY ARTERIAL, BILATERAL INDICATION: BLE ulcerations. TECHNIQUE: Arterial duplex examination of both lower extremities performed using B-mode, color flow and spectral Doppler assessment. FINDINGS: This was a technically difficult exam due to bilateral lower extremity swelling and patient movement RIGHT: Common Femoral Artery: PSV 121 cm/sec. Triphasic waveform. Proximal SFA: PSV 119 cm/sec. Triphasic waveform. Mid SFA: PSV 156 cm/sec. Triphasic waveform. Distal SFA: PSV 135 cm/sec. Triphasic waveform. Popliteal artery: PSV 100 cm/sec. Biphasic waveform. Posterior tibial artery: PSV 7 cm/sec. Monophasic waveform. Dorsalis Pedis Artery: PSV 25 cm/sec. Monophasic waveform. LEFT: Common Femoral Artery: PSV 127 cm/sec. Triphasic waveform. Proximal SFA: PSV 125 cm/sec. Triphasic waveform. Mid SFA: PSV 148 cm/sec. Triphasic waveform. Distal SFA: PSV 110 cm/sec. Biphasic waveform. Popliteal artery: PSV 82 cm/sec. Biphasic waveform. Posterior tibial artery: PSV 43 cm/sec. Biphasic waveform. Dorsalis Pedis Artery: PSV 22 cm/sec. Monophasic waveform. Right TITA: .56. Left TITA: .35. IMPRESSION: 1. Based upon waveforms there is evidence of disease in the distal superficial femoral artery and in the runoff vessels on the right. On the left base waveforms distal superficial femoral artery popliteal and runoff vessels. Ankle-Brachial Index (TITA): * Calcified arteries > 1.4 * Normal = 0.9-1.4 * Mild PAD = 0.7-0.89 * Moderate PAD = 0.51-0.69 * Severe PAD < 0.5 Doppler Waveform: * Triphasic is normal. * Biphasic is abnormal if clear transition from triphasic signal along vascular tree. * Monophasic is abnormal. Signer Name: Franki Stewart MD Signed: 06/17/2019 1:07 PM Workstation Name: [id number]
[2019-06-17] MEDS: DOBUTamine/D5W 500 MG/250 ML 500 MG/250 ML BAG IV SCH (13:38)
--- NOTE | 2019-06-17 17:12 | Progress Note ---
Assessment and Plan Assessment and plan: 68-year-old -[place] male was brought to the emergency department found on the floor of his home sitting in his feces. Last time patient was alert was 3 days ago. Patient had hypoglycemia. Medicine was given D50. Patient become alert and oriented. Patient complains shortness of breath and severely enlarged his scrotum and penis. Acute on chronic systolic HF with EF of 25-30% - Still not improving, will start dobutatmine drip per cardiology - Transfer to Tele - Chest x-ray showed prominent bronchovascular marking - Diuretic changed to Bumex - BB INCREASED, MONITOR BRADYCARDIA Hypertensive urgency -Add hydralazin PER STAFF THIS MAY BE AN ERROR Metabolic Encephalopathy- Appears to be improving, ?Underlyine wernickie encphalopathy secondary to ETOH use. ETOH level not checked this admission -Continue on Thiamin, folate and MVI -Encouraged PT -Pt will benefit from placement. He is a high likelihood for readmission Bradycardia - Management per cardiology, PVC on Tele - Asymptomatic Acute Metabolic encephalopathy - likely due to hypoglycemia v cocaine abuse - Resolved Scrotal edema - ultrasound negative for acute findings - cont scrotal elevation - Outpatient Urology follow up Hypokalemia -resolved -now hyperkalemia -off Kcl, cont lasix -will monitor level HX OF DVT VASCULAR SAW PATIENT AWAIT DOPPELR STUDY JAGRUTI -probably vasomotor nephropathy -Lasix dose reduced -monitor cr level Metabolic acidosis -stable, will monitor Hypertension -BP low normal -lisinopril dose reduced, monitor BP Cocaine abuse - Patient counseled on cessation DVT prophylaxis: lovenox Disposition: Stressed importance of rehab placement, he will consider. For Now needs aggressive diuresis and requiring initiation of dubotamin drip History Interval history: Patient seen and examined, much more awake, Seen this am, and on review this pm while documenting note, realize that patient has significantly elevated bp, upper ext edema persist and scrotal edema. Hospitalist Physical - Physical exam Narrative exam: General appearance: Present: no acute distress, well-nourished, reports debility - EENT Eyes: Present: PERRL, EOM intact ENT: hearing intact, clear oral mucosa - Neck Neck: Present: supple - Respiratory Respiratory effort: normal Respiratory: bilateral: diminished, negative: rales, wheezing - Cardiovascular Rhythm: regular (rhythm with bradycardia) Heart Sounds: Present: S1 & S2 - Extremities Extremity abnormal: edema (in Bilateral upper ext dependant edemat and scrotal edema) - Abdominal General gastrointestinal: soft, non-tender, normal bowel sounds - Integumentary Integumentary: Present: multiple excoriated lesion on bilateral lower ext. Left knee with excoriated lesions and abrasion - Psychiatric Psychiatric: appropriate mood/affect, - Neurologic Neurologic: moves all extremities - Constitutional Vitals: Temp Pulse Resp BP Pulse Ox 98.6 F 44 L 20 177/143 98 06/17/19 16:50 06/17/19 16:50 06/17/19 16:50 06/17/19 16:50 06/17/19 16:50 General appearance: Present: no acute distress Results - Labs CBC & Chem 7: 06/10/19 13:24 06/17/19 05:23 Labs: Laboratory Last Values WBC 6.3 K/mm3 (4.5-11.0) 06/10/19 13:24 RBC 4.97 M/mm3 (3.65-5.03) 06/10/19 13:24 Hgb 12.3 gm/dl (11.8-15.2) 06/10/19 13:24 Hct 38.8 % (35.5-45.6) 06/10/19 13:24 MCV 78 fl (84-94) L 06/10/19 13:24 MCH 25 pg (28-32) L 06/10/19 13:24 MCHC 32 % (32-34) 06/10/19 13:24 RDW 15.9 % (13.2-15.2) H 06/10/19 13:24 Plt Count 226 K/mm3 (140-440) 06/10/19 13:24 Lymph % (Auto) 17.8 % (13.4-35.0) 06/10/19 13:24 [place] % (Auto) 7.0 % (0.0-7.3) 06/10/19 13:24 Eos % (Auto) 0.0 % (0.0-4.3) 06/10/19 13:24 Baso % (Auto) 0.9 % (0.0-1.8) 06/10/19 13:24 Lymph # 1.1 K/mm3 (1.2-5.4) L 06/10/19 13:24 Dixon # 0.4 K/mm3 (0.0-0.8) 06/10/19 13:24 Eos # 0.0 K/mm3 (0.0-0.4) 06/10/19 13:24 Baso # 0.1 K/mm3 (0.0-0.1) 06/10/19 13:24 Seg Neutrophils % 74.3 % (40.0-70.0) H 06/10/19 13:24 Seg Neutrophils # 4.7 K/mm3 (1.8-7.7) 06/10/19 13:24 PT 14.7 Sec. (12.2-14.9) 06/11/19 16:28 INR 1.16 (0.87-1.13) H 06/11/19 16:28 APTT 32.9 Sec. (24.2-36.6) 06/10/19 13:24 Sodium 141 mmol/L (137-145) 06/17/19 05:23 Potassium 4.6 mmol/L (3.6-5.0) 06/17/19 05:23 Chloride 107.7 mmol/L (98-107) H 06/17/19 05:23 Carbon Dioxide 23 mmol/L (22-30) 06/17/19 05:23 Anion Gap 15 mmol/L 06/17/19 05:23 BUN 24 mg/dL (9-20) H 06/17/19 05:23 Creatinine 1.6 mg/dL (0.8-1.5) H 06/17/19 05:23 Estimated GFR 52 ml/min 06/17/19 05:23 BUN/Creatinine Ratio 15 % 06/17/19 05:23 Glucose 68 mg/dL (75-100) L 06/17/19 05:23 POC Glucose 189 (70-105) H 06/17/19 16:54 Hemoglobin A1c 6.6 % (4-6) H 06/13/19 04:00 Lactic Acid 1.20 mmol/L (0.7-2.0) 06/10/19 13:24 Calcium 7.9 mg/dL (8.4-10.2) L 06/17/19 05:23 Magnesium 1.80 mg/dL (1.7-2.3) 06/10/19 16:08 Total Bilirubin 0.70 mg/dL (0.1-1.2) 06/10/19 13:24 AST 76 units/L (5-40) H 06/10/19 13:24 ALT 21 units/L (7-56) 06/10/19 13:24 Alkaline Phosphatase 70 units/L (35-129) 06/10/19 13:24 Total Creatine Kinase 2514 units/L (55-170) H 06/10/19 13:24 Troponin T 0.086 ng/mL (0.00-0.029) H 06/10/19 18:40 NT-Pro-B Natriuret Pep 72859 pg/mL (0-900) H 06/10/19 13:24 Total Protein 6.1 g/dL (6.3-8.2) L 06/10/19 13:24 Albumin 2.9 g/dL (3.9-5) L 06/10/19 13:24 Albumin/Globulin Ratio 0.9 % 06/10/19 13:24 Triglycerides 61 mg/dL (2-149) 06/10/19 13:24 Cholesterol 92 mg/dL (50-199) 06/10/19 13:24 LDL Cholesterol Direct 33 mg/dL (50-130) L 06/10/19 13:24 HDL Cholesterol 54 mg/dL (40-59) 06/10/19 13:24 Cholesterol/HDL Ratio 1.70 % 06/10/19 13:24 Urine Color [place] (Yellow) 06/10/19 22:50 Urine Turbidity Clear (Clear) 06/10/19 22:50 Urine pH 5.0 (5.0-7.0) 06/10/19 22:50 Ur Specific [place] 1.019 (1.003-1.030) 06/10/19 22:50 Urine Protein >500 mg/dL (Negative) 06/10/19 22:50 Urine Glucose (UA) Neg mg/dL (Negative) 06/10/19 22:50 Urine Ketones Neg mg/dL (Negative) 06/10/19 22:50 Urine Blood Lg (Negative) 06/10/19 22:50 Urine Nitrite Neg (Negative) 06/10/19 22:50 Urine Bilirubin Neg (Negative) 06/10/19 22:50 Urine Urobilinogen < 2.0 mg/dL (<2.0) 06/10/19 22:50 Ur Leukocyte Esterase Tr (Negative) 06/10/19 22:50 Urine WBC (Auto) 16.0 /HPF (0.0-6.0) H 06/10/19 22:50 Urine RBC (Auto) 7.0 /HPF (0.0-6.0) 06/10/19 22:50 U Epithel Cells (Auto) < 1.0 /HPF (0-13.0) 06/10/19 22:50 Urine Bacteria (Auto) 1+ /HPF (Negative) 06/10/19 22:50 Ur Yeast w Hyphae 1+ /HPF 06/10/19 22:50 Urine Yeast (Budding) Few /HPF 06/10/19 22:50 Urine Opiates Screen Presumptive negative 06/10/19 22:50 Urine Methadone Screen Presumptive negative 06/10/19 22:50 Ur Barbiturates Screen Presumptive negative 06/10/19 22:50 Ur Phencyclidine Scrn Presumptive negative 06/10/19 22:50 Ur Amphetamines Screen Presumptive negative 06/10/19 22:50 U Benzodiazepines Scrn Presumptive negative 06/10/19 22:50 Urine Cocaine Screen Presumptive positive 06/10/19 22:50 U Marijuana (THC) Screen Presumptive negative 06/10/19 22:50 Drugs of Abuse Note Disclamer 06/10/19 22:50 Active Medications - Current Medications Current Medications: Generic Name Dose Route Start Last Admin Trade Name Freq PRN Reason Stop Dose Admin Acetaminophen/Hydrocodone Bitart 1 each 06/16/19 03:12 06/16/19 03:43 [place] 5/325 PO 1 each Q4H PRN Administration Pain, Moderate (4-6) Aspirin 81 mg 06/11/19 10:00 06/17/19 12:09 Baby Aspirin PO 81 mg QDAY BRIDGETT Administration Bumetanide 1 mg 06/17/19 18:00 Bumex IV 0600,1800 BRIDGETT Carvedilol 6.25 mg 06/17/19 12:10 Coreg PO BID BRIDGETT Dextrose 50 ml 06/10/19 14:15 06/10/19 14:40 D50w (25gm) Syringe IV 50 ml PRN PRN Administration Hypoglycemia Enoxaparin Sodium 40 mg 06/11/19 22:00 06/16/19 22:37 Enoxaparin SUB-Q 40 mg QHS BRIDGETT Administration Famotidine 20 mg 06/11/19 10:00 06/17/19 12:09 Pepcid PO 20 mg DAILY BRIDGETT Administration Folic Acid 1 mg 06/15/19 16:00 06/17/19 12:09 Folvite PO 1 mg QDAY BRIDGETT Administration Hydralazine HCl 10 mg 06/17/19 17:06 Apresoline IV Q4HR PRN Hypertension Hydralazine HCl 25 mg 06/17/19 18:00 Apresoline PO Q8HR BRIDGETT Dobutamine HCl/Dextrose 500 mg in 250 mls @ 12.675 mls/hr 06/16/19 11:00 06/17/19 13:38 Dobutrex Drip 500mg/D5w 250ml IV 5 mcg/kg/min DIRECT BRIDGETT 12.675 mls/hr Administration Protocol 5 MCG/KG/MIN Insulin Human Lispro 0 unit 06/11/19 07:30 06/17/19 11:30 Humalog SUB-Q Not Given ACHS BRIDGETT Protocol Multivitamins 1 each 06/15/19 16:00 06/17/19 12:09 Theragran Tab PO 1 each QDAY BRIDGETT Administration Thiamine HCl 100 mg 06/15/19 16:00 06/17/19 12:09 Vitamin B-1 PO 100 mg QDAY BRIDGETT Administration Nutrition/Malnutrition Assess - Dietary Evaluation Nutrition/Malnutrition Findings: Nutrition Notes Start: 06/17/19 14:43 Freq: Status: Active Protocol: Document 06/17/19 14:43 DW (Rec: 06/17/19 14:47 DW [id number]) Co-Sign 06/17/19 14:43 KH Nutrition Notes Need for Assessment generated from: LOS Initial or Follow up Brief Note Current Diagnosis Decubitus(Pressure Ulcer), Diabetes,Hypertension, Hyperlipidemia Other Pertinent Diagnosis DVT, Encephalopathy Current Diet Consistent CHO Subjective/Other Information Pt was not present in room upon arrival. Unable to obtain px nutrition hx Nutrition Intervention Follow-Up By: 06/18/19 Additional Comments F/U nutrition hx
[2019-06-17] MEDS: hydrALAZINE 20 MG/1 ML INJ IV PRN (17:43)
[2019-06-17] MEDS: BUMETANIDE 2.5 MG/10 ML VIAL IV SCH (17:44)
[2019-06-17] MEDS ORDERED: BUMETANIDE 1 MG/4 ML INJ IV SCH (18:00)
[2019-06-17] MEDS ORDERED: hydrALAZINE 25 MG TAB PO SCH (18:00)
[2019-06-17] MEDS ORDERED: FUROSEMIDE 40 MG/4 ML INJ IV SCH (18:00)
[2019-06-17] MEDS: ENOXAPARIN 40 MG/0.4 ML INJ SUB-Q SCH (22:04)
[2019-06-18] MEDS: BUMETANIDE 2.5 MG/10 ML VIAL IV SCH ×2 (06:45→18:33)
[2019-06-18 06:50] LABS: Blood Urea Nitrogen 24 mg/dL (9-20)
[2019-06-18 06:51] LABS: BUN/Creatinine Ratio 17; Calcium 7.9 mg/dL (8.4-10.2); Hemolysis Index 0
[2019-06-18] MEDS: DOBUTamine/D5W 500 MG/250 ML 500 MG/250 ML BAG IV SCH (07:05)
[2019-06-18] MEDS: hydrALAZINE 20 MG/1 ML INJ IV PRN (07:16)
[2019-06-18] MEDS: INSULIN LISPRO 100 UNIT/ML SUB-Q SCH ×4 (08:16→22:30)
[2019-06-18] MEDS: FOLIC ACID 1 MG TAB PO SCH (10:40)
[2019-06-18] MEDS: FAMOTIDINE 20 MG TAB PO SCH (10:40)
[2019-06-18] MEDS: carvediloL 3.125 MG TAB PO SCH ×2 (10:40→22:29)
[2019-06-18] MEDS: THIAMINE 100 MG TAB PO SCH (10:40)
[2019-06-18] MEDS: ASPIRIN 81 MG TAB CHEW PO SCH (10:40)
[2019-06-18] MEDS: MULTIVITAMINS ,THERAPEUTIC TAB PO SCH (10:40)
--- NOTE | 2019-06-18 12:44 | Progress Note ---
Assessment and Plan The patient's cardiac status is improving. Edema persists in scrotal/abdominal region, but is better. Continue dobutamine for 24 to 48 hours and continue other cardiac management. BPs elevated, but seem to be improving. If they remain elevated, will consider additional agent. The patient has been seen in conjunction with Dr. Mina, who agrees with the assessment and plan. - Patient Problems (1) Acute HFrEF (heart failure with reduced ejection fraction) Current Visit: Yes Status: Acute (2) Fall Current Visit: Yes Status: Acute (3) History of CVA (cerebrovascular accident) Current Visit: Yes Status: Chronic (4) Cardiomyopathy Current Visit: Yes Status: Chronic (5) Elevated troponin Current Visit: Yes Status: Chronic (6) Medical non-compliance Current Visit: Yes Status: Chronic (7) Cocaine use Current Visit: Yes Status: Chronic (8) Dementia Current Visit: Yes Status: Chronic (9) HTN (hypertension) Current Visit: Yes Status: Chronic Qualifiers: Hypertension type: essential hypertension Qualified Code(s): I10 - Essential (primary) hypertension (10) PVCs (premature ventricular contractions) Current Visit: Yes Status: Chronic (11) RBBB Current Visit: Yes Status: Chronic (12) T2DM (type 2 diabetes mellitus) Current Visit: Yes Status: Chronic (13) Altered mental status Current Visit: Yes Status: Resolved Subjective Date of service: 06/18/19 Principal diagnosis: AMS, hf Interval history: The patient is lying in bed with mild SOB. His edema is improved. He remains on dobutamine drip. Telemetry reviewed - SR in 80s. Objective Last Vital Signs Temp 97.9 F 06/18/19 11:25 Pulse 43 L 06/18/19 11:25 Resp 18 06/18/19 11:25 BP 124/53 06/18/19 11:25 Pulse Ox 97 06/18/19 11:25 - Physical Examination General: Other (mild distress) HEENT: Positive: PERRL, Normocephaly, Mucus Membranes Moist Neck: Positive: neck supple, trachea midline Cardiac: Positive: Reg Rate and Rhythm Lungs: Positive: Decreased Breath Sounds (left side) Neuro: Positive: Grossly Intact Abdomen: Positive: Other (edematous ). Negative: Tender /Rectal: Other (scrotal edema ) Skin: Negative: Rash Musculoskeletal: No Pain Extremities: Present: normal. Absent: edema - Labs and Meds Comprehensive Metabolic Panel 06/18/19 Range/Units 05:51 Sodium 143 (137-145) mmol/L Potassium 4.9 (3.6-5.0) mmol/L Chloride 108.7 H (98-107) mmol/L Carbon Dioxide 23 (22-30) mmol/L BUN 24 H (9-20) mg/dL Creatinine 1.4 (0.8-1.5) mg/dL Glucose 80 (75-100) mg/dL Calcium 7.9 L (8.4-10.2) mg/dL - Imaging and Cardiology EKG: report reviewed, image reviewed Echo: report reviewed (05/2019:EF 10-15%, impaired relaxation, RV mildly dilated, RV systolic function mod reduced, mod TR, RVSP 41mmHg. 06/2018 showed EF 35-40%, mild LVH. 11/2018 showed EF 25-30%, mild LVH, RV mild to mod dilated, RA and LA mildly dilated, minimal pericardial effusion. ) - Telemetry EKG Rhythm: Sinus Rhythm - EKG Sinus rhythms and dysrhythmias: sinus rhythm Ventricular dysrhythmias: ventricular premature com AV and intraventricular conduction: right bundle branch block
--- NOTE | 2019-06-18 16:21 | Progress Note ---
Assessment and Plan Assessment and plan: 68-year-old -[place] male was brought to the emergency department found on the floor of his home sitting in his feces. Last time patient was alert was 3 days ago. Patient had hypoglycemia. Medicine was given D50. Patient become alert and oriented. Patient complains shortness of breath and severely enlarged his scrotum and penis. Acute on chronic systolic HF with EF of 25-30% - Still not improving, continue dobutatmine drip per cardiology - Transfer to Tele - Chest x-ray showed prominent bronchovascular marking - Diuretic changed to Bumex - BB INCREASED, MONITOR BRADYCARDIA Hypertensive urgency -Add hydralazin PER STAFF THIS MAY BE AN ERROR Metabolic Encephalopathy- Appears to be improving, ?Underlyine wernickie encphalopathy secondary to ETOH use. ETOH level not checked this admission -Continue on Thiamin, folate and MVI -Encouraged PT -Pt will benefit from placement. He is a high likelihood for readmission Bradycardia - Management per cardiology, PVC on Tele - Asymptomatic Acute Metabolic encephalopathy - likely due to hypoglycemia v cocaine abuse - Resolved Scrotal edema - ultrasound negative for acute findings - cont scrotal elevation - Outpatient Urology follow up Hypokalemia -resolved -now hyperkalemia -off Kcl, cont lasix -will monitor level HX OF DVT VASCULAR SAW PATIENT AWAIT DOPPELR STUDY JAGRUTI- resolved -probably vasomotor nephropathy -Lasix dose reduced -monitor cr level Metabolic acidosis -stable, will monitor Hypertension -BP low normal -lisinopril dose reduced, monitor BP Cocaine abuse - Patient counseled on cessation DVT prophylaxis: lovenox Disposition: Stressed importance of rehab placement, he will consider. For Now needs aggressive diuresis and requiring initiation of dubotamin drip History Interval history: Patient seen and examined, much more awake, no new complaints. still with scr otal edema Hospitalist Physical - Physical exam Narrative exam: General appearance: Present: no acute distress, well-nourished, reports debility - EENT Eyes: Present: PERRL, EOM intact ENT: hearing intact, clear oral mucosa - Neck Neck: Present: supple - Respiratory Respiratory effort: normal Respiratory: bilateral: diminished, negative: rales, wheezing - Cardiovascular Rhythm: regular (rhythm with bradycardia) Heart Sounds: Present: S1 & S2 - Extremities Extremity abnormal: edema (in Bilateral upper ext dependant edemat and scrotal edema) - Abdominal General gastrointestinal: soft, non-tender, normal bowel sounds - Integumentary Integumentary: Present: multiple excoriated lesion on bilateral lower ext. Left knee with excoriated lesions and abrasion - Psychiatric Psychiatric: appropriate mood/affect, - Neurologic Neurologic: moves all extremities - Constitutional Vitals: Temp Pulse Resp BP Pulse Ox 97.9 F 43 L 18 124/53 97 06/18/19 11:25 06/18/19 11:25 06/18/19 11:25 06/18/19 11:25 06/18/19 11:25 General appearance: Present: no acute distress Results - Labs CBC & Chem 7: 06/10/19 13:24 06/18/19 05:51 Labs: Laboratory Last Values WBC 6.3 K/mm3 (4.5-11.0) 06/10/19 13:24 RBC 4.97 M/mm3 (3.65-5.03) 06/10/19 13:24 Hgb 12.3 gm/dl (11.8-15.2) 06/10/19 13:24 Hct 38.8 % (35.5-45.6) 06/10/19 13:24 MCV 78 fl (84-94) L 06/10/19 13:24 MCH 25 pg (28-32) L 06/10/19 13:24 MCHC 32 % (32-34) 06/10/19 13:24 RDW 15.9 % (13.2-15.2) H 06/10/19 13:24 Plt Count 226 K/mm3 (140-440) 06/10/19 13:24 Lymph % (Auto) 17.8 % (13.4-35.0) 06/10/19 13:24 [place] % (Auto) 7.0 % (0.0-7.3) 06/10/19 13:24 Eos % (Auto) 0.0 % (0.0-4.3) 06/10/19 13:24 Baso % (Auto) 0.9 % (0.0-1.8) 06/10/19 13:24 Lymph # 1.1 K/mm3 (1.2-5.4) L 06/10/19 13:24 [place] # 0.4 K/mm3 (0.0-0.8) 06/10/19 13:24 Eos # 0.0 K/mm3 (0.0-0.4) 06/10/19 13:24 Baso # 0.1 K/mm3 (0.0-0.1) 06/10/19 13:24 Seg Neutrophils % 74.3 % (40.0-70.0) H 06/10/19 13:24 Seg Neutrophils # 4.7 K/mm3 (1.8-7.7) 06/10/19 13:24 PT 14.7 Sec. (12.2-14.9) 06/11/19 16:28 INR 1.16 (0.87-1.13) H 06/11/19 16:28 APTT 32.9 Sec. (24.2-36.6) 06/10/19 13:24 Sodium 143 mmol/L (137-145) 06/18/19 05:51 Potassium 4.9 mmol/L (3.6-5.0) 06/18/19 05:51 Chloride 108.7 mmol/L (98-107) H 06/18/19 05:51 Carbon Dioxide 23 mmol/L (22-30) 06/18/19 05:51 Anion Gap 16 mmol/L 06/18/19 05:51 BUN 24 mg/dL (9-20) H 06/18/19 05:51 Creatinine 1.4 mg/dL (0.8-1.5) 06/18/19 05:51 Estimated GFR > 60 ml/min 06/18/19 05:51 BUN/Creatinine Ratio 17 % 06/18/19 05:51 Glucose 80 mg/dL (75-100) 06/18/19 05:51 POC Glucose 102 (70-105) 06/18/19 11:33 Hemoglobin A1c 6.6 % (4-6) H 06/13/19 04:00 Lactic Acid 1.20 mmol/L (0.7-2.0) 06/10/19 13:24 Calcium 7.9 mg/dL (8.4-10.2) L 06/18/19 05:51 Magnesium 1.80 mg/dL (1.7-2.3) 06/10/19 16:08 Total Bilirubin 0.70 mg/dL (0.1-1.2) 06/10/19 13:24 AST 76 units/L (5-40) H 06/10/19 13:24 ALT 21 units/L (7-56) 06/10/19 13:24 Alkaline Phosphatase 70 units/L (35-129) 06/10/19 13:24 Total Creatine Kinase 2514 units/L (55-170) H 06/10/19 13:24 Troponin T 0.086 ng/mL (0.00-0.029) H 06/10/19 18:40 NT-Pro-B Natriuret Pep 50262 pg/mL (0-900) H 06/10/19 13:24 Total Protein 6.1 g/dL (6.3-8.2) L 06/10/19 13:24 Albumin 2.9 g/dL (3.9-5) L 06/10/19 13:24 Albumin/Globulin Ratio 0.9 % 06/10/19 13:24 Triglycerides 61 mg/dL (2-149) 06/10/19 13:24 Cholesterol 92 mg/dL (50-199) 06/10/19 13:24 LDL Cholesterol Direct 33 mg/dL (50-130) L 06/10/19 13:24 HDL Cholesterol 54 mg/dL (40-59) 06/10/19 13:24 Cholesterol/HDL Ratio 1.70 % 06/10/19 13:24 Urine Color Iqra (Yellow) 06/10/19 22:50 Urine Turbidity Clear (Clear) 06/10/19 22:50 Urine pH 5.0 (5.0-7.0) 06/10/19 22:50 Ur Specific [place] 1.019 (1.003-1.030) 06/10/19 22:50 Urine Protein >500 mg/dL (Negative) 06/10/19 22:50 Urine Glucose (UA) Neg mg/dL (Negative) 06/10/19 22:50 Urine Ketones Neg mg/dL (Negative) 06/10/19 22:50 Urine Blood Lg (Negative) 06/10/19 22:50 Urine Nitrite Neg (Negative) 06/10/19 22:50 Urine Bilirubin Neg (Negative) 06/10/19 22:50 Urine Urobilinogen < 2.0 mg/dL (<2.0) 06/10/19 22:50 Ur Leukocyte Esterase Tr (Negative) 06/10/19 22:50 Urine WBC (Auto) 16.0 /HPF (0.0-6.0) H 06/10/19 22:50 Urine RBC (Auto) 7.0 /HPF (0.0-6.0) 06/10/19 22:50 U Epithel Cells (Auto) < 1.0 /HPF (0-13.0) 06/10/19 22:50 Urine Bacteria (Auto) 1+ /HPF (Negative) 06/10/19 22:50 Ur Yeast w Hyphae 1+ /HPF 06/10/19 22:50 Urine Yeast (Budding) Few /HPF 06/10/19 22:50 Urine Opiates Screen Presumptive negative 06/10/19 22:50 Urine Methadone Screen Presumptive negative 06/10/19 22:50 Ur Barbiturates Screen Presumptive negative 06/10/19 22:50 Ur Phencyclidine Scrn Presumptive negative 06/10/19 22:50 Ur Amphetamines Screen Presumptive negative 06/10/19 22:50 U Benzodiazepines Scrn Presumptive negative 06/10/19 22:50 Urine Cocaine Screen Presumptive positive 06/10/19 22:50 U Marijuana (THC) Screen Presumptive negative 06/10/19 22:50 Drugs of Abuse Note Disclamer 06/10/19 22:50 Active Medications - Current Medications Current Medications: Generic Name Dose Route Start Last Admin Trade Name Freq PRN Reason Stop Dose Admin Acetaminophen/Hydrocodone Bitart 1 each 06/16/19 03:12 06/16/19 03:43 [place] 5/325 PO 1 each Q4H PRN Administration Pain, Moderate (4-6) Aspirin 81 mg 06/11/19 10:00 06/18/19 10:40 Baby Aspirin PO 81 mg QDAY BRIDGETT Administration Bumetanide 1 mg 06/17/19 18:00 06/18/19 06:45 Bumex IV 1 mg 0600,1800 BRIDGETT Administration Carvedilol 6.25 mg 06/17/19 12:10 06/18/19 10:40 Coreg PO 6.25 mg BID BRIDGETT Administration Dextrose 50 ml 06/10/19 14:15 06/10/19 14:40 D50w (25gm) Syringe IV 50 ml PRN PRN Administration Hypoglycemia Enoxaparin Sodium 40 mg 06/11/19 22:00 06/17/19 22:04 Enoxaparin SUB-Q 40 mg QHS BRIDGETT Administration Famotidine 20 mg 06/11/19 10:00 06/18/19 10:40 Pepcid PO 20 mg DAILY BRIDGETT Administration Folic Acid 1 mg 06/15/19 16:00 06/18/19 10:40 Folvite PO 1 mg QDAY BRIDGETT Administration Hydralazine HCl 10 mg 06/17/19 17:06 06/18/19 07:16 Apresoline IV 10 mg Q4HR PRN Administration Hypertension Dobutamine HCl/Dextrose 500 mg in 250 mls @ 12.675 mls/hr 06/16/19 11:00 06/18/19 07:05 Dobutrex Drip 500mg/D5w 250ml IV 5 mcg/kg/min DIRECT BRIDGETT 12.675 mls/hr Administration Protocol 5 MCG/KG/MIN Insulin Human Lispro 0 unit 06/11/19 07:30 06/18/19 11:31 Humalog SUB-Q Not Given ACHS BRIDGETT Protocol Multivitamins 1 each 06/15/19 16:00 06/18/19 10:40 Theragran Tab PO 1 each QDAY BRIDGETT Administration Thiamine HCl 100 mg 06/15/19 16:00 06/18/19 10:40 Vitamin B-1 PO 100 mg QDAY BRIDGETT Administration Nutrition/Malnutrition Assess - Dietary Evaluation Nutrition/Malnutrition Findings: Nutrition Notes Start: 06/17/19 14:43 Freq: Status: Active Protocol: Document 06/18/19 11:42 CC (Rec: 06/18/19 12:31 CC [id number]) Co-Sign 06/18/19 11:42 LM Nutrition Notes Initial or Follow up Assessment Current Diagnosis Decubitus(Pressure Ulcer), Diabetes,Hypertension, Hyperlipidemia Other Pertinent Diagnosis DVT, Encephalopathy, Hx drug abuse, edema of LE Current Diet Consistent CHO Labs/Tests BUN 24, A1c 6.6, Ca 7.9 Pertinent Medications Bumex Height 5 ft 5 in Weight 92.9 kg [place] Body Weight (kg) 61.81 BMI 34.0 Intake Prior to Admission Good Subjective/Other Information f/u for nutrition assement. Pt reported [employer] his appetite was good and has been good while in hospital. Pt reported no unintentional weight loss. Observed breakfast tray consumed 75%. Burn Absent Trauma Absent GI Symptoms None Food Allergy No Current % PO Good (75-100%) Minimum of two criteria No Fluid Accumulation Moderate to Severe (severe) #1 Nutrition Diagnosis Increased nutrient needs ( specify in comment below) Comments: protein Etiology wound healing As Evidenced by Signs and Symptoms wounds on both LE Is patient on ventilator? No Is Patient Ambulatory and/or Out of Bed No REE-([facility]-confined to bed) 1950.564 Calculation Used for Recommendations [facility] Additional Notes PRO: 96-116g/ day (1.25-1.5g/ kg AdBW 77.36kg) Fluid restriction of 1500ml Nutrition Intervention Change Diet Order: continue current diet Add Supplement/Snack (indicate name/kcal Danny BID /protein ) Provides kCal: 190 Provides Protein (gm) 5 Goal #1 Meet at least 80% of energy and protein needs via po intake Goal #2 Wound healing Anticipated Discharge Needs: const CHO diet Follow-Up By: 06/21/19 Additional Comments F/U for PO and ONS intakes, need for additional ONS
[2019-06-18] MEDS: ENOXAPARIN 40 MG/0.4 ML INJ SUB-Q SCH (22:36)
[2019-06-19] MEDS: HYDROcodone/ACETAMINOPHEN 5-325 MG TAB PO PRN (01:51)
[2019-06-19] MEDS: DOBUTamine/D5W 500 MG/250 ML 500 MG/250 ML BAG IV SCH (02:41)
[2019-06-19 05:04] LABS: Hematocrit 33.6 % (35.5-45.6); Mean Corpuscular HGB Conc 33 % (32-34); Mean Corpuscular Volume 77 fl (84-94); Red Blood Count 4.39 M/mm3 (3.65-5.03); Red Cell Distribution Width 15.9 % (13.2-15.2)
[2019-06-19 05:25] LABS: BUN/Creatinine Ratio 18; Blood Urea Nitrogen 23 mg/dL (9-20); Hemolysis Index 11
[2019-06-19] MEDS: BUMETANIDE 2.5 MG/10 ML VIAL IV SCH ×2 (05:54→17:26)
[2019-06-19 06:06] LABS: Mean Platelet Volume 7.9 fl (6-12)
[2019-06-19 06:07] LABS: Platelet Count 221 K/mm3 (140-440)
[2019-06-19] MEDS: hydrALAZINE 20 MG/1 ML INJ IV PRN (06:22)
[2019-06-19] MEDS: INSULIN LISPRO 100 UNIT/ML SUB-Q SCH ×4 (08:30→21:38)
[2019-06-19] MEDS: FOLIC ACID 1 MG TAB PO SCH (09:56)
[2019-06-19] MEDS: ASPIRIN 81 MG TAB CHEW PO SCH (09:56)
[2019-06-19] MEDS: MULTIVITAMINS ,THERAPEUTIC TAB PO SCH (09:56)
[2019-06-19] MEDS: FAMOTIDINE 20 MG TAB PO SCH (09:56)
[2019-06-19] MEDS: carvediloL 3.125 MG TAB PO SCH ×2 (09:56→21:31)
[2019-06-19] MEDS: THIAMINE 100 MG TAB PO SCH (09:56)
--- NOTE | 2019-06-19 12:34 | Progress Note ---
Assessment and Plan Cardiac status is improving. Continue dobutamine and other cardiac management for now. The patient was evaluated by Dr. Palencia, who developed the plan of care and performed the assessment. - Patient Problems (1) Acute HFrEF (heart failure with reduced ejection fraction) Current Visit: Yes Status: Acute (2) Fall Current Visit: Yes Status: Acute (3) History of CVA (cerebrovascular accident) Current Visit: Yes Status: Chronic (4) Cardiomyopathy Current Visit: Yes Status: Chronic (5) Elevated troponin Current Visit: Yes Status: Chronic (6) Medical non-compliance Current Visit: Yes Status: Chronic (7) Cocaine use Current Visit: Yes Status: Chronic (8) Dementia Current Visit: Yes Status: Chronic (9) HTN (hypertension) Current Visit: Yes Status: Chronic Qualifiers: Hypertension type: essential hypertension Qualified Code(s): I10 - [place] l (primary) hypertension (10) PVCs (premature ventricular contractions) Current Visit: Yes Status: Chronic (11) RBBB Current Visit: Yes Status: Chronic (12) T2DM (type 2 diabetes mellitus) Current Visit: Yes Status: Chronic (13) Altered mental status Current Visit: Yes Status: Resolved Subjective Date of service: 06/19/19 Principal diagnosis: AMS, hf Interval history: The patient is lying in bed in NAD. He reports feeling better, and it appears he is responding well to the dobutamine. Objective Last Vital Signs Temp 98.8 F 06/19/19 08:47 Pulse 40 L 06/19/19 11:27 Resp 20 06/19/19 10:00 BP 138/67 06/19/19 11:27 Pulse Ox 99 06/19/19 11:27 - Physical Examination General: No Apparent Distress HEENT: Positive: PERRL, Normocephaly, Mucus Membranes Moist Neck: Positive: neck supple, trachea midline Cardiac: Positive: Reg Rate and Rhythm Lungs: Positive: Decreased Breath Sounds Neuro: Positive: Grossly Intact Abdomen: Positive: Unremarkable, Other (edematous ). Negative: Tender /Rectal: Other (scrotal edema ) Skin: Negative: Rash Musculoskeletal: No Pain Extremities: Present: normal. Absent: edema - Labs and Meds CBC 06/19/19 Range/Units 04:28 WBC 8.2 (4.5-11.0) K/mm3 RBC 4.39 (3.65-5.03) M/mm3 Hgb 11.0 L (11.8-15.2) gm/dl Hct 33.6 L (35.5-45.6) % Plt Count 221 (140-440) K/mm3 Comprehensive Metabolic Panel 06/19/19 Range/Units 04:28 Sodium 141 (137-145) mmol/L Potassium 4.8 (3.6-5.0) mmol/L Chloride 108.2 H (98-107) mmol/L Carbon Dioxide 22 (22-30) mmol/L BUN 23 H (9-20) mg/dL Creatinine 1.3 (0.8-1.5) mg/dL Glucose 80 (75-100) mg/dL Calcium 8.0 L (8.4-10.2) mg/dL - Imaging and Cardiology EKG: report reviewed, image reviewed Echo: report reviewed (05/2019:EF 10-15%, impaired relaxation, RV mildly dilated, RV systolic function mod reduced, mod TR, RVSP 41mmHg. 06/2018 showed EF 35-40%, mild LVH. 11/2018 showed EF 25-30%, mild LVH, RV mild to mod dilated, RA and LA mildly dilated, minimal pericardial effusion. ) - Telemetry EKG Rhythm: Sinus Rhythm - EKG Sinus rhythms and dysrhythmias: sinus rhythm Ventricular dysrhythmias: ventricular premature com AV and intraventricular conduction: right bundle branch block
--- NOTE | 2019-06-19 12:50 | Progress Note ---
Assessment and Plan Assessment and plan: 68-year-old -[place] male was brought to the emergency department found on the floor of his home sitting in his feces. Last time patient was alert was 3 days ago. Patient had hypoglycemia. Medicine was given D50. Patient become alert and oriented. Patient complains shortness of breath and severely enlarged his scrotum and penis. Acute on chronic systolic HF with EF of 25-30% - mild improving, continue dobutamine drip per cardiology - Transfer to Tele - Chest x-ray showed prominent bronchovascular marking - continue IV Bumex - BB INCREASED, MONITOR BRADYCARDIA Hypertensive urgency -Add hydralazin PER STAFF THIS MAY BE AN ERROR Metabolic Encephalopathy- Appears to be improving, ?Underlyine wernickie encphalopathy secondary to ETOH use. ETOH level not checked this admission -Continue on Thiamin, folate and MVI -Encouraged PT -Pt will benefit from placement. He is a high likelihood for readmission Bradycardia - Management per cardiology, PVC on Tele - Asymptomatic Acute Metabolic encephalopathy - likely due to hypoglycemia v cocaine abuse - Resolved Scrotal edema - ultrasound negative for acute findings - cont scrotal elevation - Outpatient Urology follow up Hypokalemia -resolved -now hyperkalemia -off Kcl, cont lasix -will monitor level HX OF DVT VASCULAR SAW PATIENT await vascular follow up considering finding of disease in the disstal superficial femoral artery on Ultrasound JAGRUTI- resolved -probably vasomotor nephropathy -Lasix dose reduced -monitor cr level Metabolic acidosis -stable, will monitor Hypertension -BP low normal -lisinopril dose reduced, monitor BP Cocaine abuse - Patient counseled on cessation DVT prophylaxis: lovenox Disposition: Stressed importance of rehab placement, he will consider. For Now needs aggressive diuresis and requiring initiation of dubotamin drip History Interval history: Patient seen and examined, much more awake, no new complaints. still with scrotal edema, reports pain due to it and limiting his mobility Hospitalist Physical - Physical exam Narrative exam: General appearance: Present: no acute distress, well-nourished, reports debility - EENT Eyes: Present: PERRL, EOM intact ENT: hearing intact, clear oral mucosa - Neck Neck: Present: supple - Respiratory Respiratory effort: normal Respiratory: bilateral: diminished, negative: rales, wheezing - Cardiovascular Rhythm: regular (rhythm with bradycardia) Heart Sounds: Present: S1 & S2 - Extremities Extremity abnormal: edema (in Bilateral upper ext dependant edemat and scrotal edema) - Abdominal General gastrointestinal: soft, non-tender, normal bowel sounds - Integumentary Integumentary: Present: multiple excoriated lesion on bilateral lower ext. Left knee with excoriated lesions and abrasion - Psychiatric Psychiatric: appropriate mood/affect, - Neurologic Neurologic: moves all extremities - Constitutional Vitals: Temp Pulse Resp BP Pulse Ox 98.8 F 40 L 20 138/67 99 06/19/19 08:47 06/19/19 11:27 06/19/19 10:00 06/19/19 11:27 06/19/19 11:27 General appearance: Present: no acute distress Results - Labs CBC & Chem 7: 06/19/19 04:28 06/19/19 04:28 Labs: Laboratory Last Values WBC 8.2 K/mm3 (4.5-11.0) 06/19/19 04:28 RBC 4.39 M/mm3 (3.65-5.03) 06/19/19 04:28 Hgb 11.0 gm/dl (11.8-15.2) L 06/19/19 04:28 Hct 33.6 % (35.5-45.6) L 06/19/19 04:28 MCV 77 fl (84-94) L 06/19/19 04:28 MCH 25 pg (28-32) L 06/19/19 04:28 MCHC 33 % (32-34) 06/19/19 04:28 RDW 15.9 % (13.2-15.2) H 06/19/19 04:28 Plt Count 221 K/mm3 (140-440) 06/19/19 04:28 Lymph % (Auto) 17.8 % (13.4-35.0) 06/10/19 13:24 [place] % (Auto) 7.0 % (0.0-7.3) 06/10/19 13:24 Eos % (Auto) 0.0 % (0.0-4.3) 06/10/19 13:24 Baso % (Auto) 0.9 % (0.0-1.8) 06/10/19 13:24 Lymph # 1.1 K/mm3 (1.2-5.4) L 06/10/19 13:24 [place] # 0.4 K/mm3 (0.0-0.8) 06/10/19 13:24 Eos # 0.0 K/mm3 (0.0-0.4) 06/10/19 13:24 Baso # 0.1 K/mm3 (0.0-0.1) 06/10/19 13:24 Seg Neutrophils % 74.3 % (40.0-70.0) H 06/10/19 13:24 Seg Neutrophils # 4.7 K/mm3 (1.8-7.7) 06/10/19 13:24 PT 14.7 Sec. (12.2-14.9) 06/11/19 16:28 INR 1.16 (0.87-1.13) H 06/11/19 16:28 APTT 32.9 Sec. (24.2-36.6) 06/10/19 13:24 Sodium 141 mmol/L (137-145) 06/19/19 04:28 Potassium 4.8 mmol/L (3.6-5.0) 06/19/19 04:28 Chloride 108.2 mmol/L (98-107) H 06/19/19 04:28 Carbon Dioxide 22 mmol/L (22-30) 06/19/19 04:28 Anion Gap 16 mmol/L 06/19/19 04:28 BUN 23 mg/dL (9-20) H 06/19/19 04:28 Creatinine 1.3 mg/dL (0.8-1.5) 06/19/19 04:28 Estimated GFR > 60 ml/min 06/19/19 04:28 BUN/Creatinine Ratio 18 % 06/19/19 04:28 Glucose 80 mg/dL (75-100) 06/19/19 04:28 POC Glucose 136 (70-105) H 06/19/19 11:32 Hemoglobin A1c 6.6 % (4-6) H 06/13/19 04:00 Lactic Acid 1.20 mmol/L (0.7-2.0) 06/10/19 13:24 Calcium 8.0 mg/dL (8.4-10.2) L 06/19/19 04:28 Magnesium 1.80 mg/dL (1.7-2.3) 06/10/19 16:08 Total Bilirubin 0.70 mg/dL (0.1-1.2) 06/10/19 13:24 AST 76 units/L (5-40) H 06/10/19 13:24 ALT 21 units/L (7-56) 06/10/19 13:24 Alkaline Phosphatase 70 units/L (35-129) 06/10/19 13:24 Total Creatine Kinase 2514 units/L (55-170) H 06/10/19 13:24 Troponin T 0.086 ng/mL (0.00-0.029) H 06/10/19 18:40 NT-Pro-B Natriuret Pep 91078 pg/mL (0-900) H 06/10/19 13:24 Total Protein 6.1 g/dL (6.3-8.2) L 06/10/19 13:24 Albumin 2.9 g/dL (3.9-5) L 06/10/19 13:24 Albumin/Globulin Ratio 0.9 % 06/10/19 13:24 Triglycerides 61 mg/dL (2-149) 06/10/19 13:24 Cholesterol 92 mg/dL (50-199) 06/10/19 13:24 LDL Cholesterol Direct 33 mg/dL (50-130) L 06/10/19 13:24 HDL Cholesterol 54 mg/dL (40-59) 06/10/19 13:24 Cholesterol/HDL Ratio 1.70 % 06/10/19 13:24 Urine Color Iqra (Yellow) 06/10/19 22:50 Urine Turbidity Clear (Clear) 06/10/19 22:50 Urine pH 5.0 (5.0-7.0) 06/10/19 22:50 Ur Specific [place] 1.019 (1.003-1.030) 06/10/19 22:50 Urine Protein >500 mg/dL (Negative) 06/10/19 22:50 Urine Glucose (UA) Neg mg/dL (Negative) 06/10/19 22:50 Urine Ketones Neg mg/dL (Negative) 06/10/19 22:50 Urine Blood Lg (Negative) 06/10/19 22:50 Urine Nitrite Neg (Negative) 06/10/19 22:50 Urine Bilirubin Neg (Negative) 06/10/19 22:50 Urine Urobilinogen < 2.0 mg/dL (<2.0) 06/10/19 22:50 Ur Leukocyte Esterase Tr (Negative) 06/10/19 22:50 Urine WBC (Auto) 16.0 /HPF (0.0-6.0) H 06/10/19 22:50 Urine RBC (Auto) 7.0 /HPF (0.0-6.0) 06/10/19 22:50 U Epithel Cells (Auto) < 1.0 /HPF (0-13.0) 06/10/19 22:50 Urine Bacteria (Auto) 1+ /HPF (Negative) 06/10/19 22:50 Ur Yeast w Hyphae 1+ /HPF 06/10/19 22:50 Urine Yeast (Budding) Few /HPF 06/10/19 22:50 Urine Opiates Screen Presumptive negative 06/10/19 22:50 Urine Methadone Screen Presumptive negative 06/10/19 22:50 Ur Barbiturates Screen Presumptive negative 06/10/19 22:50 Ur Phencyclidine Scrn Presumptive negative 06/10/19 22:50 Ur Amphetamines Screen Presumptive negative 06/10/19 22:50 U Benzodiazepines Scrn Presumptive negative 06/10/19 22:50 Urine Cocaine Screen Presumptive positive 06/10/19 22:50 U Marijuana (THC) Screen Presumptive negative 06/10/19 22:50 Drugs of Abuse Note Disclamer 06/10/19 22:50 Active Medications - Current Medications Current Medications: Generic Name Dose Route Start Last Admin Trade Name Freq PRN Reason Stop Dose Admin Acetaminophen/Hydrocodone Bitart 1 each 06/16/19 03:12 06/19/19 01:51 [place] 5/325 PO 1 each Q4H PRN Administration Pain, Moderate (4-6) Aspirin 81 mg 06/11/19 10:00 06/19/19 09:56 Baby Aspirin PO 81 mg QDAY BRIDGETT Administration Bumetanide 1 mg 06/17/19 18:00 06/19/19 05:54 Bumex IV 1 mg 0600,1800 BRIDGETT Administration Carvedilol 6.25 mg 06/17/19 12:10 06/19/19 09:56 Coreg PO 6.25 mg BID BRIDGETT Administration Dextrose 50 ml 06/10/19 14:15 06/10/19 14:40 D50w (25gm) Syringe IV 50 ml PRN PRN Administration Hypoglycemia Enoxaparin Sodium 40 mg 06/11/19 22:00 06/18/19 22:36 Enoxaparin SUB-Q 40 mg QHS BRIDGETT Administration Famotidine 20 mg 06/11/19 10:00 06/19/19 09:56 Pepcid PO 20 mg DAILY BRIDGETT Administration Folic Acid 1 mg 06/15/19 16:00 06/19/19 09:56 Folvite PO 1 mg QDAY BRIDGETT Administration Hydralazine HCl 10 mg 06/17/19 17:06 06/19/19 06:22 Apresoline IV 10 mg Q4HR PRN Administration Hypertension Dobutamine HCl/Dextrose 500 mg in 250 mls @ 12.675 mls/hr 06/16/19 11:00 06/19/19 02:41 Dobutrex Drip 500mg/D5w 250ml IV 5 mcg/kg/min DIRECT BRIDGETT 12.675 mls/hr Administration Protocol 5 MCG/KG/MIN Insulin Human Lispro 0 unit 06/11/19 07:30 06/19/19 12:07 Humalog SUB-Q Not Given ACHS [facility] Protocol Multivitamins 1 each 06/15/19 16:00 06/19/19 09:56 Theragran Tab PO 1 each QDAY BRIDGETT Administration Thiamine HCl 100 mg 06/15/19 16:00 06/19/19 09:56 Vitamin B-1 PO 100 mg QDAY BRIDGETT Administration Nutrition/Malnutrition Assess - Dietary Evaluation Nutrition/Malnutrition Findings: Nutrition Notes Start: 06/17/19 14:43 Freq: Status: Active Protocol: Document 06/18/19 11:42 CC (Rec: 06/18/19 12:31 CC [id number]) Co-Sign 06/18/19 11:42 LM Nutrition Notes Initial or Follow up Assessment Current Diagnosis Decubitus(Pressure Ulcer), Diabetes,Hypertension, Hyperlipidemia Other Pertinent Diagnosis DVT, Encephalopathy, Hx drug abuse, edema of LE Current Diet Consistent CHO Labs/Tests BUN 24, A1c 6.6, Ca 7.9 Pertinent Medications Bumex Height 5 ft 5 in Weight 92.9 kg [place] Body Weight (kg) 61.81 BMI 34.0 Intake Prior to Admission Good Subjective/Other Information f/u for nutrition assement. Pt reported [employer] his appetite was good and has been good while in hospital. Pt reported no unintentional weight loss. Observed breakfast tray consumed 75%. Burn Absent Trauma Absent GI Symptoms None Food Allergy No Current % PO Good (75-100%) Minimum of two criteria No Fluid Accumulation Moderate to Severe (severe) #1 Nutrition Diagnosis Increased nutrient needs ( specify in comment below) Comments: protein Etiology wound healing As Evidenced by Signs and Symptoms wounds on both LE Is patient on ventilator? No Is Patient Ambulatory and/or Out of Bed No REE-([place]-confined to bed) 1950.564 Calculation Used for Recommendations [facility] Additional Notes PRO: 96-116g/ day (1.25-1.5g/ kg AdBW 77.36kg) Fluid restriction of 1500ml Nutrition Intervention Change Diet Order: continue current diet Add Supplement/Snack (indicate name/kcal Danny BID /protein ) Provides kCal: 190 Provides Protein (gm) 5 Goal #1 Meet at least 80% of energy and protein needs via po intake Goal #2 Wound healing Anticipated Discharge Needs: const CHO diet Follow-Up By: 06/21/19 Additional Comments F/U for PO and ONS intakes, need for additional ONS
[2019-06-19] MEDS: ENOXAPARIN 40 MG/0.4 ML INJ SUB-Q SCH (21:32)
[2019-06-20] MEDS: DOBUTamine/D5W 500 MG/250 ML 500 MG/250 ML BAG IV SCH ×2 (00:19→18:01)
[2019-06-20] MEDS: BUMETANIDE 2.5 MG/10 ML VIAL IV SCH ×2 (06:14→17:50)
[2019-06-20] MEDS: INSULIN LISPRO 100 UNIT/ML SUB-Q SCH ×4 (07:30→22:47)
--- NOTE | 2019-06-20 11:41 | Progress Note ---
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 Reviewed arterial study, the arterial s tudy is suggestive of arterial disease of the lower extremities with noncompressible ABIs. Despite tibial arterial disease, patient appears to be healing his wounds. Patient will need a follow-up with wound care to ensure healing of his wounds, and can follow-up with [facility] vascular [place] in 2 weeks to ensure that his wounds continue to heal. Continue aspirin. Subjective Date of service: 06/20/19 Principal diagnosis: AMS, hf Interval history: Wounds are improving of the feet. Nonpalpable pedal pulses. No complaints. Objective - Constitutional Vitals: Vital Signs - 12hr 06/20/19 06/20/19 04:30 07:32 Temperature 97.7 F 98.5 F Pulse Rate 81 41 L Respiratory 19 20 Rate Blood Pressure 177/87 Blood Pressure 160/91 [Left] O2 Sat by Pulse 98 98 Oximetry General appearance: Present: no acute distress - EENT Eyes: EOM intact ENT: hearing intact - Respiratory Respiratory effort: normal Extremities: no ischemia, normal temperature, normal color Extremity abnormal: pulses diminished - Psychiatric Psychiatric: appropriate mood/affect, cooperative - Labs CBC & Chem 7: 06/19/19 04:28 06/19/19 04:28 Labs: Abnormal lab results 06/19/19 06/20/19 Range/Units 16:58 08:32 POC Glucose 114 H 63 L (70-105) Medications & Allergies - Medications Allergies/Adverse Reactions: Allergies No Known Allergies Allergy (Verified 12/03/18 16:45) Home Medications: Home Medications Medication Instructions Recorded Confirmed Last Taken Type Aspirin [Aspirin BABY CHEW TAB] 81 mg PO QDAY 30 Days #30 tab.chew 12/07/18 06/10/19 06/09/19 Rx Carvedilol [Coreg] 12.5 mg PO BID 30 Days #60 tablet 12/07/18 06/10/19 06/09/19 Rx Lisinopril [Zestril TAB] 20 mg PO QDAY 30 Days #30 tablet 12/07/18 06/10/19 06/09/19 Rx Famotidine [Pepcid] 20 mg PO DAILY #30 tablet 12/24/18 06/10/19 06/09/19 Rx Linagliptin [Tradjenta] 5 mg PO QDAY #30 tablet 12/24/18 06/10/19 06/09/19 Rx cloNIDine [Catapres] 0.1 mg PO QHS #30 tablet 12/24/18 06/10/19 06/09/19 Rx hydrALAZINE [Apresoline TAB] 50 mg PO BID #60 tablet 12/24/18 06/10/19 06/09/19 Rx Furosemide [Lasix TAB] 40 mg PO DAILY 30 Days tablet 01/04/19 06/10/19 06/09/19 Rx Active Medications: Generic Name Dose Route Start Last Admin Trade Name Freq PRN Reason Stop Dose Admin Acetaminophen/Hydrocodone Bitart 1 each 06/16/19 03:12 06/19/19 01:51 [place] 5/325 PO 1 each Q4H PRN Administration Pain, Moderate (4-6) Aspirin 81 mg 06/11/19 10:00 06/19/19 09:56 Baby Aspirin PO 81 mg QDAY BRIDGETT Administration Bumetanide 1 mg 06/17/19 18:00 06/20/19 06:14 Bumex IV 1 mg 0600,1800 BRIDGETT Administration Carvedilol 6.25 mg 06/17/19 12:10 06/19/19 21:31 Coreg PO 6.25 mg BID BRIDGETT Administration Dextrose 50 ml 06/10/19 14:15 06/10/19 14:40 D50w (25gm) Syringe IV 50 ml PRN PRN Administration Hypoglycemia Enoxaparin Sodium 40 mg 06/11/19 22:00 06/19/19 21:32 Enoxaparin SUB-Q 40 mg QHS BRIDGETT Administration Famotidine 20 mg 06/11/19 10:00 06/19/19 09:56 Pepcid PO 20 mg DAILY BRIDGETT Administration Folic Acid 1 mg 06/15/19 16:00 06/19/19 09:56 Folvite PO 1 mg QDAY BRIDGETT Administration Hydralazine HCl 10 mg 06/17/19 17:06 06/19/19 06:22 Apresoline IV 10 mg Q4HR PRN Administration Hypertension Dobutamine HCl/Dextrose 500 mg in 250 mls @ 12.675 mls/hr 06/16/19 11:00 06/20/19 00:19 Dobutrex Drip 500mg/D5w 250ml IV 5 mcg/kg/min DIRECT BRIDGETT 12.675 mls/hr Administration Protocol 5 MCG/KG/MIN Insulin Human Lispro 0 unit 06/11/19 07:30 06/19/19 21:38 Humalog SUB-Q Not Given ACHS BRIDGETT Protocol Multivitamins 1 each 06/15/19 16:00 06/19/19 09:56 Theragran Tab PO 1 each QDAY BRIDGETT Administration Thiamine HCl 100 mg 06/15/19 16:00 06/19/19 09:56 Vitamin B-1 PO 100 mg QDAY BRIDGETT Administration
--- NOTE | 2019-06-20 12:18 | Progress Note ---
Assessment and Plan Assessment and plan: 68-year-old -Citizen Of [place] male was brought to the emergency department found on the floor of his home sitting in his feces. Last time patient was alert was 3 days ago. Patient had hypoglycemia. Medicine was given D50. Patient become alert and oriented. Patient complains shortness of breath and severely enlarged his scrotum and penis. Acute on chronic systolic HF with EF of 25-30% - mild improving, continue dobutamine drip per cardiology - Transfer to Tele - Chest x-ray showed prominent bronchovascular marking - Continue IV Bumex - BB INCREASED, MONITOR BRADYCARDIA Hypertensive urgency -Add hydralazin PER STAFF THIS MAY BE AN ERROR Metabolic Encephalopathy- Appears to be improving, ?Underlyine wernickie encphalopathy secondary to ETOH use. ETOH level not checked this admission -Continue on Thiamin, folate and MVI -Encouraged PT -Pt will benefit from placement. He is a high likelihood for readmission Bradycardia - Management per cardiology, PVC on Tele - Asymptomatic Acute Metabolic encephalopathy - likely due to hypoglycemia v cocaine abuse - Resolved Scrotal edema - ultrasound negative for acute findings - cont scrotal elevation - Outpatient Urology follow up Hypokalemia -resolved -now hyperkalemia -off Kcl, cont lasix -will monitor level HX OF DVT and lower ext wounds VASCULAR SAW PATIENT await vascular follow up considering finding of disease in the disstal super ficial femoral artery on Ultrasound Per Vascular: Reviewed arterial study, the arterial study is suggestive of arterial disease of the lower extremities with noncompressible ABIs. Despite tibial arterial disease, patient appears to be healing his wounds. Patient will need a follow-up with wound care to ensure healing of his wounds, and can follow-up with [facility] vascular [place] in 2 weeks to ensure that his wounds continue to heal. Continue aspirin. JAGRUTI- resolved -probably vasomotor nephropathy -Lasix dose reduced -monitor cr level Metabolic acidosis -stable, will monitor Hypertension -BP low normal -lisinopril dose reduced, monitor BP Cocaine abuse - Patient counseled on cessation DVT prophylaxis: lovenox Disposition: Stressed importance of rehab placement, he will consider. For Now needs aggressive diuresis and requiring initiation of dubotamin drip History Interval history: Patient seen and examined, much more awake, no new complaints. still with scrotal edema, some improvement, reports pain due to it and limiting his mobility Hospitalist Physical - Physical exam Narrative exam: General appearance: Present: no acute distress, well-nourished, reports debility - EENT Eyes: Present: PERRL, EOM intact ENT: hearing intact, clear oral mucosa - Neck Neck: Present: supple - Respiratory Respiratory effort: normal Respiratory: bilateral: diminished, negative: rales, wheezing - Cardiovascular Rhythm: regular (rhythm with bradycardia) Heart Sounds: Present: S1 & S2 - Extremities Extremity abnormal: edema (in Bilateral upper ext dependant edema and scrotal edema) - Abdominal General gastrointestinal: soft, non-tender, normal bowel sounds - Integumentary Integumentary: Present: multiple excoriated lesion on bilateral lower ext. Left knee with excoriated lesions and abrasion - Psychiatric Psychiatric: appropriate mood/affect, - Neurologic Neurologic: moves all extremities - Constitutional Vitals: Temp Pulse Resp BP Pulse Ox 98.6 F 92 H 18 120/86 98 06/20/19 11:44 06/20/19 11:44 06/20/19 11:44 06/20/19 11:44 06/20/19 11:44 General appearance: Present: no acute distress Results - Labs CBC & Chem 7: 06/19/19 04:28 06/19/19 04:28 Labs: Laboratory Last Values WBC 8.2 K/mm3 (4.5-11.0) 06/19/19 04:28 RBC 4.39 M/mm3 (3.65-5.03) 06/19/19 04:28 Hgb 11.0 gm/dl (11.8-15.2) L 06/19/19 04:28 Hct 33.6 % (35.5-45.6) L 06/19/19 04:28 MCV 77 fl (84-94) L 06/19/19 04:28 MCH 25 pg (28-32) L 06/19/19 04:28 MCHC 33 % (32-34) 06/19/19 04:28 RDW 15.9 % (13.2-15.2) H 06/19/19 04:28 Plt Count 221 K/mm3 (140-440) 06/19/19 04:28 Lymph % (Auto) 17.8 % (13.4-35.0) 06/10/19 13:24 [place] % (Auto) 7.0 % (0.0-7.3) 06/10/19 13:24 Eos % (Auto) 0.0 % (0.0-4.3) 06/10/19 13:24 Baso % (Auto) 0.9 % (0.0-1.8) 06/10/19 13:24 Lymph # 1.1 K/mm3 (1.2-5.4) L 06/10/19 13:24 [place] # 0.4 K/mm3 (0.0-0.8) 06/10/19 13:24 Eos # 0.0 K/mm3 (0.0-0.4) 06/10/19 13:24 Baso # 0.1 K/mm3 (0.0-0.1) 06/10/19 13:24 Seg Neutrophils % 74.3 % (40.0-70.0) H 06/10/19 13:24 Seg Neutrophils # 4.7 K/mm3 (1.8-7.7) 06/10/19 13:24 PT 14.7 Sec. (12.2-14.9) 06/11/19 16:28 INR 1.16 (0.87-1.13) H 06/11/19 16:28 APTT 32.9 Sec. (24.2-36.6) 06/10/19 13:24 Sodium 141 mmol/L (137-145) 06/19/19 04:28 Potassium 4.8 mmol/L (3.6-5.0) 06/19/19 04:28 Chloride 108.2 mmol/L (98-107) H 06/19/19 04:28 Carbon Dioxide 22 mmol/L (22-30) 06/19/19 04:28 Anion Gap 16 mmol/L 06/19/19 04:28 BUN 23 mg/dL (9-20) H 06/19/19 04:28 Creatinine 1.3 mg/dL (0.8-1.5) 06/19/19 04:28 Estimated GFR > 60 ml/min 06/19/19 04:28 BUN/Creatinine Ratio 18 % 06/19/19 04:28 Glucose 80 mg/dL (75-100) 06/19/19 04:28 POC Glucose 123 (70-105) H 06/20/19 11:45 Hemoglobin A1c 6.6 % (4-6) H 06/13/19 04:00 Lactic Acid 1.20 mmol/L (0.7-2.0) 06/10/19 13:24 Calcium 8.0 mg/dL (8.4-10.2) L 06/19/19 04:28 Magnesium 1.80 mg/dL (1.7-2.3) 06/10/19 16:08 Total Bilirubin 0.70 mg/dL (0.1-1.2) 06/10/19 13:24 AST 76 units/L (5-40) H 06/10/19 13:24 ALT 21 units/L (7-56) 06/10/19 13:24 Alkaline Phosphatase 70 units/L (35-129) 06/10/19 13:24 Total Creatine Kinase 2514 units/L (55-170) H 06/10/19 13:24 Troponin T 0.086 ng/mL (0.00-0.029) H 06/10/19 18:40 NT-Pro-B Natriuret Pep 12716 pg/mL (0-900) H 06/10/19 13:24 Total Protein 6.1 g/dL (6.3-8.2) L 06/10/19 13:24 Albumin 2.9 g/dL (3.9-5) L 06/10/19 13:24 Albumin/Globulin Ratio 0.9 % 06/10/19 13:24 Triglycerides 61 mg/dL (2-149) 06/10/19 13:24 Cholesterol 92 mg/dL (50-199) 06/10/19 13:24 LDL Cholesterol Direct 33 mg/dL (50-130) L 06/10/19 13:24 HDL Cholesterol 54 mg/dL (40-59) 06/10/19 13:24 Cholesterol/HDL Ratio 1.70 % 06/10/19 13:24 Urine Color [place] (Yellow) 06/10/19 22:50 Urine Turbidity Clear (Clear) 06/10/19 22:50 Urine pH 5.0 (5.0-7.0) 06/10/19 22:50 Ur Specific [place] 1.019 (1.003-1.030) 06/10/19 22:50 Urine Protein >500 mg/dL (Negative) 06/10/19 22:50 Urine Glucose (UA) Neg mg/dL (Negative) 06/10/19 22:50 Urine Ketones Neg mg/dL (Negative) 06/10/19 22:50 Urine Blood Lg (Negative) 06/10/19 22:50 Urine Nitrite Neg (Negative) 06/10/19 22:50 Urine Bilirubin Neg (Negative) 06/10/19 22:50 Urine Urobilinogen < 2.0 mg/dL (<2.0) 06/10/19 22:50 Ur Leukocyte Esterase Tr (Negative) 06/10/19 22:50 Urine WBC (Auto) 16.0 /HPF (0.0-6.0) H 06/10/19 22:50 Urine RBC (Auto) 7.0 /HPF (0.0-6.0) 06/10/19 22:50 U Epithel Cells (Auto) < 1.0 /HPF (0-13.0) 06/10/19 22:50 Urine Bacteria (Auto) 1+ /HPF (Negative) 06/10/19 22:50 Ur Yeast w Hyphae 1+ /HPF 06/10/19 22:50 Urine Yeast (Budding) Few /HPF 06/10/19 22:50 Urine Opiates Screen Presumptive negative 06/10/19 22:50 Urine Methadone Screen Presumptive negative 06/10/19 22:50 Ur Barbiturates Screen Presumptive negative 06/10/19 22:50 Ur Phencyclidine Scrn Presumptive negative 06/10/19 22:50 Ur Amphetamines Screen Presumptive negative 06/10/19 22:50 U Benzodiazepines Scrn Presumptive negative 06/10/19 22:50 Urine Cocaine Screen Presumptive positive 06/10/19 22:50 U Marijuana (THC) Screen Presumptive negative 06/10/19 22:50 Drugs of Abuse Note Disclamer 06/10/19 22:50 Active Medications - Current Medications Current Medications: Generic Name Dose Route Start Last Admin Trade Name Freq PRN Reason Stop Dose Admin Acetaminophen/Hydrocodone Bitart 1 each 06/16/19 03:12 06/19/19 01:51 [place] 5/325 PO 1 each Q4H PRN Administration Pain, Moderate (4-6) Aspirin 81 mg 06/11/19 10:00 06/19/19 09:56 Baby Aspirin PO 81 mg QDAY BRIDGETT Administration Bumetanide 1 mg 06/17/19 18:00 06/20/19 06:14 Bumex IV 1 mg 0600,1800 BRIDGETT Administration Carvedilol 6.25 mg 06/17/19 12:10 06/19/19 21:31 Coreg PO 6.25 mg BID BRIDGETT Administration Dextrose 50 ml 06/10/19 14:15 06/10/19 14:40 D50w (25gm) Syringe IV 50 ml PRN PRN Administration Hypoglycemia Enoxaparin Sodium 40 mg 06/11/19 22:00 06/19/19 21:32 Enoxaparin SUB-Q 40 mg QHS BRIDGETT Administration Famotidine 20 mg 06/11/19 10:00 06/19/19 09:56 Pepcid PO 20 mg DAILY BRIDGETT Administration Folic Acid 1 mg 06/15/19 16:00 06/19/19 09:56 Folvite PO 1 mg QDAY BRIDGETT Administration Hydralazine HCl 10 mg 06/17/19 17:06 06/19/19 06:22 Apresoline IV 10 mg Q4HR PRN Administration Hypertension Dobutamine HCl/Dextrose 500 mg in 250 mls @ 12.675 mls/hr 06/16/19 11:00 06/20/19 00:19 Dobutrex Drip 500mg/D5w 250ml IV 5 mcg/kg/min DIRECT BRIDGETT 12.675 mls/hr Administration Protocol 5 MCG/KG/MIN Insulin Human Lispro 0 unit 06/11/19 07:30 06/19/19 21:38 Humalog SUB-Q Not Given ACHS BRIDGETT Protocol Multivitamins 1 each 06/15/19 16:00 06/19/19 09:56 Theragran Tab PO 1 each QDAY BRIDGETT Administration Thiamine HCl 100 mg 06/15/19 16:00 06/19/19 09:56 Vitamin B-1 PO 100 mg QDAY BRIDGETT Administration Nutrition/Malnutrition Assess - Dietary Evaluation Nutrition/Malnutrition Findings: Nutrition Notes Start: 06/17/19 14:43 Freq: Status: Active Protocol: Document 06/18/19 11:42 CC (Rec: 06/18/19 12:31 CC [id number]) Co-Sign 06/18/19 11:42 LM Nutrition Notes Initial or Follow up Assessment Current Diagnosis Decubitus(Pressure Ulcer), Diabetes,Hypertension, Hyperlipidemia Other Pertinent Diagnosis DVT, Encephalopathy, Hx drug abuse, edema of LE Current Diet Consistent CHO Labs/Tests BUN 24, A1c 6.6, Ca 7.9 Pertinent Medications Bumex Height 5 ft 5 in Weight 92.9 kg [place] Body Weight (kg) 61.81 BMI 34.0 Intake Prior to Admission Good Subjective/Other Information f/u for nutrition assement. Pt reported [employer] his appetite was good and has been good while in hospital. Pt reported no unintentional weight loss. Observed breakfast tray consumed 75%. Burn Absent Trauma Absent GI Symptoms None Food Allergy No Current % PO Good (75-100%) Minimum of two criteria No Fluid Accumulation Moderate to Severe (severe) #1 Nutrition Diagnosis Increased nutrient needs ( specify in comment below) Comments: protein Etiology wound healing As Evidenced by Signs and Symptoms wounds on both LE Is patient on ventilator? No Is Patient Ambulatory and/or Out of Bed No REE-([facility]-confined to bed) 1950.564 Calculation Used for Recommendations [facility] Additional Notes PRO: 96-116g/ day (1.25-1.5g/ kg AdBW 77.36kg) Fluid restriction of 1500ml Nutrition Intervention Change Diet Order: continue current diet Add Supplement/Snack (indicate name/kcal Danny BID /protein ) Provides kCal: 190 Provides Protein (gm) 5 Goal #1 Meet at least 80% of energy and protein needs via po intake Goal #2 Wound healing Anticipated Discharge Needs: const CHO diet Follow-Up By: 06/21/19 Additional Comments F/U for PO and ONS intakes, need for additional ONS
--- NOTE | 2019-06-20 12:38 | Progress Note ---
Assessment and Plan Cardiac status is improving. Will obtain CXR in AM and consider discontinuation of dobutamine pending result. Continue current cardiac management for now. The patient was evaluated by Dr. Palencia, who developed the plan of care and performed the assessment. - Patient Problems (1) Acute HFrEF (heart failure with reduced ejection fraction) Current Visit: Yes Status: Acute (2) Fall Current Visit: Yes Status: Acute (3) History of CVA (cerebrovascular accident) Current Visit: Yes Status: Chronic (4) Cardiomyopathy Current Visit: Yes Status: Chronic (5) Elevated troponin Current Visit: Yes Status: Chronic (6) Medical non-compliance Current Visit: Yes Status: Chronic (7) Cocaine use Current Visit: Yes Status: Chronic (8) Dementia Current Visit: Yes Status: Chronic (9) HTN (hypertension) Current Visit: Yes Status: Chronic Qualifiers: Hypertension type: essential hypertension Qualified Code(s): I10 - Essential (primary) hypertension (10) PVCs (premature ventricular contractions) Current Visit: Yes Status: Chronic (11) RBBB Current Visit: Yes Status: Chronic (12) T2DM (type 2 diabetes mellitus) Current Visit: Yes Status: Chronic (13) Altered mental status Current Visit: Yes Status: Resolved Subjective Date of service: 06/20/19 Principal diagnosis: AMS, hf Interval history: The patient is lying in bed in NAD. He reports feeling much better. Remains on dobutamine drip. Objective Last Vital Signs Temp 98.6 F 06/20/19 11:44 Pulse 92 H 06/20/19 11:44 Resp 18 06/20/19 11:44 BP 120/86 06/20/19 11:44 Pulse Ox 98 06/20/19 11:44 - Physical Examination General: No Apparent Distress HEENT: Positive: PERRL, Normocephaly, Mucus Membranes Moist Neck: Positive: neck supple, trachea midline Cardiac: Positive: Reg Rate and Rhythm Lungs: Positive: Normal Exam Neuro: Positive: Grossly Intact Abdomen: Positive: Unremarkable, Other (edematous ). Negative: Tender /Rectal: Other (scrotal edema ) Skin: Negative: Rash Musculoskeletal: No Pain Extremities: Present: normal. Absent: edema - Imaging and Cardiology EKG: report reviewed, image reviewed Echo: report reviewed (05/2019:EF 10-15%, impaired relaxation, RV mildly dilated, RV systolic function mod reduced, mod TR, RVSP 41mmHg. 06/2018 showed EF 35-40%, mild LVH. 11/2018 showed EF 25-30%, mild LVH, RV mild to mod dilated, RA and LA mildly dilated, minimal pericardial effusion. ) - Telemetry EKG Rhythm: Sinus Rhythm - EKG Sinus rhythms and dysrhythmias: sinus rhythm Ventricular dysrhythmias: ventricular premature com AV and intraventricular conduction: right bundle branch block
[2019-06-20] MEDS: carvediloL 3.125 MG TAB PO SCH ×2 (13:13→22:45)
[2019-06-20] MEDS: THIAMINE 100 MG TAB PO SCH (13:17)
[2019-06-20] MEDS: FOLIC ACID 1 MG TAB PO SCH (13:17)
[2019-06-20] MEDS: HYDROcodone/ACETAMINOPHEN 5-325 MG TAB PO PRN (13:17)
[2019-06-20] MEDS: FAMOTIDINE 20 MG TAB PO SCH (13:17)
[2019-06-20] MEDS: MULTIVITAMINS ,THERAPEUTIC TAB PO SCH (13:19)
[2019-06-20] MEDS: ASPIRIN 81 MG TAB CHEW PO SCH (13:30)
[2019-06-20] MEDS: ENOXAPARIN 40 MG/0.4 ML INJ SUB-Q SCH (22:46)
--- NOTE | 2019-06-21 00:47 | XRay Report ---
CHEST 1 VIEW 06/21/2019 12:17 AM INDICATION / CLINICAL INFORMATION: Evaluate CHF. COMPARISON: 06/10/19 FINDINGS: SUPPORT DEVICES: None. HEART / MEDIASTINUM: Heart is mildly enlarged but stable. LUNGS / PLEURA: No significant pulmonary or pleural abnormality. No pneumothorax. ADDITIONAL FINDINGS: No significant additional findings. IMPRESSION: 1. Mild cardiomegaly but no acute pulmonary or pleural findings. Signer Name: Boris Sanford MD Signed: 06/21/2019 12:43 AM Workstation Name: [id number]
[2019-06-21] MEDS: BUMETANIDE 2.5 MG/10 ML VIAL IV SCH ×2 (06:20→17:36)
[2019-06-21] MEDS: INSULIN LISPRO 100 UNIT/ML SUB-Q SCH ×4 (08:28→22:02)
[2019-06-21] MEDS: FAMOTIDINE 20 MG TAB PO SCH (10:03)
[2019-06-21] MEDS: THIAMINE 100 MG TAB PO SCH (10:03)
[2019-06-21] MEDS: ASPIRIN 81 MG TAB CHEW PO SCH (10:03)
[2019-06-21] MEDS: FOLIC ACID 1 MG TAB PO SCH (10:03)
[2019-06-21] MEDS: MULTIVITAMINS ,THERAPEUTIC TAB PO SCH (10:03)
[2019-06-21] MEDS: carvediloL 3.125 MG TAB PO SCH ×2 (10:08→22:01)
--- NOTE | 2019-06-21 11:29 | Progress Note ---
Assessment and Plan D/c dobutamine in setting of freq PVCs and NSVT. Obtain BMP and serum Mg. Cont coreg and initiate low dose lisinopril. Pt does not appear to be a good candidate for LifeVest or AICD at this time given history of noncompliance and cocaine use. Will plan to reevaluate candidacy as OP. Cont 1500mL fluid restriction, daily weights and strict I&Os. The patient has been seen in conjunction with Dr. Zee who agrees with the assessment and plan of care. - Patient Problems (1) Altered mental status Current Visit: Yes Status: Resolved (2) Acute HFrEF (heart failure with reduced ejection fraction) Current Visit: Yes Status: Acute (3) Cardiomyopathy Current Visit: Yes Status: Chronic Plan to address problem: Echo reviewed - EF 10-15%, impaired relaxation, RV mildly dilated, RV systolic function mod reduced, mod TR, RVSP 41mmHg. Lexiscan MPI stress test done 12/2018 showed small mild reversible inferior defect, EF 22%. (4) HTN (hypertension) Current Visit: Yes Status: Chronic Qualifiers: Hypertension type: essential hypertension Qualified Code(s): I10 - Essential (primary) hypertension (5) T2DM (type 2 diabetes mellitus) Current Visit: Yes Status: Chronic (6) HLD (hyperlipidemia) Current Visit: Yes Status: Chronic (7) PVCs (premature ventricular contractions) Current Visit: Yes Status: Chronic (8) RBBB Current Visit: Yes Status: Chronic (9) Dementia Current Visit: Yes Status: Chronic (10) Elevated troponin Current Visit: Yes Status: Chronic (11) Elevated CK Current Visit: Yes Status: Acute (12) History of CVA (cerebrovascular accident) Current Visit: Yes Status: Chronic (13) Medical non-compliance Current Visit: Yes Status: Chronic (14) Cocaine use Current Visit: Yes Status: Chronic Subjective Date of service: 06/21/19 Principal diagnosis: AMS, hf Interval history: pt resting in bed, states he is feeling a little better today. BLE nearly resolved, scrotal edema improving. tele reviewed - in SR with freq PVCs and 10 beat run NSVT this AM while ambulating to bathroom, dobutamine gtt infusing. Objective Last Vital Signs Temp 98.2 F 06/21/19 03:33 Pulse 81 06/21/19 10:08 Resp 18 06/21/19 03:33 BP 114/83 11/04/19 10:08 Pulse Ox 96 06/21/19 03:33 - Physical Examination General: No Apparent Distress HEENT: Positive: PERRL, Normocephaly, Mucus Membranes Moist Neck: Positive: neck supple, trachea midline Cardiac: Positive: Reg Rate and Rhythm, S1/S2 Lungs: Positive: Decreased Breath Sounds Neuro: Positive: Grossly Intact Abdomen: Positive: Unremarkable, Other (edematous ). Negative: Tender /Rectal: Other (scrotal edema ) Skin: Negative: Rash Musculoskeletal: No Pain Extremities: Present: normal. Absent: edema - Imaging and Cardiology EKG: report reviewed, image reviewed Echo: report reviewed (05/2019:EF 10-15%, impaired relaxation, RV mildly dilated, RV systolic function mod reduced, mod TR, RVSP 41mmHg. 06/2018 showed EF 35-40%, mild LVH. 11/2018 showed EF 25-30%, mild LVH, RV mild to mod dilated, RA and LA mildly dilated, minimal pericardial effusion. ) - Telemetry EKG Rhythm: Sinus Rhythm - EKG Sinus rhythms and dysrhythmias: sinus rhythm Ventricular dysrhythmias: ventricular premature com AV and intraventricular conduction: right bundle branch block
[2019-06-21 12:54] LABS: BUN/Creatinine Ratio 24; Blood Urea Nitrogen 31 mg/dL (9-20); Calcium 7.9 mg/dL (8.4-10.2); Hemolysis Index 5
--- NOTE | 2019-06-21 17:23 | Progress Note ---
Assessment and Plan Assessment and plan: 68-year-old -[place] male was brought to the emergency department found on the floor of his home sitting in his feces. Last time patient was alert was 3 days ago. Patient had hypoglycemia. Medicine was given D50. Patient become alert and oriented. Patient complains shortness of breath and severely enlarged his scrotum and penis. Acute on chronic systolic HF with EF of 25-30% - mild improving, continue dobutamine drip per cardiology- now discontinued, -monitor Overnight and check Labs due to run of NSVT -Pt does not appear to be a good candidate for LifeVest or AICD at this time given history of noncompliance and cocaine use. Will plan to reevaluate candidacy as OP. Cont 1500mL fluid restriction, daily weights and strict I&Os. 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 ETOH level not checked this admission -Continue on Thiamin, folate and MVI -Encouraged PT -Pt will benefit from placement. He is a high likelihood for readmission Bradycardia - Management per cardiology, PVC on Tele - Asymptomatic Scrotal edema - ultrasound negative for acute findings - cont scrotal elevation - Outpatient Urology follow up Hypokalemia -resolved -now hyperkalemia -off Kcl, cont lasix -will monitor level HX OF DVT and lower ext wounds VASCULAR SAW PATIENT await vascular follow up considering finding of disease in the disstal superficial femoral artery on Ultrasound Per Vascular: Reviewed arterial study, the arterial study is suggestive of arterial disease of the lower extremities with noncompressible ABIs. Despite tibial arterial disease, patient appears to be healing his wounds. Patient will need a follow-up with wound care to ensure healing of his wounds, and can follow-up with [facility] vascular [place] in 2 weeks to ensure that his wounds continue to heal. Continue aspirin. JAGRUTI- resolved -probably vasomotor nephropathy -Lasix dose reduced -monitor cr level Metabolic acidosis -stable, will monitor Hypertension -BP low normal -lisinopril dose reduced, monitor BP Cocaine abuse - Patient counseled on cessation DVT prophylaxis: lovenox Disposition: Stressed importance of rehab placement, he will consider. anticipate discharge in am History Interval history: Patient seen and examined, much more awake, no new complaints. still with scrotal edema, some improvement, reports pain due to it and limiting his mobility. per nursing staff, had 10 beats of NSVT today, PATIENT WAS ASYMPTOMATIC Hospitalist Physical - Physical exam Narrative exam: General appearance: Present: no acute distress, well-nourished, reports debility - EENT Eyes: Present: PERRL, EOM intact ENT: hearing intact, clear oral mucosa - Neck Neck: Present: supple - Respiratory Respiratory effort: normal Respiratory: bilateral: diminished, negative: rales, wheezing - Cardiovascular Rhythm: regular (rhythm with bradycardia) Heart Sounds: Present: S1 & S2 - Extremities Extremity abnormal: edema (in Bilateral upper ext dependant edema and scrotal edema-IMPROVING) - Abdominal General gastrointestinal: soft, non-tender, normal bowel sounds - Integumentary Integumentary: Present: multiple excoriated lesion on bilateral lower ext. Left knee with excoriated lesions and abrasion - Psychiatric Psychiatric: appropriate mood/affect, - Neurologic Neurologic: moves all extremities - Constitutional Vitals: Temp Pulse Resp BP Pulse Ox 98.2 F 81 18 114/83 96 06/21/19 03:33 06/21/19 10:08 06/21/19 10:00 06/21/19 10:08 06/21/19 03:33 General appearance: Present: no acute distress Results - Labs CBC & Chem 7: 06/19/19 04:28 06/21/19 12:12 Labs: Laboratory Last Values WBC 8.2 K/mm3 (4.5-11.0) 06/19/19 04:28 RBC 4.39 M/mm3 (3.65-5.03) 06/19/19 04:28 Hgb 11.0 gm/dl (11.8-15.2) L 06/19/19 04:28 Hct 33.6 % (35.5-45.6) L 06/19/19 04:28 MCV 77 fl (84-94) L 06/19/19 04:28 MCH 25 pg (28-32) L 06/19/19 04:28 MCHC 33 % (32-34) 06/19/19 04:28 RDW 15.9 % (13.2-15.2) H 06/19/19 04:28 Plt Count 221 K/mm3 (140-440) 06/19/19 04:28 Lymph % (Auto) 17.8 % (13.4-35.0) 06/10/19 13:24 [place] % (Auto) 7.0 % (0.0-7.3) 06/10/19 13:24 Eos % (Auto) 0.0 % (0.0-4.3) 06/10/19 13:24 Baso % (Auto) 0.9 % (0.0-1.8) 06/10/19 13:24 Lymph # 1.1 K/mm3 (1.2-5.4) L 06/10/19 13:24 [place]arton # 0.4 K/mm3 (0.0-0.8) 06/10/19 13:24 Eos # 0.0 K/mm3 (0.0-0.4) 06/10/19 13:24 Baso # 0.1 K/mm3 (0.0-0.1) 06/10/19 13:24 Seg Neutrophils % 74.3 % (40.0-70.0) H 06/10/19 13:24 Seg Neutrophils # 4.7 K/mm3 (1.8-7.7) 06/10/19 13:24 PT 14.7 Sec. (12.2-14.9) 06/11/19 16:28 INR 1.16 (0.87-1.13) H 06/11/19 16:28 APTT 32.9 Sec. (24.2-36.6) 06/10/19 13:24 Sodium 137 mmol/L (137-145) 06/21/19 12:12 Potassium 4.7 mmol/L (3.6-5.0) 06/21/19 12:12 Chloride 103.2 mmol/L (98-107) 06/21/19 12:12 Carbon Dioxide 23 mmol/L (22-30) 06/21/19 12:12 Anion Gap 16 mmol/L 06/21/19 12:12 BUN 31 mg/dL (9-20) H 06/21/19 12:12 Creatinine 1.3 mg/dL (0.8-1.5) 06/21/19 12:12 Estimated GFR > 60 ml/min 06/21/19 12:12 BUN/Creatinine Ratio 24 % 06/21/19 12:12 Glucose 108 mg/dL (75-100) H 06/21/19 12:12 POC Glucose 210 (70-105) H 06/21/19 15:54 Hemoglobin A1c 6.6 % (4-6) H 06/13/19 04:00 Lactic Acid 1.20 mmol/L (0.7-2.0) 06/10/19 13:24 Calcium 7.9 mg/dL (8.4-10.2) L 06/21/19 12:12 Magnesium 1.90 mg/dL (1.7-2.3) 06/21/19 12:12 Total Bilirubin 0.70 mg/dL (0.1-1.2) 06/10/19 13:24 AST 76 units/L (5-40) H 06/10/19 13:24 ALT 21 units/L (7-56) 06/10/19 13:24 Alkaline Phosphatase 70 units/L (35-129) 06/10/19 13:24 Total Creatine Kinase 2514 units/L (55-170) H 06/10/19 13:24 Troponin T 0.086 ng/mL (0.00-0.029) H 06/10/19 18:40 NT-Pro-B Natriuret Pep 41311 pg/mL (0-900) H 06/10/19 13:24 Total Protein 6.1 g/dL (6.3-8.2) L 06/10/19 13:24 Albumin 2.9 g/dL (3.9-5) L 06/10/19 13:24 Albumin/Globulin Ratio 0.9 % 06/10/19 13:24 Triglycerides 61 mg/dL (2-149) 06/10/19 13:24 Cholesterol 92 mg/dL (50-199) 06/10/19 13:24 LDL Cholesterol Direct 33 mg/dL (50-130) L 06/10/19 13:24 HDL Cholesterol 54 mg/dL (40-59) 06/10/19 13:24 Cholesterol/HDL Ratio 1.70 % 06/10/19 13:24 Urine Color Iqra (Yellow) 06/10/19 22:50 Urine Turbidity Clear (Clear) 06/10/19 22:50 Urine pH 5.0 (5.0-7.0) 06/10/19 22:50 Ur Specific [place] 1.019 (1.003-1.030) 06/10/19 22:50 Urine Protein >500 mg/dL (Negative) 06/10/19 22:50 Urine Glucose (UA) Neg mg/dL (Negative) 06/10/19 22:50 Urine Ketones Neg mg/dL (Negative) 06/10/19 22:50 Urine Blood Lg (Negative) 06/10/19 22:50 Urine Nitrite Neg (Negative) 06/10/19 22:50 Urine Bilirubin Neg (Negative) 06/10/19 22:50 Urine Urobilinogen < 2.0 mg/dL (<2.0) 06/10/19 22:50 Ur Leukocyte Esterase Tr (Negative) 06/10/19 22:50 Urine WBC (Auto) 16.0 /HPF (0.0-6.0) H 06/10/19 22:50 Urine RBC (Auto) 7.0 /HPF (0.0-6.0) 06/10/19 22:50 U Epithel Cells (Auto) < 1.0 /HPF (0-13.0) 06/10/19 22:50 Urine Bacteria (Auto) 1+ /HPF (Negative) 06/10/19 22:50 Ur Yeast w Hyphae 1+ /HPF 06/10/19 22:50 Urine Yeast (Budding) Few /HPF 06/10/19 22:50 Urine Opiates Screen Presumptive negative 06/10/19 22:50 Urine Methadone Screen Presumptive negative 06/10/19 22:50 Ur Barbiturates Screen Presumptive negative 06/10/19 22:50 Ur Phencyclidine Scrn Presumptive negative 06/10/19 22:50 Ur Amphetamines Screen Presumptive negative 06/10/19 22:50 U Benzodiazepines Scrn Presumptive negative 06/10/19 22:50 Urine Cocaine Screen Presumptive positive 06/10/19 22:50 U Marijuana (THC) Screen Presumptive negative 06/10/19 22:50 Drugs of Abuse Note Disclamer 06/10/19 22:50 Active Medications - Current Medications Current Medications: Generic Name Dose Route Start Last Admin Trade Name Freq PRN Reason Stop Dose Admin Acetaminophen/Hydrocodone Bitart 1 each 06/16/19 03:12 06/20/19 13:17 Elizabeth 5/325 PO 1 each Q4H PRN Administration Pain, Moderate (4-6) Aspirin 81 mg 06/11/19 10:00 06/21/19 10:03 Baby Aspirin PO 81 mg QDAY BRIDGETT Administration Bumetanide 1 mg 06/17/19 18:00 06/21/19 06:20 Bumex IV 1 mg 0600,1800 BRIDGETT Administration Carvedilol 6.25 mg 06/17/19 12:10 06/21/19 10:08 Coreg PO 6.25 mg BID BRIDGETT Administration Dextrose 50 ml 06/10/19 14:15 06/10/19 14:40 D50w (25gm) Syringe IV 50 ml PRN PRN Administration Hypoglycemia Enoxaparin Sodium 40 mg 06/11/19 22:00 06/20/19 22:46 Enoxaparin SUB-Q 40 mg QHS BRIDGETT Administration Famotidine 20 mg 06/11/19 10:00 06/21/19 10:03 Pepcid PO 20 mg DAILY BRIDGETT Administration Folic Acid 1 mg 06/15/19 16:00 06/21/19 10:03 Folvite PO 1 mg QDAY BRIDGETT Administration Hydralazine HCl 10 mg 06/17/19 17:06 06/19/19 06:22 Apresoline IV 10 mg Q4HR PRN Administration Hypertension Insulin Human Lispro 0 unit 06/11/19 07:30 06/21/19 12:30 Humalog SUB-Q Not Given ACHS [facility] Protocol Lisinopril 5 mg 06/22/19 10:00 Zestril PO QDAY [facility] Multivitamins 1 each 06/15/19 16:00 06/21/19 10:03 Theragran Tab PO 1 each QDAY [facility] Administration Thiamine HCl 100 mg 06/15/19 16:00 06/21/19 10:03 Vitamin B-1 PO 100 mg QDAY BRIDGETT Administration Nutrition/Malnutrition Assess - Dietary Evaluation Nutrition/Malnutrition Findings: Nutrition Notes Start: 06/17/19 14:43 Freq: Status: Active Protocol: Document 06/21/19 16:04 OH (Rec: 06/21/19 16:07 OH [id number]) Nutrition Notes Initial or Follow up Brief Note Current Diet Consistent CHO Labs/Tests Reviewed Pertinent Medications Reviewed Height 5 ft 5 in Weight 93.1 kg [place] Body Weight (kg) 61.81 BMI 34.1 Subjective/Other Information Pt. in room w/lunch tray at bedside. Pt. reports he has a great appetite and is requesting additional food. He states no issues w/chewing/ swallowing. He is getting Danny bid and taking as prescribed. Percent of energy/protein needs met: 100/100% GI Symptoms None Current % PO Good (75-100%) Minimum of two criteria No Is patient on ventilator? No Is Patient Ambulatory and/or Out of Bed No REE-([facility]-confined to bed) Calculation Used for Recommendations [facility] Additional Notes PRO: 96-116g/ day (1.25-1.5g/ kg AdBW 77.36kg) Fluid restriction of 1500ml Nutrition Intervention Change Diet Order: continue current diet Add Supplement/Snack (indicate name/kcal Danny BID /protein ) Provides kCal: 190 Provides Protein (gm) 5 Teaching Recipient Patient Teaching Methods Discussion Response to Teaching Verbalize understanding Education Handouts Provided Spoke w/pt regarding diabetes and ESRD. Pt. verbalized he was managing his diabetes adequately and he is aware of the relationship. Revisit per MD consult or patient Sign Off request:
[2019-06-21] MEDS: ENOXAPARIN 40 MG/0.4 ML INJ SUB-Q SCH (22:04)
[2019-06-22] MEDS: BUMETANIDE 2.5 MG/10 ML VIAL IV SCH ×2 (06:01→18:59)
[2019-06-22] MEDS ORDERED: DEXTROSE 50% IN WATER (25GM) 50 ML SYRINGE IV PRN (10:00)
[2019-06-22] MEDS: FOLIC ACID 1 MG TAB PO SCH (10:26)
[2019-06-22] MEDS: LISINOPRIL 5 MG TAB PO SCH (10:27)
[2019-06-22] MEDS: FAMOTIDINE 20 MG TAB PO SCH (10:27)
[2019-06-22] MEDS: MULTIVITAMINS ,THERAPEUTIC TAB PO SCH (10:27)
[2019-06-22] MEDS: THIAMINE 100 MG TAB PO SCH (10:27)
[2019-06-22] MEDS: ASPIRIN 81 MG TAB CHEW PO SCH (10:27)
--- NOTE | 2019-06-22 10:59 | Progress Note ---
Assessment and Plan Cont IV bumex and initiate zaroxolyn today. Cont coreg and lisinopril. Pt does not appear to be a good candidate for LifeVest or AICD at this time given history of noncompliance and cocaine use. Will plan to reevaluate candidacy as OP. Cont 1500mL fluid restriction, daily weights and strict I&Os. The patient has been seen in conjunction with Dr. Zee who agrees with the assessment and plan of care. - Patient Problems (1) Altered mental status Current Visit: Yes Status: Resolved (2) Acute HFrEF (heart failure with reduced ejection fraction) Current Visit: Yes Status: Acute (3) Cardiomyopathy Current Visit: Yes Status: Chronic (4) HTN (hypertension) Current Visit: Yes Status: Chronic Qualifiers: Hypertension type: essential hypertension Qualified Code(s): I10 - Essential (primary) hypertension (5) T2DM (type 2 diabetes mellitus) Current Visit: Yes Status: Chronic (6) HLD (hyperlipidemia) Current Visit: Yes Status: Chronic (7) PVCs (premature ventricular contractions) Current Visit: Yes Status: Chronic (8) RBBB Current Visit: Yes Status: Chronic (9) Dementia Current Visit: Yes Status: Chronic (10) Elevated troponin Current Visit: Yes Status: Chronic (11) Elevated CK Current Visit: Yes Status: Acute (12) History of CVA (cerebrovascular accident) Current Visit: Yes Status: Chronic (13) Medical non-compliance Current Visit: Yes Status: Chronic (14) Cocaine use Current Visit: Yes Status: Chronic Subjective Date of service: 06/22/19 Principal diagnosis: AMS, hf Interval history: pt resting in bed, states he is feeling a little better today. BLE nearly resolved, scrotal edema improving. tele reviewed - in SR with infrequent PVCs overnight. Objective Last Vital Signs Temp 98.0 F 06/22/19 08:05 Pulse 53 L 06/22/19 03:33 Resp 18 06/22/19 08:05 BP 136/64 06/22/19 08:05 Pulse Ox 95 06/22/19 03:33 - Physical Examination General: No Apparent Distress HEENT: Positive: PERRL, Normocephaly, Mucus Membranes Moist Neck: Positive: neck supple, trachea midline Cardiac: Positive: Reg Rate and Rhythm, S1/S2 Lungs: Positive: Decreased Breath Sounds Neuro: Positive: Grossly Intact Abdomen: Positive: Unremarkable, Other (edematous ). Negative: Tender /Rectal: Other (scrotal edema ) Skin: Negative: Rash Musculoskeletal: No Pain Extremities: Present: normal. Absent: edema - Labs and Meds Comprehensive Metabolic Panel 06/21/19 Range/Units 12:12 Sodium 137 (137-145) mmol/L Potassium 4.7 (3.6-5.0) mmol/L Chloride 103.2 (98-107) mmol/L Carbon Dioxide 23 (22-30) mmol/L BUN 31 H (9-20) mg/dL Creatinine 1.3 (0.8-1.5) mg/dL Glucose 108 H (75-100) mg/dL Calcium 7.9 L (8.4-10.2) mg/dL - Imaging and Cardiology EKG: report reviewed, image reviewed Echo: report reviewed (05/2019:EF 10-15%, impaired relaxation, RV mildly dilated, RV systolic function mod reduced, mod TR, RVSP 41mmHg. 06/2018 showed EF 35-40%, mild LVH. 11/2018 showed EF 25-30%, mild LVH, RV mild to mod dilated, RA and LA mildly dilated, minimal pericardial effusion. ) - EKG Sinus rhythms and dysrhythmias: sinus rhythm Ventricular dysrhythmias: ventricular premature com AV and intraventricular conduction: right bundle branch block
--- NOTE | 2019-06-22 12:12 | Progress Note ---
Assessment and Plan Assessment and plan: Patient is a 68 yo AA man with a past medical history of HFrEF, BPH, CMP, HTN, NIDDM, HLP, RBBB, dementia and noncompliance who [facility]. Apparently the fire department found pt lying on the floor in his own feces at his home. He c/o SOB and scrotal edema. UDS on admission was positive for Cocaine. Pt does not appear to be a good candidate for LifeVest or AICD at this time given history of noncompliance and cocaine use per Cardiology * pCXR IMPRESSION: 1. Persistent prominent bronchovascular markings as compared to previous exam. * Scrotal Ultrasound IMPRESSION: 1. Nonspecific marked scrotal wall edema and moderate size bilateral hydroceles. 2. Bilateral benign testicular [place] rolithiasis. 3. No signs of orchitis or epididymitis. 4. No mass. 5. No signs of testicular torsion. * TITA Right TITA: .56. Left TITA: .35. IMPRESSION: 1. Based upon waveforms there is evidence of disease in the distal superficial femoral artery and in the runoff vessels on the right. On the left base waveforms distal superficial femoral artery popliteal and runoff vessels. * CT head without contrast IMPRESSION: 1. No evidence of acute infarct or hemorrhage. 2. A late subacute (after 72 hours) left parietal lobe nonhemorrhagic infarct is new since 07/13/2018. 3. Moderate chronic white matter microangiopathy. 4. Mild chronic cortical atrophy. * TTE 06/14/19 Conclusions: Est EF 10-15%, abnormal LV diastolic filling c/w impaired relaxation, RVSF moderately reduced, RVSP calculated at 41 mmHg, t race MR, moderate TR, trace [place], trivial pericardial effusion, large pleural effusion. * Echo done 06/2018 showed EF 35-40%, mild LVH. * Lexiscan MPI stress test done 12/2018 showed small mild reversible inferior defect, EF 22%. Medical management was recommended. Acute on chronic systolic HF with EF now 10-15% now: continue to diuresis, add Zaroxlyn, d/w Cardiology, Cont 1500mL fluid restriction, daily weights and strict I&Os. Acute toxic metabolic encephalopathy, poa with Cocaine in UDS: counseling done Hypertensive urgency-Add hydralazin Bradycardia- Management per cardiology, PVC on Tele, - Asymptomatic Scrotal edema related to heart failure- ultrasound negative for acute findings, - cont scrotal elevation Hypokalemia -resolved-will monitor level PAD: Vascular surgereon consulted, input noted, outpatient follow up HX OF DVT and lower ext wounds, Continue to treat with aspirin. JAGRUTI- resolved -probably vasomotor nephropathy, -Lasix dose reduced, -monitor cr level Metabolic acidosis-stable, will monitor Cocaine abuse - Patient counseled on cessation DVT prophylaxis: lovenox Disposition: continue inpatient, d/c once cleared by Cardiology, not ready for discharge and no need for Ischemic evaluation, per Dr. Zee, History Interval history: Patient was seen and examined. Follow-up on current diagnosis of CHF. No overnight events reported to me. Patient denies any chest pain, shortness breath, nausea/vomiting or severe headaches. Imaging, nursing note, chart, labs and old chart reviewed. Discussed with patient. Hospitalist Physical - Physical exam Narrative exam: Gen: WDWN, NAD, Awake, Alert, Orientated x 2 HEENT: NCAT, EOMI, PERRL, OP Clear Neck: supple, no adenopathy, no thyromegaly, no JVD CVS/Heart: RRR, normal S1S2, pulses present bilaterally Chest/Lungs: diminished bs bilateral, Symmetrical chest expansion, good air entry bilaterally GI/Abdomen: soft, NTND, good bowel sounds, no guarding or rebound /Bladder: scrotal edema Extermity/Skin: ble edema, no obvious rash MSK: FROM x 4 Neuro: CN 2-12 grossly intact, no new focal deficits Psych: calm - Constitutional Vitals: Temp Pulse Resp BP Pulse Ox 98.0 F 53 L 18 136/64 95 06/22/19 08:05 06/22/19 03:33 06/22/19 08:05 06/22/19 08:05 06/22/19 03:33 General appearance: Present: no acute distress Results - Labs CBC & Chem 7: 06/19/19 04:28 06/21/19 12:12 Labs: Laboratory Last Values WBC 8.2 K/mm3 (4.5-11.0) 06/19/19 04:28 RBC 4.39 M/mm3 (3.65-5.03) 06/19/19 04:28 Hgb 11.0 gm/dl (11.8-15.2) L 06/19/19 04:28 Hct 33.6 % (35.5-45.6) L 06/19/19 04:28 MCV 77 fl (84-94) L 06/19/19 04:28 MCH 25 pg (28-32) L 06/19/19 04:28 MCHC 33 % (32-34) 06/19/19 04:28 RDW 15.9 % (13.2-15.2) H 06/19/19 04:28 Plt Count 221 K/mm3 (140-440) 06/19/19 04:28 Lymph % (Auto) 17.8 % (13.4-35.0) 06/10/19 13:24 [place] % (Auto) 7.0 % (0.0-7.3) 06/10/19 13:24 Eos % (Auto) 0.0 % (0.0-4.3) 06/10/19 13:24 Baso % (Auto) 0.9 % (0.0-1.8) 06/10/19 13:24 Lymph # 1.1 K/mm3 (1.2-5.4) L 06/10/19 13:24 [place] # 0.4 K/mm3 (0.0-0.8) 06/10/19 13:24 Eos # 0.0 K/mm3 (0.0-0.4) 06/10/19 13:24 Baso # 0.1 K/mm3 (0.0-0.1) 06/10/19 13:24 Seg Neutrophils % 74.3 % (40.0-70.0) H 06/10/19 13:24 Seg Neutrophils # 4.7 K/mm3 (1.8-7.7) 06/10/19 13:24 PT 14.7 Sec. (12.2-14.9) 06/11/19 16:28 INR 1.16 (0.87-1.13) H 06/11/19 16:28 APTT 32.9 Sec. (24.2-36.6) 06/10/19 13:24 Sodium 137 mmol/L (137-145) 06/21/19 12:12 Potassium 4.7 mmol/L (3.6-5.0) 06/21/19 12:12 Chloride 103.2 mmol/L (98-107) 06/21/19 12:12 Carbon Dioxide 23 mmol/L (22-30) 06/21/19 12:12 Anion Gap 16 mmol/L 06/21/19 12:12 BUN 31 mg/dL (9-20) H 06/21/19 12:12 Creatinine 1.3 mg/dL (0.8-1.5) 06/21/19 12:12 Estimated GFR > 60 ml/min 06/21/19 12:12 BUN/Creatinine Ratio 24 % 06/21/19 12:12 Glucose 108 mg/dL (75-100) H 06/21/19 12:12 POC Glucose 139 (70-105) H 06/22/19 11:46 Hemoglobin A1c 6.6 % (4-6) H 06/13/19 04:00 Lactic Acid 1.20 mmol/L (0.7-2.0) 06/10/19 13:24 Calcium 7.9 mg/dL (8.4-10.2) L 06/21/19 12:12 Magnesium 1.90 mg/dL (1.7-2.3) 06/21/19 12:12 Total Bilirubin 0.70 mg/dL (0.1-1.2) 06/10/19 13:24 AST 76 units/L (5-40) H 06/10/19 13:24 ALT 21 units/L (7-56) 06/10/19 13:24 Alkaline Phosphatase 70 units/L (35-129) 06/10/19 13:24 Total Creatine Kinase 2514 units/L (55-170) H 06/10/19 13:24 Troponin T 0.086 ng/mL (0.00-0.029) H 06/10/19 18:40 NT-Pro-B Natriuret Pep 38739 pg/mL (0-900) H 06/10/19 13:24 Total Protein 6.1 g/dL (6.3-8.2) L 06/10/19 13:24 Albumin 2.9 g/dL (3.9-5) L 06/10/19 13:24 Albumin/Globulin Ratio 0.9 % 06/10/19 13:24 Triglycerides 61 mg/dL (2-149) 06/10/19 13:24 Cholesterol 92 mg/dL (50-199) 06/10/19 13:24 LDL Cholesterol Direct 33 mg/dL (50-130) L 06/10/19 13:24 HDL Cholesterol 54 mg/dL (40-59) 06/10/19 13:24 Cholesterol/HDL Ratio 1.70 % 06/10/19 13:24 Urine Color Iqra (Yellow) 06/10/19 22:50 Urine Turbidity Clear (Clear) 06/10/19 22:50 Urine pH 5.0 (5.0-7.0) 06/10/19 22:50 Ur Specific [place] 1.019 (1.003-1.030) 06/10/19 22:50 Urine Protein >500 mg/dL (Negative) 06/10/19 22:50 Urine Glucose (UA) Neg mg/dL (Negative) 06/10/19 22:50 Urine Ketones Neg mg/dL (Negative) 06/10/19 22:50 Urine Blood Lg (Negative) 06/10/19 22:50 Urine Nitrite Neg (Negative) 06/10/19 22:50 Urine Bilirubin Neg (Negative) 06/10/19 22:50 Urine Urobilinogen < 2.0 mg/dL (<2.0) 06/10/19 22:50 Ur Leukocyte Esterase Tr (Negative) 06/10/19 22:50 Urine WBC (Auto) 16.0 /HPF (0.0-6.0) H 06/10/19 22:50 Urine RBC (Auto) 7.0 /HPF (0.0-6.0) 06/10/19 22:50 U Epithel Cells (Auto) < 1.0 /HPF (0-13.0) 06/10/19 22:50 Urine Bacteria (Auto) 1+ /HPF (Negative) 06/10/19 22:50 Ur Yeast w Hyphae 1+ /HPF 06/10/19 22:50 Urine Yeast (Budding) Few /HPF 06/10/19 22:50 Urine Opiates Screen Presumptive negative 06/10/19 22:50 Urine Methadone Screen Presumptive negative 06/10/19 22:50 Ur Barbiturates Screen Presumptive negative 06/10/19 22:50 Ur Phencyclidine Scrn Presumptive negative 06/10/19 22:50 Ur Amphetamines Screen Presumptive negative 06/10/19 22:50 U Benzodiazepines Scrn Presumptive negative 06/10/19 22:50 Urine Cocaine Screen Presumptive positive 06/10/19 22:50 U Marijuana (THC) Screen Presumptive negative 06/10/19 22:50 Drugs of Abuse Note Disclamer 06/10/19 22:50 Active Medications - Current Medications Current Medications: Generic Name Dose Route Start Last Admin Trade Name Freq PRN Reason Stop Dose Admin Acetaminophen/Hydrocodone Bitart 1 each 06/16/19 03:12 06/20/19 13:17 [place] 5/325 PO 1 each Q4H PRN Administration Pain, Moderate (4-6) Aspirin 81 mg 06/11/19 10:00 06/22/19 10:27 Baby Aspirin PO 81 mg QDAY BRIDGETT Administration Bumetanide 1 mg 06/17/19 18:00 06/22/19 06:01 Bumex IV 1 mg 0600,1800 BRIDGETT Administration Carvedilol 6.25 mg 06/22/19 10:00 Coreg PO BID [facility] Dextrose 50 ml 06/22/19 10:00 D50w (25gm) Syringe IV Q30MIN PRN Hypoglycemia Enoxaparin Sodium 40 mg 06/11/19 22:00 06/21/19 22:04 Enoxaparin SUB-Q 40 mg QHS BRIDGETT Administration Famotidine 20 mg 06/11/19 10:00 06/22/19 10:27 Pepcid PO 20 mg DAILY BRIDGETT Administration Folic Acid 1 mg 06/15/19 16:00 06/22/19 10:26 Folvite PO 1 mg QDAY BRIDGETT Administration Hydralazine HCl 10 mg 06/17/19 17:06 06/19/19 06:22 Apresoline IV 10 mg Q4HR PRN Administration Hypertension Insulin Human Lispro 0 unit 06/11/19 07:30 06/21/19 22:02 Humalog SUB-Q 3 unit ACHS BRIDGETT Administration Protocol Lisinopril 5 mg 06/22/19 10:00 06/22/19 10:27 Zestril PO 5 mg QDAY BRIDGETT Administration Metolazone 5 mg 06/22/19 11:30 Zaroxolyn PO QDAY BRIDGETT Multivitamins 1 each 06/15/19 16:00 06/22/19 10:27 Theragran Tab PO 1 each QDAY BRIDGETT Administration Thiamine HCl 100 mg 06/15/19 16:00 06/22/19 10:27 Vitamin B-1 PO 100 mg QDAY BRIDGETT Administration Nutrition/Malnutrition Assess - Dietary Evaluation Nutrition/Malnutrition Findings: Nutrition Notes Start: 06/17/19 14:43 Freq: Status: Active Protocol: Document 06/21/19 16:04 OH (Rec: 06/21/19 16:07 OH [id number]) Nutrition Notes Initial or Follow up Brief Note Current Diet Consistent CHO Labs/Tests Reviewed Pertinent Medications Reviewed Height 5 ft 5 in Weight 93.1 kg [place] Body Weight (kg) 61.81 BMI 34.1 Subjective/Other Information Pt. in room w/lunch tray at bedside. Pt. reports he has a great appetite and is requesting additional food. He states no issues w/chewing/ swallowing. He is getting Danny bid and taking as prescribed. Percent of energy/protein needs met: 100/100% GI Symptoms None Current % PO Good (75-100%) Minimum of two criteria No Is patient on ventilator? No Is Patient Ambulatory and/or Out of Bed No REE-([facility]-confined to bed) 1951.952 Calculation Used for Recommendations [place] or Additional Notes PRO: 96-116g/ day (1.25-1.5g/ kg AdBW 77.36kg) Fluid restriction of 1500ml Nutrition Intervention Change Diet Order: continue current diet Add Supplement/Snack (indicate name/kcal Danny BID /protein ) Provides kCal: 190 Provides Protein (gm) 5 Teaching Recipient Patient Teaching Methods Discussion Response to Teaching Verbalize understanding Education Handouts Provided Spoke w/pt regarding diabetes and ESRD. Pt. verbalized he was managing his diabetes adequately and he is aware of the relationship. Revisit per MD consult or patient Sign Off request:
[2019-06-22] MEDS: INSULIN LISPRO 100 UNIT/ML SUB-Q SCH ×4 (13:51→21:52)
[2019-06-22] MEDS: carvediloL 6.25 MG TAB PO SCH ×2 (13:52→21:52)
[2019-06-22] MEDS: metOLazone 5 MG TAB PO SCH (14:49)
[2019-06-22] MEDS: ENOXAPARIN 40 MG/0.4 ML INJ SUB-Q SCH (21:51)
[2019-06-23] MEDS: BUMETANIDE 2.5 MG/10 ML VIAL IV SCH ×2 (06:06→17:48)
[2019-06-23] MEDS: INSULIN LISPRO 100 UNIT/ML SUB-Q SCH ×4 (07:35→21:36)
--- NOTE | 2019-06-23 09:54 | Progress Note ---
Assessment and Plan Assessment and plan: Patient is a 68 yo AA man with a past medical history of HFrEF, BPH, CMP, HTN, NIDDM, HLP, RBBB, dementia and noncompliance who presented to [facility] ED with AMS. Apparently the fire department found pt lying on the floor in his own feces at his home. He c/o SOB and scrotal edema. UDS on admission was positive for Cocaine. Pt does not appear to be a good candidate for LifeVest or AICD at this time given history of noncompliance and cocaine use per Cardiology * pCXR IMPRESSION: 1. Persistent prominent bronchovascular markings as compared to previous exam. * Scrotal Ultrasound IMPRESSION: 1. Nonspecific marked scrotal wall edema and moderate size bilateral hydroceles. 2. Bilateral benign testicular [place] rolithiasis. 3. No signs of orchitis or epididymitis. 4. No mass. 5. No signs of testicular torsion. * TITA Right TITA: .56. Left TITA: .35. IMPRESSION: 1. Based upon waveforms there is evidence of disease in the distal superficial femoral artery and in the runoff vessels on the right. On the left base waveforms distal superficial femoral artery popliteal and runoff vessels. * CT head without contrast IMPRESSION: 1. No evidence of acute infarct or hemorrhage. 2. A late subacute (after 72 hours) left parietal lobe nonhemorrhagic infarct is new since 07/13/2018. 3. Moderate chronic white matter microangiopathy. 4. Mild chronic cortical atrophy. * TTE 06/14/19 Conclusions: Est EF 10-15%, abnormal LV diastolic filling c/w impaired relaxation, RVSF moderately reduced, RVSP calculated at 41 mmHg, t race MR, moderate TR, trace [place], trivial pericardial effusion, large pleural effusion. * Echo done 06/2018 showed EF 35-40%, mild LVH. * Lexiscan MPI stress test done 12/2018 showed small mild reversible inferior defect, EF 22%. Medical management was recommended. Acute on chronic systolic HF with EF now 10-15% now: continue to diuresis, added Zaroxlyn, d/w Cardiology, Cont 1500mL fluid restriction, daily weights and strict I&Os. Acute toxic metabolic encephalopathy, poa with Cocaine in UDS: counseling done Hypertensive urgency-Add hydralazin Bradycardia- Management per cardiology, PVC on Tele, - Asymptomatic Scrotal edema related to heart failure- ultrasound negative for acute findings, - cont scrotal elevation Hypokalemia -resolved-will monitor level PAD: Vascular surgereon consulted, input noted, outpatient follow up HX OF DVT and lower ext wounds, Continue to treat with aspirin. JAGRUTI- resolved -probably vasomotor nephropathy, -Lasix dose reduced, -monitor cr level Metabolic acidosis-stable, will monitor Cocaine abuse - Patient counseled on cessation DVT prophylaxis: lovenox Disposition: continue inpatient, d/c once cleared by Cardiology, not ready for discharge and no need for Ischemic evaluation, per Dr. Zee, History Interval history: Patient was seen and examined. Follow-up on current diagnosis of CHF. No overnight events reported to me. Patient denies any chest pain, shortness breath, nausea/vomiting or severe headaches. Imaging, nursing note, chart, labs and old chart reviewed. Discussed with patient. Hospitalist Physical - Physical exam Narrative exam: Gen: WDWN, NAD, Awake, Alert, Orientated x 2 HEENT: NCAT, EOMI, PERRL, OP Clear Neck: supple, no adenopathy, no thyromegaly, no JVD CVS/Heart: RRR, normal S1S2, pulses present bilaterally Chest/Lungs: diminished bs bilateral, Symmetrical chest expansion, good air entry bilaterally GI/Abdomen: soft, NTND, good bowel sounds, no guarding or rebound /Bladder: scrotal edema Extermity/Skin: ble edema, no obvious rash MSK: FROM x 4 Neuro: CN 2-12 grossly intact, no new focal deficits Psych: calm - Constitutional Vitals: Temp Pulse Resp BP Pulse Ox 98.5 F 58 L 16 121/79 100 06/23/19 03:45 06/23/19 04:00 06/23/19 03:45 06/23/19 03:45 06/23/19 03:45 General appearance: Present: no acute distress Results - Labs CBC & Chem 7: 06/19/19 04:28 06/21/19 12:12 Labs: Laboratory Last Values WBC 8.2 K/mm3 (4.5-11.0) 06/19/19 04:28 RBC 4.39 M/mm3 (3.65-5.03) 06/19/19 04:28 Hgb 11.0 gm/dl (11.8-15.2) L 06/19/19 04:28 Hct 33.6 % (35.5-45.6) L 06/19/19 04:28 MCV 77 fl (84-94) L 06/19/19 04:28 MCH 25 pg (28-32) L 06/19/19 04:28 MCHC 33 % (32-34) 06/19/19 04:28 RDW 15.9 % (13.2-15.2) H 06/19/19 04:28 Plt Count 221 K/mm3 (140-440) 06/19/19 04:28 Lymph % (Auto) 17.8 % (13.4-35.0) 06/10/19 13:24 [place] % (Auto) 7.0 % (0.0-7.3) 06/10/19 13:24 Eos % (Auto) 0.0 % (0.0-4.3) 06/10/19 13:24 Baso % (Auto) 0.9 % (0.0-1.8) 06/10/19 13:24 Lymph # 1.1 K/mm3 (1.2-5.4) L 06/10/19 13:24 [place] # 0.4 K/mm3 (0.0-0.8) 06/10/19 13:24 Eos # 0.0 K/mm3 (0.0-0.4) 06/10/19 13:24 Baso # 0.1 K/mm3 (0.0-0.1) 06/10/19 13:24 Seg Neutrophils % 74.3 % (40.0-70.0) H 06/10/19 13:24 Seg Neutrophils # 4.7 K/mm3 (1.8-7.7) 06/10/19 13:24 PT 14.7 Sec. (12.2-14.9) 06/11/19 16:28 INR 1.16 (0.87-1.13) H 06/11/19 16:28 APTT 32.9 Sec. (24.2-36.6) 06/10/19 13:24 Sodium 137 mmol/L (137-145) 06/21/19 12:12 Potassium 4.7 mmol/L (3.6-5.0) 06/21/19 12:12 Chloride 103.2 mmol/L (98-107) 06/21/19 12:12 Carbon Dioxide 23 mmol/L (22-30) 06/21/19 12:12 Anion Gap 16 mmol/L 06/21/19 12:12 BUN 31 mg/dL (9-20) H 06/21/19 12:12 Creatinine 1.3 mg/dL (0.8-1.5) 06/21/19 12:12 Estimated GFR > 60 ml/min 06/21/19 12:12 BUN/Creatinine Ratio 24 % 06/21/19 12:12 Glucose 108 mg/dL (75-100) H 06/21/19 12:12 POC Glucose 85 (70-105) 06/23/19 07:38 Hemoglobin A1c 6.6 % (4-6) H 06/13/19 04:00 Lactic Acid 1.20 mmol/L (0.7-2.0) 06/10/19 13:24 Calcium 7.9 mg/dL (8.4-10.2) L 06/21/19 12:12 Magnesium 1.90 mg/dL (1.7-2.3) 06/21/19 12:12 Total Bilirubin 0.70 mg/dL (0.1-1.2) 06/10/19 13:24 AST 76 units/L (5-40) H 06/10/19 13:24 ALT 21 units/L (7-56) 06/10/19 13:24 Alkaline Phosphatase 70 units/L (35-129) 06/10/19 13:24 Total Creatine Kinase 2514 units/L (55-170) H 06/10/19 13:24 Troponin T 0.086 ng/mL (0.00-0.029) H 06/10/19 18:40 NT-Pro-B Natriuret Pep 39906 pg/mL (0-900) H 06/10/19 13:24 Total Protein 6.1 g/dL (6.3-8.2) L 06/10/19 13:24 Albumin 2.9 g/dL (3.9-5) L 06/10/19 13:24 Albumin/Globulin Ratio 0.9 % 06/10/19 13:24 Triglycerides 61 mg/dL (2-149) 06/10/19 13:24 Cholesterol 92 mg/dL (50-199) 06/10/19 13:24 LDL Cholesterol Direct 33 mg/dL (50-130) L 06/10/19 13:24 HDL Cholesterol 54 mg/dL (40-59) 06/10/19 13:24 Cholesterol/HDL Ratio 1.70 % 06/10/19 13:24 Urine Color Iqra (Yellow) 06/10/19 22:50 Urine Turbidity Clear (Clear) 06/10/19 22:50 Urine pH 5.0 (5.0-7.0) 06/10/19 22:50 Ur Specific [place] 1.019 (1.003-1.030) 06/10/19 22:50 Urine Protein >500 mg/dL (Negative) 06/10/19 22:50 Urine Glucose (UA) Neg mg/dL (Negative) 06/10/19 22:50 Urine Ketones Neg mg/dL (Negative) 06/10/19 22:50 Urine Blood Lg (Negative) 06/10/19 22:50 Urine Nitrite Neg (Negative) 06/10/19 22:50 Urine Bilirubin Neg (Negative) 06/10/19 22:50 Urine Urobilinogen < 2.0 mg/dL (<2.0) 06/10/19 22:50 Ur Leukocyte Esterase Tr (Negative) 06/10/19 22:50 Urine WBC (Auto) 16.0 /HPF (0.0-6.0) H 06/10/19 22:50 Urine RBC (Auto) 7.0 /HPF (0.0-6.0) 06/10/19 22:50 U Epithel Cells (Auto) < 1.0 /HPF (0-13.0) 06/10/19 22:50 Urine Bacteria (Auto) 1+ /HPF (Negative) 06/10/19 22:50 Ur Yeast w Hyphae 1+ /HPF 06/10/19 22:50 Urine Yeast (Budding) Few /HPF 06/10/19 22:50 Urine Opiates Screen Presumptive negative 06/10/19 22:50 Urine Methadone Screen Presumptive negative 06/10/19 22:50 Ur Barbiturates Screen Presumptive negative 06/10/19 22:50 Ur Phencyclidine Scrn Presumptive negative 06/10/19 22:50 Ur Amphetamines Screen Presumptive negative 06/10/19 22:50 U Benzodiazepines Scrn Presumptive negative 06/10/19 22:50 Urine Cocaine Screen Presumptive positive 06/10/19 22:50 U Marijuana (THC) Screen Presumptive negative 06/10/19 22:50 Drugs of Abuse Note Disclamer 06/10/19 22:50 Active Medications - Current Medications Current Medications: Generic Name Dose Route Start Last Admin Trade Name Freq PRN Reason Stop Dose Admin Acetaminophen/Hydrocodone Bitart 1 each 06/16/19 03:12 06/20/19 13:17 [place] 5/325 PO 1 each Q4H PRN Administration Pain, Moderate (4-6) Aspirin 81 mg 06/11/19 10:00 06/22/19 10:27 Baby Aspirin PO 81 mg QDAY BRIDGETT Administration Bumetanide 1 mg 06/17/19 18:00 06/23/19 06:06 Bumex IV 1 mg 0600,1800 BRIDGETT Administration Carvedilol 6.25 mg 06/22/19 10:00 06/22/19 21:52 Coreg PO 6.25 mg BID BRIDGETT Administration Dextrose 50 ml 06/22/19 10:00 D50w (25gm) Syringe IV Q30MIN PRN Hypoglycemia Enoxaparin Sodium 40 mg 06/11/19 22:00 06/22/19 21:51 Enoxaparin SUB-Q 40 mg QHS BRIDGETT Administration Famotidine 20 mg 06/11/19 10:00 06/22/19 10:27 Pepcid PO 20 mg DAILY BRIDGETT Administration Folic Acid 1 mg 06/15/19 16:00 06/22/19 10:26 Folvite PO 1 mg QDAY BRIDGETT Administration Hydralazine HCl 10 mg 06/17/19 17:06 06/19/19 06:22 Apresoline IV 10 mg Q4HR PRN Administration Hypertension Insulin Human Lispro 0 unit 06/11/19 07:30 06/22/19 21:52 Humalog SUB-Q Not Given ACHS [facility] Protocol Lisinopril 5 mg 06/22/19 10:00 06/22/19 10:27 Zestril PO 5 mg QDAY BRIDGETT Administration Metolazone 5 mg 06/22/19 11:30 06/22/19 14:49 Zaroxolyn PO 5 mg QDAY BRIDGETT Administration Multivitamins 1 each 06/15/19 16:00 06/22/19 10:27 Theragran Tab PO 1 each QDAY BRIDGETT Administration Thiamine HCl 100 mg 06/15/19 16:00 06/22/19 10:27 Vitamin B-1 PO 100 mg QDAY BRIDGETT Administration Nutrition/Malnutrition Assess - Dietary Evaluation Nutrition/Malnutrition Findings: Nutrition Notes Start: 06/17/19 14:43 Freq: Status: Active Protocol: Document 06/21/19 16:04 OH (Rec: 06/21/19 16:07 OH [id number]) Nutrition Notes Initial or Follow up Brief Note Current Diet Consistent CHO Labs/Tests Reviewed Pertinent Medications Reviewed Height 5 ft 5 in Weight 93.1 kg [place] Body Weight (kg) 61.81 BMI 34.1 Subjective/Other Information Pt. in room w/lunch tray at bedside. Pt. reports he has a great appetite and is requesting additional food. He states no issues w/chewing/ swallowing. He is getting Danny bid and taking as prescribed. Percent of energy/protein needs met: 100/100% GI Symptoms None Current % PO Good (75-100%) Minimum of two criteria No Is patient on ventilator? No Is Patient Ambulatory and/or Out of Bed No REE-([facility]-confined to bed) 195.952 Calculation Used for Recommendations [facility] Additional Notes PRO: 96-116g/ day (1.25-1.5g/ kg AdBW 77.36kg) Fluid restriction of 1500ml Nutrition Intervention Change Diet Order: continue current diet Add Supplement/Snack (indicate name/kcal Danny BID /protein ) Provides kCal: 190 Provides Protein (gm) 5 Teaching Recipient Patient Teaching Methods Discussion Response to Teaching Verbalize understanding Education Handouts Provided Spoke w/pt regarding diabetes and ESRD. Pt. verbalized he was managing his diabetes adequately and he is aware of the relationship. Revisit per MD consult or patient Sign Off request:
--- NOTE | 2019-06-23 11:28 | Progress Note ---
Assessment and Plan Cont IV bumex and zaroxolyn today. Cont coreg and lisinopril, add aldactone. Pt does not appear to be a good candidate for LifeVest or AICD at this time given history of noncompliance and cocaine use. Will plan to reevaluate candidacy as OP. Cont 1500mL fluid restriction, daily weights and strict I&Os. Hopeful d/c within next 24-48Hrs. The patient has been seen in conjunction with Dr. Zee who agrees with the assessment and plan of care. - Patient Problems (1) Altered mental status Current Visit: Yes Status: Resolved (2) Acute HFrEF (heart failure with reduced ejection fraction) Current Visit: Yes Status: Acute (3) Cardiomyopathy Current Visit: Yes Status: Chronic (4) HTN (hypertension) Current Visit: Yes Status: Chronic Qualifiers: Hypertension type: essential hypertension Qualified Code(s): I10 - Essential (primary) hypertension (5) T2DM (type 2 diabetes mellitus) Current Visit: Yes Status: Chronic (6) HLD (hyperlipidemia) Current Visit: Yes Status: Chronic (7) PVCs (premature ventricular contractions) Current Visit: Yes Status: Chronic (8) RBBB Current Visit: Yes Status: Chronic (9) Dementia Current Visit: Yes Status: Chronic (10) Elevated troponin Current Visit: Yes Status: Chronic (11) Elevated CK Current Visit: Yes Status: Acute (12) History of CVA (cerebrovascular accident) Current Visit: Yes Status: Chronic (13) Medical non-compliance Current Visit: Yes Status: Chronic (14) Cocaine use Current Visit: Yes Status: Chronic Subjective Date of service: 06/23/19 Principal diagnosis: AMS, hf Interval history: pt resting in bed, states he is feeling a little better today. scrotal edema improving. tele reviewed - in SR with intermittent bigeminy and PVCs. Objective Last Vital Signs Temp 98.5 F 06/23/19 03:45 Pulse 58 L 06/23/19 04:00 Resp 16 06/23/19 03:45 BP 121/79 06/23/19 03:45 Pulse Ox 100 06/23/19 03:45 - Physical Examination General: No Apparent Distress HEENT: Positive: PERRL, Normocephaly, Mucus Membranes Moist Neck: Positive: neck supple, trachea midline Cardiac: Positive: Reg Rate and Rhythm, S1/S2 Lungs: Positive: Decreased Breath Sounds Neuro: Positive: Grossly Intact Abdomen: Positive: Unremarkable, Other (edematous ). Negative: Tender /Rectal: Other (scrotal edema ) Skin: Negative: Rash Musculoskeletal: No Pain Extremities: Present: normal. Absent: edema - Imaging and Cardiology EKG: report reviewed, image reviewed Echo: report reviewed (05/2019:EF 10-15%, impaired relaxation, RV mildly dilated, RV systolic function mod reduced, mod TR, RVSP 41mmHg. 06/2018 showed EF 35-40%, mild LVH. 11/2018 showed EF 25-30%, mild LVH, RV mild to mod dilated, RA and LA mildly dilated, minimal pericardial effusion. ) - EKG Sinus rhythms and dysrhythmias: sinus rhythm Ventricular dysrhythmias: ventricular premature com AV and intraventricular conduction: right bundle branch block
[2019-06-23] MEDS: FAMOTIDINE 20 MG TAB PO SCH (12:02)
[2019-06-23] MEDS: MULTIVITAMINS ,THERAPEUTIC TAB PO SCH (12:06)
[2019-06-23] MEDS: FOLIC ACID 1 MG TAB PO SCH (12:06)
[2019-06-23] MEDS: LISINOPRIL 5 MG TAB PO SCH (12:06)
[2019-06-23] MEDS: ASPIRIN 81 MG TAB CHEW PO SCH (12:06)
[2019-06-23] MEDS: THIAMINE 100 MG TAB PO SCH (12:07)
[2019-06-23] MEDS: carvediloL 6.25 MG TAB PO SCH ×2 (12:07→21:35)
[2019-06-23] MEDS: metOLazone 5 MG TAB PO SCH (12:09)
[2019-06-23] MEDS: SPIRONOLACTONE 25 MG TAB PO SCH (14:07)
[2019-06-23] MEDS: ENOXAPARIN 40 MG/0.4 ML INJ SUB-Q SCH (21:36)
[2019-06-24] MEDS: BUMETANIDE 2.5 MG/10 ML VIAL IV SCH (05:41)
[2019-06-24] MEDS: FAMOTIDINE 20 MG TAB PO SCH (09:54)
[2019-06-24] MEDS: metOLazone 5 MG TAB PO SCH (09:54)
[2019-06-24] MEDS: carvediloL 6.25 MG TAB PO SCH ×2 (09:54→22:36)
[2019-06-24] MEDS: SPIRONOLACTONE 25 MG TAB PO SCH (09:56)
[2019-06-24] MEDS: HYDROcodone/ACETAMINOPHEN 5-325 MG TAB PO PRN (09:56)
[2019-06-24] MEDS: FOLIC ACID 1 MG TAB PO SCH (09:57)
[2019-06-24] MEDS: THIAMINE 100 MG TAB PO SCH (09:57)
[2019-06-24] MEDS: MULTIVITAMINS ,THERAPEUTIC TAB PO SCH (09:57)
[2019-06-24] MEDS: LISINOPRIL 5 MG TAB PO SCH (09:58)
[2019-06-24] MEDS: ASPIRIN 81 MG TAB CHEW PO SCH (09:58)
[2019-06-24] MEDS: INSULIN LISPRO 100 UNIT/ML SUB-Q SCH ×3 (10:00→23:12)
--- NOTE | 2019-06-24 11:18 | Progress Note ---
Assessment and Plan Assessment and plan: Patient is a 68 yo AA man with a past medical history of HFrEF, BPH, CMP, HTN, NIDDM, HLP, RBBB, dementia and noncompliance who presented to [facility] ED with AMS. Apparently the fire department found pt lying on the floor in his own feces at his home. He c/o SOB and scrotal edema. UDS on admission was positive for Cocaine. Pt does not appear to be a good candidate for LifeVest or AICD at this time given history of noncompliance and cocaine use per Cardiology * pCXR IMPRESSION: 1. Persistent prominent bronchovascular markings as compared to previous exam. * Scrotal Ultrasound IMPRESSION: 1. Nonspecific marked scrotal wall edema and moderate size bilateral hydroceles. 2. Bilateral benign testicular argentian rolithiasis. 3. No signs of orchitis or epididymitis. 4. No mass. 5. No signs of testicular torsion. * TITA Right TITA: .56. Left TITA: .35. IMPRESSION: 1. Based upon waveforms there is evidence of disease in the distal superficial femoral artery and in the runoff vessels on the right. On the left base waveforms distal superficial femoral artery popliteal and runoff vessels. * CT head without contrast IMPRESSION: 1. No evidence of acute infarct or hemorrhage. 2. A late subacute (after 72 hours) left parietal lobe nonhemorrhagic infarct is new since 07/13/2018. 3. Moderate chronic white matter microangiopathy. 4. Mild chronic cortical atrophy. * TTE 06/14/19 Conclusions: Est EF 10-15%, abnormal LV diastolic filling c/w impaired relaxation, RVSF moderately reduced, RVSP calculated at 41 mmHg, t race MR, moderate TR, trace NJ, trivial pericardial effusion, large pleural effusion. * Echo done 06/2018 showed EF 35-40%, mild LVH. * Lexiscan MPI stress test done 12/2018 showed small mild reversible inferior defect, EF 22%. Medical management was recommended. Acute on chronic systolic HF with EF now 10-15% now: continue to diuresis, added [place], d/w Cardiology, Cont 1500mL fluid restriction, daily weights and strict I&Os. Acute toxic metabolic encephalopathy, poa with Cocaine in UDS: counseling done Hypertensive urgency-Add hydralazin Bradycardia- Management per cardiology, PVC on Tele, - Asymptomatic Scrotal edema related to heart failure- ultrasound negative for acute findings, - cont scrotal elevation Hypokalemia -resolved-will monitor level PAD: Vascular surgereon consulted, input noted, outpatient follow up HX OF DVT and lower ext wounds, Continue to treat with aspirin. JAGRUTI- resolved -probably vasomotor nephropathy, -Lasix dose reduced, -monitor cr level Metabolic acidosis-stable, will monitor Cocaine abuse - Patient counseled on cessation DVT prophylaxis: lovenox Disposition: continue inpatient, d/c once cleared by Cardiology, not ready for discharge and no need for Ischemic evaluation, per Dr. Zee, History Interval history: Patient was seen and examined. Follow-up on current diagnosis of CHF. No overnight events reported to me. Patient denies any chest pain, shortness breath, nausea/vomiting or severe headaches. Imaging, nursing note, chart, labs and old chart reviewed. Discussed with patient. Hospitalist Physical - Physical exam Narrative exam: Gen: WDWN, NAD, Awake, Alert, Orientated x 2 HEENT: NCAT, EOMI, PERRL, OP Clear Neck: supple, no adenopathy, no thyromegaly, no JVD CVS/Heart: RRR, normal S1S2, pulses present bilaterally Chest/Lungs: diminished bs bilateral, Symmetrical chest expansion, good air entry bilaterally GI/Abdomen: soft, NTND, good bowel sounds, no guarding or rebound /Bladder: scrotal edema Extermity/Skin: ble edema, no obvious rash MSK: FROM x 4 Neuro: CN 2-12 grossly intact, no new focal deficits Psych: calm - Constitutional Vitals: Temp Pulse Resp BP Pulse Ox 97.9 F 60 18 117/70 100 06/24/19 07:37 06/24/19 09:58 06/24/19 07:37 06/24/19 07:37 06/24/19 07:37 General appearance: Present: no acute distress Results - Labs CBC & Chem 7: 06/19/19 04:28 06/24/19 05:22 Labs: Laboratory Last Values WBC 8.2 K/mm3 (4.5-11.0) 06/19/19 04:28 RBC 4.39 M/mm3 (3.65-5.03) 06/19/19 04:28 Hgb 11.0 gm/dl (11.8-15.2) L 06/19/19 04:28 Hct 33.6 % (35.5-45.6) L 06/19/19 04:28 MCV 77 fl (84-94) L 06/19/19 04:28 MCH 25 pg (28-32) L 06/19/19 04:28 MCHC 33 % (32-34) 06/19/19 04:28 RDW 15.9 % (13.2-15.2) H 06/19/19 04:28 Plt Count 221 K/mm3 (140-440) 06/19/19 04:28 Lymph % (Auto) 17.8 % (13.4-35.0) 06/10/19 13:24 [place] % (Auto) 7.0 % (0.0-7.3) 06/10/19 13:24 Eos % (Auto) 0.0 % (0.0-4.3) 06/10/19 13:24 Baso % (Auto) 0.9 % (0.0-1.8) 06/10/19 13:24 Lymph # 1.1 K/mm3 (1.2-5.4) L 06/10/19 13:24 [place] # 0.4 K/mm3 (0.0-0.8) 06/10/19 13:24 Eos # 0.0 K/mm3 (0.0-0.4) 06/10/19 13:24 Baso # 0.1 K/mm3 (0.0-0.1) 06/10/19 13:24 Seg Neutrophils % 74.3 % (40.0-70.0) H 06/10/19 13:24 Seg Neutrophils # 4.7 K/mm3 (1.8-7.7) 06/10/19 13:24 PT 14.7 Sec. (12.2-14.9) 06/11/19 16:28 INR 1.16 (0.87-1.13) H 06/11/19 16:28 APTT 32.9 Sec. (24.2-36.6) 06/10/19 13:24 Sodium 140 mmol/L (137-145) 06/24/19 05:22 Potassium 4.5 mmol/L (3.6-5.0) 06/24/19 05:22 Chloride 103.6 mmol/L (98-107) 06/24/19 05:22 Carbon Dioxide 22 mmol/L (22-30) 06/24/19 05:22 Anion Gap 19 mmol/L 06/24/19 05:22 BUN 48 mg/dL (9-20) H 06/24/19 05:22 Creatinine 2.2 mg/dL (0.8-1.5) H D 06/24/19 05:22 Estimated GFR 36 ml/min 06/24/19 05:22 BUN/Creatinine Ratio 22 % 06/24/19 05:22 Glucose 87 mg/dL (75-100) 06/24/19 05:22 POC Glucose 170 (70-105) H 06/24/19 07:48 Hemoglobin A1c 6.6 % (4-6) H 06/13/19 04:00 Lactic Acid 1.20 mmol/L (0.7-2.0) 06/10/19 13:24 Calcium 8.0 mg/dL (8.4-10.2) L 06/24/19 05:22 Magnesium 2.20 mg/dL (1.7-2.3) 06/24/19 05:22 Total Bilirubin 0.70 mg/dL (0.1-1.2) 06/10/19 13:24 AST 76 units/L (5-40) H 06/10/19 13:24 ALT 21 units/L (7-56) 06/10/19 13:24 Alkaline Phosphatase 70 units/L (35-129) 06/10/19 13:24 Total Creatine Kinase 2514 units/L (55-170) H 06/10/19 13:24 Troponin T 0.086 ng/mL (0.00-0.029) H 06/10/19 18:40 NT-Pro-B Natriuret Pep 78414 pg/mL (0-900) H 06/10/19 13:24 Total Protein 6.1 g/dL (6.3-8.2) L 06/10/19 13:24 Albumin 2.9 g/dL (3.9-5) L 06/10/19 13:24 Albumin/Globulin Ratio 0.9 % 06/10/19 13:24 Triglycerides 61 mg/dL (2-149) 06/10/19 13:24 Cholesterol 92 mg/dL (50-199) 06/10/19 13:24 LDL Cholesterol Direct 33 mg/dL (50-130) L 06/10/19 13:24 HDL Cholesterol 54 mg/dL (40-59) 06/10/19 13:24 Cholesterol/HDL Ratio 1.70 % 06/10/19 13:24 Urine Color Iq[place] (Yellow) 06/10/19 22:50 Urine Turbidity Clear (Clear) 06/10/19 22:50 Urine pH 5.0 (5.0-7.0) 06/10/19 22:50 Ur Specific [place] 1.019 (1.003-1.030) 06/10/19 22:50 Urine Protein >500 mg/dL (Negative) 06/10/19 22:50 Urine Glucose (UA) Neg mg/dL (Negative) 06/10/19 22:50 Urine Ketones Neg mg/dL (Negative) 06/10/19 22:50 Urine Blood Lg (Negative) 06/10/19 22:50 Urine Nitrite Neg (Negative) 06/10/19 22:50 Urine Bilirubin Neg (Negative) 06/10/19 22:50 Urine Urobilinogen < 2.0 mg/dL (<2.0) 06/10/19 22:50 Ur Leukocyte Esterase Tr (Negative) 06/10/19 22:50 Urine WBC (Auto) 16.0 /HPF (0.0-6.0) H 06/10/19 22:50 Urine RBC (Auto) 7.0 /HPF (0.0-6.0) 06/10/19 22:50 U Epithel Cells (Auto) < 1.0 /HPF (0-13.0) 06/10/19 22:50 Urine Bacteria (Auto) 1+ /HPF (Negative) 06/10/19 22:50 Ur Yeast w Hyphae 1+ /HPF 06/10/19 22:50 Urine Yeast (Budding) Few /HPF 06/10/19 22:50 Urine Opiates Screen Presumptive negative 06/10/19 22:50 Urine Methadone Screen Presumptive negative 06/10/19 22:50 Ur Barbiturates Screen Presumptive negative 06/10/19 22:50 Ur Phencyclidine Scrn Presumptive negative 06/10/19 22:50 Ur Amphetamines Screen Presumptive negative 06/10/19 22:50 U Benzodiazepines Scrn Presumptive negative 06/10/19 22:50 Urine Cocaine Screen Presumptive positive 06/10/19 22:50 U Marijuana (THC) Screen Presumptive negative 06/10/19 22:50 Drugs of Abuse Note Disclamer 06/10/19 22:50 Active Medications - Current Medications Current Medications: Generic Name Dose Route Start Last Admin Trade Name Freq PRN Reason Stop Dose Admin Acetaminophen/Hydrocodone Bitart 1 each 06/16/19 03:12 06/24/19 09:56 [place] 5/325 PO 1 each Q4H PRN Administration Pain, Moderate (4-6) Aspirin 81 mg 06/11/19 10:00 06/24/19 09:58 Baby Aspirin PO 81 mg QDAY BRIDGETT Administration Bumetanide 1 mg 06/17/19 18:00 06/24/19 05:41 Bumex IV 1 mg 0600,1800 BRIDGETT Administration Carvedilol 6.25 mg 06/22/19 10:00 06/24/19 09:54 Coreg PO 6.25 mg BID BRIDGETT Administration Dextrose 50 ml 06/22/19 10:00 D50w (25gm) Syringe IV Q30MIN PRN Hypoglycemia Enoxaparin Sodium 40 mg 06/11/19 22:00 06/23/19 21:36 Enoxaparin SUB-Q 40 mg QHS BRIDGETT Administration Famotidine 20 mg 06/11/19 10:00 06/24/19 09:54 Pepcid PO 20 mg DAILY BRIDGETT Administration Folic Acid 1 mg 06/15/19 16:00 06/24/19 09:57 Folvite PO 1 mg QDAY BRIDGETT Administration Hydralazine HCl 10 mg 06/17/19 17:06 06/19/19 06:22 Apresoline IV 10 mg Q4HR PRN Administration Hypertension Insulin Human Lispro 0 unit 06/11/19 07:30 06/24/19 10:00 Humalog SUB-Q 2 unit ACHS BRIDGETT Administration Protocol Lisinopril 5 mg 06/22/19 10:00 06/24/19 09:58 Zestril PO 5 mg QDAY BRIDGETT Administration Metolazone 5 mg 06/22/19 11:30 06/24/19 09:54 Zaroxolyn PO 5 mg QDAY BRIDGETT Administration Multivitamins 1 each 06/15/19 16:00 06/24/19 09:57 Theragran Tab PO 1 each QDAY BRIDGETT Administration Spironolactone 12.5 mg 06/23/19 14:00 06/24/19 09:56 Aldactone PO 12.5 mg QDAY BRIDGETT Administration Thiamine HCl 100 mg 06/15/19 16:00 06/24/19 09:57 Vitamin B-1 PO 100 mg QDAY BRIDGETT Administration Nutrition/Malnutrition Assess - Dietary Evaluation Nutrition/Malnutrition Findings: Nutrition Notes Start: 06/17/19 14:43 Freq: Status: Active Protocol: Document 06/21/19 16:04 [place] (Rec: 06/21/19 16:07 OH [facility]-[id number]) Nutrition Notes Initial or Follow up Brief Note Current Diet Consistent CHO Labs/Tests Reviewed Pertinent Medications Reviewed Height 5 ft 5 in Weight 93.1 kg [place] Body Weight (kg) 61.81 BMI 34.1 Subjective/Other Information Pt. in room w/lunch tray at bedside. Pt. reports he has a great appetite and is requesting additional food. He states no issues w/chewing/ swallowing. He is getting Danny bid and taking as prescribed. Percent of energy/protein needs met: 100/100% GI Symptoms None Current % PO Good (75-100%) Minimum of two criteria No Is patient on ventilator? No Is Patient Ambulatory and/or Out of Bed No REE-([place]. or-confined to bed) 1952.952 Calculation Used for Recommendations [place] Additional Notes PRO: 96-116g/ day (1.25-1.5g/ kg AdBW 77.36kg) Fluid restriction of 1500ml Nutrition Intervention Change Diet Order: continue current diet Add Supplement/Snack (indicate name/kcal Danny BID /protein ) Provides kCal: 190 Provides Protein (gm) 5 Teaching Recipient Patient Teaching Methods Discussion Response to Teaching Verbalize understanding Education Handouts Provided Spoke w/pt regarding diabetes and ESRD. Pt. verbalized he was managing his diabetes adequately and he is aware of the relationship. Revisit per MD consult or patient Sign Off request:
--- NOTE | 2019-06-24 12:59 | Progress Note ---
Assessment and Plan Renal indices increased, d/c zaroxolyn and reduce IV bumex dosage. F/u BMP in AM. Cont coreg and lisinopril, aldactone. Pt does not appear to be a good candidate for LifeVest or AICD at this time given history of noncompliance and cocaine use. Will plan to reevaluate candidacy as OP. Cont 1500mL fluid restriction, daily weights and strict I&Os. The patient has been seen in conjunction with Dr. Zee who agrees with the assessment and plan of care. - Patient Problems (1) Altered mental status Current Visit: Yes Status: Resolved (2) Acute HFrEF (heart failure with reduced ejection fraction) Current Visit: Yes Status: Acute (3) Cardiomyopathy Current Visit: Yes Status: Chronic (4) HTN (hypertension) Current Visit: Yes Status: Chronic Qualifiers: Hypertension type: essential hypertension Qualified Code(s): I10 - Essential (primary) hypertension (5) T2DM (type 2 diabetes mellitus) Current Visit: Yes Status: Chronic (6) HLD (hyperlipidemia) Current Visit: Yes Status: Chronic (7) PVCs (premature ventricular contractions) Current Visit: Yes Status: Chronic (8) RBBB Current Visit: Yes Status: Chronic (9) Dementia Current Visit: Yes Status: Chronic (10) Elevated troponin Current Visit: Yes Status: Chronic (11) Elevated CK Current Visit: Yes Status: Acute (12) History of CVA (cerebrovascular accident) Current Visit: Yes Status: Chronic (13) Medical non-compliance Current Visit: Yes Status: Chronic (14) Cocaine use Current Visit: Yes Status: Chronic Subjective Date of service: 06/24/19 Principal diagnosis: AMS, hf Interval history: pt resting in bed, states he is feeling a little better today. scrotal edema improving. tele reviewed - in SR with intermittent bigeminy and PVCs. Objective Last Vital Signs Temp 97.6 F 06/24/19 12:15 Pulse 35 L 06/24/19 12:15 Resp 18 06/24/19 12:15 BP 127/69 06/24/19 12:15 Pulse Ox 100 06/24/19 12:15 - Physical Examination General: No Apparent Distress HEENT: Positive: PERRL, Normocephaly, Mucus Membranes Moist Neck: Positive: neck supple, trachea midline Cardiac: Positive: Reg Rate and Rhythm, S1/S2 Lungs: Positive: Decreased Breath Sounds Neuro: Positive: Grossly Intact Abdomen: Positive: Unremarkable, Other (edematous ). Negative: Tender /Rectal: Other (scrotal edema ) Skin: Negative: Rash Musculoskeletal: No Pain Extremities: Present: normal. Absent: edema - Labs and Meds Comprehensive Metabolic Panel 06/24/19 Range/Units 05:22 Sodium 140 (137-145) mmol/L Potassium 4.5 (3.6-5.0) mmol/L Chloride 103.6 (98-107) mmol/L Carbon Dioxide 22 (22-30) mmol/L BUN 48 H (9-20) mg/dL Creatinine 2.2 H D (0.8-1.5) mg/dL Glucose 87 (75-100) mg/dL Calcium 8.0 L (8.4-10.2) mg/dL - Imaging and Cardiology EKG: report reviewed, image reviewed Echo: report reviewed (05/2019:EF 10-15%, impaired relaxation, RV mildly dilated, RV systolic function mod reduced, mod TR, RVSP 41mmHg. 06/2018 showed EF 35-40%, mild LVH. 11/2018 showed EF 25-30%, mild LVH, RV mild to mod dilated, RA and LA mildly dilated, minimal pericardial effusion. ) - EKG Sinus rhythms and dysrhythmias: sinus rhythm Ventricular dysrhythmias: ventricular premature com AV and intraventricular conduction: right bundle branch block
[2019-06-24] MEDS: ENOXAPARIN 40 MG/0.4 ML INJ SUB-Q SCH (22:37)
[2019-06-25 08:31] LABS: Calcium 8.2 mg/dL (8.4-10.2)
[2019-06-25] MEDS: INSULIN LISPRO 100 UNIT/ML SUB-Q SCH ×5 (09:36→22:22)
[2019-06-25] MEDS ORDERED: BUMETANIDE 2.5 MG/10 ML VIAL IV SCH (10:00)
[2019-06-25] MEDS: THIAMINE 100 MG TAB PO SCH (11:41)
[2019-06-25] MEDS: MULTIVITAMINS ,THERAPEUTIC TAB PO SCH (11:41)
[2019-06-25] MEDS: FAMOTIDINE 20 MG TAB PO SCH (11:41)
[2019-06-25] MEDS: ASPIRIN 81 MG TAB CHEW PO SCH (11:42)
[2019-06-25] MEDS: FOLIC ACID 1 MG TAB PO SCH (11:42)
[2019-06-25] MEDS: SPIRONOLACTONE 25 MG TAB PO SCH (11:43)
[2019-06-25] MEDS: carvediloL 6.25 MG TAB PO SCH ×2 (11:44→22:15)
[2019-06-25] MEDS: LISINOPRIL 5 MG TAB PO SCH (11:45)
--- NOTE | 2019-06-25 13:53 | Progress Note ---
Assessment and Plan Renal indices increased, d/c IV bumex and aldactone. Cont coreg and lisinopril. F/u BMP in AM. Consider nephrology consultation per primary. Pt does not appear to be a good candidate for LifeVest or AICD at this time given history of noncompliance and cocaine use. Will plan to reevaluate candidacy as OP. Cont 1500mL fluid restriction, daily weights and strict I&Os. The patient has been seen in conjunction with Dr. Zee who agrees with the assessment and plan of care. - Patient Problems (1) Altered mental status Current Visit: Yes Status: Resolved (2) Acute HFrEF (heart failure with reduced ejection fraction) Current Visit: Yes Status: Acute (3) Cardiomyopathy Current Visit: Yes Status: Chronic (4) HTN (hypertension) Current Visit: Yes Status: Chronic Qualifiers: Hypertension type: essential hypertension Qualified Code(s): I10 - Essential (primary) hypertension (5) T2DM (type 2 diabetes mellitus) Current Visit: Yes Status: Chronic (6) HLD (hyperlipidemia) Current Visit: Yes Status: Chronic (7) PVCs (premature ventricular contractions) Current Visit: Yes Status: Chronic (8) RBBB Current Visit: Yes Status: Chronic (9) Dementia Current Visit: Yes Status: Chronic (10) Elevated troponin Current Visit: Yes Status: Chronic (11) Elevated CK Current Visit: Yes Status: Acute (12) History of CVA (cerebrovascular accident) Current Visit: Yes Status: Chronic (13) Medical non-compliance Current Visit: Yes Status: Chronic (14) Cocaine use Current Visit: Yes Status: Chronic Subjective Date of service: 06/25/19 Principal diagnosis: AMS, hf Interval history: pt resting in bed, states he is feeling a little better today. scrotal and penile edema continues to improve. tele reviewed - in SR with intermittent bigeminy and PVCs. Objective Last Vital Signs Temp 97.4 F L 06/25/19 11:34 Pulse 56 L 06/25/19 11:45 Resp 18 06/25/19 11:34 BP 115/50 06/25/19 11:34 Pulse Ox 97 06/25/19 11:34 - Physical Examination General: No Apparent Distress HEENT: Positive: PERRL, Normocephaly, Mucus Membranes Moist Neck: Positive: neck supple, trachea midline Cardiac: Positive: Reg Rate and Rhythm, S1/S2 Lungs: Positive: Decreased Breath Sounds Neuro: Positive: Grossly Intact Abdomen: Positive: Unremarkable, Other (edematous ). Negative: Tender /Rectal: Other (scrotal edema ) Skin: Negative: Rash Musculoskeletal: No Pain Extremities: Present: normal. Absent: edema - Labs and Meds Comprehensive Metabolic Panel 06/25/19 Range/Units 07:59 Sodium 137 (137-145) mmol/L Potassium 5.0 (3.6-5.0) mmol/L Chloride 102.8 (98-107) mmol/L Carbon Dioxide 25 (22-30) mmol/L BUN 55 H (9-20) mg/dL Creatinine 2.3 H (0.8-1.5) mg/dL Glucose 100 (75-100) mg/dL Calcium 8.2 L (8.4-10.2) mg/dL - Imaging and Cardiology EKG: report reviewed, image reviewed Echo: report reviewed (05/2019:EF 10-15%, impaired relaxation, RV mildly dilated, RV systolic function mod reduced, mod TR, RVSP 41mmHg. 06/2018 showed EF 35-40%, mild LVH. 11/2018 showed EF 25-30%, mild LVH, RV mild to mod dilated, RA and LA mildly dilated, minimal pericardial effusion. ) - EKG Sinus rhythms and dysrhythmias: sinus rhythm Ventricular dysrhythmias: ventricular premature com AV and intraventricular conduction: right bundle branch block
--- NOTE | 2019-06-25 17:26 | Progress Note ---
Assessment and Plan Assessment and plan: Patient is a 68 yo AA man with a past medical history of HFrEF, BPH, CMP, HTN, NIDDM, HLP, RBBB, dementia and noncompliance who presented to [facility] ED with AMS. Apparently the fire department found pt lying on the floor in his own feces at his home. He c/o SOB and scrotal edema. UDS on admission was positive for Cocaine. Pt does not appear to be a good candidate for LifeVest or AICD at this time given history of noncompliance and cocaine use per Cardiology * pCXR IMPRESSION: 1. Persistent prominent bronchovascular markings as compared to previous exam. * Scrotal Ultrasound IMPRESSION: 1. Nonspecific marked scrotal wall edema and moderate size bilateral hydroceles. 2. Bilateral benign testicular [place] rolithiasis. 3. No signs of orchitis or epididymitis. 4. No mass. 5. No signs of testicular torsion. * TITA Right TITA: .56. Left TITA: .35. IMPRESSION: 1. Based upon waveforms there is evidence of disease in the distal superficial femoral artery and in the runoff vessels on the right. On the left base waveforms distal superficial femoral artery popliteal and runoff vessels. * CT head without contrast IMPRESSION: 1. No evidence of acute infarct or hemorrhage. 2. A late subacute (after 72 hours) left parietal lobe nonhemorrhagic infarct is new since 07/13/2018. 3. Moderate chronic white matter microangiopathy. 4. Mild chronic cortical atrophy. * TTE 06/14/19 Conclusions: Est EF 10-15%, abnormal LV diastolic filling c/w impaired relaxation, RVSF moderately reduced, RVSP calculated at 41 mmHg, t race MR, moderate TR, trace MN, trivial pericardial effusion, large pleural effusion. * Echo done 06/2018 showed EF 35-40%, mild LVH. * Lexiscan MPI stress test done 12/2018 showed small mild reversible inferior defect, EF 22%. Medical management was recommended. Acute on chronic systolic HF with EF now 10-15% now: treat with diuresis +added Zaroxlyn, now on hold due to worsening renal function, Nephrology consulted, Cont 1500mL fluid restriction, daily weights and strict I&Os. Acute toxic metabolic encephalopathy, poa with Cocaine in UDS: counseling done Hypertensive urgency-Add hydralazin Bradycardia- Management per cardiology, PVC on Tele, - Asymptomatic Scrotal edema related to heart failure- ultrasound negative for acute findings, - cont scrotal elevation Hypokalemia -resolved-will monitor level PAD: Vascular surgeon consulted, input noted, outpatient follow up HX OF DVT and lower ext wounds, Continue to treat with aspirin. JAGRUTI vasomotor nephrology: stop diuretics, consult Nephrologyresolved -probably vasomotor nephropathy, -Lasix dose reduced, -monitor cr level Metabolic acidosis-stable, will monitor Cocaine abuse - Patient counseled on cessation DVT prophylaxis: lovenox Disposition: continue inpatient, d/c once cleared by Cardiology, not ready for discharge and no need for Ischemic evaluation, per Dr. Zee, History Interval history: Patient was seen and examined. Follow-up on current diagnosis of CHF. No overnight events reported to me. Patient denies any chest pain, shortness breath, nausea/vomiting or severe headaches. Imaging, nursing note, chart, labs and old chart reviewed. Discussed with patient. Hospitalist Physical - Physical exam Narrative exam: Gen: WDWN, NAD, Awake, Alert, Orientated x 2 HEENT: NCAT, EOMI, PERRL, OP Clear Neck: supple, no adenopathy, no thyromegaly, no JVD CVS/Heart: RRR, normal S1S2, pulses present bilaterally Chest/Lungs: diminished bs bilateral, Symmetrical chest expansion, good air entry bilaterally GI/Abdomen: soft, NTND, good bowel sounds, no guarding or rebound /Bladder: scrotal edema Extermity/Skin: ble edema, no obvious rash MSK: FROM x 4 Neuro: CN 2-12 grossly intact, no new focal deficits Psych: calm - Constitutional Vitals: Temp Pulse Resp BP Pulse Ox 98.0 F 47 L 18 140/66 100 06/25/19 16:12 06/25/19 16:12 06/25/19 16:12 06/25/19 16:12 06/25/19 16:12 General appearance: Present: no acute distress Results - Labs CBC & Chem 7: 06/19/19 04:28 06/25/19 07:59 Labs: Laboratory Last Values WBC 8.2 K/mm3 (4.5-11.0) 06/19/19 04:28 RBC 4.39 M/mm3 (3.65-5.03) 06/19/19 04:28 Hgb 11.0 gm/dl (11.8-15.2) L 06/19/19 04:28 Hct 33.6 % (35.5-45.6) L 06/19/19 04:28 MCV 77 fl (84-94) L 06/19/19 04:28 MCH 25 pg (28-32) L 06/19/19 04:28 MCHC 33 % (32-34) 06/19/19 04:28 RDW 15.9 % (13.2-15.2) H 06/19/19 04:28 Plt Count 221 K/mm3 (140-440) 06/19/19 04:28 Lymph % (Auto) 17.8 % (13.4-35.0) 06/10/19 13:24 [place] % (Auto) 7.0 % (0.0-7.3) 06/10/19 13:24 Eos % (Auto) 0.0 % (0.0-4.3) 06/10/19 13:24 Baso % (Auto) 0.9 % (0.0-1.8) 06/10/19 13:24 Lymph # 1.1 K/mm3 (1.2-5.4) L 06/10/19 13:24 [place] # 0.4 K/mm3 (0.0-0.8) 06/10/19 13:24 Eos # 0.0 K/mm3 (0.0-0.4) 06/10/19 13:24 Baso # 0.1 K/mm3 (0.0-0.1) 06/10/19 13:24 Seg Neutrophils % 74.3 % (40.0-70.0) H 06/10/19 13:24 Seg Neutrophils # 4.7 K/mm3 (1.8-7.7) 06/10/19 13:24 PT 14.7 Sec. (12.2-14.9) 06/11/19 16:28 INR 1.16 (0.87-1.13) H 06/11/19 16:28 APTT 32.9 Sec. (24.2-36.6) 06/10/19 13:24 Sodium 137 mmol/L (137-145) 06/25/19 07:59 Potassium 5.0 mmol/L (3.6-5.0) 06/25/19 07:59 Chloride 102.8 mmol/L (98-107) 06/25/19 07:59 Carbon Dioxide 25 mmol/L (22-30) 06/25/19 07:59 Anion Gap 14 mmol/L 06/25/19 07:59 BUN 55 mg/dL (9-20) H 06/25/19 07:59 Creatinine 2.3 mg/dL (0.8-1.5) H 06/25/19 07:59 Estimated GFR 34 ml/min 06/25/19 07:59 BUN/Creatinine Ratio 24 % 06/25/19 07:59 Glucose 100 mg/dL (75-100) 06/25/19 07:59 POC Glucose 175 (70-105) H 06/25/19 16:17 Hemoglobin A1c 6.6 % (4-6) H 06/13/19 04:00 Lactic Acid 1.20 mmol/L (0.7-2.0) 06/10/19 13:24 Calcium 8.2 mg/dL (8.4-10.2) L 06/25/19 07:59 Magnesium 2.20 mg/dL (1.7-2.3) 06/24/19 05:22 Total Bilirubin 0.70 mg/dL (0.1-1.2) 06/10/19 13:24 AST 76 units/L (5-40) H 06/10/19 13:24 ALT 21 units/L (7-56) 06/10/19 13:24 Alkaline Phosphatase 70 units/L (35-129) 06/10/19 13:24 Total Creatine Kinase 2514 units/L (55-170) H 06/10/19 13:24 Troponin T 0.086 ng/mL (0.00-0.029) H 06/10/19 18:40 NT-Pro-B Natriuret Pep 20002 pg/mL (0-900) H 06/10/19 13:24 Total Protein 6.1 g/dL (6.3-8.2) L 06/10/19 13:24 Albumin 2.9 g/dL (3.9-5) L 06/10/19 13:24 Albumin/Globulin Ratio 0.9 % 06/10/19 13:24 Triglycerides 61 mg/dL (2-149) 06/10/19 13:24 Cholesterol 92 mg/dL (50-199) 06/10/19 13:24 LDL Cholesterol Direct 33 mg/dL (50-130) L 06/10/19 13:24 HDL Cholesterol 54 mg/dL (40-59) 06/10/19 13:24 Cholesterol/HDL Ratio 1.70 % 06/10/19 13:24 Urine Color Iqra (Yellow) 06/10/19 22:50 Urine Turbidity Clear (Clear) 06/10/19 22:50 Urine pH 5.0 (5.0-7.0) 06/10/19 22:50 Ur Specific [place] 1.019 (1.003-1.030) 06/10/19 22:50 Urine Protein >500 mg/dL (Negative) 06/10/19 22:50 Urine Glucose (UA) Neg mg/dL (Negative) 06/10/19 22:50 Urine Ketones Neg mg/dL (Negative) 06/10/19 22:50 Urine Blood Lg (Negative) 06/10/19 22:50 Urine Nitrite Neg (Negative) 06/10/19 22:50 Urine Bilirubin Neg (Negative) 06/10/19 22:50 Urine Urobilinogen < 2.0 mg/dL (<2.0) 06/10/19 22:50 Ur Leukocyte Esterase Tr (Negative) 06/10/19 22:50 Urine WBC (Auto) 16.0 /HPF (0.0-6.0) H 06/10/19 22:50 Urine RBC (Auto) 7.0 /HPF (0.0-6.0) 06/10/19 22:50 U Epithel Cells (Auto) < 1.0 /HPF (0-13.0) 06/10/19 22:50 Urine Bacteria (Auto) 1+ /HPF (Negative) 06/10/19 22:50 Ur Yeast w Hyphae 1+ /HPF 06/10/19 22:50 Urine Yeast (Budding) Few /HPF 06/10/19 22:50 Urine Opiates Screen Presumptive negative 06/10/19 22:50 Urine Methadone Screen Presumptive negative 06/10/19 22:50 Ur Barbiturates Screen Presumptive negative 06/10/19 22:50 Ur Phencyclidine Scrn Presumptive negative 06/10/19 22:50 Ur Amphetamines Screen Presumptive negative 06/10/19 22:50 U Benzodiazepines Scrn Presumptive negative 06/10/19 22:50 Urine Cocaine Screen Presumptive positive 06/10/19 22:50 U Marijuana (THC) Screen Presumptive negative 06/10/19 22:50 Drugs of Abuse Note Disclamer 06/10/19 22:50 Active Medications - Current Medications Current Medications: Generic Name Dose Route Start Last Admin Trade Name Freq PRN Reason Stop Dose Admin Acetaminophen/Hydrocodone Bitart 1 each 06/16/19 03:12 06/24/19 09:56 [place] 5/325 PO 1 each Q4H PRN Administration Pain, Moderate (4-6) Aspirin 81 mg 06/11/19 10:00 06/25/19 11:42 Baby Aspirin PO 81 mg QDAY BRIDGETT Administration Carvedilol 6.25 mg 06/22/19 10:00 06/25/19 11:44 Coreg PO Not Given BID BRIDGETT Dextrose 50 ml 06/22/19 10:00 D50w (25gm) Syringe IV Q30MIN PRN Hypoglycemia Enoxaparin Sodium 30 mg 06/25/19 22:00 Enoxaparin SUB-Q QHS BRIDGETT Famotidine 20 mg 06/11/19 10:00 06/25/19 11:41 Pepcid PO 20 mg DAILY BRIDGETT Administration Folic Acid 1 mg 06/15/19 16:00 06/25/19 11:42 Folvite PO 1 mg QDAY BRIDGETT Administration Hydralazine HCl 10 mg 06/17/19 17:06 06/19/19 06:22 Apresoline IV 10 mg Q4HR PRN Administration Hypertension Insulin Human Lispro 0 unit 06/11/19 07:30 06/25/19 11:43 Humalog SUB-Q 2 unit ACHS BRIDGETT Administration Protocol Lisinopril 5 mg 06/22/19 10:00 06/25/19 11:45 Zestril PO Not Given QDAY BRIDGETT Multivitamins 1 each 06/15/19 16:00 06/25/19 11:41 Theragran Tab PO 1 each QDAY BRIDGETT Administration Thiamine HCl 100 mg 06/15/19 16:00 06/25/19 11:41 Vitamin B-1 PO 100 mg QDAY BRIDGETT Administration Nutrition/Malnutrition Assess - Dietary Evaluation Nutrition/Malnutrition Findings: Nutrition Notes Start: 06/17/19 14: 43 Freq: Status: Active Protocol: Document 06/21/19 16:04 OH (Rec: 06/21/19 16:07 OH [id number]) Nutrition Notes Initial or Follow up Brief Note Current Diet Consistent CHO Labs/Tests Reviewed Pertinent Medications Reviewed Height 5 ft 5 in Weight 93.1 kg Hardy Body Weight (kg) 61.81 BMI 34.1 Subjective/Other Information Pt. in room w/lunch tray at bedside. Pt. reports he has a great appetite and is requesting additional food. He states no issues w/chewing/ swallowing. He is getting Danny bid and taking as prescribed. Percent of energy/protein needs met: 100/100% GI Symptoms None Current % PO Good (75-100%) Minimum of two criteria No Is patient on ventilator? No Is Patient Ambulatory and/or Out of Bed No REE-([facility]-confined to bed) [phone] Calculation Used for Recommendations [facility] Additional Notes PRO: 96-116g/ day (1.25-1.5g/ kg AdBW 77.36kg) Fluid restriction of 1500ml Nutrition Intervention Change Diet Order: continue current diet Add Supplement/Snack (indicate name/kcal Danny BID /protein ) Provides kCal: 190 Provides Protein (gm) 5 Teaching Recipient Patient Teaching Methods Discussion Response to Teaching Verbalize understanding Education Handouts Provided Spoke w/pt regarding diabetes and ESRD. Pt. verbalized he was managing his diabetes adequately and he is aware of the relationship. Revisit per MD consult or patient Sign Off request:
[2019-06-25] MEDS: ENOXAPARIN 30 MG/0.3 ML INJ SUB-Q SCH (22:16)
[2019-06-26 07:43] LABS: Calcium 8.2 mg/dL (8.4-10.2)
[2019-06-26] MEDS: INSULIN LISPRO 100 UNIT/ML SUB-Q SCH ×4 (08:46→22:13)
[2019-06-26] MEDS: MULTIVITAMINS ,THERAPEUTIC TAB PO SCH (09:59)
[2019-06-26] MEDS: LISINOPRIL 5 MG TAB PO SCH (09:59)
[2019-06-26] MEDS: ASPIRIN 81 MG TAB CHEW PO SCH (10:06)
[2019-06-26] MEDS: carvediloL 6.25 MG TAB PO SCH (10:07)
[2019-06-26] MEDS: FOLIC ACID 1 MG TAB PO SCH (10:07)
[2019-06-26] MEDS: FAMOTIDINE 20 MG TAB PO SCH (10:07)
[2019-06-26] MEDS: THIAMINE 100 MG TAB PO SCH (10:07)
--- NOTE | 2019-06-26 13:37 | Progress Note ---
Assessment and Plan Cardiac status is slowly improving. Creatinine is elevated, but flat. May benefit from nephrology consult to assist with diuresis, since Bumex and Zaroxolyn needed to be decreased/discontinued d/t renal insufficiency. Continue current cardiac management for now. The patient has been seen in conjunction with Dr. Guerra, who agrees with the assessment and plan. - Patient Problems (1) Acute HFrEF (heart failure with reduced ejection fraction) Current Visit: Yes Status: Acute (2) Fall Current Visit: Yes Status: Acute (3) History of CVA (cerebrovascular accident) Current Visit: Yes Status: Chronic (4) Cardiomyopathy Current Visit: Yes Status: Chronic (5) Elevated troponin Current Visit: Yes Status: Chronic (6) Medical non-compliance Current Visit: Yes Status: Chronic (7) Cocaine use Current Visit: Yes Status: Chronic (8) Dementia Current Visit: Yes Status: Chronic (9) HTN (hypertension) Current Visit: Yes Status: Chronic Qualifiers: Hypertension type: essential hypertension Qualified Code(s): I10 - Essential (primary) hypertension (10) PVCs (premature ventricular contractions) Current Visit: Yes Status: Chronic (11) RBBB Current Visit: Yes Status: Chronic (12) T2DM (type 2 diabetes mellitus) Current Visit: Yes Status: Chronic (13) Altered mental status Current Visit: Yes Status: Resolved Subjective Date of service: 06/26/19 Principal diagnosis: AMS, hf Interval history: The patient is lying in bed in NAD. He reports improvement in overall symptoms, but remains edematous in abdomen/flank and scrotum. UOP not accurate d/t multiple episodes of incontinence. Telemetry reviewed - SR in 60s. Objective Last Vital Signs Temp 98.0 F 06/26/19 11:58 Pulse 32 L 06/26/19 11:58 Resp 20 06/26/19 11:58 BP 146/65 06/26/19 11:58 Pulse Ox 100 06/26/19 11:58 - Physical Examination General: No Apparent Distress HEENT: Positive: PERRL, Normocephaly, Mucus Membranes Moist Neck: Positive: neck supple, trachea midline Cardiac: Positive: Reg Rate and Rhythm Lungs: Positive: Decreased Breath Sounds Neuro: Positive: Grossly Intact Abdomen: Positive: Unremarkable, Other (edematous ). Negative: Tender /Rectal: Other (scrotal edema ) Skin: Negative: Rash Musculoskeletal: No Pain Extremities: Present: normal. Absent: edema - Labs and Meds Comprehensive Metabolic Panel 06/26/19 Range/Units 06:29 Sodium 141 (137-145) mmol/L Potassium 4.5 (3.6-5.0) mmol/L Chloride 104.9 (98-107) mmol/L Carbon Dioxide 22 (22-30) mmol/L BUN 56 H (9-20) mg/dL Creatinine 2.2 H (0.8-1.5) mg/dL Glucose 78 (75-100) mg/dL Calcium 8.2 L (8.4-10.2) mg/dL - Imaging and Cardiology EKG: report reviewed, image reviewed Echo: report reviewed (05/2019:EF 10-15%, impaired relaxation, RV mildly dilated, RV systolic function mod reduced, mod TR, RVSP 41mmHg. 06/2018 showed EF 35-40%, mild LVH. 11/2018 showed EF 25-30%, mild LVH, RV mild to mod dilated, RA and LA mildly dilated, minimal pericardial effusion. ) - Telemetry EKG Rhythm: Sinus Rhythm - EKG Sinus rhythms and dysrhythmias: sinus rhythm Ventricular dysrhythmias: ventricular premature com AV and intraventricular conduction: right bundle branch block
--- NOTE | 2019-06-26 15:31 | Consultation ---
History of Present Illness - Reason for Consult Consult date: 06/26/19 acute renal failure - History of Present Illness Nina is a poor historian. Hx obtained primarily from medical records. Mr. Dewey is a 68yo male with a cardiomyopathy and medical noncompliance who presented to the ED via EMS after being found down at home. The fire department found pt lying on the floor at his home and thus he was transported to ED for further evaluation. He reported worsening SOB, swelling and scrotal edema. He was admitted for management of anasarca, acute on chronic heart failure. At admission, patient's SCr was 1.1mg/dL which increased to 2.2mg/dL. Diuretics were held in light of worsening renal function. Nephrology has been consulted to assist with patient's management Past History Past Medical History: CAD, diabetes, DVT, heart failure, hypertension, hyperlipidemia, other (as per HPI) Medications and Allergies Allergies Allergy/AdvReac Type Severity Reaction Status Date / Time No Known Allergies Allergy Verified 12/03/18 16:45 Home Medications Medication Instructions Recorded Confirmed Last Taken Type Aspirin [Aspirin BABY CHEW TAB] 81 mg PO QDAY 30 Days #30 tab.chew 12/07/18 06/10/19 06/09/19 Rx Carvedilol [Coreg] 12.5 mg PO BID 30 Days #60 tablet 12/07/18 06/10/19 06/09/19 Rx Lisinopril [Zestril TAB] 20 mg PO QDAY 30 Days #30 tablet 12/07/18 06/10/19 06/09/19 Rx Famotidine [Pepcid] 20 mg PO DAILY #30 tablet 12/24/18 06/10/19 06/09/19 Rx Linagliptin [Tradjenta] 5 mg PO QDAY #30 tablet 12/24/18 06/10/19 06/09/19 Rx cloNIDine [Catapres] 0.1 mg PO QHS #30 tablet 12/24/18 06/10/19 06/09/19 Rx hydrALAZINE [Apresoline TAB] 50 mg PO BID #60 tablet 12/24/18 06/10/19 06/09/19 Rx Furosemide [Lasix TAB] 40 mg PO DAILY 30 Days tablet 01/04/19 06/10/19 06/09/19 Rx Active Meds: Active Medications Acetaminophen/Hydrocodone Bitart ([place] 5/325) 1 each PO Q4H PRN PRN Reason: Pain, Moderate (4-6) Last Admin: 06/24/19 09:56 Dose: 1 each Documented by: Aspirin (Baby Aspirin) 81 mg PO QDAY [facility] Last Admin: 06/26/19 10:06 Dose: 81 mg Documented by: Carvedilol (Coreg) 6.25 mg PO BID [facility] Last Admin: 06/26/19 10:07 Dose: 6.25 mg Documented by: Dextrose (D50w (25gm) Syringe) 50 ml IV Q30MIN PRN PRN Reason: Hypoglycemia Enoxaparin Sodium (Enoxaparin) 30 mg SUB-Q QHS [facility] Last Admin: 06/25/19 22:16 Dose: 30 mg Documented by: Famotidine (Pepcid) 20 mg PO DAILY [facility] Last Admin: 06/26/19 10:07 Dose: 20 mg Documented by: Folic Acid (Folvite) 1 mg PO QDAY [facility] Last Admin: 06/26/19 10:07 Dose: 1 mg Documented by: Hydralazine HCl (Apresoline) 10 mg IV Q4HR PRN PRN Reason: Hypertension Last Admin: 06/19/19 06:22 Dose: 10 mg Documented by: Insulin Human Lispro (Humalog) 0 unit SUB-Q [facility]; Protocol Last Admin: 06/26/19 12:34 Dose: Not Given Documented by: Lisinopril (Zestril) 5 mg PO QDAY [facility] Last Admin: 06/26/19 09:59 Dose: 5 mg Documented by: Multivitamins (Theragran Tab) 1 each PO QDAY [facility] Last Admin: 06/26/19 09:59 Dose: 1 each Documented by: Thiamine HCl (Vitamin B-1) 100 mg PO QDAY [facility] Last Admin: 06/26/19 10:07 Dose: 100 mg Documented by: Review of Systems All systems: negative Exam - Vital Signs Vital signs: Vital Signs Resp 17 06/10/19 12:02 - General Appearance General appearance: well-developed, well-nourished EENT: ATNC Respiratory: Wheezes Heart: bradycardia, S1S2 Gastrointestinal: Present: distended Integumentary: warm and dry Neurologic: no focal deficit Musculoskeletal: Present: other (+edema) Psychiatric: cooperative Additional exam: Patient generalized edema: flank wall, bilateral upper extremities, scrotal edema Results - Lab Results 06/19/19 04:28 06/26/19 06:29 Most recent lab results Calcium 8.2 mg/dL (8.4-10.2) L 06/26/19 06:29 Magnesium 2.20 mg/dL (1.7-2.3) 06/24/19 05:22 Assessment and Plan Impression: * Acute kidney injury secondary to decreased effective circulatory volume/cardiorenal syndrome * Anasarca * Acute on chronic systolic heart failure --TTE: severe global hypokinesis of the left ventricle; global LV systolic function is severely decreased. EF 10-15% (Jun 14) * Cardiomyopathy * Pulmonary edema * Bradycardia * Cocaine use Plan: * Renal prognosis is guarded. He remains in fluid overload - generalized edema, pulmonary edema. As such, recommend resuming IV diuresis - Bumex 2mg IV BID * Given cardiomyopathy, EF 10-15%, recommend inotrope support to help with f acilitate diuresis - discussed with Dr. Guerra who will order dobutamine gtt * Patient is bradycardic, currently on Coreg - now on hold per Dr. Chandler * If patient fails to respond to IV diuresis/inotrope, recommend mechanical UF for fluid removal. However, patient is bradycardic w/ HR in 30-40s and needs to be hemodynamically stable for mechanical UF * Will obtain renal ultrasound * Obtain SIFE, UIFE, UPCR * Strict I/O (ordered since 06/16 but not documented over past 4 days - discussed w/ battery charger tester) * Restrict fluid intake to 1500ml/day
--- NOTE | 2019-06-26 15:49 | Progress Note ---
Assessment and Plan Assessment and plan: Patient is a 68 yo AA man with a past medical history of HFrEF, BPH, CMP, HTN, NIDDM, HLP, RBBB, dementia and noncompliance who presented to [facility] ED with AMS. Apparently the fire department found pt lying on the floor in his own feces at his home. He c/o SOB and scrotal edema. UDS on admission was positive for Cocaine. Pt does not appear to be a good candidate for LifeVest or AICD at this time given history of noncompliance and cocaine use per Cardiology * pCXR IMPRESSION: 1. Persistent prominent bronchovascular markings as compared to previous exam. * Scrotal Ultrasound IMPRESSION: 1. Nonspecific marked scrotal wall edema and moderate size bilateral hydroceles. 2. Bilateral benign testicular [place] rolithiasis. 3. No signs of orchitis or epididymitis. 4. No mass. 5. No signs of testicular torsion. * TITA Right TITA: .56. Left TITA: .35. IMPRESSION: 1. Based upon waveforms there is evidence of disease in the distal superficial femoral artery and in the runoff vessels on the right. On the left base waveforms distal superficial femoral artery popliteal and runoff vessels. * CT head without contrast IMPRESSION: 1. No evidence of acute infarct or hemorrhage. 2. A late subacute (after 72 hours) left parietal lobe nonhemorrhagic infarct is new since 07/13/2018. 3. Moderate chronic white matter microangiopathy. 4. Mild chronic cortical atrophy. * TTE 06/14/19 Conclusions: Est EF 10-15%, abnormal LV diastolic filling c/w impaired relaxation, RVSF moderately reduced, RVSP calculated at 41 mmHg, t race MR, moderate TR, trace TX, trivial pericardial effusion, large pleural effusion. * Echo done 06/2018 showed EF 35-40%, mild LVH. * Lexiscan MPI stress test done 12/2018 showed small mild reversible inferior defect, EF 22%. Medical management was recommended. Acute on chronic systolic HF with EF now 10-15% now: treat with diuresis +added [place], now on hold due to worsening renal function, Nephrology consulted, Cont 1500mL fluid restriction, daily weights and strict I&Os. Acute toxic metabolic encephalopathy, poa with Cocaine in UDS: counseling done Hypertensive urgency-Add hydralazine Bradycardia- Management per cardiology, PVC on Tele, - Asymptomatic Scrotal edema related to heart failure- ultrasound negative for acute findings, - cont scrotal elevation Hypokalemia -resolved-will monitor level PAD: Vascular surgeon consulted, input noted, outpatient follow up HX OF DVT and lower ext wounds, Continue to treat with aspirin. JAGRUTI vasomotor nephrology: stop diuretics, consult Nephrologyresolved -probably vasomotor nephropathy, -Lasix dose reduced, -monitor cr level Metabolic acidosis-stable, will monitor Cocaine abuse - Patient counseled on cessation DVT prophylaxis: lovenox Disposition: continue inpatient, d/c once renal function improves, not ready for discharge but no need for Ischemic evaluation, per Dr. Zee, History Interval history: Patient was seen and examined. Follow-up on current diagnosis of CHF. No overnight events reported to me. Patient denies any chest pain, shortness breath, nausea/vomiting or severe headaches. Imaging, nursing note, chart, labs and old chart reviewed. Discussed with patient. Hospitalist Physical - Physical exam Narrative exam: Gen: WDWN, NAD, Awake, Alert, Orientated x 2 HEENT: NCAT, EOMI, PERRL, OP Clear Neck: supple, no adenopathy, no thyromegaly, no JVD CVS/Heart: RRR, normal S1S2, pulses present bilaterally Chest/Lungs: diminished bs bilateral, Symmetrical chest expansion, good air entry bilaterally GI/Abdomen: soft, NTND, good bowel sounds, no guarding or rebound /Bladder: scrotal edema Extermity/Skin: ble edema, no obvious rash MSK: FROM x 4 Neuro: CN 2-12 grossly intact, no new focal deficits Psych: calm - Constitutional Vitals: Temp Pulse Resp BP Pulse Ox 98.0 F 32 L 20 146/65 100 06/26/19 11:58 06/26/19 11:58 06/26/19 11:58 06/26/19 11:58 06/26/19 11:58 General appearance: Present: no acute distress Results - Labs CBC & Chem 7: 06/19/19 04:28 06/26/19 06:29 Labs: Laboratory Last Values WBC 8.2 K/mm3 (4.5-11.0) 06/19/19 04:28 RBC 4.39 M/mm3 (3.65-5.03) 06/19/19 04:28 Hgb 11.0 gm/dl (11.8-15.2) L 11/02/19 04:28 Hct 33.6 % (35.5-45.6) L 06/19/19 04:28 MCV 77 fl (84-94) L 06/19/19 04:28 MCH 25 pg (28-32) L 06/19/19 04:28 MCHC 33 % (32-34) 06/19/19 04:28 RDW 15.9 % (13.2-15.2) H 06/19/19 04:28 Plt Count 221 K/mm3 (140-440) 06/19/19 04:28 Lymph % (Auto) 17.8 % (13.4-35.0) 06/10/19 13:24 [place] % (Auto) 7.0 % (0.0-7.3) 06/10/19 13:24 Eos % (Auto) 0.0 % (0.0-4.3) 06/10/19 13:24 Baso % (Auto) 0.9 % (0.0-1.8) 06/10/19 13:24 Lymph # 1.1 K/mm3 (1.2-5.4) L 06/10/19 13:24 [place] # 0.4 K/mm3 (0.0-0.8) 06/10/19 13:24 Eos # 0.0 K/mm3 (0.0-0.4) 06/10/19 13:24 Baso # 0.1 K/mm3 (0.0-0.1) 06/10/19 13:24 Seg Neutrophils % 74.3 % (40.0-70.0) H 06/10/19 13:24 Seg Neutrophils # 4.7 K/mm3 (1.8-7.7) 06/10/19 13:24 PT 14.7 Sec. (12.2-14.9) 06/11/19 16:28 INR 1.16 (0.87-1.13) H 06/11/19 16:28 APTT 32.9 Sec. (24.2-36.6) 06/10/19 13:24 Sodium 141 mmol/L (137-145) 06/26/19 06:29 Potassium 4.5 mmol/L (3.6-5.0) 06/26/19 06:29 Chloride 104.9 mmol/L (98-107) 06/26/19 06:29 Carbon Dioxide 22 mmol/L (22-30) 06/26/19 06:29 Anion Gap 19 mmol/L 06/26/19 06:29 BUN 56 mg/dL (9-20) H 06/26/19 06:29 Creatinine 2.2 mg/dL (0.8-1.5) H 06/26/19 06:29 Estimated GFR 36 ml/min 06/26/19 06:29 BUN/Creatinine Ratio 25 % 06/26/19 06:29 Glucose 78 mg/dL (75-100) 06/26/19 06:29 POC Glucose 84 (70-105) 06/26/19 08:29 Hemoglobin A1c 6.6 % (4-6) H 06/13/19 04:00 Lactic Acid 1.20 mmol/L (0.7-2.0) 06/10/19 13:24 Calcium 8.2 mg/dL (8.4-10.2) L 06/26/19 06:29 Magnesium 2.20 mg/dL (1.7-2.3) 06/24/19 05:22 Total Bilirubin 0.70 mg/dL (0.1-1.2) 06/10/19 13:24 AST 76 units/L (5-40) H 06/10/19 13:24 ALT 21 units/L (7-56) 06/10/19 13:24 Alkaline Phosphatase 70 units/L (35-129) 06/10/19 13:24 Total Creatine Kinase 2514 units/L (55-170) H 06/10/19 13:24 Troponin T 0.086 ng/mL (0.00-0.029) H 06/10/19 18:40 NT-Pro-B Natriuret Pep 21271 pg/mL (0-900) H 06/10/19 13:24 Total Protein 6.1 g/dL (6.3-8.2) L 06/10/19 13:24 Albumin 2.9 g/dL (3.9-5) L 06/10/19 13:24 Albumin/Globulin Ratio 0.9 % 06/10/19 13:24 Triglycerides 61 mg/dL (2-149) 06/10/19 13:24 Cholesterol 92 mg/dL (50-199) 06/10/19 13:24 LDL Cholesterol Direct 33 mg/dL (50-130) L 06/10/19 13:24 HDL Cholesterol 54 mg/dL (40-59) 06/10/19 13:24 Cholesterol/HDL Ratio 1.70 % 06/10/19 13:24 Urine Color [place] (Yellow) 06/10/19 22:50 Urine Turbidity Clear (Clear) 06/10/19 22:50 Urine pH 5.0 (5.0-7.0) 06/10/19 22:50 Ur Specific [place] 1.019 (1.003-1.030) 06/10/19 22:50 Urine Protein >500 mg/dL (Negative) 06/10/19 22:50 Urine Glucose (UA) Neg mg/dL (Negative) 06/10/19 22:50 Urine Ketones Neg mg/dL (Negative) 06/10/19 22:50 Urine Blood Lg (Negative) 06/10/19 22:50 Urine Nitrite Neg (Negative) 06/10/19 22:50 Urine Bilirubin Neg (Negative) 06/10/19 22:50 Urine Urobilinogen < 2.0 mg/dL (<2.0) 06/10/19 22:50 Ur Leukocyte Esterase Tr (Negative) 06/10/19 22:50 Urine WBC (Auto) 16.0 /HPF (0.0-6.0) H 06/10/19 22:50 Urine RBC (Auto) 7.0 /HPF (0.0-6.0) 06/10/19 22:50 U Epithel Cells (Auto) < 1.0 /HPF (0-13.0) 06/10/19 22:50 Urine Bacteria (Auto) 1+ /HPF (Negative) 06/10/19 22:50 Ur Yeast w Hyphae 1+ /HPF 06/10/19 22:50 Urine Yeast (Budding) Few /HPF 06/10/19 22:50 Urine Opiates Screen Presumptive negative 06/10/19 22:50 Urine Methadone Screen Presumptive negative 06/10/19 22:50 Ur Barbiturates Screen Presumptive negative 06/10/19 22:50 Ur Phencyclidine Scrn Presumptive negative 06/10/19 22:50 Ur Amphetamines Screen Presumptive negative 06/10/19 22:50 U Benzodiazepines Scrn Presumptive negative 06/10/19 22:50 Urine Cocaine Screen Presumptive positive 06/10/19 22:50 U Marijuana (THC) Screen Presumptive negative 06/10/19 22:50 Drugs of Abuse Note Disclamer 06/10/19 22:50 Active Medications - Current Medications Current Medications: Generic Name Dose Route Start Last Admin Trade Name Freq PRN Reason Stop Dose Admin Acetaminophen/Hydrocodone Bitart 1 each 06/16/19 03:12 06/24/19 09:56 [place] 5/325 PO 1 each Q4H PRN Administration Pain, Moderate (4-6) Aspirin 81 mg 06/11/19 10:00 06/26/19 10:06 Baby Aspirin PO 81 mg QDAY BRIDGETT Administration Carvedilol 6.25 mg 06/22/19 10:00 06/26/19 10:07 Coreg PO 6.25 mg BID BRIDGETT Administration Dextrose 50 ml 06/22/19 10:00 D50w (25gm) Syringe IV Q30MIN PRN Hypoglycemia Enoxaparin Sodium 30 mg 06/25/19 22:00 06/25/19 22:16 Enoxaparin SUB-Q 30 mg QHS BRIDGETT Administration Famotidine 20 mg 06/11/19 10:00 06/26/19 10:07 Pepcid PO 20 mg DAILY BRIDGETT Administration Folic Acid 1 mg 06/15/19 16:00 06/26/19 10:07 Folvite PO 1 mg QDAY BRIDGETT Administration Hydralazine HCl 10 mg 06/17/19 17:06 06/19/19 06:22 Apresoline IV 10 mg Q4HR PRN Administration Hypertension Insulin Human Lispro 0 unit 06/11/19 07:30 06/26/19 12:34 Humalog SUB-Q Not Given ACHS [facility] Protocol Lisinopril 5 mg 06/22/19 10:00 06/26/19 09:59 Zestril PO 5 mg QDAY BRIDGETT Administration Multivitamins 1 each 06/15/19 16:00 06/26/19 09:59 Theragran Tab PO 1 each QDAY BRIDGETT Administration Thiamine HCl 100 mg 06/15/19 16:00 06/26/19 10:07 Vitamin B-1 PO 100 mg QDAY BRIDGETT Administration Nutrition/Malnutrition Assess - Dietary Evaluation Nutrition/Malnutrition Findings: Nutrition Notes Start: 06/17/19 14:43 Freq: Status: Active Protocol: Document 06/21/19 16:04 [place] (Rec: 06/21/19 16:07 [place] [id number]) Nutrition Notes Initial or Follow up Brief Note Current Diet Consistent CHO Labs/Tests Reviewed Pertinent Medications Reviewed Height 5 ft 5 in Weight 93.1 kg [place] Body Weight (kg) 61.81 BMI 34.1 Subjective/Other Information Pt. in room w/lunch tray at bedside. Pt. reports he has a great appetite and is requesting additional food. He states no issues w/chewing/ swallowing. He is getting Danny bid and taking as prescribed. Percent of energy/protein needs met: 100/100% GI Symptoms None Current % PO Good (75-100%) Minimum of two criteria No Is patient on ventilator? No Is Patient Ambulatory and/or Out of Bed No REE-([facility]-confined to bed) 1951.952 Calculation Used for Recommendations [facility] Additional Notes PRO: 96-116g/ day (1.25-1.5g/ kg AdBW 77.36kg) Fluid restriction of 1500ml Nutrition Intervention Change Diet Order: continue current diet Add Supplement/Snack (indicate name/kcal Danny BID /protein ) Provides kCal: 190 Provides Protein (gm) 5 Teaching Recipient Patient Teaching Methods Discussion Response to Teaching Verbalize understanding Education Handouts Provided Spoke w/pt regarding diabetes and ESRD. Pt. verbalized he was managing his diabetes adequately and he is aware of the relationship. Revisit per MD consult or patient Sign Off request:
[2019-06-26] MEDS ORDERED: BUMETANIDE 1 MG/4 ML INJ IV SCH (18:00)
[2019-06-26] MEDS: BUMETANIDE 2.5 MG/10 ML VIAL IV SCH (18:14)
[2019-06-26] MEDS: DOBUTamine/D5W 500 MG/250 ML 500 MG/250 ML BAG IV SCH (18:15)
--- NOTE | 2019-06-26 19:17 | Ultrasound Report ---
ULTRASOUND RENAL INDICATION: JAGRUTI. COMPARISON: No relevant prior imaging study available. FINDINGS: RIGHT KIDNEY: Size: 10.6 cm. Echogenicity: Normal. Cortical thickness: Normal. Hydronephrosis: None. Cyst or mass: None. Stones: None. LEFT KIDNEY: Size: 9.8 cm. Echogenicity: Normal. Cortical thickness: Normal. Hydronephrosis: None. Cyst or mass: None. Stones: None. Urinary Bladder: Contains a large amount of dependent debris. No abnormal color Doppler flow is seen to suggest bladder mass.. Free Fluid: None. Additional Findings: None. IMPRESSION 1. Large amount of dependent debris within the bladder could represent proteinaceous debris or hemorr preston. 2. Otherwise negative renal ultrasound. No hydronephrosis. Signer Name: Milton Calderon MD Signed: 06/26/2019 7:12 PM Workstation Name: [id number]
[2019-06-26] MEDS: hydrALAZINE 20 MG/1 ML INJ IV PRN (20:56)
[2019-06-26] MEDS: ENOXAPARIN 30 MG/0.3 ML INJ SUB-Q SCH (22:13)
[2019-06-26] MEDS: HYDROcodone/ACETAMINOPHEN 5-325 MG TAB PO PRN (22:27)
[2019-06-27] MEDS: BUMETANIDE 2.5 MG/10 ML VIAL IV SCH ×2 (06:36→17:26)
[2019-06-27 08:05] LABS: Calcium 8.2 mg/dL (8.4-10.2)
[2019-06-27] MEDS: INSULIN LISPRO 100 UNIT/ML SUB-Q SCH ×4 (08:26→22:00)
--- NOTE | 2019-06-27 09:57 | Progress Note ---
Assessment and Plan The patient remains in fluid overload. Continue dobutamine and other cardiac management. Strict I/Os encouraged, though patient is sometimes incontinent. The patient has been seen in conjunction with Dr. Guerra, who agrees with the assessment and plan. - Patient Problems (1) Acute HFrEF (heart failure with reduced ejection fraction) Current Visit: Yes Status: Acute (2) Fall Current Visit: Yes Status: Acute (3) History of CVA (cerebrovascular accident) Current Visit: Yes Status: Chronic (4) Cardiomyopathy Current Visit: Yes Status: Chronic (5) Elevated troponin Current Visit: Yes Status: Chronic (6) Medical non-compliance Current Visit: Yes Status: Chronic (7) Cocaine use Current Visit: Yes Status: Chronic (8) Dementia Current Visit: Yes Status: Chronic (9) HTN (hypertension) Current Visit: Yes Status: Chronic Qualifiers: Hypertension type: essential hypertension Qualified Code(s): I10 - Essential (primary) hypertension (10) PVCs (premature ventricular contractions) Current Visit: Yes Status: Chronic (11) RBBB Current Visit: Yes Status: Chronic (12) T2DM (type 2 diabetes mellitus) Current Visit: Yes Status: Chronic (13) Altered mental status Current Visit: Yes Status: Resolved Subjective Date of service: 06/27/19 Principal diagnosis: AMS, hf Interval history: The patient is lying in bed in NAD. He requests ice cream. He remains significantly volume overloaded - abdomen, flank and scrotum very edematous; dobutamine initiated yesterday. Telemetry reviewed - SR in 70s with frequent PVCs noted. Objective Last Vital Signs Temp 97.6 F 06/27/19 04:36 Pulse 46 L 06/27/19 04:36 Resp 20 06/27/19 04:36 BP 147/72 06/27/19 04:36 Pulse Ox 97 06/27/19 04:36 - Physical Examination General: No Apparent Distress HEENT: Positive: PERRL, Normocephaly, Mucus Membranes Moist Neck: Positive: neck supple, trachea midline Cardiac: Positive: Reg Rate and Rhythm, Audible Murmur Lungs: Positive: Decreased Breath Sounds Neuro: Positive: Grossly Intact Abdomen: Positive: Unremarkable, Other (edematous ). Negative: Tender /Rectal: Other (scrotal edema ) Skin: Positive: Clear. Negative: Rash Musculoskeletal: No Pain Extremities: Present: normal. Absent: edema - Labs and Meds Comprehensive Metabolic Panel 06/27/19 Range/Units 06:43 Sodium 140 (137-145) mmol/L Potassium 4.4 (3.6-5.0) mmol/L Chloride 105.4 (98-107) mmol/L Carbon Dioxide 22 (22-30) mmol/L BUN 50 H (9-20) mg/dL Creatinine 1.7 H (0.8-1.5) mg/dL Glucose 78 (75-100) mg/dL Calcium 8.2 L (8.4-10.2) mg/dL - Imaging and Cardiology EKG: report reviewed, image reviewed Echo: report reviewed (05/2019:EF 10-15%, impaired relaxation, RV mildly dilated, RV systolic function mod reduced, mod TR, RVSP 41mmHg. 06/2018 showed EF 35-40%, mild LVH. 11/2018 showed EF 25-30%, mild LVH, RV mild to mod dilated, RA and LA mildly dilated, minimal pericardial effusion. ) - EKG Sinus rhythms and dysrhythmias: sinus rhythm Ventricular dysrhythmias: ventricular premature com AV and intraventricular conduction: right bundle branch block
[2019-06-27] MEDS: MULTIVITAMINS ,THERAPEUTIC TAB PO SCH (10:18)
[2019-06-27] MEDS: ASPIRIN 81 MG TAB CHEW PO SCH (10:18)
[2019-06-27] MEDS: FAMOTIDINE 20 MG TAB PO SCH (10:18)
[2019-06-27] MEDS: LISINOPRIL 5 MG TAB PO SCH (10:18)
[2019-06-27] MEDS: THIAMINE 100 MG TAB PO SCH (10:18)
[2019-06-27] MEDS: FOLIC ACID 1 MG TAB PO SCH (10:18)
[2019-06-27] MEDS: DOBUTamine/D5W 500 MG/250 ML 500 MG/250 ML BAG IV SCH (10:29)
--- NOTE | 2019-06-27 15:21 | Progress Note ---
Assessment and Plan Assessment and plan: Patient is a 68 yo AA man with a past medical history of HFrEF, BPH, CMP, HTN, NIDDM, HLP, RBBB, dementia and noncompliance who presented to [facility] ED with AMS. Apparently the fire department found pt lying on the floor in his own feces at his home. He c/o SOB and scrotal edema. UDS on admission was positive for Cocaine. Pt does not appear to be a good candidate for LifeVest or AICD at this time given history of noncompliance and cocaine use per Cardiology * pCXR IMPRESSION: 1. Persistent prominent bronchovascular markings as compared to previous exam. * Scrotal Ultrasound IMPRESSION: 1. Nonspecific marked scrotal wall edema and moderate size bilateral hydroceles. 2. Bilateral benign testicular [place] rolithiasis. 3. No signs of orchitis or epididymitis. 4. No mass. 5. No signs of testicular torsion. * TITA Right TITA: .56. Left TITA: .35. IMPRESSION: 1. Based upon waveforms there is evidence of disease in the distal superficial femoral artery and in the runoff vessels on the right. On the left base waveforms distal superficial femoral artery popliteal and runoff vessels. * CT head without contrast IMPRESSION: 1. No evidence of acute infarct or hemorrhage. 2. A late subacute (after 72 hours) left parietal lobe nonhemorrhagic infarct is new since 07/13/2018. 3. Moderate chronic white matter microangiopathy. 4. Mild chronic cortical atrophy. * TTE 06/14/19 Conclusions: Est EF 10-15%, abnormal LV diastolic filling c/w impaired relaxation, RVSF moderately reduced, RVSP calculated at 41 mmHg, t race MR, moderate TR, trace RI, trivial pericardial effusion, large pleural effusion. * Echo done 06/2018 showed EF 35-40%, mild LVH. * Lexiscan MPI stress test done 12/2018 showed small mild reversible inferior defect, EF 22%. Medical management was recommended. Acute on chronic systolic HF with EF now 10-15% now: treat with diuresis +added Zaroxlyn, now on hold due to worsening renal function, Nephrology consulted, Cont 1500mL fluid restriction, daily weights and strict I&Os. Acute toxic metabolic encephalopathy, poa with Cocaine in UDS: counseling done Hypertensive urgency-Add hydralazine Bradycardia- Management per cardiology, PVC on Tele, - Asymptomatic Scrotal edema related to heart failure- ultrasound negative for acute findings, - cont scrotal elevation Hypokalemia -resolved-will monitor level PAD: Vascular surgeon consulted, input noted, outpatient follow up HX OF DVT and lower ext wounds, Continue to treat with aspirin. JAGRUTI vasomotor nephrology: stop diuretics, consult Nephrology resolved -probably vasomotor nephropathy, -Lasix dose reduced, -monitor cr level Metabolic acidosis-stable, will monitor Cocaine abuse - Patient counseled on cessation DVT prophylaxis: lovenox Disposition: continue inpatient, d/c once renal function improves, not ready for discharge but no need for Ischemic evaluation, per Dr. Zee, Dobutamine gtt started on 06/26/19 (day 16) and scrotal swellling has gone down by 50%. History Interval history: Patient was seen and examined. Follow-up on current diagnosis of CHF. No overnight events reported to me. Patient denies any chest pain, shortness breath, nausea/vomiting or severe headaches. Imaging, nursing note, chart, labs and old chart reviewed. Discussed with patient. Hospitalist Physical - Physical exam Narrative exam: Gen: WDWN, NAD, Awake, Alert, Orientated x 2 HEENT: NCAT, EOMI, PERRL, OP Clear Neck: supple, no adenopathy, no thyromegaly, no JVD CVS/Heart: RRR, normal S1S2, pulses present bilaterally Chest/Lungs: diminished bs bilateral, Symmetrical chest expansion, good air entry bilaterally GI/Abdomen: soft, NTND, good bowel sounds, no guarding or rebound /Bladder: scrotal edema Extermity/Skin: ble edema, no obvious rash MSK: FROM x 4 Neuro: CN 2-12 grossly intact, no new focal deficits Psych: calm - Constitutional Vitals: Temp Pulse Resp BP Pulse Ox 98.9 F 81 25 H 149/77 2 L 06/27/19 11:30 06/27/19 12:00 06/27/19 11:30 06/27/19 11:30 06/27/19 11:30 General appearance: Present: no acute distress Results - Labs CBC & Chem 7: 06/19/19 04:28 06/27/19 06:43 Labs: Laboratory Last Values WBC 8.2 K/mm3 (4.5-11.0) 06/19/19 04:28 RBC 4.39 M/mm3 (3.65-5.03) 06/19/19 04:28 Hgb 11.0 gm/dl (11.8-15.2) L 06/19/19 04:28 Hct 33.6 % (35.5-45.6) L 06/19/19 04:28 MCV 77 fl (84-94) L 06/19/19 04:28 MCH 25 pg (28-32) L 06/19/19 04:28 MCHC 33 % (32-34) 06/19/19 04:28 RDW 15.9 % (13.2-15.2) H 06/19/19 04:28 Plt Count 221 K/mm3 (140-440) 06/19/19 04:28 Lymph % (Auto) 17.8 % (13.4-35.0) 06/10/19 13:24 Butts % (Auto) 7.0 % (0.0-7.3) 06/10/19 13:24 Eos % (Auto) 0.0 % (0.0-4.3) 06/10/19 13:24 Baso % (Auto) 0.9 % (0.0-1.8) 06/10/19 13:24 Lymph # 1.1 K/mm3 (1.2-5.4) L 06/10/19 13:24 Butts # 0.4 K/mm3 (0.0-0.8) 06/10/19 13:24 Eos # 0.0 K/mm3 (0.0-0.4) 06/10/19 13:24 Baso # 0.1 K/mm3 (0.0-0.1) 06/10/19 13:24 Seg Neutrophils % 74.3 % (40.0-70.0) H 06/10/19 13:24 Seg Neutrophils # 4.7 K/mm3 (1.8-7.7) 06/10/19 13:24 PT 14.7 Sec. (12.2-14.9) 06/11/19 16:28 INR 1.16 (0.87-1.13) H 06/11/19 16:28 APTT 32.9 Sec. (24.2-36.6) 06/10/19 13:24 Sodium 140 mmol/L (137-145) 06/27/19 06:43 Potassium 4.4 mmol/L (3.6-5.0) 06/27/19 06:43 Chloride 105.4 mmol/L (98-107) 06/27/19 06:43 Carbon Dioxide 22 mmol/L (22-30) 06/27/19 06:43 Anion Gap 17 mmol/L 06/27/19 06:43 BUN 50 mg/dL (9-20) H 06/27/19 06:43 Creatinine 1.7 mg/dL (0.8-1.5) H 06/27/19 06:43 Estimated GFR 48 ml/min 06/27/19 06:43 BUN/Creatinine Ratio 29 % 06/27/19 06:43 Glucose 78 mg/dL (75-100) 06/27/19 06:43 POC Glucose 126 (70-105) H 06/27/19 11:51 Hemoglobin A1c 6.6 % (4-6) H 06/13/19 04:00 Lactic Acid 1.20 mmol/L (0.7-2.0) 06/10/19 13:24 Calcium 8.2 mg/dL (8.4-10.2) L 06/27/19 06:43 Magnesium 2.20 mg/dL (1.7-2.3) 06/24/19 05:22 Total Bilirubin 0.70 mg/dL (0.1-1.2) 06/10/19 13:24 AST 76 units/L (5-40) H 06/10/19 13:24 ALT 21 units/L (7-56) 06/10/19 13:24 Alkaline Phosphatase 70 units/L (35-129) 06/10/19 13:24 Total Creatine Kinase 2514 units/L (55-170) H 06/10/19 13:24 Troponin T 0.086 ng/mL (0.00-0.029) H 06/10/19 18:40 NT-Pro-B Natriuret Pep 87956 pg/mL (0-900) H 06/10/19 13:24 Total Protein 6.1 g/dL (6.3-8.2) L 06/10/19 13:24 Albumin 2.9 g/dL (3.9-5) L 06/10/19 13:24 Albumin/Globulin Ratio 0.9 % 06/10/19 13:24 Triglycerides 61 mg/dL (2-149) 06/10/19 13:24 Cholesterol 92 mg/dL (50-199) 06/10/19 13:24 LDL Cholesterol Direct 33 mg/dL (50-130) L 06/10/19 13:24 HDL Cholesterol 54 mg/dL (40-59) 06/10/19 13:24 Cholesterol/HDL Ratio 1.70 % 06/10/19 13:24 Urine Color [place] (Yellow) 06/10/19 22:50 Urine Turbidity Clear (Clear) 06/10/19 22:50 Urine pH 5.0 (5.0-7.0) 06/10/19 22:50 Ur Specific [place] 1.019 (1.003-1.030) 06/10/19 22:50 Urine Protein >500 mg/dL (Negative) 06/10/19 22:50 Urine Glucose (UA) Neg mg/dL (Negative) 06/10/19 22:50 Urine Ketones Neg mg/dL (Negative) 06/10/19 22:50 Urine Blood Lg (Negative) 06/10/19 22:50 Urine Nitrite Neg (Negative) 06/10/19 22:50 Urine Bilirubin Neg (Negative) 06/10/19 22:50 Urine Urobilinogen < 2.0 mg/dL (<2.0) 06/10/19 22:50 Ur Leukocyte Esterase Tr (Negative) 06/10/19 22:50 Urine WBC (Auto) 16.0 /HPF (0.0-6.0) H 06/10/19 22:50 Urine RBC (Auto) 7.0 /HPF (0.0-6.0) 06/10/19 22:50 U Epithel Cells (Auto) < 1.0 /HPF (0-13.0) 06/10/19 22:50 Urine Bacteria (Auto) 1+ /HPF (Negative) 06/10/19 22:50 Ur Yeast w Hyphae 1+ /HPF 06/10/19 22:50 Urine Yeast (Budding) Few /HPF 06/10/19 22:50 Urine Opiates Screen Presumptive negative 06/10/19 22:50 Urine Methadone Screen Presumptive negative 06/10/19 22:50 Ur Barbiturates Screen Presumptive negative 06/10/19 22:50 Ur Phencyclidine Scrn Presumptive negative 06/10/19 22:50 Ur Amphetamines Screen Presumptive negative 06/10/19 22:50 U Benzodiazepines Scrn Presumptive negative 06/10/19 22:50 Urine Cocaine Screen Presumptive positive 06/10/19 22:50 U Marijuana (THC) Screen Presumptive negative 06/10/19 22:50 Drugs of Abuse Note Disclamer 06/10/19 22:50 Active Medications - Current Medications Current Medications: Generic Name Dose Route Start Last Admin Trade Name Freq PRN Reason Stop Dose Admin Acetaminophen/Hydrocodone Bitart 1 each 06/16/19 03:12 06/26/19 22:27 [place] 5/325 PO 1 each Q4H PRN Administration Pain, Moderate (4-6) Aspirin 81 mg 06/11/19 10:00 06/27/19 10:18 Baby Aspirin PO 81 mg QDAY BRIDGETT Administration Bumetanide 2 mg 06/26/19 18:00 06/27/19 06:36 Bumex IV 2 mg BID@0600,1800 BRIDGETT Administration Dextrose 50 ml 06/22/19 10:00 D50w (25gm) Syringe IV Q30MIN PRN Hypoglycemia Enoxaparin Sodium 40 mg 06/27/19 22:00 Enoxaparin SUB-Q HS BRIDGETT Famotidine 20 mg 06/11/19 10:00 06/27/19 10:18 Pepcid PO 20 mg DAILY BRIDGETT Administration Folic Acid 1 mg 06/15/19 16:00 06/27/19 10:18 Folvite PO 1 mg QDAY BRIDGETT Administration Hydralazine HCl 10 mg 06/17/19 17:06 06/26/19 20:56 Apresoline IV 10 mg Q4HR PRN Administration Hypertension Dobutamine HCl/Dextrose 500 mg in 250 mls @ 13.08 mls/hr 06/26/19 17:00 06/27/19 10:29 Dobutrex Drip 500mg/D5w 250ml IV 5 mcg/kg/min DIRECT BRIDGETT 13.08 mls/hr Administration Protocol 5 MCG/KG/MIN Insulin Human Lispro 0 unit 06/11/19 07:30 06/27/19 11:30 Humalog SUB-Q Not Given ACHS [facility] Protocol Lisinopril 5 mg 06/22/19 10:00 06/27/19 10:18 Zestril PO Not Given QDAY [facility] Multivitamins 1 each 06/15/19 16:00 06/27/19 10:18 Theragran Tab PO 1 each QDAY BRIDGETT Administration Thiamine HCl 100 mg 06/15/19 16:00 06/27/19 10:18 Vitamin B-1 PO 100 mg QDAY BRIDGETT Administration Nutrition/Malnutrition Assess - Dietary Evaluation Nutrition/Malnutrition Findings: Nutrition Notes Start: 06/17/19 14:43 Freq: Status: Active Protocol: Document 06/21/19 16:04 OH (Rec: 06/21/19 16:07 OH [id number]) Nutrition Notes Initial or Follow up Brief Note Current Diet Consistent CHO Labs/Tests Reviewed Pertinent Medications Reviewed Height 5 ft 5 in Weight 93.1 kg [place] Body Weight (kg) 61.81 BMI 34.1 Subjective/Other Information Pt. in room w/lunch tray at bedside. Pt. reports he has a great appetite and is requesting additional food. He states no issues w/chewing/ swallowing. He is getting Danny bid and taking as prescribed. Percent of energy/protein needs met: 100/100% GI Symptoms None Current % PO Good (75-100%) Minimum of two criteria No Is patient on ventilator? No Is Patient Ambulatory and/or Out of Bed No REE-([facility]-confined to bed) 1952.952 Calculation Used for Recommendations [facility] Additional Notes PRO: 96-116g/ day (1.25-1.5g/ kg AdBW 77.36kg) Fluid restriction of 1500ml Nutrition Intervention Change Diet Order: continue current diet Add Supplement/Snack (indicate name/kcal Danny BID /protein ) Provides kCal: 190 Provides Protein (gm) 5 Teaching Recipient Patient Teaching Methods Discussion Response to Teaching Verbalize understanding Education Handouts Provided Spoke w/pt regarding diabetes and ESRD. Pt. verbalized he was managing his diabetes adequately and he is aware of the relationship. Revisit per MD consult or patient Sign Off request:
--- NOTE | 2019-06-27 15:34 | Progress Note ---
Assessment and Plan Impression: * Acute kidney injury secondary to decreased effective circulatory volume/cardiorenal syndrome --Renal u/s: no hydronephrosis (Jun 26) * Anasarca * Acute on chronic systolic heart failure --TTE: severe global hypokinesis of the left ventricle; global LV systolic function is severely decreased. EF 10-15% (Jun 14) * Cardiomyopathy * Pulmonary edema * Bradycardia * Cocaine use * Left upper extremity edema Plan: * SCr improved - continue current management * Continue IV diuresis - Bumex 2mg IV BID; will add Zaroxylyn - to receive first dose today w/ evening Bumex * Needs Dobutamine gtt for inotrope support while IV diuresis ongoing - patient w/ EF 10-15% * If patient fails to respond to IV diuresis/inotrope, recommend temporary mechanical UF for fluid removal. This has been addressed with patient. Kae ent is agreeable * Bradycardia resolved - continue to hold beta jeanmarie for now * Await SIFE, UIFE, UPCR * Strict I/O ordered and discussed with auditor in charge * Restrict fluid intake to 1500ml/day * LUE edema noted - will order doppler Subjective Date of service: 06/27/19 Principal diagnosis: AMS, hf Interval history: Patient feels better today. Reports scrotal edema improved Objective - Vital Signs Vital signs: Vital Signs - 12hr 06/27/19 06/27/19 06/27/19 04:00 04:36 10:00 Temperature 97.6 F Pulse Rate 85 46 L 83 Pulse Rate [ 78 Apical] Pulse Rate [ 78 Left Dorsalis Pedis] Pulse Rate [ 78 Left Radial] Pulse Rate [ 78 Right Dorsalis Pedis] Pulse Rate [ 78 Right Radial] Respiratory 20 23 Rate Blood Pressure 147/72 Blood Pressure [Right] O2 Sat by Pulse 97 97 Oximetry 06/27/19 06/27/19 06/27/19 10:18 11:30 12:00 Temperature 98.9 F Pulse Rate 78 78 81 Pulse Rate [ Apical] Pulse Rate [ Left Dorsalis Pedis] Pulse Rate [ Left Radial] Pulse Rate [ Right Dorsalis Pedis] Pulse Rate [ Right Radial] Respiratory 25 H Rate Blood Pressure 112/65 Blood Pressure 149/77 [Right] O2 Sat by Pulse 2 L Oximetry - General Appearance General appearance: well-developed, well-nourished EENT: ATNC Respiratory: Present: Decreased Breath Sounds Cardiology: regular, S1S2, other (generalized edema: flank wall edema, scrotal edema, LE edema) Gastrointestinal: other (flank wall edema) Neurologic: no focal deficit Musculoskeletal: other (2+ edema thighs) Psychiatric: cooperative - Lab 06/19/19 04:28 06/27/19 06:43 Most recent lab results Calcium 8.2 mg/dL (8.4-10.2) L 06/27/19 06:43 Magnesium 2.20 mg/dL (1.7-2.3) 06/24/19 05:22 - Imaging Kidney/bladder ultrasound: report reviewed Medications & Allergies - Medications Allergies/Adverse Reactions: Allergies No Known Allergies Allergy (Verified 12/03/18 16:45) Home Medications: Home Medications Medication Instructions Recorded Confirmed Last Taken Type Aspirin [Aspirin BABY CHEW TAB] 81 mg PO QDAY 30 Days #30 tab.chew 12/07/18 06/10/19 06/09/19 Rx Carvedilol [Coreg] 12.5 mg PO BID 30 Days #60 tablet 12/07/18 06/10/19 06/09/19 Rx Lisinopril [Zestril TAB] 20 mg PO QDAY 30 Days #30 tablet 12/07/18 06/10/19 06/09/19 Rx Famotidine [Pepcid] 20 mg PO DAILY #30 tablet 12/24/18 06/10/19 06/09/19 Rx Linagliptin [Tradjenta] 5 mg PO QDAY #30 tablet 12/24/18 06/10/19 06/09/19 Rx cloNIDine [Catapres] 0.1 mg PO QHS #30 tablet 12/24/18 06/10/19 06/09/19 Rx hydrALAZINE [Apresoline TAB] 50 mg PO BID #60 tablet 12/24/18 06/10/19 06/09/19 Rx Furosemide [Lasix TAB] 40 mg PO DAILY 30 Days tablet 01/04/19 06/10/19 06/09/19 Rx Active Medications: Generic Name Dose Route Start Last Admin Trade Name Freq PRN Reason Stop Dose Admin Acetaminophen/Hydrocodone Bitart 1 each 06/16/19 03:12 06/26/19 22:27 [place] 5/325 PO 1 each Q4H PRN Administration Pain, Moderate (4-6) Aspirin 81 mg 06/11/19 10:00 06/27/19 10:18 Baby Aspirin PO 81 mg QDAY BRIDGETT Administration Bumetanide 2 mg 06/26/19 18:00 06/27/19 06:36 Bumex IV 2 mg BID@0600,1800 BRIDGETT Administration Dextrose 50 ml 06/22/19 10:00 D50w (25gm) Syringe IV Q30MIN PRN Hypoglycemia Enoxaparin Sodium 40 mg 06/27/19 22:00 Enoxaparin SUB-Q HS BRIDGETT Famotidine 20 mg 06/11/19 10:00 06/27/19 10:18 Pepcid PO 20 mg DAILY BRIDGETT Administration Folic Acid 1 mg 06/15/19 16:00 06/27/19 10:18 Folvite PO 1 mg QDAY BRIDGETT Administration Hydralazine HCl 10 mg 06/17/19 17:06 06/26/19 20:56 Apresoline IV 10 mg Q4HR PRN Administration Hypertension Dobutamine HCl/Dextrose 500 mg in 250 mls @ 13.08 mls/hr 06/26/19 17:00 06/27/19 10:29 Dobutrex Drip 500mg/D5w 250ml IV 5 mcg/kg/min DIRECT BRIDGETT 13.08 mls/hr Administration Protocol 5 MCG/KG/MIN Insulin Human Lispro 0 unit 06/11/19 07:30 06/27/19 11:30 Humalog SUB-Q Not Given ACHS [facility] Protocol Lisinopril 5 mg 06/22/19 10:00 06/27/19 10:18 Zestril PO Not Given QDAY BRIDGETT Multivitamins 1 each 06/15/19 16:00 06/27/19 10:18 Theragran Tab PO 1 each QDAY BRIDGETT Administration Thiamine HCl 100 mg 06/15/19 16:00 06/27/19 10:18 Vitamin B-1 PO 100 mg QDAY BRIDGETT Administration
[2019-06-27] MEDS ORDERED: metOLazone 5 MG TAB PO ONE (18:00)
[2019-06-27] MEDS: ENOXAPARIN 40 MG/0.4 ML INJ SUB-Q SCH (22:09)
[2019-06-28] MEDS: metOLazone 5 MG TAB PO SCH (06:14)
[2019-06-28] MEDS: BUMETANIDE 2.5 MG/10 ML VIAL IV SCH ×2 (06:14→18:57)
[2019-06-28] MEDS: DOBUTamine/D5W 500 MG/250 ML 500 MG/250 ML BAG IV SCH (07:17)
[2019-06-28 08:07] LABS: Calcium 8.3 mg/dL (8.4-10.2)
[2019-06-28] MEDS: INSULIN LISPRO 100 UNIT/ML SUB-Q SCH ×4 (08:08→22:00)
--- NOTE | 2019-06-28 09:32 | Vascular Lab Report ---
RIGHT UPPER EXTREMITY VENOUS DOPPLER ULTRASOUND HISTORY: Left upper extremity edema COMPARISON: None. TECHNIQUE: Grayscale, color and spectral Doppler imaging of the venous system of the right upper extr emity was performed. FINDINGS: Internal Jugular Vein: Normal grayscale appearance and flow. Subclavian Vein: Normal grayscale appearance and flow. Axillary Vein: Normal venous flow, compressibility and augmentation. Brachial vein: Normal venous flow, compressibility and augmentation. Radial vein: Normal venous flow, compressibility and augmentation. Ulnar vein: Normal venous flow, compressibility and augmentation. Additional Findings: The basilic and cephalic veins are patent. IMPRESSION: 1. No sonographic evidence of deep venous thrombosis in the right upper extremity. Signer Name: Yoni Bocanegra Jr, MD Signed: 06/28/2019 9:28 AM Workstation Name: [id number]
[2019-06-28] MEDS: THIAMINE 100 MG TAB PO SCH (09:43)
[2019-06-28] MEDS: MULTIVITAMINS ,THERAPEUTIC TAB PO SCH (09:43)
[2019-06-28] MEDS: FOLIC ACID 1 MG TAB PO SCH (09:43)
[2019-06-28] MEDS: FAMOTIDINE 20 MG TAB PO SCH (09:43)
[2019-06-28] MEDS: ASPIRIN 81 MG TAB CHEW PO SCH (09:43)
[2019-06-28] MEDS: LISINOPRIL 5 MG TAB PO SCH (09:56)
--- NOTE | 2019-06-28 10:25 | Progress Note ---
Assessment and Plan Impression: * Acute kidney injury suspected secondary to decreased effective circulatory volume/cardiorenal syndrome; stable/improved --Renal u/s: no hydronephrosis (Jun 26) * Anasarca * Acute on chronic systolic heart failure on inotropic therapy --TTE: severe global hypokinesis of the left ventricle; global LV systolic function is severely decreased. EF 10-15% (Jun 14) * Cardiomyopathy * Pulmonary edema * Bradycardia * Cocaine use * Left upper extremity edema Plan: * Continue IV diuresis - Bumex 2mg IV BID and Zaroxylyn * Continue Dobutamine gtt for inotrope support while IV diuresis ongoing - patient w/ EF 10-15% * No current indication for temporary UF with HD. If patient fails to respond to IV diuresis/inotrope, recommend temporary mechanical UF for fluid removal. Patient is agreeable to this plan if needed * Await SIFE, UIFE, UPCR * Strict I/O * Restrict fluid intake to 1500ml/day * Sodium restriction to 1500mg/day Subjective Date of service: 06/28/19 Principal diagnosis: AMS, hf Interval history: No acute events noted overnight. Notes that he is making good urine; at time of interview, he notes that he has to urinate urgently. Notes some improvement in lower extremity swelling; breathing stable. Good appetite, no metallic taste. Objective - Exam Narrative Exam: General appearance: well-developed, well-nourished EENT: ATNC Respiratory: Decreased Breath Sounds Cardiology: regular, S1S2, generalized edema noted Gastrointestinal: normal bowel sounds Neurologic: no focal deficit Musculoskeletal: 2+ edema lower extremities Psychiatric: cooperative - Vital Signs Vital signs: Vital Signs - 12hr 06/28/19 06/28/19 06/28/19 00:01 04:20 07:33 Temperature 98.0 F 98.0 F Pulse Rate 45 L 46 L 88 Respiratory 16 16 Rate Blood Pressure 165/91 172/97 145/89 Blood Pressure [Right] O2 Sat by Pulse 95 100 91 Oximetry 06/28/19 06/28/19 07:48 09:56 Temperature 98.0 F Pulse Rate 98 H 88 Respiratory 18 Rate Blood Pressure 143/62 Blood Pressure 145/89 [Right] O2 Sat by Pulse 94 Oximetry - Lab 06/19/19 04:28 06/28/19 07:15 Most recent lab results Calcium 8.3 mg/dL (8.4-10.2) L 06/28/19 07:15 Magnesium 2.20 mg/dL (1.7-2.3) 06/24/19 05:22 Medications & Allergies - Medications Allergies/Adverse Reactions: Allergies No Known Allergies Allergy (Verified 12/03/18 16:45) Home Medications: Home Medications Medication Instructions Recorded Confirmed Last Taken Type Aspirin [Aspirin BABY CHEW TAB] 81 mg PO QDAY 30 Days #30 tab.chew 12/07/18 06/10/19 06/09/19 Rx Carvedilol [Coreg] 12.5 mg PO BID 30 Days #60 tablet 12/07/18 06/10/19 06/09/19 Rx Lisinopril [Zestril TAB] 20 mg PO QDAY 30 Days #30 tablet 12/07/18 06/10/19 06/09/19 Rx Famotidine [Pepcid] 20 mg PO DAILY #30 tablet 12/24/18 06/10/19 06/09/19 Rx Linagliptin [Tradjenta] 5 mg PO QDAY #30 tablet 12/24/18 06/10/19 06/09/19 Rx cloNIDine [Catapres] 0.1 mg PO QHS #30 tablet 12/24/18 06/10/19 06/09/19 Rx hydrALAZINE [Apresoline TAB] 50 mg PO BID #60 tablet 12/24/18 06/10/19 06/09/19 Rx Furosemide [Lasix TAB] 40 mg PO DAILY 30 Days tablet 01/04/19 06/10/19 06/09/19 Rx Active Medications: Generic Name Dose Route Start Last Admin Trade Name Freq PRN Reason Stop Dose Admin Acetaminophen/Hydrocodone Bitart 1 each 06/16/19 03:12 06/26/19 22:27 [place] 5/325 PO 1 each Q4H PRN Administration Pain, Moderate (4-6) Aspirin 81 mg 06/11/19 10:00 06/28/19 09:43 Baby Aspirin PO 81 mg QDAY BRIDGETT Administration Bumetanide 2 mg 06/26/19 18:00 06/28/19 06:14 Bumex IV 2 mg BID@0600,1800 BRIDGETT Administration Dextrose 50 ml 06/22/19 10:00 D50w (25gm) Syringe IV Q30MIN PRN Hypoglycemia Enoxaparin Sodium 40 mg 06/27/19 22:00 06/27/19 22:09 Enoxaparin SUB-Q 40 mg HS BRIDGETT Administration Famotidine 20 mg 06/11/19 10:00 06/28/19 09:43 Pepcid PO 20 mg DAILY BRIDGETT Administration Folic Acid 1 mg 06/15/19 16:00 06/28/19 09:43 Folvite PO 1 mg QDAY BRIDGETT Administration Hydralazine HCl 10 mg 06/17/19 17:06 06/26/19 20:56 Apresoline IV 10 mg Q4HR PRN Administration Hypertension Dobutamine HCl/Dextrose 500 mg in 250 mls @ 13.08 mls/hr 06/26/19 17:00 06/28/19 07:17 Dobutrex Drip 500mg/D5w 250ml IV 5 mcg/kg/min DIRECT BRIDGETT 13.08 mls/hr Administration Protocol 5 MCG/KG/MIN Insulin Human Lispro 0 unit 06/11/19 07:30 06/28/19 08:08 Humalog SUB-Q Not Given ACHS [facility] Protocol Lisinopril 5 mg 06/22/19 10:00 06/28/19 09:56 Zestril PO 5 mg QDAY BRIDGETT Administration Metolazone 5 mg 06/28/19 06:00 06/28/19 06:14 Zaroxolyn PO 5 mg DAILY@0600 BRIDGETT Administration Multivitamins 1 each 06/15/19 16:00 06/28/19 09:43 Theragran Tab PO 1 each QDAY BRIDGETT Administration Thiamine HCl 100 mg 06/15/19 16:00 06/28/19 09:43 Vitamin B-1 PO 100 mg QDAY BRIDGETT Administration
--- NOTE | 2019-06-28 12:58 | Progress Note ---
Assessment and Plan Cont present cardiac management. Cont 1500mL fluid restriction, daily weights and strict I&Os. Pt does not appear to be a good candidate for LifeVest or AICD at this time given history of noncompliance and cocaine use. Will plan to reevaluate candidacy as OP. The patient has been seen in conjunction with Dr. Tinoco who agrees with the a ssessment and plan of care. - Patient Problems (1) Altered mental status Current Visit: Yes Status: Resolved (2) Acute HFrEF (heart failure with reduced ejection fraction) Current Visit: Yes Status: Acute (3) Cardiomyopathy Current Visit: Yes Status: Chronic (4) HTN (hypertension) Current Visit: Yes Status: Chronic Qualifiers: Hypertension type: essential hypertension Qualified Code(s): I10 - Essential (primary) hypertension (5) T2DM (type 2 diabetes mellitus) Current Visit: Yes Status: Chronic (6) HLD (hyperlipidemia) Current Visit: Yes Status: Chronic (7) PVCs (premature ventricular contractions) Current Visit: Yes Status: Chronic (8) RBBB Current Visit: Yes Status: Chronic (9) Dementia Current Visit: Yes Status: Chronic (10) Elevated troponin Current Visit: Yes Status: Chronic (11) Elevated CK Current Visit: Yes Status: Acute (12) History of CVA (cerebrovascular accident) Current Visit: Yes Status: Chronic (13) Medical non-compliance Current Visit: Yes Status: Chronic (14) Cocaine use Current Visit: Yes Status: Chronic Subjective Date of service: 06/28/19 Principal diagnosis: AMS, hf Interval history: pt resting in bed, states he is feeling a little better today. scrotal and penile edema continues to improve. tele reviewed - in SR with intermittent bigeminy and PVCs. dobuatmine gtt infusing. Objective Last Vital Signs Temp 98.4 F 06/28/19 11:21 Pulse 60 06/28/19 11:21 Resp 18 06/28/19 11:21 BP 175/72 06/28/19 11:21 Pulse Ox 94 06/28/19 11:21 - Physical Examination General: No Apparent Distress HEENT: Positive: PERRL, Normocephaly, Mucus Membranes Moist Neck: Positive: neck supple, trachea midline Cardiac: Positive: Reg Rate and Rhythm, S1/S2 Lungs: Positive: Decreased Breath Sounds Neuro: Positive: Grossly Intact Abdomen: Positive: Unremarkable, Other (edematous ). Negative: Tender /Rectal: Other (scrotal edema ) Skin: Positive: Clear. Negative: Rash Musculoskeletal: No Pain Extremities: Present: normal. Absent: edema - Labs and Meds Comprehensive Metabolic Panel 06/28/19 Range/Units 07:15 Sodium 140 (137-145) mmol/L Potassium 4.7 (3.6-5.0) mmol/L Chloride 102.8 (98-107) mmol/L Carbon Dioxide 25 (22-30) mmol/L BUN 45 H (9-20) mg/dL Creatinine 1.5 (0.8-1.5) mg/dL Glucose 83 (75-100) mg/dL Calcium 8.3 L (8.4-10.2) mg/dL - Imaging and Cardiology EKG: report reviewed, image reviewed Echo: report reviewed (05/2019:EF 10-15%, impaired relaxation, RV mildly dilated, RV systolic function mod reduced, mod TR, RVSP 41mmHg. 06/2018 showed EF 35-40%, mild LVH. 11/2018 showed EF 25-30%, mild LVH, RV mild to mod dilated, RA and LA mildly dilated, minimal pericardial effusion. ) - EKG Sinus rhythms and dysrhythmias: sinus rhythm Ventricular dysrhythmias: ventricular premature com AV and intraventricular conduction: right bundle branch block
--- NOTE | 2019-06-28 14:02 | Progress Note ---
Assessment and Plan Assessment and plan: Patient is a 68 yo AA man with a past medical history of HFrEF, BPH, CMP, HTN, NIDDM, HLP, RBBB, dementia and noncompliance who presented to [facility] ED with AMS. Apparently the fire department found pt lying on the floor in his own feces at his home. He c/o SOB and scrotal edema. UDS on admission was positive for Cocaine. Pt does not appear to be a good candidate for LifeVest or AICD at this time given history of noncompliance and cocaine use per Cardiology * pCXR IMPRESSION: 1. Persistent prominent bronchovascular markings as compared to previous exam. * Scrotal Ultrasound IMPRESSION: 1. Nonspecific marked scrotal wall edema and moderate size bilateral hydroceles. 2. Bilateral benign testicular [place] rolithiasis. 3. No signs of orchitis or epididymitis. 4. No mass. 5. No signs of testicular torsion. * TITA Right TITA: .56. Left TITA: .35. IMPRESSION: 1. Based upon waveforms there is evidence of disease in the distal superficial femoral artery and in the runoff vessels on the right. On the left base waveforms distal superficial femoral artery popliteal and runoff vessels. * CT head without contrast IMPRESSION: 1. No evidence of acute infarct or hemorrhage. 2. A late subacute (after 72 hours) left parietal lobe nonhemorrhagic infarct is new since 07/13/2018. 3. Moderate chronic white matter microangiopathy. 4. Mild chronic cortical atrophy. * TTE 06/14/19 Conclusions: Est EF 10-15%, abnormal LV diastolic filling c/w impaired relaxation, RVSF moderately reduced, RVSP calculated at 41 mmHg, t race MR, moderate TR, trace VT, trivial pericardial effusion, large pleural effusion. * Echo done 06/2018 showed EF 35-40%, mild LVH. * Lexiscan MPI stress test done 12/2018 showed small mild reversible inferior defect, EF 22%. Medical management was recommended. Acute on chronic systolic HF with EF now 10-15% now: treat with diuresis +added Zaroxlyn, now on hold due to worsening renal function, Nephrology consulted, Cont 1500mL fluid restriction, daily weights and strict I&Os. Acute toxic metabolic encephalopathy, poa with Cocaine in UDS: counseling done Hypertensive urgency-Add hydralazine Bradycardia- Management per cardiology, PVC on Tele, - Asymptomatic Scrotal edema related to heart failure- ultrasound negative for acute findings, - cont scrotal elevation Hypokalemia -resolved-will monitor level PAD: Vascular surgeon consulted, input noted, outpatient follow up HX OF DVT and lower ext wounds, Continue to treat with aspirin. JAGRUTI vasomotor nephrology: stop diuretics, consult Nephrology resolved -probably vasomotor nephropathy, -Lasix dose reduced, -monitor cr level Metabolic acidosis-stable, will monitor Cocaine abuse - Patient counseled on cessation DVT prophylaxis: lovenox Disposition: continue inpatient, d/c once renal function improves, not ready for discharge but no need for Ischemic evaluation, per Dr. Zee, Dobutamine gtt started on 06/26/19 (day 16) and scrotal swellling has gone down by 50%. History Interval history: Patient was seen and examined. Follow-up on current diagnosis of CHF. No overnight events reported to me. Patient denies any chest pain, shortness breath, nausea/vomiting or severe headaches. Imaging, nursing note, chart, labs and old chart reviewed. Discussed with patient. Hospitalist Physical - Physical exam Narrative exam: Gen: WDWN, NAD, Awake, Alert, Orientated x 2 HEENT: NCAT, EOMI, PERRL, OP Clear Neck: supple, no adenopathy, no thyromegaly, no JVD CVS/Heart: RRR, normal S1S2, pulses present bilaterally Chest/Lungs: diminished bs bilateral, Symmetrical chest expansion, good air entry bilaterally GI/Abdomen: soft, NTND, good bowel sounds, no guarding or rebound /Bladder: scrotal edema Extermity/Skin: ble edema, no obvious rash MSK: FROM x 4 Neuro: CN 2-12 grossly intact, no new focal deficits Psych: calm - Constitutional Vitals: Temp Pulse Resp BP Pulse Ox 98.4 F 60 18 175/72 94 06/28/19 11:21 06/28/19 11:21 06/28/19 11:21 06/28/19 11:21 06/28/19 11:21 General appearance: Present: no acute distress Results - Labs CBC & Chem 7: 06/19/19 04:28 06/28/19 07:15 Labs: Laboratory Last Values WBC 8.2 K/mm3 (4.5-11.0) 06/19/19 04:28 RBC 4.39 M/mm3 (3.65-5.03) 06/19/19 04:28 Hgb 11.0 gm/dl (11.8-15.2) L 06/19/19 04:28 Hct 33.6 % (35.5-45.6) L 06/19/19 04:28 MCV 77 fl (84-94) L 06/19/19 04:28 MCH 25 pg (28-32) L 06/19/19 04:28 MCHC 33 % (32-34) 06/19/19 04:28 RDW 15.9 % (13.2-15.2) H 06/19/19 04:28 Plt Count 221 K/mm3 (140-440) 06/19/19 04:28 Lymph % (Auto) 17.8 % (13.4-35.0) 06/10/19 13:24 [place] % (Auto) 7.0 % (0.0-7.3) 06/10/19 13:24 Eos % (Auto) 0.0 % (0.0-4.3) 06/10/19 13:24 Baso % (Auto) 0.9 % (0.0-1.8) 06/10/19 13:24 Lymph # 1.1 K/mm3 (1.2-5.4) L 06/10/19 13:24 [place] # 0.4 K/mm3 (0.0-0.8) 06/10/19 13:24 Eos # 0.0 K/mm3 (0.0-0.4) 06/10/19 13:24 Baso # 0.1 K/mm3 (0.0-0.1) 06/10/19 13:24 Seg Neutrophils % 74.3 % (40.0-70.0) H 06/10/19 13:24 Seg Neutrophils # 4.7 K/mm3 (1.8-7.7) 06/10/19 13:24 PT 14.7 Sec. (12.2-14.9) 06/11/19 16:28 INR 1.16 (0.87-1.13) H 06/11/19 16:28 APTT 32.9 Sec. (24.2-36.6) 06/10/19 13:24 Sodium 140 mmol/L (137-145) 06/28/19 07:15 Potassium 4.7 mmol/L (3.6-5.0) 06/28/19 07:15 Chloride 102.8 mmol/L (98-107) 06/28/19 07:15 Carbon Dioxide 25 mmol/L (22-30) 06/28/19 07:15 Anion Gap 17 mmol/L 06/28/19 07:15 BUN 45 mg/dL (9-20) H 06/28/19 07:15 Creatinine 1.5 mg/dL (0.8-1.5) 06/28/19 07:15 Estimated GFR 56 ml/min 06/28/19 07:15 BUN/Creatinine Ratio 30 % 06/28/19 07:15 Glucose 83 mg/dL (75-100) 06/28/19 07:15 POC Glucose 136 (70-105) H 06/28/19 12:42 Hemoglobin A1c 6.6 % (4-6) H 06/13/19 04:00 Lactic Acid 1.20 mmol/L (0.7-2.0) 06/10/19 13:24 Calcium 8.3 mg/dL (8.4-10.2) L 06/28/19 07:15 Magnesium 2.20 mg/dL (1.7-2.3) 06/24/19 05:22 Total Bilirubin 0.70 mg/dL (0.1-1.2) 06/10/19 13:24 AST 76 units/L (5-40) H 06/10/19 13:24 ALT 21 units/L (7-56) 06/10/19 13:24 Alkaline Phosphatase 70 units/L (35-129) 06/10/19 13:24 Total Creatine Kinase 2514 units/L (55-170) H 06/10/19 13:24 Troponin T 0.086 ng/mL (0.00-0.029) H 06/10/19 18:40 NT-Pro-B Natriuret Pep 62296 pg/mL (0-900) H 06/10/19 13:24 Total Protein 6.1 g/dL (6.3-8.2) L 06/10/19 13:24 Albumin 2.9 g/dL (3.9-5) L 06/10/19 13:24 Albumin/Globulin Ratio 0.9 % 06/10/19 13:24 Triglycerides 61 mg/dL (2-149) 06/10/19 13:24 Cholesterol 92 mg/dL (50-199) 06/10/19 13:24 LDL Cholesterol Direct 33 mg/dL (50-130) L 06/10/19 13:24 HDL Cholesterol 54 mg/dL (40-59) 06/10/19 13:24 Cholesterol/HDL Ratio 1.70 % 06/10/19 13:24 Urine Color [place] (Yellow) 06/10/19 22:50 Urine Turbidity Clear (Clear) 06/10/19 22:50 Urine pH 5.0 (5.0-7.0) 06/10/19 22:50 Ur Specific [place] 1.019 (1.003-1.030) 06/10/19 22:50 Urine Protein >500 mg/dL (Negative) 06/10/19 22:50 Urine Glucose (UA) Neg mg/dL (Negative) 06/10/19 22:50 Urine Ketones Neg mg/dL (Negative) 06/10/19 22:50 Urine Blood Lg (Negative) 06/10/19 22:50 Urine Nitrite Neg (Negative) 06/10/19 22:50 Urine Bilirubin Neg (Negative) 06/10/19 22:50 Urine Urobilinogen < 2.0 mg/dL (<2.0) 06/10/19 22:50 Ur Leukocyte Esterase Tr (Negative) 06/10/19 22:50 Urine WBC (Auto) 16.0 /HPF (0.0-6.0) H 06/10/19 22:50 Urine RBC (Auto) 7.0 /HPF (0.0-6.0) 06/10/19 22:50 U Epithel Cells (Auto) < 1.0 /HPF (0-13.0) 06/10/19 22:50 Urine Bacteria (Auto) 1+ /HPF (Negative) 06/10/19 22:50 Ur Yeast w Hyphae 1+ /HPF 06/10/19 22:50 Urine Yeast (Budding) Few /HPF 06/10/19 22:50 Urine Opiates Screen Presumptive negative 06/10/19 22:50 Urine Methadone Screen Presumptive negative 06/10/19 22:50 Ur Barbiturates Screen Presumptive negative 06/10/19 22:50 Ur Phencyclidine Scrn Presumptive negative 06/10/19 22:50 Ur Amphetamines Screen Presumptive negative 06/10/19 22:50 U Benzodiazepines Scrn Presumptive negative 06/10/19 22:50 Urine Cocaine Screen Presumptive positive 06/10/19 22:50 U Marijuana (THC) Screen Presumptive negative 06/10/19 22:50 Drugs of Abuse Note Disclamer 06/10/19 22:50 Active Medications - Current Medications Current Medications: Generic Name Dose Route Start Last Admin Trade Name Freq PRN Reason Stop Dose Admin Acetaminophen/Hydrocodone Bitart 1 each 06/16/19 03:12 06/26/19 22:27 [place] 5/325 PO 1 each Q4H PRN Administration Pain, Moderate (4-6) Aspirin 81 mg 06/11/19 10:00 06/28/19 09:43 Baby Aspirin PO 81 mg QDAY BRIDGETT Administration Bumetanide 2 mg 06/26/19 18:00 06/28/19 06:14 Bumex IV 2 mg BID@0600,1800 BRIDGETT Administration Dextrose 50 ml 06/22/19 10:00 D50w (25gm) Syringe IV Q30MIN PRN Hypoglycemia Enoxaparin Sodium 40 mg 06/27/19 22:00 06/27/19 22:09 Enoxaparin SUB-Q 40 mg HS BRIDGETT Administration Famotidine 20 mg 06/11/19 10:00 06/28/19 09:43 Pepcid PO 20 mg DAILY BRIDGETT Administration Folic Acid 1 mg 06/15/19 16:00 06/28/19 09:43 Folvite PO 1 mg QDAY BRIDGETT Administration Hydralazine HCl 10 mg 06/17/19 17:06 06/26/19 20:56 Apresoline IV 10 mg Q4HR PRN Administration Hypertension Dobutamine HCl/Dextrose 500 mg in 250 mls @ 13.08 mls/hr 06/26/19 17:00 06/28/19 07:17 Dobutrex Drip 500mg/D5w 250ml IV 5 mcg/kg/min DIRECT BRIDGETT 13.08 mls/hr Administration Protocol 5 MCG/KG/MIN Insulin Human Lispro 0 unit 06/11/19 07:30 06/28/19 12:52 Humalog SUB-Q Not Given ACHS BRIDGETT Protocol Lisinopril 5 mg 06/22/19 10:00 06/28/19 09:56 Zestril PO 5 mg QDAY BRIDGETT Administration Metolazone 5 mg 06/28/19 06:00 06/28/19 06:14 Zaroxolyn PO 5 mg DAILY@0600 BRIDGETT Administration Multivitamins 1 each 06/15/19 16:00 06/28/19 09:43 Theragran Tab PO 1 each QDAY BRIDGETT Administration Thiamine HCl 100 mg 06/15/19 16:00 06/28/19 09:43 Vitamin B-1 PO 100 mg QDAY BRIDGETT Administration Nutrition/Malnutrition Assess - Dietary Evaluation Nutrition/Malnutrition Findings: Nutrition Notes Start: 06/17/19 14:43 Freq: Status: Active Protocol: Document 06/21/19 16:04 OH (Rec: 06/21/19 16:07 OH [id number]) Nutrition Notes Initial or Follow up Brief Note Current Diet Consistent CHO Labs/Tests Reviewed Pertinent Medications Reviewed Height 5 ft 5 in Weight 93.1 kg [place] Body Weight (kg) 61.81 BMI 34.1 Subjective/Other Information Pt. in room w/lunch tray at bedside. Pt. reports he has a great appetite and is requesting additional food. He states no issues w/chewing/ swallowing. He is getting Danny bid and taking as prescribed. Percent of energy/protein needs met: 100/100% GI Symptoms None Current % PO Good (75-100%) Minimum of two criteria No Is patient on ventilator? No Is Patient Ambulatory and/or Out of Bed No REE-([facility]-confined to bed) 1951.952 Calculation Used for Recommendations [facility] Additional Notes PRO: 96-116g/ day (1.25-1.5g/ kg AdBW 77.36kg) Fluid restriction of 1500ml Nutrition Intervention Change Diet Order: continue current diet Add Supplement/Snack (indicate name/kcal Danny BID /protein ) Provides kCal: 190 Provides Protein (gm) 5 Teaching Recipient Patient Teaching Methods Discussion Response to Teaching Verbalize understanding Education Handouts Provided Spoke w/pt regarding diabetes and ESRD. Pt. verbalized he was managing his diabetes adequately and he is aware of the relationship. Revisit per MD consult or patient Sign Off request:
[2019-06-28] MEDS: ENOXAPARIN 40 MG/0.4 ML INJ SUB-Q SCH (23:09)
[2019-06-29] MEDS: BUMETANIDE 2.5 MG/10 ML VIAL IV SCH ×2 (06:12→18:27)
[2019-06-29] MEDS: metOLazone 5 MG TAB PO SCH (06:13)
[2019-06-29] MEDS: DOBUTamine/D5W 500 MG/250 ML 500 MG/250 ML BAG IV SCH (06:14)
[2019-06-29 07:04] LABS: BUN/Creatinine Ratio 30; Blood Urea Nitrogen 42 mg/dL (9-20); Calcium 8.5 mg/dL (8.4-10.2); Hemolysis Index 3
--- NOTE | 2019-06-29 10:13 | Progress Note ---
Assessment and Plan Impression: * Acute kidney injury suspected secondary to decreased effective circulatory volume/cardiorenal syndrome; stable/improved --Renal u/s: no hydronephrosis (Jun 26) * Anasarca * Acute on chronic systolic heart failure on inotropic therapy --TTE: severe global hypokinesis of the left ventricle; global LV systolic function is severely decreased. EF 10-15% (Jun 14) * Cardiomyopathy * Pulmonary edema * Bradycardia * Cocaine use * Left upper extremity edema Plan: * Continue IV diuresis - Bumex 2mg IV BID and Zaroxylyn; renal function stable * Daily renal function panel * Continue Dobutamine gtt for inotrope support while IV diuresis ongoing - patient w/ EF 10-15% * No current indication for temporary UF with HD. If patient fails to respond to IV diuresis/inotrope, recommend temporary mechanical UF for fluid removal. Patient is agreeable to this plan if needed * Await SIFE, UIFE, UPCR * Strict I/O * Restrict fluid intake to 1500ml/day * Sodium restriction to 1500mg/day * Appreciate cardiology recommendations Thank you for this consult; we will continue to follow closely with you. Subjective Date of service: 06/29/19 Principal diagnosis: AMS, hf Interval history: No acute events noted overnight. Notes that he is making good urine; feels that scrotal swelling has improved. Notes some improvement in lower extremity swelling; breathing stable. Good appetite, no metallic taste. Objective - Exam Narrative Exam: General appearance: well-developed, well-nourished EENT: ATNC Respiratory: Decreased Breath Sounds Cardiology: regular, S1S2, generalized edema noted Gastrointestinal: normal bowel sounds Neurologic: no focal deficit Musculoskeletal: 2+ edema lower extremities Psychiatric: cooperative - Vital Signs Vital signs: Vital Signs - 12hr 06/29/19 06/29/19 06/29/19 00:15 04:00 07:08 Temperature 97.8 F 97.7 F 98.4 F Pulse Rate 47 L 47 L Respiratory 20 18 18 Rate Blood Pressure 171/70 187/73 Blood Pressure 172/80 [Right] O2 Sat by Pulse 97 95 Oximetry - Lab 06/19/19 04:28 06/29/19 05:54 Most recent lab results Calcium 8.5 mg/dL (8.4-10.2) 06/29/19 05:54 Magnesium 2.20 mg/dL (1.7-2.3) 06/24/19 05:22 Medications & Allergies - Medications Allergies/Adverse Reactions: Allergies No Known Allergies Allergy (Verified 12/03/18 16:45) Home Medications: Home Medications Medication Instructions Recorded Confirmed Last Taken Type Aspirin [Aspirin BABY CHEW TAB] 81 mg PO QDAY 30 Days #30 tab.chew 12/07/18 06/10/19 06/09/19 Rx Carvedilol [Coreg] 12.5 mg PO BID 30 Days #60 tablet 12/07/18 06/10/19 06/09/19 Rx Lisinopril [Zestril TAB] 20 mg PO QDAY 30 Days #30 tablet 12/07/18 06/10/19 1 Rx Famotidine [Pepcid] 20 mg PO DAILY #30 tablet 12/24/18 06/10/19 06/09/19 Rx Linagliptin [Tradjenta] 5 mg PO QDAY #30 tablet 12/24/18 06/10/19 06/09/19 Rx cloNIDine [Catapres] 0.1 mg PO QHS #30 tablet 12/24/18 06/10/19 06/09/19 Rx hydrALAZINE [Apresoline TAB] 50 mg PO BID #60 tablet 12/24/18 06/10/19 06/09/19 Rx Furosemide [Lasix TAB] 40 mg PO DAILY 30 Days tablet 01/04/19 06/10/19 06/09/19 Rx Active Medications: Generic Name Dose Route Start Last Admin Trade Name Freq PRN Reason Stop Dose Admin Acetaminophen/Hydrocodone Bitart 1 each 06/16/19 03:12 06/26/19 22:27 [place] 5/325 PO 1 each Q4H PRN Administration Pain, Moderate (4-6) Aspirin 81 mg 06/11/19 10:00 06/28/19 09:43 Baby Aspirin PO 81 mg QDAY BRIDGETT Administration Bumetanide 2 mg 06/26/19 18:00 06/29/19 06:12 Bumex IV 2 mg BID@0600,1800 BRIDGETT Administration Dextrose 50 ml 06/22/19 10:00 D50w (25gm) Syringe IV Q30MIN PRN Hypoglycemia Enoxaparin Sodium 40 mg 06/27/19 22:00 06/28/19 23:09 Enoxaparin SUB-Q 40 mg HS BRIDGETT Administration Famotidine 20 mg 06/11/19 10:00 06/28/19 09:43 Pepcid PO 20 mg DAILY BRIDGETT Administration Folic Acid 1 mg 06/15/19 16:00 06/28/19 09:43 Folvite PO 1 mg QDAY BRIDGETT Administration Hydralazine HCl 10 mg 06/17/19 17:06 06/26/19 20:56 Apresoline IV 10 mg Q4HR PRN Administration Hypertension Dobutamine HCl/Dextrose 500 mg in 250 mls @ 13.08 mls/hr 06/26/19 17:00 06/29/19 06:14 Dobutrex Drip 500mg/D5w 250ml IV 5 mcg/kg/min DIRECT BRIDGETT 13.08 mls/hr Administration Protocol 5 MCG/KG/MIN Insulin Human Lispro 0 unit 06/11/19 07:30 06/28/19 22:00 Humalog SUB-Q Not Given ACHS BRIDGETT Protocol Lisinopril 5 mg 06/22/19 10:00 06/28/19 09:56 Zestril PO 5 mg QDAY BRIDGETT Administration Metolazone 5 mg 06/28/19 06:00 06/29/19 06:13 Zaroxolyn PO 5 mg DAILY@0600 BRIDGETT Administration Multivitamins 1 each 06/15/19 16:00 06/28/19 09:43 Theragran Tab PO 1 each QDAY BRIDGETT Administration Thiamine HCl 100 mg 06/15/19 16:00 06/28/19 09:43 Vitamin B-1 PO 100 mg QDAY BRIDGETT Administration
[2019-06-29] MEDS: LISINOPRIL 5 MG TAB PO SCH (10:16)
[2019-06-29] MEDS: FAMOTIDINE 20 MG TAB PO SCH (10:16)
[2019-06-29] MEDS: MULTIVITAMINS ,THERAPEUTIC TAB PO SCH (10:16)
[2019-06-29] MEDS: FOLIC ACID 1 MG TAB PO SCH (10:17)
[2019-06-29] MEDS: THIAMINE 100 MG TAB PO SCH (10:17)
[2019-06-29] MEDS: INSULIN LISPRO 100 UNIT/ML SUB-Q SCH ×5 (10:20→21:31)
[2019-06-29] MEDS: ASPIRIN 81 MG TAB CHEW PO SCH (10:20)
--- NOTE | 2019-06-29 10:22 | Progress Note ---
Assessment and Plan D/c dobutamine gtt. cont all other present cardiac management. Cont 1500mL fluid restriction, daily weights and strict I&Os. Pt does not appear to be a good candidate for LifeVest or AICD at this time given history of noncompliance and cocaine use. Will plan to reevaluate candidacy as OP. Hopeful d/c within next 24-48Hr. The patient has been seen in conjunction with Dr. Tinoco who agrees with the assessment and plan of care. - Patient Problems (1) Altered mental status Current Visit: Yes Status: Resolved (2) Acute HFrEF (heart failure with reduced ejection fraction) Current Visit: Yes Status: Acute (3) Cardiomyopathy Current Visit: Yes Status: Chronic (4) HTN (hypertension) Current Visit: Yes Status: Chronic Qualifiers: Hypertension type: essential hypertension Qualified Code(s): I10 - Essential (primary) hypertension (5) T2DM (type 2 diabetes mellitus) Current Visit: Yes Status: Chronic (6) HLD (hyperlipidemia) Current Visit: Yes Status: Chronic (7) PVCs (premature ventricular contractions) Current Visit: Yes Status: Chronic (8) RBBB Current Visit: Yes Status: Chronic (9) Dementia Current Visit: Yes Status: Chronic (10) Elevated troponin Current Visit: Yes Status: Chronic (11) Elevated CK Current Visit: Yes Status: Acute (12) History of CVA (cerebrovascular accident) Current Visit: Yes Status: Chronic (13) Medical non-compliance Current Visit: Yes Status: Chronic (14) Cocaine use Current Visit: Yes Status: Chronic Subjective Date of service: 06/29/19 Principal diagnosis: AMS, hf Interval history: pt resting in bed, states he is feeling a little better today. scrotal and penile edema continues to improve. tele reviewed - in SR with intermittent bigeminy and PVCs. dobuatmine gtt infusing. Objective Last Vital Signs Temp 98.4 F 06/29/19 07:08 Pulse 46 L 06/29/19 10:16 Resp 18 06/29/19 07:08 BP 187/75 06/29/19 10:16 Pulse Ox 95 06/29/19 04:00 - Physical Examination General: No Apparent Distress HEENT: Positive: PERRL, Normocephaly, Mucus Membranes Moist Neck: Positive: neck supple, trachea midline Cardiac: Positive: Reg Rate and Rhythm, S1/S2 Lungs: Positive: Decreased Breath Sounds Neuro: Positive: Grossly Intact Abdomen: Positive: Unremarkable, Other (edematous ). Negative: Tender /Rectal: Other (scrotal edema ) Skin: Positive: Clear. Negative: Rash Musculoskeletal: No Pain Extremities: Present: normal. Absent: edema - Labs and Meds Comprehensive Metabolic Panel 06/29/19 Range/Units 05:54 Sodium 141 (137-145) mmol/L Potassium 4.3 (3.6-5.0) mmol/L Chloride 101.9 (98-107) mmol/L Carbon Dioxide 27 (22-30) mmol/L BUN 42 H (9-20) mg/dL Creatinine 1.4 (0.8-1.5) mg/dL Glucose 89 (75-100) mg/dL Calcium 8.5 (8.4-10.2) mg/dL - Imaging and Cardiology EKG: report reviewed, image reviewed Echo: report reviewed (05/2019:EF 10-15%, impaired relaxation, RV mildly dilated, RV systolic function mod reduced, mod TR, RVSP 41mmHg. 06/2018 showed EF 35-40%, mild LVH. 11/2018 showed EF 25-30%, mild LVH, RV mild to mod dilated, RA and LA mildly dilated, minimal pericardial effusion. ) - EKG Sinus rhythms and dysrhythmias: sinus rhythm Ventricular dysrhythmias: ventricular premature com AV and intraventricular conduction: right bundle branch block
--- NOTE | 2019-06-29 13:20 | Progress Note ---
Assessment and Plan Assessment and plan: Patient is a 68 yo AA man with a past medical history of HFrEF, BPH, CMP, HTN, NIDDM, HLP, RBBB, dementia and noncompliance who presented to [facility] with AMS. Apparently the fire department found pt lying on the floor in his own feces at his home. He c/o SOB and scrotal edema. UDS on admission was positive for Cocaine. Pt does not appear to be a good candidate for LifeVest or AICD at this time given history of noncompliance and cocaine use per Cardiology * pCXR IMPRESSION: 1. Persistent prominent bronchovascular markings as compared to previous exam. * Scrotal Ultrasound IMPRESSION: 1. Nonspecific marked scrotal wall edema and moderate size bilateral hydroceles. 2. Bilateral benign testicular [place] rolithiasis. 3. No signs of orchitis or epididymitis. 4. No mass. 5. No signs of testicular torsion. * TITA Right TITA: .56. Left TITA: .35. IMPRESSION: 1. Based upon waveforms there is evidence of disease in the distal superficial femoral artery and in the runoff vessels on the right. On the left base waveforms distal superficial femoral artery popliteal and runoff vessels. * CT head without contrast IMPRESSION: 1. No evidence of acute infarct or hemorrhage. 2. A late subacute (after 72 hours) left parietal lobe nonhemorrhagic infarct is new since 07/13/2018. 3. Moderate chronic white matter microangiopathy. 4. Mild chronic cortical atrophy. * TTE 06/14/19 Conclusions: Est EF 10-15%, abnormal LV diastolic filling c/w impaired relaxation, RVSF moderately reduced, RVSP calculated at 41 mmHg, t race MR, moderate TR, trace MT, trivial pericardial effusion, large pleural effusion. * Echo done 06/2018 showed EF 35-40%, mild LVH. * Lexiscan MPI stress test done 12/2018 showed small mild reversible inferior defect, EF 22%. Medical management was recommended. Acute on chronic systolic HF with EF now 10-15% now: treat with diuresis +added Zaroxlyn, now on hold due to worsening renal function, Nephrology consulted, Cont 1500mL fluid restriction, daily weights and strict I&Os. Acute toxic metabolic encephalopathy, poa with Cocaine in UDS: counseling done Hypertensive urgency-Add hydralazine Bradycardia- Management per cardiology, PVC on Tele, - Asymptomatic Scrotal edema related to heart failure- ultrasound negative for acute findings, - cont scrotal elevation Hypokalemia -resolved-will monitor level PAD: Vascular surgeon consulted, input noted, outpatient follow up HX OF DVT and lower ext wounds, Continue to treat with aspirin. JAGRUTI vasomotor nephrology: stop diuretics, consult Nephrology resolved -probably vasomotor nephropathy, -Lasix dose reduced, -monitor cr level Metabolic acidosis-stable, will monitor Cocaine abuse - Patient counseled on cessation DVT prophylaxis: lovenox Disposition: continue inpatient, d/c once renal function improves, not ready for discharge but no need for Ischemic evaluation, per Dr. Zee, Dobutamine gtt started on 06/26/19 (day 16) and scrotal swellling has gone down by 50%. now discontinued and will monitor. Intermittent arrhythmia History Interval history: Patient seen and examined, much more awake, no new complaints, Nursing staff reports that he sometimes due to the scrotal edema is not agreeable to ambulate. patient advised of need to mobilize fluid Hospitalist Physical - Physical exam Narrative exam: Gen: WDWN, NAD, Awake, Alert, Orientated x 2 HEENT: NCAT, EOMI, PERRL, OP Clear Neck: supple, no adenopathy, no thyromegaly, no JVD CVS/Heart: RRR, normal S1S2, pulses present bilaterally Chest/Lungs: diminished bs bilateral, Symmetrical chest expansion, good air entry bilaterally GI/Abdomen: soft, NTND, good bowel sounds, no guarding or rebound /Bladder: scrotal edema Extermity/Skin: ble edema, no obvious rash, mild excoriations on the knee and lower ext bilateral. MSK: FROM x 4 Neuro: CN 2-12 grossly intact, no new focal deficits Psych: calm - Constitutional Vitals: Temp Pulse Resp BP Pulse Ox 98.4 F 46 L 18 187/75 95 06/29/19 07:08 06/29/19 10:16 06/29/19 07:08 06/29/19 10:16 06/29/19 04:00 General appearance: Present: no acute distress Results - Labs CBC & Chem 7: 06/19/19 04:28 06/29/19 05:54 Labs: Laboratory Last Values WBC 8.2 K/mm3 (4.5-11.0) 06/19/19 04:28 RBC 4.39 M/mm3 (3.65-5.03) 06/19/19 04:28 Hgb 11.0 gm/dl (11.8-15.2) L 06/19/19 04:28 Hct 33.6 % (35.5-45.6) L 06/19/19 04:28 MCV 77 fl (84-94) L 06/19/19 04:28 MCH 25 pg (28-32) L 06/19/19 04:28 MCHC 33 % (32-34) 06/19/19 04:28 RDW 15.9 % (13.2-15.2) H 06/19/19 04:28 Plt Count 221 K/mm3 (140-440) 06/19/19 04:28 Lymph % (Auto) 17.8 % (13.4-35.0) 06/10/19 13:24 Kerr % (Auto) 7.0 % (0.0-7.3) 06/10/19 13:24 Eos % (Auto) 0.0 % (0.0-4.3) 06/10/19 13:24 Baso % (Auto) 0.9 % (0.0-1.8) 06/10/19 13:24 Lymph # 1.1 K/mm3 (1.2-5.4) L 06/10/19 13:24 Kerr # 0.4 K/mm3 (0.0-0.8) 06/10/19 13:24 Eos # 0.0 K/mm3 (0.0-0.4) 06/10/19 13:24 Baso # 0.1 K/mm3 (0.0-0.1) 06/10/19 13:24 Seg Neutrophils % 74.3 % (40.0-70.0) H 06/10/19 13:24 Seg Neutrophils # 4.7 K/mm3 (1.8-7.7) 06/10/19 13:24 PT 14.7 Sec. (12.2-14.9) 06/11/19 16:28 INR 1.16 (0.87-1.13) H 06/11/19 16:28 APTT 32.9 Sec. (24.2-36.6) 06/10/19 13:24 Sodium 141 mmol/L (137-145) 06/29/19 05:54 Potassium 4.3 mmol/L (3.6-5.0) 06/29/19 05:54 Chloride 101.9 mmol/L (98-107) 06/29/19 05:54 Carbon Dioxide 27 mmol/L (22-30) 06/29/19 05:54 Anion Gap 16 mmol/L 06/29/19 05:54 BUN 42 mg/dL (9-20) H 06/29/19 05:54 Creatinine 1.4 mg/dL (0.8-1.5) 06/29/19 05:54 Estimated GFR > 60 ml/min 06/29/19 05:54 BUN/Creatinine Ratio 30 % 06/29/19 05:54 Glucose 89 mg/dL (75-100) 06/29/19 05:54 POC Glucose 147 (70-105) H 06/29/19 11:12 Hemoglobin A1c 6.6 % (4-6) H 06/13/19 04:00 Lactic Acid 1.20 mmol/L (0.7-2.0) 06/10/19 13:24 Calcium 8.5 mg/dL (8.4-10.2) 06/29/19 05:54 Magnesium 2.20 mg/dL (1.7-2.3) 06/24/19 05:22 Total Bilirubin 0.70 mg/dL (0.1-1.2) 06/10/19 13:24 AST 76 units/L (5-40) H 06/10/19 13:24 ALT 21 units/L (7-56) 06/10/19 13:24 Alkaline Phosphatase 70 units/L (35-129) 06/10/19 13:24 Total Creatine Kinase 2514 units/L (55-170) H 06/10/19 13:24 Troponin T 0.086 ng/mL (0.00-0.029) H 06/10/19 18:40 NT-Pro-B Natriuret Pep 07268 pg/mL (0-900) H 06/10/19 13:24 Total Protein 6.1 g/dL (6.3-8.2) L 06/10/19 13:24 Albumin 2.9 g/dL (3.9-5) L 06/10/19 13:24 Albumin/Globulin Ratio 0.9 % 06/10/19 13:24 Triglycerides 61 mg/dL (2-149) 06/10/19 13:24 Cholesterol 92 mg/dL (50-199) 06/10/19 13:24 LDL Cholesterol Direct 33 mg/dL (50-130) L 06/10/19 13:24 HDL Cholesterol 54 mg/dL (40-59) 06/10/19 13:24 Cholesterol/HDL Ratio 1.70 % 06/10/19 13:24 Urine Color [place] (Yellow) 06/10/19 22:50 Urine Turbidity Clear (Clear) 06/10/19 22:50 Urine pH 5.0 (5.0-7.0) 06/10/19 22:50 Ur Specific [place] 1.019 (1.003-1.030) 06/10/19 22:50 Urine Protein >500 mg/dL (Negative) 06/10/19 22:50 Urine Glucose (UA) Neg mg/dL (Negative) 06/10/19 22:50 Urine Ketones Neg mg/dL (Negative) 06/10/19 22:50 Urine Blood Lg (Negative) 06/10/19 22:50 Urine Nitrite Neg (Negative) 06/10/19 22:50 Urine Bilirubin Neg (Negative) 06/10/19 22:50 Urine Urobilinogen < 2.0 mg/dL (<2.0) 06/10/19 22:50 Ur Leukocyte Esterase Tr (Negative) 06/10/19 22:50 Urine WBC (Auto) 16.0 /HPF (0.0-6.0) H 06/10/19 22:50 Urine RBC (Auto) 7.0 /HPF (0.0-6.0) 06/10/19 22:50 U Epithel Cells (Auto) < 1.0 /HPF (0-13.0) 06/10/19 22:50 Urine Bacteria (Auto) 1+ /HPF (Negative) 06/10/19 22:50 Ur Yeast w Hyphae 1+ /HPF 06/10/19 22:50 Urine Yeast (Budding) Few /HPF 06/10/19 22:50 Urine Opiates Screen Presumptive negative 06/10/19 22:50 Urine Methadone Screen Presumptive negative 06/10/19 22:50 Ur Barbiturates Screen Presumptive negative 06/10/19 22:50 Ur Phencyclidine Scrn Presumptive negative 06/10/19 22:50 Ur Amphetamines Screen Presumptive negative 06/10/19 22:50 U Benzodiazepines Scrn Presumptive negative 06/10/19 22:50 Urine Cocaine Screen Presumptive positive 06/10/19 22:50 U Marijuana (THC) Screen Presumptive negative 06/10/19 22:50 Drugs of Abuse Note Disclamer 06/10/19 22:50 Active Medications - Current Medications Current Medications: Generic Name Dose Route Start Last Admin Trade Name Freq PRN Reason Stop Dose Admin Acetaminophen/Hydrocodone Bitart 1 each 06/16/19 03:12 06/26/19 22:27 [place] 5/325 PO 1 each Q4H PRN Administration Pain, Moderate (4-6) Aspirin 81 mg 06/11/19 10:00 06/29/19 10:20 Baby Aspirin PO 81 mg QDAY BRIDGETT Administration Bumetanide 2 mg 06/26/19 18:00 06/29/19 06:12 Bumex IV 2 mg BID@0600,1800 BRIDGETT Administration Dextrose 50 ml 06/22/19 10:00 D50w (25gm) Syringe IV Q30MIN PRN Hypoglycemia Enoxaparin Sodium 40 mg 06/27/19 22:00 06/28/19 23:09 Enoxaparin SUB-Q 40 mg HS BRIDGETT Administration Famotidine 20 mg 06/11/19 10:00 06/29/19 10:16 Pepcid PO 20 mg DAILY BRIDGETT Administration Folic Acid 1 mg 06/15/19 16:00 06/29/19 10:17 Folvite PO 1 mg QDAY BRIDGETT Administration Hydralazine HCl 10 mg 06/17/19 17:06 06/26/19 20:56 Apresoline IV 10 mg Q4HR PRN Administration Hypertension Insulin Human Lispro 0 unit 06/11/19 07:30 06/29/19 12:56 Humalog SUB-Q Not Given ACHS [facility] Protocol Lisinopril 5 mg 06/22/19 10:00 06/29/19 10:16 Zestril PO 5 mg QDAY BRIDGETT Administration Metolazone 5 mg 06/28/19 06:00 06/29/19 06:13 Zaroxolyn PO 5 mg DAILY@0600 BRIDGETT Administration Multivitamins 1 each 06/15/19 16:00 06/29/19 10:16 Theragran Tab PO 1 each QDAY BRIDGETT Administration Thiamine HCl 100 mg 10/29/19 16:00 06/29/19 10:17 Vitamin B-1 PO 100 mg QDAY BRIDGETT Administration Nutrition/Malnutrition Assess - Dietary Evaluation Nutrition/Malnutrition Findings: Nutrition Notes Start: 06/17/19 14:43 Freq: Status: Active Protocol: Document 06/21/19 16:04 OH (Rec: 06/21/19 16:07 OH [id number]) Nutrition Notes Initial or Follow up Brief Note Current Diet Consistent CHO Labs/Tests Reviewed Pertinent Medications Reviewed Height 5 ft 5 in Weight 93.1 kg [place] Body Weight (kg) 61.81 BMI 34.1 Subjective/Other Information Pt. in room w/lunch tray at bedside. Pt. reports he has a great appetite and is requesting additional food. He states no issues w/chewing/ swallowing. He is getting Danny bid and taking as prescribed. Percent of energy/protein needs met: 100/100% GI Symptoms None Current % PO Good (75-100%) Minimum of two criteria No Is patient on ventilator? No Is Patient Ambulatory and/or Out of Bed No REE-(Willington-St. Jeor-confined to bed) 195.952 Calculation Used for Recommendations Willing[place]-St Jeor Additional Notes PRO: 96-116g/ day (1.25-1.5g/ kg AdBW 77.36kg) Fluid restriction of 1500ml Nutrition Intervention Change Diet Order: continue current diet Add Supplement/Snack (indicate name/kcal Danny BID /protein ) Provides kCal: 190 Provides Protein (gm) 5 Teaching Recipient Patient Teaching Methods Discussion Response to Teaching Verbalize understanding Education Handouts Provided Spoke w/pt regarding diabetes and ESRD. Pt. verbalized he was managing his diabetes adequately and he is aware of the relationship. Revisit per MD consult or patient Sign Off request:
[2019-06-29] MEDS: ENOXAPARIN 40 MG/0.4 ML INJ SUB-Q SCH (21:32)
[2019-06-30] MEDS: BUMETANIDE 2.5 MG/10 ML VIAL IV SCH ×2 (06:10→17:21)
[2019-06-30] MEDS: metOLazone 5 MG TAB PO SCH (06:30)
[2019-06-30 08:18] LABS: BUN/Creatinine Ratio 30; Blood Urea Nitrogen 39 mg/dL (9-20); Calcium 8.3 mg/dL (8.4-10.2); Hemolysis Index 6
[2019-06-30] MEDS: INSULIN LISPRO 100 UNIT/ML SUB-Q SCH ×4 (08:40→22:34)
[2019-06-30] MEDS: FAMOTIDINE 20 MG TAB PO SCH (10:19)
[2019-06-30] MEDS: FOLIC ACID 1 MG TAB PO SCH (10:19)
[2019-06-30] MEDS: THIAMINE 100 MG TAB PO SCH (10:19)
[2019-06-30] MEDS: MULTIVITAMINS ,THERAPEUTIC TAB PO SCH (10:19)
[2019-06-30] MEDS: ASPIRIN 81 MG TAB CHEW PO SCH (10:19)
[2019-06-30] MEDS: LISINOPRIL 5 MG TAB PO SCH (10:22)
--- NOTE | 2019-06-30 12:08 | Progress Note ---
Assessment and Plan Impression: * Acute kidney injury suspected secondary to decreased effective circulatory volume/cardiorenal syndrome; stable/improved --Renal u/s: no hydronephrosis (Jun 26) * Anasarca * Acute on chronic systolic heart failure on inotropic therapy --TTE: severe global hypokinesis of the left ventricle; global LV systolic function is severely decreased. EF 10-15% (Jun 14) * Cardiomyopathy * Pulmonary edema * Bradycardia * Cocaine use * Left upper extremity edema Plan: * Continue IV diuresis - Bumex 2mg IV BID and Zaroxylyn; renal function stable * Can transition to po diuretics in anticipation of discharge * Daily renal function panel while inpatient * Will set up close follow up in our clinic * Off Dobutamine gtt for inotrope support * No current indication for temporary UF with HD. If patient fails to respond t o IV diuresis/inotrope, recommend temporary mechanical UF for fluid removal. Patient is agreeable to this plan if needed * Strict I/O * Restrict fluid intake to 1500ml/day * Sodium restriction to 1500mg/day * Appreciate cardiology recommendations Thank you for this consult; we will continue to follow closely with you. Subjective Date of service: 06/30/19 Principal diagnosis: AMS, hf Interval history: No acute events noted overnight. Notes that he is making good urine, Off dobutamine. Notes some improvement in lower extremity swelling; breathing stable. Good appetite, no metallic taste. Objective - Exam Narrative Exam: General appearance: well-developed, well-nourished EENT: ATNC Respiratory: Decreased Breath Sounds Cardiology: regular, S1S2, generalized edema noted Gastrointestinal: normal bowel sounds Neurologic: no focal deficit Musculoskeletal: 1+ edema lower extremities Psychiatric: cooperative - Vital Signs Vital signs: Vital Signs - 12hr 06/30/19 06/30/19 06/30/19 04:30 08:00 10:22 Temperature 98.3 F 97.9 F Pulse Rate 39 L 36 L 80 Respiratory 18 18 Rate Blood Pressure 139/68 150/71 150/71 O2 Sat by Pulse 97 97 Oximetry - Lab 06/19/19 04:28 06/30/19 07:11 Most recent lab results Calcium 8.3 mg/dL (8.4-10.2) L 06/30/19 07:11 Magnesium 2.20 mg/dL (1.7-2.3) 06/24/19 05:22 Medications & Allergies - Medications Allergies/Adverse Reactions: Allergies No Known Allergies Allergy (Verified 12/03/18 16:45) Home Medications: Home Medications Medication Instructions Recorded Confirmed Last Taken Type Aspirin [Aspirin BABY CHEW TAB] 81 mg PO QDAY 30 Days #30 tab.chew 12/07/18 10/12/0406/09/19 Rx Lisinopril [Zestril TAB] 20 mg PO QDAY 30 Days #30 tablet 12/07/18 06/10/19 06/09/19 Rx carvediloL [Coreg] 12.5 mg PO BID 30 Days #60 tablet 12/07/18 06/10/19 06/09/19 Rx Famotidine [Pepcid] 20 mg PO DAILY #30 tablet 12/24/18 06/10/19 06/09/19 Rx Linagliptin [Tradjenta] 5 mg PO QDAY #30 tablet 12/24/18 06/10/19 06/09/19 Rx cloNIDine [Catapres] 0.1 mg PO QHS #30 tablet 12/24/18 06/10/19 06/09/19 Rx hydrALAZINE [Apresoline TAB] 50 mg PO BID #60 tablet 12/24/18 06/10/19 06/09/19 Rx Furosemide [Lasix TAB] 40 mg PO DAILY 30 Days tablet 01/04/19 06/10/19 06/09/19 Rx Active Medications: Generic Name Dose Route Start Last Admin Trade Name Freq PRN Reason Stop Dose Admin Acetaminophen/Hydrocodone Bitart 1 each 06/16/19 03:12 06/26/19 22:27 [place] 5/325 PO 1 each Q4H PRN Administration Pain, Moderate (4-6) Aspirin 81 mg 06/11/19 10:00 06/30/19 10:19 Baby Aspirin PO 81 mg QDAY BRIDGETT Administration Bumetanide 2 mg 06/26/19 18:00 06/30/19 06:10 Bumex IV 2 mg BID@0600,1800 BRIDGETT Administration Dextrose 50 ml 06/22/19 10:00 D50w (25gm) Syringe IV Q30MIN PRN Hypoglycemia Enoxaparin Sodium 40 mg 06/27/19 22:00 06/29/19 21:32 Enoxaparin SUB-Q 40 mg HS BRIDGETT Administration Famotidine 20 mg 06/11/19 10:00 06/30/19 10:19 Pepcid PO 20 mg DAILY BRIDGETT Administration Folic Acid 1 mg 06/15/19 16:00 06/30/19 10:19 Folvite PO 1 mg QDAY BRIDGETT Administration Hydralazine HCl 10 mg 06/17/19 17:06 06/26/19 20:56 Apresoline IV 10 mg Q4HR PRN Administration Hypertension Insulin Human Lispro 0 unit 06/11/19 07:30 06/30/19 08:40 Humalog SUB-Q Not Given ACHS [facility] Protocol Lisinopril 5 mg 06/22/19 10:00 06/30/19 10:22 Zestril PO 5 mg QDAY BRIDGETT Administration Metolazone 5 mg 06/28/19 06:00 06/30/19 06:30 Zaroxolyn PO 5 mg DAILY@0600 BRIDGETT Administration Multivitamins 1 each 06/15/19 16:00 06/30/19 10:19 Theragran Tab PO 1 each QDAY BRIDGETT Administration Thiamine HCl 100 mg 06/15/19 16:00 06/30/19 10:19 Vitamin B-1 PO 100 mg QDAY BRIDGETT Administration
--- NOTE | 2019-06-30 12:45 | Discharge Summary ---
Providers - Providers Date of Admission: 06/10/19 16:07 Attending physician: TJ BRITO MD 06/11/19 03:18 Consult to Physician [CONS] Routine Comment: called ans. serv. / edith Consulting Provider: JOSÉ ANTONIO LIMA Physician Instructions: Reason For Exam: CHF exac 06/11/19 08:52 Physical Therapy Evaluation and Treat [CONS] Routine Comment: Reason For Exam: Weakness 06/12/19 18:03 Consult to Wound/ET Nurse [CONS] Routine Reason For Exam: wound eval 06/14/19 10:28 Occupational Therapy Evaluate and Treat [CONS] Routine Comment: Reason For Exam: generalized weakness 06/16/19 11:51 Consult to Physician [CONS] Routine Comment: Consulting Provider: JIM MCCARTY Physician Instructions: Reason For Exam: Evaluate vascular status of BLE 06/20/19 11:44 Consult to Case Management [CONS] Routine Services Needed at Discharge: Other Notified:: case management Comment:: arrange followup with [facility] in 2 weeks and wound care Additional Physician Instructions: arrange followup with [facility]ER[facility] in 2 weeks and wound care 06/25/19 17:23 Consult to Physician [CONS] Routine Comment: Consulting Provider: MARISOL CONNOLLY Physician Instructions: Reason For Exam: ARF after treat with diuretics for CHF 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 Apparently the fire department found pt lying on the floor in his own feces at his home. He c/o SOB and scrotal edema. UDS on admission was positive for Cocaine. Pt does not appear to be a good candidate for LifeVest or AICD at this time given history of noncompliance and cocaine use per Cardiology * pCXR IMPRESSION: 1. Persistent prominent bronchovascular markings as compared to previous exam. * Scrotal Ultrasound IMPRESSION: 1. Nonspecific marked scrotal wall edema and moderate size bilateral hydroceles. 2. Bilateral benign testicular microlithiasis. 3. No signs of orchitis or epididymitis. 4. No mass. 5. No signs of testicular torsion. * TITA Right TITA: .56. Left TITA: .35. IMPRESSION: 1. Based upon waveforms there is evidence of disease in the distal superficial femoral artery and in the runoff vessels on the right. On the left base waveforms distal superficial femoral artery popliteal and runoff vessels. * CT head without contrast IMPRESSION: 1. No evidence of acute infarct or hemorrhage. 2. A late subacute (after 72 hours) left parietal lobe nonhemorrhagic infarct is new since 07/13/2018. 3. Moderate chronic white matter microangiopathy. 4. Mild chronic cortical atrophy. * TTE 06/14/19 Conclusions: Est EF 10-15%, abnormal LV diastolic filling c/w impaired relaxation, RVSF moderately reduced, RVSP calculated at 41 mmHg, trace MR, moderate TR, trace MD, trivial pericardial effusion, large pleural effusion. * Echo done 06/2018 showed EF 35-40%, mild LVH. * Lexiscan MPI stress test done 12/2018 showed small mild reversible inferior defect, EF 22%. Medical management was recommended. * Nephrology evaluated the patient and recommended, Bumex and Zaroxlyn, * He was treated on and off with Dobutamine gtt and did well, his physical activity did improve with ambulation over 5O feet * He is agreeable to discharge home and follow with home health in addition to cardiology and Nephrology and also Vascular. Acute on chronic systolic HF with EF now 10-15% now: treat with diuresis +added Zaroxlyn, now on hold due to worsening renal function, Nephrology consulted, Cont 1500mL fluid restriction, daily weights and strict I&Os. Acute toxic metabolic encephalopathy, poa with Cocaine in UDS: counseling done Hypertensive urgency-Add hydralazine Bradycardia- Management per cardiology, PVC on Tele, - Asymptomatic Scrotal edema related to heart failure- ultrasound negative for acute findings, - cont scrotal elevation Hypokalemia -resolved-will monitor level PAD: Vascular surgeon consulted, input noted, outpatient follow up HX OF DVT and lower ext wounds, Continue to treat with aspirin. JAGRUTI vasomotor nephrology: stop diuretics, consult Nephrology resolved -probably vasomotor nephropathy, -Lasix dose reduced, -monitor cr level Metabolic acidosis-stable, will monitor Cocaine abuse - Patient counseled on cessation. Patient verbalized understanding of the need to quit Disposition: [id number] HOME UNDER [facility] Time spent for discharge: 35 mins Core Measure Documentation - Palliative Care Palliative Care/ Comfort Measures: Not Applicable - Core Measures Any of the following diagnoses?: none Exam - Physical Exam Narrative exam: Gen: WDWN, NAD, Awake, Alert, Orientated x 2 HEENT: NCAT, EOMI, PERRL, OP Clear Neck: supple, no adenopathy, no thyromegaly, no JVD CVS/Heart: RRR, normal S1S2, pulses present bilaterally Chest/Lungs: diminished bs bilateral, Symmetrical chest expansion, good air entry bilaterally GI/Abdomen: soft, NTND, good bowel sounds, no guarding or rebound /Bladder: scrotal edema Extermity/Skin: ble edema improved, no obvious rash, mild excoriations on the knee and lower ext bilateral. MSK: FROM x 4 Neuro: CN 2-12 grossly intact, no new focal deficits Psych: calm - Constitutional Vitals: Temp Pulse Resp BP Pulse Ox 97.9 F 80 18 150/71 97 06/30/19 08:00 06/30/19 10:22 06/30/19 08:00 06/30/19 10:22 06/30/19 08:00 Plan Activity: advance as tolerated, fall precautions Diet: low salt Special Instructions: record daily weights (1000cc/day), record daily BP diary, smoking cessation Durable Medical Equipment Needed Upon Discharge: [place] Care Plan Goals: improved pulmonary and cardiac status Plan of Treatment: compliance with medication and tobacco cessation Health Concerns: complications of heart failure. Follow up with: PRIMARY CARE, [Primary Care Provider] - 7 Days SATHISH LE MD [Staff Physician] - 14 Days RADHA RIOJAS MD [Staff Physician] - 7 Days DAVID CRESPO MD [Staff Physician] - 7 Days Prescriptions: Bumetanide [Bumex 1 mg tab] 2 mg PO BID #60 tab Folic Acid [Folvite] 1 mg PO QDAY #30 tablet Multivitamin Tab [Multiple Vitamin TAB (Theragran)] 1 each PO QDAY #30 tablet Thiamine [Vitamin B-1] 100 mg PO QDAY #30 tablet metOLazone [Zaroxolyn] 5 mg PO DAILY@0600 #30 tablet Lisinopril [Zestril TAB] 5 mg PO QDAY #30 tablet
--- NOTE | 2019-06-30 12:49 | Progress Note ---
Assessment and Plan Currently stable cardiac status. Pt appears to be nearing euvolemia. Pt may discharge from cardiology standpoint. At discharge, recommend PO bumex 2mg BID. Cont all other present cardiac management. Will consider resumption of aldactone as OP if renal indices remain stable. Pt does not appear to be a good candidate for LifeVest or AICD at this time given history of noncompliance and cocaine use. Will plan to reevaluate candidacy as OP. Follow up in our [place] office with Dr. YOSELIN Milton on 07/08/2019 @ 10:00AM. The patient has been seen in conjunction with Dr. Tinoco who agrees with the assessment and plan of care. - Patient Problems (1) Altered mental status Current Visit: Yes Status: Resolved (2) Acute HFrEF (heart failure with reduced ejection fraction) Current Visit: Yes Status: Acute (3) Cardiomyopathy Current Visit: Yes Status: Chronic (4) HTN (hypertension) Current Visit: Yes Status: Chronic Qualifiers: Hypertension type: essential hypertension Qualified Code(s): I10 - Essential (primary) hypertension (5) T2DM (type 2 diabetes mellitus) Current Visit: Yes Status: Chronic (6) HLD (hyperlipidemia) Current Visit: Yes Status: Chronic (7) PVCs (premature ventricular contractions) Current Visit: Yes Status: Chronic (8) RBBB Current Visit: Yes Status: Chronic (9) Dementia Current Visit: Yes Status: Chronic (10) Elevated troponin Current Visit: Yes Status: Chronic (11) Elevated CK Current Visit: Yes Status: Acute (12) History of CVA (cerebrovascular accident) Current Visit: Yes Status: Chronic (13) Medical non-compliance Current Visit: Yes Status: Chronic (14) Cocaine use Current Visit: Yes Status: Chronic Subjective Date of service: 06/30/19 Principal diagnosis: AMS, hf Interval history: pt resting in bed, states he is feeling well. scrotal and penile edema greatly improved, BLE edema resolved. tele reviewed - in SR with intermittent bigeminy and PVCs. Objective Last Vital Signs Temp 97.9 F 06/30/19 08:00 Pulse 80 06/30/19 10:22 Resp 18 06/30/19 08:00 BP 150/71 06/30/19 10:22 Pulse Ox 97 06/30/19 08:00 - Physical Examination General: No Apparent Distress HEENT: Positive: PERRL, Normocephaly, Mucus Membranes Moist Neck: Positive: neck supple, trachea midline Cardiac: Positive: Reg Rate and Rhythm, S1/S2 Lungs: Positive: Decreased Breath Sounds Neuro: Positive: Grossly Intact Abdomen: Positive: Unremarkable, Other (edematous ). Negative: Tender /Rectal: Other (scrotal edema ) Skin: Positive: Clear. Negative: Rash Musculoskeletal: No Pain Extremities: Present: normal. Absent: edema - Labs and Meds Comprehensive Metabolic Panel 06/30/19 Range/Units 07:11 Sodium 141 (137-145) mmol/L Potassium 4.0 (3.6-5.0) mmol/L Chloride 102.4 (98-107) mmol/L Carbon Dioxide 24 (22-30) mmol/L BUN 39 H (9-20) mg/dL Creatinine 1.3 (0.8-1.5) mg/dL Glucose 95 (75-100) mg/dL Calcium 8.3 L (8.4-10.2) mg/dL - Imaging and Cardiology EKG: report reviewed, image reviewed Echo: report reviewed (05/2019:EF 10-15%, impaired relaxation, RV mildly dilated, RV systolic function mod reduced, mod TR, RVSP 41mmHg. 06/2018 showed EF 35-40%, mild LVH. 11/2018 showed EF 25-30%, mild LVH, RV mild to mod dilated, RA and LA mildly dilated, minimal pericardial effusion. ) - EKG Sinus rhythms and dysrhythmias: sinus rhythm Ventricular dysrhythmias: ventricular premature com AV and intraventricular conduction: right bundle branch block
--- NOTE | 2019-06-30 17:42 | Progress Note ---
Assessment and Plan Assessment and plan: Patient is a 68 yo AA man with a past medical history of HFrEF, BPH, CMP, HTN, NIDDM, HLP, RBBB, dementia and noncompliance who presented to [facility] ED with AMS. Apparently the fire department found pt lying on the floor in his own feces at his home. He c/o SOB and scrotal edema. UDS on admission was positive for Cocaine. Pt does not appear to be a good candidate for LifeVest or AICD at this time given history of noncompliance and cocaine use per Cardiology * pCXR IMPRESSION: 1. Persistent prominent bronchovascular markings as compared to previous exam. * Scrotal Ultrasound IMPRESSION: 1. Nonspecific marked scrotal wall edema and moderate size bilateral hydroceles. 2. Bilateral benign testicular [place] rolithiasis. 3. No signs of orchitis or epididymitis. 4. No mass. 5. No signs of testicular torsion. * TITA Right TITA: .56. Left TITA: .35. IMPRESSION: 1. Based upon waveforms there is evidence of disease in the distal superficial femoral artery and in the runoff vessels on the right. On the left base waveforms distal superficial femoral artery popliteal and runoff vessels. * CT head without contrast IMPRESSION: 1. No evidence of acute infarct or hemorrhage. 2. A late subacute (after 72 hours) left parietal lobe nonhemorrhagic infarct is new since 07/13/2018. 3. Moderate chronic white matter microangiopathy. 4. Mild chronic cortical atrophy. * TTE 06/14/19 Conclusions: Est EF 10-15%, abnormal LV diastolic filling c/w impaired relaxation, RVSF moderately reduced, RVSP calculated at 41 mmHg, t race MR, moderate TR, trace TN, trivial pericardial effusion, large pleural effusion. * Echo done 06/2018 showed EF 35-40%, mild LVH. * Lexiscan MPI stress test done 12/2018 showed small mild reversible inferior defect, EF 22%. Medical management was recommended. Acute on chronic systolic HF with EF now 10-15% now: treat with diuresis +added Zaroxlyn, now on hold due to worsening renal function, Nephrology consulted, Cont 1500mL fluid restriction, daily weights and strict I&Os. Acute toxic metabolic encephalopathy, poa with Cocaine in UDS: counseling done Hypertensive urgency-Add hydralazine Bradycardia- Management per cardiology, PVC on Tele, - Asymptomatic Scrotal edema related to heart failure- ultrasound negative for acute findings, - cont scrotal elevation Hypokalemia -resolved-will monitor level PAD: Vascular surgeon consulted, input noted, outpatient follow up HX OF DVT and lower ext wounds, Continue to treat with aspirin. JAGRUTI vasomotor nephrology: stop diuretics, consult Nephrology resolved -probably vasomotor nephropathy, -Lasix dose reduced, -monitor cr level Metabolic acidosis-stable, will monitor Cocaine abuse - Patient counseled on cessation DVT prophylaxis: lovenox Disposition: continue inpatient, d/c once renal function improves, not ready for discharge but no need for Ischemic evaluation, per Dr. Zee, Clincially stable for discharge. Family appealed discharge. Patient today ambulated more than 100 feet with no support except a rolling walker History Interval history: Patient seen and examined, much more awake, no new complaints, patient is ambulating across the g[address] way with rolling walker with no new complaints. Hospitalist Physical - Physical exam Narrative exam: Gen: WDWN, NAD, Awake, Alert, Orientated x 2 HEENT: NCAT, EOMI, PERRL, OP Clear Neck: supple, no adenopathy, no thyromegaly, no JVD CVS/Heart: RRR, normal S1S2, pulses present bilaterally Chest/Lungs: diminished bs bilateral, Symmetrical chest expansion, good air entry bilaterally GI/Abdomen: soft, NTND, good bowel sounds, no guarding or rebound /Bladder: scrotal edema Extermity/Skin: ble edema improved, no obvious rash, mild excoriations on the knee and lower ext bilateral. MSK: FROM x 4 Neuro: CN 2-12 grossly intact, no new focal deficits Psych: calm - Constitutional Vitals: Temp Pulse Resp BP Pulse Ox 97.9 F 80 18 150/71 97 06/30/19 08:00 06/30/19 10:22 06/30/19 08:00 06/30/19 10:22 06/30/19 08:00 General appearance: Present: no acute distress Results - Labs CBC & Chem 7: 06/19/19 04:28 06/30/19 07:11 Labs: Laboratory Last Values WBC 8.2 K/mm3 (4.5-11.0) 06/19/19 04:28 RBC 4.39 M/mm3 (3.65-5.03) 06/19/19 04:28 Hgb 11.0 gm/dl (11.8-15.2) L 06/19/19 04:28 Hct 33.6 % (35.5-45.6) L 06/19/19 04:28 MCV 77 fl (84-94) L 06/19/19 04:28 MCH 25 pg (28-32) L 06/19/19 04:28 MCHC 33 % (32-34) 06/19/19 04:28 RDW 15.9 % (13.2-15.2) H 06/19/19 04:28 Plt Count 221 K/mm3 (140-440) 06/19/19 04:28 Lymph % (Auto) 17.8 % (13.4-35.0) 06/10/19 13:24 [place] % (Auto) 7.0 % (0.0-7.3) 06/10/19 13:24 Eos % (Auto) 0.0 % (0.0-4.3) 06/10/19 13:24 Baso % (Auto) 0.9 % (0.0-1.8) 06/10/19 13:24 Lymph # 1.1 K/mm3 (1.2-5.4) L 06/10/19 13:24 [place] # 0.4 K/mm3 (0.0-0.8) 06/10/19 13:24 Eos # 0.0 K/mm3 (0.0-0.4) 06/10/19 13:24 Baso # 0.1 K/mm3 (0.0-0.1) 06/10/19 13:24 Seg Neutrophils % 74.3 % (40.0-70.0) H 06/10/19 13:24 Seg Neutrophils # 4.7 K/mm3 (1.8-7.7) 06/10/19 13:24 PT 14.7 Sec. (12.2-14.9) 06/11/19 16:28 INR 1.16 (0.87-1.13) H 06/11/19 16:28 APTT 32.9 Sec. (24.2-36.6) 06/10/19 13:24 Sodium 141 mmol/L (137-145) 06/30/19 07:11 Potassium 4.0 mmol/L (3.6-5.0) 06/30/19 07:11 Chloride 102.4 mmol/L (98-107) 06/30/19 07:11 Carbon Dioxide 24 mmol/L (22-30) 06/30/19 07:11 Anion Gap 19 mmol/L 06/30/19 07:11 BUN 39 mg/dL (9-20) H 06/30/19 07:11 Creatinine 1.3 mg/dL (0.8-1.5) 06/30/19 07:11 Estimated GFR > 60 ml/min 06/30/19 07:11 BUN/Creatinine Ratio 30 % 06/30/19 07:11 Glucose 95 mg/dL (75-100) 06/30/19 07:11 POC Glucose 190 (70-105) H 06/30/19 16:39 Hemoglobin A1c 6.6 % (4-6) H 06/13/19 04:00 Lactic Acid 1.20 mmol/L (0.7-2.0) 06/10/19 13:24 Calcium 8.3 mg/dL (8.4-10.2) L 06/30/19 07:11 Magnesium 2.20 mg/dL (1.7-2.3) 06/24/19 05:22 Total Bilirubin 0.70 mg/dL (0.1-1.2) 06/10/19 13:24 AST 76 units/L (5-40) H 06/10/19 13:24 ALT 21 units/L (7-56) 06/10/19 13:24 Alkaline Phosphatase 70 units/L (35-129) 06/10/19 13:24 Total Creatine Kinase 2514 units/L (55-170) H 06/10/19 13:24 Troponin T 0.086 ng/mL (0.00-0.029) H 06/10/19 18:40 NT-Pro-B Natriuret Pep 71174 pg/mL (0-900) H 06/10/19 13:24 Total Protein 6.1 g/dL (6.3-8.2) L 06/10/19 13:24 Albumin 2.9 g/dL (3.9-5) L 06/10/19 13:24 Albumin/Globulin Ratio 0.9 % 06/10/19 13:24 Triglycerides 61 mg/dL (2-149) 06/10/19 13:24 Cholesterol 92 mg/dL (50-199) 06/10/19 13:24 LDL Cholesterol Direct 33 mg/dL (50-130) L 06/10/19 13:24 HDL Cholesterol 54 mg/dL (40-59) 06/10/19 13:24 Cholesterol/HDL Ratio 1.70 % 06/10/19 13:24 Urine Color [place] (Yellow) 06/10/19 22:50 Urine Turbidity Clear (Clear) 06/10/19 22:50 Urine pH 5.0 (5.0-7.0) 06/10/19 22:50 Ur Specific [place] 1.019 (1.003-1.030) 06/10/19 22:50 Urine Protein >500 mg/dL (Negative) 06/10/19 22:50 Urine Glucose (UA) Neg mg/dL (Negative) 06/10/19 22:50 Urine Ketones Neg mg/dL (Negative) 06/10/19 22:50 Urine Blood Lg (Negative) 06/10/19 22:50 Urine Nitrite Neg (Negative) 06/10/19 22:50 Urine Bilirubin Neg (Negative) 06/10/19 22:50 Urine Urobilinogen < 2.0 mg/dL (<2.0) 06/10/19 22:50 Ur Leukocyte Esterase Tr (Negative) 06/10/19 22:50 Urine WBC (Auto) 16.0 /HPF (0.0-6.0) H 06/10/19 22:50 Urine RBC (Auto) 7.0 /HPF (0.0-6.0) 06/10/19 22:50 U Epithel Cells (Auto) < 1.0 /HPF (0-13.0) 06/10/19 22:50 Urine Bacteria (Auto) 1+ /HPF (Negative) 06/10/19 22:50 Ur Yeast w Hyphae 1+ /HPF 06/10/19 22:50 Urine Yeast (Budding) Few /HPF 06/10/19 22:50 Urine Opiates Screen Presumptive negative 06/10/19 22:50 Urine Methadone Screen Presumptive negative 06/10/19 22:50 Ur Barbiturates Screen Presumptive negative 06/10/19 22:50 Ur Phencyclidine Scrn Presumptive negative 06/10/19 22:50 Ur Amphetamines Screen Presumptive negative 06/10/19 22:50 U Benzodiazepines Scrn Presumptive negative 06/10/19 22:50 Urine Cocaine Screen Presumptive positive 06/10/19 22:50 U Marijuana (THC) Screen Presumptive negative 06/10/19 22:50 Drugs of Abuse Note Disclamer 06/10/19 22:50 Immunofix Electrophor see below H 06/26/19 18:52 Active Medications - Current Medications Current Medications: Generic Name Dose Route Start Last Admin Trade Name Freq PRN Reason Stop Dose Admin Acetaminophen/Hydrocodone Bitart 1 each 06/16/19 03:12 06/26/19 22:27 [place] 5/325 PO 1 each Q4H PRN Administration Pain, Moderate (4-6) Aspirin 81 mg 06/11/19 10:00 06/30/19 10:19 Baby Aspirin PO 81 mg QDAY BRIDGETT Administration Bumetanide 2 mg 06/26/19 18:00 06/30/19 17:21 Bumex IV 2 mg BID@0600,1800 BRIDGETT Administration Carvedilol 6.25 mg 06/30/19 22:00 Coreg PO BID BRIDGETT Dextrose 50 ml 06/22/19 10:00 D50w (25gm) Syringe IV Q30MIN PRN Hypoglycemia Enoxaparin Sodium 40 mg 06/27/19 22:00 06/29/19 21:32 Enoxaparin SUB-Q 40 mg HS BRIDGETT Administration Famotidine 20 mg 06/11/19 10:00 06/30/19 10:19 Pepcid PO 20 mg DAILY BRIDGETT Administration Folic Acid 1 mg 06/15/19 16:00 06/30/19 10:19 Folvite PO 1 mg QDAY BRIDGETT Administration Hydralazine HCl 10 mg 06/17/19 17:06 06/26/19 20:56 Apresoline IV 10 mg Q4HR PRN Administration Hypertension Insulin Human Lispro 0 unit 06/11/19 07:30 06/30/19 17:21 Humalog SUB-Q 2 unit ACHS BRIDGETT Administration Protocol Lisinopril 5 mg 06/22/19 10:00 06/30/19 10:22 Zestril PO 5 mg QDAY BRIDGETT Administration Metolazone 5 mg 06/28/19 06:00 06/30/19 06:30 Zaroxolyn PO 5 mg DAILY@0600 BRIDGETT Administration Multivitamins 1 each 06/15/19 16:00 06/30/19 10:19 Theragran Tab PO 1 each QDAY BRIDGETT Administration Thiamine HCl 100 mg 06/15/19 16:00 06/30/19 10:19 Vitamin B-1 PO 100 mg QDAY BRIDGETT Administration Nutrition/Malnutrition Assess - Dietary Evaluation Nutrition/Malnutrition Findings: Nutrition Notes Start: 06/17/19 14:43 Freq: Status: Active Protocol: Document 06/21/19 16:04 [place] (Rec: 06/21/19 16:07 OH [facility]-[id number]) Nutrition Notes Initial or Follow up Brief Note Current Diet Consistent CHO Labs/Tests Reviewed Pertinent Medications Reviewed Height 5 ft 5 in Weight 93.1 kg [place] Body Weight (kg) 61.81 BMI 34.1 Subjective/Other Information Pt. in room w/lunch tray at bedside. Pt. reports he has a great appetite and is requesting additional food. He states no issues w/chewing/ swallowing. He is getting Danny bid and taking as prescribed. Percent of energy/protein needs met: 100/100% GI Symptoms None Current % PO Good (75-100%) Minimum of two criteria No Is patient on ventilator? No Is Patient Ambulatory and/or Out of Bed No REE-([place]-confined to bed) 1952.952 Calculation Used for Recommendations [place] or Additional Notes PRO: 96-116g/ day (1.25-1.5g/ kg AdBW 77.36kg) Fluid restriction of 1500ml Nutrition Intervention Change Diet Order: continue current diet Add Supplement/Snack (indicate name/kcal Danny BID /protein ) Provides kCal: 190 Provides Protein (gm) 5 Teaching Recipient Patient Teaching Methods Discussion Response to Teaching Verbalize understanding Education Handouts Provided Spoke w/pt regarding diabetes and ESRD. Pt. verbalized he was managing his diabetes adequately and he is aware of the relationship. Revisit per MD consult or patient Sign Off request:
[2019-06-30] MEDS: ENOXAPARIN 40 MG/0.4 ML INJ SUB-Q SCH (22:29)
[2019-06-30] MEDS: carvediloL 6.25 MG TAB PO SCH (22:29)
[2019-07-01 03:25] LABS: Abnormal Protein Band 1 1.3 g/dL; Albumin 2.7 g/dL (3.8-4.8); Gamma Globulin 1.7 g/dL (0.8-1.7)
[2019-07-01] MEDS: BUMETANIDE 2.5 MG/10 ML VIAL IV SCH (06:55)
[2019-07-01] MEDS: metOLazone 5 MG TAB PO SCH (06:55)
[2019-07-01 07:59] LABS: BUN/Creatinine Ratio 27; Blood Urea Nitrogen 38 mg/dL (9-20); Calcium 8.2 mg/dL (8.4-10.2); Hemolysis Index 26
[2019-07-01] MEDS: INSULIN LISPRO 100 UNIT/ML SUB-Q SCH ×3 (08:26→16:45)
[2019-07-01] MEDS: ASPIRIN 81 MG TAB CHEW PO SCH (11:17)
[2019-07-01] MEDS: FOLIC ACID 1 MG TAB PO SCH (11:17)
[2019-07-01] MEDS: THIAMINE 100 MG TAB PO SCH (11:17)
[2019-07-01] MEDS: MULTIVITAMINS ,THERAPEUTIC TAB PO SCH (11:17)
[2019-07-01] MEDS: FAMOTIDINE 20 MG TAB PO SCH (11:17)
[2019-07-01] MEDS: carvediloL 6.25 MG TAB PO SCH (11:18)
[2019-07-01] MEDS: LISINOPRIL 5 MG TAB PO SCH (11:18)
--- NOTE | 2019-07-01 11:35 | Progress Note ---
Assessment and Plan Impression: * Acute kidney injury suspected secondary to decreased effective circulatory volume/cardiorenal syndrome; stable/improved --Renal u/s: no hydronephrosis (Jun 26) * Anasarca * Acute on chronic systolic heart failure on inotropic therapy --TTE: severe global hypokinesis of the left ventricle; global LV systolic function is severely decreased. EF 10-15% (Jun 14) * Cardiomyopathy * Pulmonary edema * Bradycardia * Cocaine use * Left upper extremity edema Plan: * Transition to PO diuresis - Bumex 2mg PO BID and Zaroxylyn; renal function stable * Daily renal function panel while inpatient * Will set up close follow up in our clinic * Off Dobutamine gtt for inotrope support * No current indication for temporary UF with HD * Strict I/O * Restrict fluid intake to 1500ml/day * Sodium restriction to 1500mg/day * Appreciate cardiology recommendations Thank you for this consult; we will continue to follow closely with you. Subjective Date of service: 07/01/19 Principal diagnosis: AMS, hf Interval history: No acute events noted overnight. Notes that he is making good urine, Off dobutamine. Continues to note scrotal swelling, but improved. Breathing stable. Good appetite, no metallic taste. Objective - Exam Narrative Exam: General appearance: well-developed, well-nourished EENT: ATNC Respiratory: Decreased Breath Sounds Cardiology: regular, S1S2, generalized edema noted Gastrointestinal: normal bowel sounds Neurologic: no focal deficit Musculoskeletal: 1+ edema lower extremities Psychiatric: cooperative - Vital Signs Vital signs: Vital Signs - 12hr 06/30/19 07/01/19 07/01/19 23:50 03:46 07:29 Temperature 98.3 F 98.0 F 97.7 F Pulse Rate 74 36 L 38 L Respiratory 18 18 18 Rate Blood Pressure 139/70 131/66 136/71 O2 Sat by Pulse 94 98 98 Oximetry 07/01/19 07/01/19 08:51 11:18 Temperature Pulse Rate 71 82 Respiratory Rate Blood Pressure 136/71 O2 Sat by Pulse Oximetry - Lab 06/19/19 04:28 07/01/19 07:13 Most recent lab results Calcium 8.2 mg/dL (8.4-10.2) L 07/01/19 07:13 Magnesium 2.20 mg/dL (1.7-2.3) 06/24/19 05:22 Medications & Allergies - Medications Allergies/Adverse Reactions: Allergies No Known Allergies Allergy (Verified 12/03/18 16:45) Home Medications: Home Medications Medication Instructions Recorded Confirmed Last Taken Type Aspirin [Aspirin BABY CHEW TAB] 81 mg PO QDAY 30 Days #30 tab.chew 12/07/18 06/10/19 06/09/19 Rx Famotidine [Pepcid] 20 mg PO DAILY #30 tablet 12/24/18 06/10/19 06/09/19 Rx Linagliptin [Tradjenta] 5 mg PO QDAY #30 tablet 12/24/18 06/10/19 06/09/19 Rx Bumetanide [Bumex 1 mg tab] 2 mg PO BID #60 tab 06/30/19 Unknown Rx Folic Acid [Folvite] 1 mg PO QDAY #30 tablet 06/30/19 Unknown Rx Lisinopril [Zestril TAB] 5 mg PO QDAY #30 tablet 06/30/19 Unknown Rx Multivitamin Tab [Multiple Vitamin 1 each PO QDAY #30 tablet 06/30/19 Unknown Rx TAB (Theragran)] Thiamine [Vitamin B-1] 100 mg PO QDAY #30 tablet 06/30/19 Unknown Rx metOLazone [Zaroxolyn] 5 mg PO DAILY@0600 #30 tablet 06/30/19 Unknown Rx Active Medications: Generic Name Dose Route Start Last Admin Trade Name Freq PRN Reason Stop Dose Admin Acetaminophen/Hydrocodone Bitart 1 each 06/16/19 03:12 06/26/19 22:27 [place] 5/325 PO 1 each Q4H PRN Administration Pain, Moderate (4-6) Aspirin 81 mg 06/11/19 10:00 07/01/19 11:17 Baby Aspirin PO 81 mg QDAY BRIDGETT Administration Bumetanide 2 mg 07/01/19 18:00 Bumex PO 0600,1800 BRIDGETT Carvedilol 6.25 mg 06/30/19 22:00 07/01/19 11:18 Coreg PO 6.25 mg BID BRIDGETT Administration Dextrose 50 ml 06/22/19 10:00 D50w (25gm) Syringe IV Q30MIN PRN Hypoglycemia Enoxaparin Sodium 40 mg 06/27/19 22:00 06/30/19 22:29 Enoxaparin SUB-Q 40 mg HS BRIDGETT Administration Famotidine 20 mg 06/11/19 10:00 07/01/19 11:17 Pepcid PO 20 mg DAILY BRIDGETT Administration Folic Acid 1 mg 06/15/19 16:00 07/01/19 11:17 Folvite PO 1 mg QDAY BRIDGETT Administration Hydralazine HCl 10 mg 06/17/19 17:06 06/26/19 20:56 Apresoline IV 10 mg Q4HR PRN Administration Hypertension Insulin Human Lispro 0 unit 06/11/19 07:30 07/01/19 08:26 Humalog SUB-Q Not Given ACHS [facility] Protocol Lisinopril 5 mg 06/22/19 10:00 07/01/19 11:18 Zestril PO 5 mg QDAY BRIDGETT Administration Metolazone 5 mg 06/28/19 06:00 07/01/19 06:55 Zaroxolyn PO 5 mg DAILY@0600 BRIDGETT Administration Multivitamins 1 each 06/15/19 16:00 07/01/19 11:17 Theragran Tab PO 1 each QDAY BRIDGETT Administration Thiamine HCl 100 mg 06/15/19 16:00 07/01/19 11:17 Vitamin B-1 PO 100 mg QDAY BRIDGETT Administration
--- NOTE | 2019-07-01 14:30 | Progress Note ---
Hospitalist Physical - Constitutional Vitals: Temp Pulse Resp BP Pulse Ox 97.7 F 48 L 18 135/84 90 07/01/19 12:15 07/01/19 12:15 07/01/19 12:15 07/01/19 12:15 07/01/19 12:15 General appearance: Present: no acute distress Results - Labs CBC & Chem 7: 06/19/19 04:28 07/01/19 07:13 Labs: Laboratory Last Values WBC 8.2 K/mm3 (4.5-11.0) 06/19/19 04:28 RBC 4.39 M/mm3 (3.65-5.03) 06/19/19 04:28 Hgb 11.0 gm/dl (11.8-15.2) L 06/19/19 04:28 Hct 33.6 % (35.5-45.6) L 06/19/19 04:28 MCV 77 fl (84-94) L 06/19/19 04:28 MCH 25 pg (28-32) L 06/19/19 04:28 MCHC 33 % (32-34) 06/19/19 04:28 RDW 15.9 % (13.2-15.2) H 06/19/19 04:28 Plt Count 221 K/mm3 (140-440) 06/19/19 04:28 Lymph % (Auto) 17.8 % (13.4-35.0) 06/10/19 13:24 Reagan % (Auto) 7.0 % (0.0-7.3) 06/10/19 13:24 Eos % (Auto) 0.0 % (0.0-4.3) 06/10/19 13:24 Baso % (Auto) 0.9 % (0.0-1.8) 06/10/19 13:24 Lymph # 1.1 K/mm3 (1.2-5.4) L 06/10/19 13:24 Reagan # 0.4 K/mm3 (0.0-0.8) 06/10/19 13:24 Eos # 0.0 K/mm3 (0.0-0.4) 06/10/19 13:24 Baso # 0.1 K/mm3 (0.0-0.1) 06/10/19 13:24 Seg Neutrophils % 74.3 % (40.0-70.0) H 06/10/19 13:24 Seg Neutrophils # 4.7 K/mm3 (1.8-7.7) 06/10/19 13:24 PT 14.7 Sec. (12.2-14.9) 06/11/19 16:28 INR 1.16 (0.87-1.13) H 06/11/19 16:28 APTT 32.9 Sec. (24.2-36.6) 06/10/19 13:24 Sodium 142 mmol/L (137-145) 07/01/19 07:13 Potassium 4.6 mmol/L (3.6-5.0) 07/01/19 07:13 Chloride 101.7 mmol/L (98-107) 07/01/19 07:13 Carbon Dioxide 27 mmol/L (22-30) 07/01/19 07:13 Anion Gap 18 mmol/L 07/01/19 07:13 BUN 38 mg/dL (9-20) H 07/01/19 07:13 Creatinine 1.4 mg/dL (0.8-1.5) 07/01/19 07:13 Estimated GFR > 60 ml/min 07/01/19 07:13 BUN/Creatinine Ratio 27 % 07/01/19 07:13 Glucose 90 mg/dL (75-100) 07/01/19 07:13 POC Glucose 142 (70-105) H 07/01/19 12:21 Hemoglobin A1c 6.6 % (4-6) H 06/13/19 04:00 Lactic Acid 1.20 mmol/L (0.7-2.0) 06/10/19 13:24 Calcium 8.2 mg/dL (8.4-10.2) L 07/01/19 07:13 Magnesium 2.20 mg/dL (1.7-2.3) 06/24/19 05:22 Total Bilirubin 0.70 mg/dL (0.1-1.2) 06/10/19 13:24 AST 76 units/L (5-40) H 06/10/19 13:24 ALT 21 units/L (7-56) 06/10/19 13:24 Alkaline Phosphatase 70 units/L (35-129) 06/10/19 13:24 Total Creatine Kinase 2514 units/L (55-170) H 06/10/19 13:24 Troponin T 0.086 ng/mL (0.00-0.029) H 06/10/19 18:40 NT-Pro-B Natriuret Pep 64575 pg/mL (0-900) H 06/10/19 13:24 Serum Total Protein 6.5 g/dL (6.1-8.1) 06/26/19 18:52 Total Protein 6.1 g/dL (6.3-8.2) L 06/10/19 13:24 Albumin 2.7 g/dL (3.8-4.8) L 06/26/19 18:52 Albumin/Globulin Ratio 0.9 % 06/10/19 13:24 Qwrqy-9-Hepbxabis 0.5 g/dL (0.2-0.3) H 06/26/19 18:52 Xygbm-5-Tuhhkeczw 0.9 g/dL (0.5-0.9) 06/26/19 18:52 Beta Globulins 0.3 g/dL (0.2-0.5) 06/26/19 18:52 Gamma Globulins 1.7 g/dL (0.8-1.7) 06/26/19 18:52 Abnorm Protein Band 1 1.3 g/dL H 06/26/19 18:52 PEP Interpretation see below H 06/26/19 18:52 Triglycerides 61 mg/dL (2-149) 06/10/19 13:24 Cholesterol 92 mg/dL (50-199) 06/10/19 13:24 LDL Cholesterol Direct 33 mg/dL (50-130) L 06/10/19 13:24 HDL Cholesterol 54 mg/dL (40-59) 06/10/19 13:24 Cholesterol/HDL Ratio 1.70 % 06/10/19 13:24 Urine Color Iqra (Yellow) 06/10/19 22:50 Urine Turbidity Clear (Clear) 06/10/19 22:50 Urine pH 5.0 (5.0-7.0) 06/10/19 22:50 Ur Specific [place] 1.019 (1.003-1.030) 06/10/19 22:50 Urine Protein >500 mg/dL (Negative) 06/10/19 22:50 Urine Glucose (UA) Neg mg/dL (Negative) 06/10/19 22:50 Urine Ketones Neg mg/dL (Negative) 06/10/19 22:50 Urine Blood Lg (Negative) 06/10/19 22:50 Urine Nitrite Neg (Negative) 06/10/19 22:50 Urine Bilirubin Neg (Negative) 06/10/19 22:50 Urine Urobilinogen < 2.0 mg/dL (<2.0) 06/10/19 22:50 Ur Leukocyte Esterase Tr (Negative) 06/10/19 22:50 Urine WBC (Auto) 16.0 /HPF (0.0-6.0) H 06/10/19 22:50 Urine RBC (Auto) 7.0 /HPF (0.0-6.0) 06/10/19 22:50 U Epithel Cells (Auto) < 1.0 /HPF (0-13.0) 06/10/19 22:50 Urine Bacteria (Auto) 1+ /HPF (Negative) 06/10/19 22:50 Ur Yeast w Hyphae 1+ /HPF 06/10/19 22:50 Urine Yeast (Budding) Few /HPF 06/10/19 22:50 Urine Opiates Screen Presumptive negative 06/10/19 22:50 Urine Methadone Screen Presumptive negative 06/10/19 22:50 Ur Barbiturates Screen Presumptive negative 06/10/19 22:50 Ur Phencyclidine Scrn Presumptive negative 06/10/19 22:50 Ur Amphetamines Screen Presumptive negative 06/10/19 22:50 U Benzodiazepines Scrn Presumptive negative 06/10/19 22:50 Urine Cocaine Screen Presumptive positive 06/10/19 22:50 U Marijuana (THC) Screen Presumptive negative 06/10/19 22:50 Drugs of Abuse Note Disclamer 06/10/19 22:50 Immunofix Electrophor see below H 06/26/19 18:52 Active Medications - Current Medications Current Medications: Generic Name Dose Route Start Last Admin Trade Name Freq PRN Reason Stop Dose Admin Acetaminophen/Hydrocodone Bitart 1 each 06/16/19 03:12 06/26/19 22:27 [place] 5/325 PO 1 each Q4H PRN Administration Pain, Moderate (4-6) Aspirin 81 mg 06/11/19 10:00 07/01/19 11:17 Baby Aspirin PO 81 mg QDAY BRIDGETT Administration Bumetanide 2 mg 07/01/19 18:00 Bumex PO 0600,1800 BRIDGETT Carvedilol 6.25 mg 06/30/19 22:00 07/01/19 11:18 Coreg PO 6.25 mg BID BRIDGETT Administration Dextrose 50 ml 06/22/19 10:00 D50w (25gm) Syringe IV Q30MIN PRN Hypoglycemia Enoxaparin Sodium 40 mg 06/27/19 22:00 06/30/19 22:29 Enoxaparin SUB-Q 40 mg HS BRIDGETT Administration Famotidine 20 mg 06/11/19 10:00 07/01/19 11:17 Pepcid PO 20 mg DAILY BRIDGETT Administration Folic Acid 1 mg 06/15/19 16:00 07/01/19 11:17 Folvite PO 1 mg QDAY BRIDGETT Administration Hydralazine HCl 10 mg 06/17/19 17:06 06/26/19 20:56 Apresoline IV 10 mg Q4HR PRN Administration Hypertension Insulin Human Lispro 0 unit 06/11/19 07:30 07/01/19 12:30 Humalog SUB-Q Not Given ACHS [facility] Protocol Lisinopril 5 mg 06/22/19 10:00 07/01/19 11:18 Zestril PO 5 mg QDAY [facility] Administration Metolazone 5 mg 06/28/19 06:00 07/01/19 06:55 Zaroxolyn PO 5 mg DAILY@0600 [facility] Administration Multivitamins 1 each 06/15/19 16:00 07/01/19 11:17 Theragran Tab PO 1 each QDAY [facility] Administration Thiamine HCl 100 mg 06/15/19 16:00 07/01/19 11:17 Vitamin B-1 PO 100 mg QDAY BRIDGETT Administration Nutrition/Malnutrition Assess - Dietary Evaluation Nutrition/Malnutrition Findings: Nutrition Notes Start: 06/17/19 14:43 Freq: Status: Active Protocol: Document 06/21/19 16:04 OH (Rec: 06/21/19 16:07 OH [id number]) Nutrition Notes Initial or Follow up Brief Note Current Diet Consistent CHO Labs/Tests Reviewed Pertinent Medications Reviewed Height 5 ft 5 in Weight 93.1 kg [place] Body Weight (kg) 61.81 BMI 34.1 Subjective/Other Information Pt. in room w/lunch tray at bedside. Pt. reports he has a great appetite and is requesting additional food. He states no issues w/chewing/ swallowing. He is getting Danny bid and taking as prescribed. Percent of energy/protein needs met: 100/100% GI Symptoms None Current % PO Good (75-100%) Minimum of two criteria No Is patient on ventilator? No Is Patient Ambulatory and/or Out of Bed No REE-([facility]-confined to bed) 95 Calculation Used for Recommendations [facility] Additional Notes PRO: 96-116g/ day (1.25-1.5g/ kg AdBW 77.36kg) Fluid restriction of 1500ml Nutrition Intervention Change Diet Order: continue current diet Add Supplement/Snack (indicate name/kcal Danny BID /protein ) Provides kCal: 190 Provides Protein (gm) 5 Teaching Recipient Patient Teaching Methods Discussion Response to Teaching Verbalize understanding Education Handouts Provided Spoke w/pt regarding diabetes and ESRD. Pt. verbalized he was managing his diabetes adequately and he is aware of the relationship. Revisit per MD consult or patient Sign Off request:
[2019-07-01 15:56] VITALS: BP 108/75
--- NOTE | 2019-07-01 17:25 | Discharge Summary ---
Providers - Providers Date of Admission: 06/10/19 16:07 Attending physician: TJ BRITO MD 06/11/19 03:18 Consult to Physician [CONS] Routine Comment: called ans. serv. / edith Consulting Provider: JOSÉ ANTONIO LIMA Physician Instructions: Reason For Exam: CHF exac 06/11/19 08:52 Physical Therapy Evaluation and Treat [CONS] Routine Comment: Reason For Exam: Weakness 06/12/19 18:03 Consult to Wound/ET Nurse [CONS] Routine Reason For Exam: wound eval 06/14/19 10:28 Occupational Therapy Evaluate and Treat [CONS] Routine Comment: Reason For Exam: generalized weakness 06/16/19 11:51 Consult to Physician [CONS] Routine Comment: Consulting Provider: JIM MCCARTY Physician Instructions: Reason For Exam: Evaluate vascular status of BLE 06/20/19 11:44 Consult to Case Management [CONS] Routine Services Needed at Discharge: Other Notified:: case management Comment:: arrange followup with SHERIF in 2 weeks and wound care Additional Physician Instructions: arrange followup with SHERIF in 2 weeks and wound care 06/25/19 17:23 Consult to Physician [CONS] Routine Comment: Consulting Provider: MARISOL CONNOLLY Physician Instructions: Reason For Exam: ARF after treat with diuretics for CHF Primary care physician: MANGLE PRESS CATCHER Hospitalization Reason for admission: chf Condition: Stable Hospital course: Patient is a 68 yo AA man with a past medical history of HFrEF, BPH, CMP, HTN, NIDDM, HLP, RBBB, dementia and noncompliance who presented to [facility] ED with AMS. Apparently the fire department found pt lying on the floor in his own feces at his home. He c/o SOB and scrotal edema. UDS on admission was positive for Cocaine. Pt does not appear to be a good candidate for LifeVest or AICD at this time given history of noncompliance and cocaine use per Cardiology * pCXR IMPRESSION: 1. Persistent prominent bronchovascular markings as compared to previous exam. * Scrotal Ultrasound IMPRESSION: 1. Nonspecific marked scrotal wall edema and moderate size bilateral hydroceles. 2. Bilateral benign testicular microlithiasis. 3. No signs of orchitis or epididymitis. 4. No mass. 5. No signs of testicular torsion. * TITA Right TITA: .56. Left TITA: .35. IMPRESSION: 1. Based upon waveforms there is evidence of disease in the distal superficial femoral artery and in the runoff vessels on the right. On the left base waveforms distal superficial femoral artery popliteal and runoff vessels. * CT head without contrast IMPRESSION: 1. No evidence of acute infarct or hemorrhage. 2. A late subacute (after 72 hours) left parietal lobe nonhemorrhagic infarct is new since 07/13/2018. 3. Moderate chronic white matter microangiopathy. 4. Mild chronic cortical atrophy. * TTE 06/14/19 Conclusions: Est EF 10-15%, abnormal LV diastolic filling c/w impaired relaxation, RVSF moderately reduced, RVSP calculated at 41 mmHg, trace MR, moderate TR, trace NH, trivial pericardial effusion, large pleural effusion. * Echo done 06/2018 showed EF 35-40%, mild LVH. * Lexiscan MPI stress test done 12/2018 showed small mild reversible inferior defect, EF 22%. Medical management was recommended. * Nephrology evaluated the patient and recommended, Bumex and Zaroxlyn, * He was treated on and off with Dobutamine gtt and did well, his physical activity did improve with ambulation over 5O feet * He is agreeable to discharge home and follow with home health in addition to cardiology and Nephrology and also Vascular. Acute on chronic systolic HF with EF now 10-15% now: treat with diuresis +added Zaroxlyn, now on hold due to worsening renal function, Nephrology consulted, Cont 1500mL fluid restriction, daily weights and strict I&Os. Acute toxic metabolic encephalopathy, poa with Cocaine in UDS: counseling done Hypertensive urgency-Add hydralazine Bradycardia- Management per cardiology, PVC on Tele, - Asymptomatic Scrotal edema related to heart failure- ultrasound negative for acute findings, - cont scrotal elevation Hypokalemia -resolved-will monitor level PAD: Vascular surgeon consulted, input noted, outpatient follow up HX OF DVT and lower ext wounds, Continue to treat with aspirin. JAGRUTI vasomotor nephrology: stop diuretics, consult Nephrology resolved -probably vasomotor nephropathy, -Lasix dose reduced, -monitor cr level Metabolic acidosis-stable, will monitor Cocaine abuse - Patient counseled on cessation. Patient verbalized understanding of the need to quit Disposition: [id number] HOME UNDER HOME [facility] Time spent for discharge: 35 mins Core Measure Documentation - Palliative Care Palliative Care/ Comfort Measures: Not Applicable - Core Measures Any of the following diagnoses?: heart failure - Heart Failure Discharge Requirements KRISTOPHER/ARB for LVSD if EF <40%: Yes Beta jeanmarie at discharge: Yes Exam - Physical Exam Narrative exam: Gen: WDWN, NAD, Awake, Alert, Orientated x 2 HEENT: NCAT, EOMI, PERRL, OP Clear Neck: supple, no adenopathy, no thyromegaly, no JVD CVS/Heart: RRR, normal S1S2, pulses present bilaterally Chest/Lungs: diminished bs bilateral, Symmetrical chest expansion, good air entry bilaterally GI/Abdomen: soft, NTND, good bowel sounds, no guarding or rebound /Bladder: scrotal edema Extermity/Skin: ble edema improved, no obvious rash, mild excoriations on the knee and lower ext bilateral. MSK: FROM x 4 Neuro: CN 2-12 grossly intact, no new focal deficits Psych: calm - Constitutional Vitals: Temp Pulse Resp BP Pulse Ox 97.3 F L 48 L 18 108/75 96 07/01/19 15:30 07/01/19 15:30 07/01/19 15:30 07/01/19 15:30 07/01/19 15:30 Plan Activity: advance as tolerated Diet: low salt, diabetic Special Instructions: record daily weights, record daily BP diary Care Plan Goals: improved pulmonary and cardiac status Plan of Treatment: compliance with medication and tobacco cessation Health Concerns: complications of heart failure. Follow up with: CRUZ HERRON MD [Staff Physician] - 7 Days (Follow up in our [place] office with Dr. YOSELIN Herron on 07/08/2019 @ 10:00AM. ) PRIMARY CAREMD [Primary Care Provider] - 7 Days SATHISH LE MD [Staff Physician] - 14 Days DAVID CRESPO MD [Staff Physician] - 7 Days Prescriptions: Bumetanide [Bumex 1 mg tab] 2 mg PO BID #60 tab Folic Acid [Folvite] 1 mg PO QDAY #30 tablet Multivitamin Tab [Multiple Vitamin TAB (Theragran)] 1 each PO QDAY #30 tablet Thiamine [Vitamin B-1] 100 mg PO QDAY #30 tablet metOLazone [Zaroxolyn] 5 mg PO DAILY@0600 #30 tablet Lisinopril [Zestril TAB] 5 mg PO QDAY #30 tablet
[2019-07-01] MEDS ORDERED: BUMETANIDE 1 MG TAB PO SCH (18:00)
== END 2019-07-01 17:40 | disposition home health service (06) | DRG 280 ==
LOC: ED 11:55 → 2B-ACE 16:07 → 4A 06-16 12:04
PROVIDERS: ADMIT Internal Medicine; ATTEND Internal Medicine
DX: I11.0 Hypertensive heart disease with heart failure (principal); I21.A1 Myocardial infarction type 2; E43 Unspecified severe protein-calorie malnutrition; N17.0 Acute kidney failure with tubular necrosis; G92 Toxic encephalopathy; E87.0 Hyperosmolality and hypernatremia; J90 Pleural effusion, not elsewhere classified; I50.43 Acute on chronic combined systolic (congestive) and diastolic (congestive) heart failure; I42.9 Cardiomyopathy, unspecified; I25.10 Atherosclerotic heart disease of native coronary artery without angina pectoris; I16.0 Hypertensive urgency; N50.89 Other specified disorders of the male genital organs; W18.39XA Other fall on same level, initial encounter; E11.51 Type 2 diabetes mellitus with diabetic peripheral angiopathy without gangrene; I45.10 Unspecified right bundle-branch block; F14.10 Cocaine abuse, uncomplicated; F03.90 Unspecified dementia, unspecified severity, without behavioral disturbance, psychotic disturbance, mood disturbance, and anxiety; E87.6 Hypokalemia; E11.649 Type 2 diabetes mellitus with hypoglycemia without coma; N40.0 Benign prostatic hyperplasia without lower urinary tract symptoms; E78.5 Hyperlipidemia, unspecified; Z86.718 Personal history of other venous thrombosis and embolism; Z82.49 Family history of ischemic heart disease and other diseases of the circulatory system; Z68.32 Body mass index [BMI] 32.0-32.9, adult; Z91.19 Patient's noncompliance with other medical treatment and regimen; Z79.82 Long term (current) use of aspirin; Z79.899 Other long term (current) drug therapy; I25.2 Old myocardial infarction; Z71.51 Drug abuse counseling and surveillance of drug abuser; Y93.89 Activity, other specified; Y92.89 Other specified places as the place of occurrence of the external cause; Y99.8 Other external cause status; Z79.84 Long term (current) use of oral hypoglycemic drugs
CPT/HCPCS: 36415; 70450; 71045; 76770; 80048; 80053; 80061; 80307; 81001; 82140; 82550; 82962; 83036; 83735; 83880; 84165; 84484; 85025; 85027; 85610; 85730; 86334; 87040; 87086; 87116; 93005; 93010; 93306; 93922; 93925; 93975; 96365; G0378; J0360; J1250; J1650; J1815; J1940; J7030